=== PATIENT | female | born 1945 | race Hispanic/Latino ===

== ENCOUNTER 2017-05-28 15:11 | Inpatient (IN) | payer MEDICARE ==
[~2017-05-28 15:11] MED LIST: Heparin 10,000 UNITS/ 10 ML VIAL ONE
[2017-05-28] MEDS ORDERED: ISOVUE-370 76%-LOCM 1 ML ONE (15:44)
[2017-05-28] MEDS ORDERED: Vecuronium 10 MG VIAL ONE (15:50)
[2017-05-28] MEDS ORDERED: Sterile Water 10 ML ONE (15:51)
--- NOTE | 2017-05-28 15:52 | RAD ---
CHEST ONE VIEW: History: Altered mental status. Comparison: 09-21-16 FINDINGS: Lungs are clear. No pneumothorax or effusion. Cardiac silhouette and mediastinal contours are within normal limits. No acute osseous abnormality. IMPRESSION: No acute intrathoracic abnormality. POS: [facility]
[2017-05-28 16:01] LABS: #Eosinphils 0.1 thou/uL (0.0-0.7); #Lymphocytes 2.5 thou/uL (1.20-3.40); #Monocytes 1.3 thou/uL (0.11-0.59); %Basophils 0.2 % (0.0-1.0); %Eosinophils 0.6 % (0.0-10.0); %Lymphocytes 13.7 % (21.0-51.0); %Neutrophils 78.4 % (42.0-75.0); Hemoglobin 11.3 g/dL (12.0-16.0); Mean Corpuscular HGB CONC 30.3 g/dL (32.0-36.0); Mean Corpuscular Hemoglobin 29.4 pg (27.0-31.0); Mean Corpuscular Volume 97.1 fl (81.0-99.0); Mean Platelet Volume 10.2 fL (7.4-10.4); Platelet Count 350 thou/uL (130-400); RBC Distribution Width 13.5 % (11.5-14.5); Red Blood Cell (RBC) Count 3.85 mill/uL (4.20-5.40); White Blood Cell (WBC) Count 17.8 thou/uL (4.8-10.8)
[2017-05-28 16:07] LABS: INR-International Normal Ratio 1.6; PTT 38.5 SEC (22.9-36.1); Prothrombin Time 19.6 SEC (12.0-14.7)
[2017-05-28 16:27] LABS: Actual Bicarbonate (HCO3a) 3.2 mEq/L (22-26); Base Excess (BEa) -30.5 mEq/L (0 (+/-) 2.5); pH, Arterial 6.77 (7.35-7.45)
[2017-05-28 16:28] LABS: Analyzer IN Cardio ER; Calcium, Ionized 1.1 mmol/L (1.12-1.30); Hematocrit-ABG 36.8 % (36.0-47.0); Hemoglobin (Hb) 10.6 g/dL (12.0-16.0); Puncture Site LRA
[2017-05-28 16:28] LABS: ALT (SGPT) 7 U/L (8-55); AST (SGOT) 13 U/L (5-34); Albumin 3.5 g/dL (3.4-4.8); Alkaline Phosphatase 78 U/L (40-150); BUN (Urea Nitrogen) 65 mg/dL (9.8-20.1); Bilirubin, Total 0.3 mg/dL (0.2-1.2); CK (CPK) 107 U/L (29-168); Calc. Creatinine Clearance 0 mL/min (70-130); Calcium 8.7 mg/dL (7.8-10.44); Chloride 94 mmol/L (98-107); Estimated GFR-MDRD 3; Globulin 3.1 g/dL (2.4-3.5); Glucose 133 mg/dL (80-115); Lipase 76 U/L (8-78); Protein, Total 6.6 g/dL (6.0-8.3); Sodium 141 mmol/L (136-145)
[2017-05-28 16:32] LABS: CKMB 3.4 ng/mL (0-6.6); Troponin I 0.029 ng/mL (< 0.028)
[2017-05-28 16:39] LABS: Carbon Dioxide Less than 8 mmol/L (23-31)
--- NOTE | 2017-05-28 16:50 | RAD ---
CHEST 1 VIEW: Date: 05/28/17 HISTORY: Central line placement. COMPARISON: Earlier exam from same date. FINDINGS: Cardiac silhouette is magnified and upper limits of normal in size. Pulmonary vasculature is unremark able. Mediastinum is midline with postoperative changes. Tip of an endotracheal catheter overlies the thoracic inlet. Nasogastric tube descends to the stomach. Tip of a left subclavian central venous ca theter overlies the superior vena cava. No evidence of pneumothorax. IMPRESSION: Lines and tubes as detailed above. No evidence of complication. POS: [facility]
--- NOTE | 2017-05-28 16:59 | CT ---
CT HEAD NONCONTRAST DATE: 05/28/17 HISTORY: Altered mental status. COMPARISON: 07/04/14. FINDINGS: There is no evidence of acute intracranial hemorrhage or infarct. The ventricles appear normal in siz e, shape, and position. Encephalomalacia associated with the right side of the mid brain has progress ed slightly since the previous exam. There is no mass effect or shift of midline structures. IMPRESSION: Chronic-type findings as detailed above. No acute intracranial abnormalities are demonstrated on nonc ontrast CT head. POS: [facility]
[2017-05-28] MEDS ORDERED: Norepinephrine 4 MG/4 ML VIAL ONE ×2 (17:02→17:32)
[2017-05-28] MEDS ORDERED: Sodium Bicarb 50 MEQ/50 ML Abboject 8.4% SYRINGE ONE ×3 (17:19→22:00)
--- NOTE | 2017-05-28 17:19 | PDOC.FPRHP ---
- History of Present Illness Chief Complaint: Slurred Speech and Weakness History of Present Illness: 71 yo female presents with slurred speech and weakness since 1 PM today. She is intubated at the time of this interview and the history is taken from her family members and the EMS staff. Her sister and son state that she was normal yesterday. She had 3 days of n/v/d and abdominal pain. Her sister stated that she was going to take her to her PCP for her symptoms, but then she "went down" at home like she fainted. At that time her sister called EMS and she was brought to the ED. ED Course: 2L NS bolus Levaquin Zosyn Vancomycin Levophed drip Intubated - Allergies/Adverse Reactions Allergies Allergy/AdvReac Type Severity Reaction Status Date / Time No Known Drug Allergies Allergy Verified 07/05/14 02:56 - Home Medications Medication Instructions Recorded Confirmed Type Amlodipine [Norvasc] 10 mg PO DAILY 05/28/17 05/28/17 History Aspirin [Ecotrin Low Strength] 05/28/17 History Atorvastatin Calcium 80 mg PO DAILY 05/28/17 05/28/17 History Gabapentin 300 mg PO 05/28/17 History Gemfibrozil [Lopid] 600 mg PO BIDAC 05/28/17 05/28/17 History Insulin Degludec [Tresiba 60 unit SQ 05/28/17 History Flextouch U-100] Levothyroxine [Synthroid] 150 mcg PO DAILY 05/28/17 05/28/17 History Lisinopril/Hydrochlorothiazide 05/28/17 History [Lisinopril-Hctz 20-25 mg Tab] Metoprolol Succinate [Toprol XL] 05/28/17 History hydrALAZINE HCl 100 mg PO TID 05/28/17 05/28/17 History metFORMIN HCl [Metformin HCl] 1,000 mg PO BID 05/28/17 05/28/17 History - History PMHx: DM2, HTN, CAD, CVA in 2013 with persistent R sided deficits, Hypothyroid, HLD, Hospitalized with Sepsis one year ago. PSHx: CABG 2001, Stent 2009 FHx: Non Contributory Social: Non smoker, No alcohol or drug use - Review of Systems ROS unobtainable: due to endotracheal tube Gastrointestinal: reports: nausea, vomiting, diarrhea, abdominal pain Neurological: reports: weakness - Vital signs BP: [85/44] HR: [72] RR: [12] Tmax: [90.7] Pox: [100]% on [Ventilator] Wt: [ 73 kg] - Physical Exam -Constitutional: Intubated, Sedated. -HEENT: Pupils sluggish light reactive. No withdrawal to pain or noxious stimuli. Neck: trachea midline Heart: RRR, normal S1/S2 Lungs: CTAB, no wheezing -Lungs: Mechanical Ventilation Abdomen: soft, bowel sounds present, no masses/distention -Neurological: Intubated Heme/Lymphatic: no purpura, no petechia FMR H&P: Results - Labs Result Diagrams: 05/28/17 15:56 05/28/17 17:28 Lab results: WBC 17.8 thou/uL (4.8-10.8) H 05/28/17 15:56 Hgb 11.3 g/dL (12.0-16.0) L 05/28/17 15:56 Hct 37.4 % (36.0-47.0) 05/28/17 15:56 MCV 97.1 fl (81.0-99.0) 05/28/17 15:56 Plt Count 350 thou/uL (130-400) 05/28/17 15:56 Neutrophils % 78.4 % (42.0-75.0) H 05/28/17 15:56 ABG pH 6.77 (7.35-7.45) L* 05/28/17 16:00 ABG pCO2 22.0 mmHg (35.0-45.0) L* 05/28/17 16:00 ABG pO2 307.0 mmHg (80.0-100.0) H 05/28/17 16:00 Sodium 141 mmol/L (136-145) 05/28/17 15:52 Potassium 4.0 mmol/L (3.5-5.1) 05/28/17 15:52 Chloride 94 mmol/L (98-107) L 05/28/17 15:52 Carbon Dioxide Less than 8 mmol/L (23-31) L* 05/28/17 15:52 BUN 65 mg/dL (9.8-20.1) H 05/28/17 15:52 Creatinine 11.32 mg/dL (0.6-1.1) H 05/28/17 15:52 Glucose 133 mg/dL (80-115) H 05/28/17 15:52 Lactic Acid 25.9 mmol/L (0.5-2.2) H* 05/28/17 15:56 Calcium 8.7 mg/dL (7.8-10.44) 05/28/17 15:52 Total Bilirubin 0.3 mg/dL (0.2-1.2) 05/28/17 15:52 AST 13 U/L (5-34) 05/28/17 15:52 ALT 7 U/L (8-55) L 05/28/17 15:52 Alkaline Phosphatase 78 U/L (40-150) 05/28/17 15:52 Creatine Kinase 107 U/L (29-168) 05/28/17 15:52 CK-MB (CK-2) 3.4 ng/mL (0-6.6) 05/28/17 15:56 B-Natriuretic Peptide 344.1 pg/mL (0-100) H 05/28/17 15:51 Serum Total Protein 6.6 g/dL (6.0-8.3) 05/28/17 15:52 Albumin 3.5 g/dL (3.4-4.8) 05/28/17 15:52 Lipase 76 U/L (8-78) 05/28/17 15:52 FMR H&P: A/P - Problem List (1) Septic shock Current Visit: Yes Status: Acute Code(s): A41.9 - SEPSIS, UNSPECIFIED ORGANISM; R65.21 - SEVERE SEPSIS WITH SEPTIC SHOCK (2) Acute respiratory failure with hypoxia Current Visit: Yes Status: Acute Code(s): J96.01 - ACUTE RESPIRATORY FAILURE WITH HYPOXIA (3) Acute renal failure Current Visit: Yes Status: Acute (4) Lactic acidosis Current Visit: Yes Status: Acute Code(s): E87.2 - ACIDOSIS (5) DM2 (diabetes mellitus, type 2) Current Visit: Yes Status: Acute (6) Hypothyroid Current Visit: Yes Status: Acute Code(s): E03.9 - HYPOTHYROIDISM, UNSPECIFIED (7) History of cerebrovascular accident (CVA) with residual deficit Current Visit: Yes Status: Acute Code(s): I69.30 - UNSPECIFIED SEQUELAE OF CEREBRAL INFARCTION (8) HLD (hyperlipidemia) Current Visit: Yes Status: Acute Code(s): E78.5 - HYPERLIPIDEMIA, UNSPECIFIED (9) HTN (hypertension) Current Visit: Yes Status: Acute Code(s): I10 - ESSENTIAL (PRIMARY) HYPERTENSION (10) CAD (coronary artery disease) Current Visit: Yes Status: Acute Code(s): I25.10 - ATHSCL HEART DISEASE OF [place] CORONARY ARTERY W/O ANG PCTRS - Plan 1. Septic Shock - Currently intubated and on Levophed drip for pressure support - Vancomycin 05/28, Zosyn 05/28, Levaquin 05/28 - s/p 2L NS bolus - IVF - Blood, Urine cultures pending - Pulmonology consulted, appreciate recs 2. Acute Hypoxic Respiratory - Currently intubated and on mechanical ventilation 3. Acute Renal Failure - Nephrology consulted, appreciate recs - Cr 11.32 on admission 4. Lactic Acidosis - Currently 25.9 - Repeat ABGs - IVF 5. DM2 - Accuchecks 6. Hypothyroidism - Hold home meds 7. HTN - Hold home meds 8. HLD - Hold home meds 9. Hx CVA with left hemiparesis residual - CT head negative - MRI pending 10. CAD - CABG 2001 - Stent 2009 - Elevated troponins will trend CODE STATUS: FULL CODE Disposition: Poor. Family has been counseled. Will admit to ICU and continue aggressive treatment. FMR H&P: Upper Level - Pertinent history 71yo HF with PMHx of CVA w/ LT sided residual symptoms (2013), CAD s/p CABG ( 2001), CKD3, T2DM and HTN who was found down by sister around 2pm. She was last seen normal around 5pm last night by brother. Sister reports that today a little after 1pm she talked with her on the phone and had slurred speech at that time. Reportedly called her PCPs office to make an appt that afternoon due to symptoms and told her to go to the ED. Sister found her passed out on the bed. She attempted to get out of bed and was not able to do. Family also reports that for the past 3d she complained of abd cramping, diarrhea and vomiting. Denies any chest pain, shortness of breath, fever, chills. Arrived via EMS and was apparently awake and talking, but decompensated quickly and intubated at that time. Of note, sister reports she was hospitalized in [place] about 1yr ago. States she had a blood infection and was in the CCU at that time. In the ED given: Vancomycin, Zoysn, Levaquin, 2L NS bolus, amp bicarb, vecuronium, fentanyl, etomidate. - Pertinent findings T 90.7 RR 20 HR 78 BP 74/41 100% on vent Gen: intubated & sedated HEENT: pupils equal round and reactive-sluggish Heart: S1 S2, RRR Lungs: CTAB Abd: soft, nt/nd/bs+ Ext: LT subclavian, RT femoral WBC 17.8 Lactate 25.9 HCO3 <8 BUN 65, Cr 11.32 6.77/22/307/3.2 CXR: no acute process CT Brain: chronic changes, encephalomalacia associated with RT sided of mid- brain that has slightly progressed - Plan Date/Time: 05/28/17 1716 1. Septic Shock: Patient was last seen normal around 5pm last night. Family reports she has had about 3d hx of vomiting, diarrhea and decreased appetite. Sister talked with her on the phone this afternoon around 1pm and had slurred/ garbled speech at that time. Presented to her house and found her down on the bed. She was awake and tried to help her get out of bed but was not successful. Called PCP at that time and instructed to present to ED immediately and thus EMS called. Unclear of etiology at this point. No identified source of infections. Possible CVA. CXR negative. CT Brain showed chronic changes and RT sided mid brain encephalomalacia that has slightly progressed. UA pending. Urine and bl cxs pending. Obtain MRI. Start ASA. Cont broad spectrum abx. Cont levophed to maintain MAP >65mmHg. Dr. Sen of Pulmonology consulted. Appreciate recs. 2. Acute Respiratory Failure: currently intubated on ventilator. Obtain ABG at 20:00. Cont ABG qAM. Pulm consulted. Appreciate recs. 3. Acute Renal Failure: Patient with CKD III at baseline. Dr. Harrison of Nephrology consulted. Appreciate recs. 4. Severe Metabolic Acidosis: Given amp of bicarb in ED. Dr. Harrison of Nephrology consulted and appreciate recs. Likely need to start on bicarb drip. 5. IDDM: A1c of 8.6% on 02/2017. Hold home metformin and insulin. 6. HTN: currently hypotensive. Hold home meds. 7. HLD: hold home meds 8. hx of CVA w/ LT sided residual deficits: CT neg. MRI pending. 9. CAD s/p CABG and stents: cont ASA 10. PPx: heparin, protonix 11. Diet: NPO 12. Code Status: Full I, Sarah Falcon, have evaluated this patient and agree with findings/ plan as outlined by communications intern resident. Pertinent changes/additions are listed here. Attending Addendum - Attending Addendum Date/Time: 05/28/171913 I personally evaluated the patient and discussed the management with Drs. Bustillos and Aneudy Falcon I agree with the History, Examination, Assessment and Plan documented above with any addition or exceptions noted below.
[2017-05-28] MEDS ORDERED: Sodium Bicarbonate 150 MEQ in Dextrose 5% in Water 1,000 ML IV SCH ×2 (17:30)
[2017-05-28] MEDS ORDERED: Norepinephrine 8 MG/250 ML BAG IVPB PRN (17:31)
--- NOTE | 2017-05-28 17:41 | PDOC.EVN ---
Event Note - Event Note Event Note: 71 yo female with PMHX diabetes and CAD(s/p CABG and PTCA), admitted in [place] 2017 with sepsis hospitalized x one week unknown source, s/p CVA 2013 right sided deficit, patient last seen normal 5pm yesterday by son, spoke with sister via telephone today at 1 pm garbled speech patient found at 2 pm by sister unable to ambulate and lying on bed semi-responsive. Patient via EMS to ER critically ill with septic shock with renal failure,acidosis Lab; Creatine 11.32 , PH 6.77 Lactate 25. Prognosis guarded/grave family made aware patient intubated non-responsive. CT head negative sepsis w/u initiated and Vancomycin , zosyn and levaquin administered on pressors (NE) and will be admitted to ICU Renal and Pulmonology consulted
[2017-05-28 17:42] LABS: Bilirubin Negative (Negative); Blood, Urine Moderate (Negative); Glucose, Urine (Dipstick) Negative (Negative); Leukocyte Moderate (Negative); Nitrite Positive (Negative); Protein, Urine (Dipstick) > or equal to 300 mg/dL (Neg-Trace); Urobilinogen 0.2 mg/dL (0.2-1.0); pH, Urine 7.5 (5.0-9.0)
[2017-05-28 17:44] LABS: Clarity Opaque (Clear)
[2017-05-28] MEDS ORDERED: Piperacillin/Tazobactam 4.5 GM in Sodium Chloride 0.9% 100 ML IVPB SCH (17:45)
[2017-05-28 17:51] LABS: Bacteria/HPF 3+ HPF (None Seen); Hyaline Casts/LPF NONE SEEN LPF (0-3 Hyaline)
[2017-05-28] MEDS ORDERED: Ondansetron HCl/PF 4 MG/2 ML Vial IVP PRN (18:12)
[2017-05-28] MEDS ORDERED: Insulin Regular 300 UNITS/3 ML VIAL SC PRN (18:12)
[2017-05-28] MEDS ORDERED: Sedation Protocol FS SCH (18:12)
[2017-05-28] MEDS ORDERED: Ventilator Sedation Protocol 1 EACH FS SCH (18:12)
[2017-05-28] MEDS ORDERED: Sodium Chloride 0.9% 1,000 ML IV SCH ×2 (18:12→23:15)
[2017-05-28] MEDS ORDERED: CCU Electrolyte Replacement 1 EACH IVPB SCH (18:12)
[2017-05-28] MEDS ORDERED: Lacri-Lube Opth Oint 3.5 GM TUBE EA EYE PRN (18:12)
[2017-05-28 18:14] LABS: BUN (Urea Nitrogen) 64 mg/dL (9.8-20.1); Calc. Creatinine Clearance 0 mL/min (70-130); Calcium 8.6 mg/dL (7.8-10.44); Chloride 95 mmol/L (98-107); Estimated GFR-MDRD 3; Glucose 125 mg/dL (80-115); Potassium 4.1 mmol/L (3.5-5.1); Sodium 141 mmol/L (136-145)
[2017-05-28 18:17] LABS: Carbon Dioxide Less than 8 mmol/L (23-31)
[2017-05-28] MEDS ORDERED: Potassium Phosphate 9 MMOL in Sodium Chloride 0.9% 100 ML IVPB PRN (18:17)
[2017-05-28] MEDS ORDERED: Magnesium Oxide 400 MG TAB PO PRN ×2 (18:17)
[2017-05-28] MEDS ORDERED: Potassium Phosphate 12 MMOL in Sodium Chloride 0.9% 250 ML 250 ML IV PRN (18:17)
[2017-05-28] MEDS ORDERED: CCU ELECTROLYTE REPLACEMENT PROTOCOL FS PRN (18:17)
[2017-05-28] MEDS ORDERED: Potassium Phosphate 15 MMOL in Sodium Chloride 0.9% 250 ML 250 ML IV PRN (18:17)
[2017-05-28] MEDS ORDERED: Magnesium 2 GM/NS 0.9% 100 ML 2 GM in Premix Bag 1 BAG IVPB PRN (18:17)
[2017-05-28] MEDS ORDERED: Potassium Chloride 40 MEQ in Premix Bag 1 BAG IVPB PRN (18:17)
[2017-05-28] MEDS ORDERED: Potassium Chloride 20 MEQ TAB PO PRN (18:17)
[2017-05-28] MEDS ORDERED: Potassium Chloride 40 MEQ in Sodium Chloride 0.9% 250 ML 250 ML IVPB PRN (18:17)
[2017-05-28] MEDS ORDERED: Morphine 2 MG/ML SYRINGE SLOW IVP PRN (18:18)
[2017-05-28] MEDS ORDERED: DISCONTINUE PREVIOUS NARCOTIC PAIN MEDICATIONS AND BENZODIAZEPINES FS SCH (18:18)
[2017-05-28] MEDS ORDERED: Propofol 1,000 MG/100 ML VIAL IV PRN (18:18)
--- NOTE | 2017-05-28 18:38 | CON ---
DATE OF CONSULTATION: 05/28/2017 REASON FOR CONSULTATION: Acidosis and elevated creatinine. HISTORY OF PRESENT ILLNESS: A 71-year-old female who is currently intubated and history was given by the patient who presented to the hospital with a 1 week history of nausea, vomiting, diarrhea, and n ot feeling good. The patient was hypotensive and septic shock and had bicarbonate of less than 3 and creatinine of 11. Her baseline creatinine was 1. The patient can give no further history. The pat ient was resuscitated with IV fluids and her blood pressure. The patient had a lactic acid level of 25.9. PAST MEDICAL HISTORY: Significant for hypertension, diabetes mellitus, anemia, CVA, hypothyroidism, sepsis, CABG, stent placement. SOCIAL HISTORY: No alcohol. FAMILY HISTORY: Negative for ESRD. REVIEW OF SYSTEMS: Unobtainable. HOME MEDICATIONS: List reviewed. The patient was on some sort of steroids in the past. PHYSICAL EXAMINATION: GENERAL: Patient is resting. VITAL SIGNS: Afebrile, pulse 70, breathing 16, blood pressure 85/44. GENERAL APPEARANCE AND MENTAL STATUS: Fair. HEAD/NECK: Normocephalic. Atraumatic. EYES: EOMI. No deformity. EARS: Clear. No ulcers. NOSE: Intact. No lesions. MOUTH: Clear. No discharge. THROAT: Clear. No exudate. LUNGS: Clear. No crackles. CARDIAC: S1, S2. No rub. ABDOMEN: Benign. BS+. GENITALIA/RECTUM: Monroe present. BACK/EXTREMITIES: Edema 0+ Ulcer- NEUROLOGIC: The patient is resting. SKIN: Rash- Bruise- LYMPHATICS: Edema- Ulcer- LABORATORY DATA: Bicarbonate 3, creatinine 11. ASSESSMENT AND RECOMMENDATIONS: 1. Acute kidney injury with chronic kidney disease with severe lactic acidosis. We will plan urgent hemodialysis. Risks versus benefits were discussed and the family agreed. 2. Metabolic acidosis, plan dialysis, metformin-induced lactic acidosis versus lactic acidosis becau se of other causes. I would recommend CT of the abdomen and pelvis and surgical consultation. 3. Anemia, stable medically. 4. Hypotension, sepsis. Management per primary team. Overall, prognosis is extremely poor. This was discussed with the family.
[2017-05-28 20:41] LABS: CKMB 4.2 ng/mL (0-6.6); Troponin I 0.073 ng/mL (< 0.028)
[2017-05-28 20:46] LABS: HBSAB Concentration 0.25 mIU/mL; HBSAg Index 0.16 S/CO (0-0.99); Hep B Core Total Ab Non-Reactive (NonReactive); Hep B Core Total Index 0.07 S/CO (0-0.79); Hep B Surf AB Non-Reactive (NonReactive); Hep B Surf Ag Non-Reactive S/CO (NonReactive); Hep C IgG Ab Non-Reactive (NonReactive); Hep C Index 0.15 S/CO (0-0.79)
--- NOTE | 2017-05-28 20:55 | CT ---
CT ABDOMEN AND PELVIS WITH IV CONTRAST: Technique: Multiple axial tomograms were obtained through the abdomen and pelvis with IV enhancement. Indications: Mental status change. Abdominal pain. Assess for ischemic bowel. FINDINGS: Lung base is clear. There is a 1.4 cm cyst in the mid right liver. The gallbladder is mildly distende d. Gallstones may not be apparent by CT. There is some subtle density dependently in the gallbladder which could represent tiny stones or gravel. Recommend correlation with gallbladder ultrasound. Mild prominence of intra and extrahepatic biliary ducts. Pancreas unremarkable. The spleen is small. An NG tube is place. The stomach is mildly distended. Small bowel loops appear normal caliber. No evidence of small bowel wall thickening. No evidence of i schemic small bowel. Evaluation of the colon reveals nondistention of the entire colon. This makes evaluation of the colon wall suboptimal. I cannot exclude mural thickening in the right colon. There appears to be some mild mural edema within the right colon, even considering the nondistended state of the right colon. Ther e could possibly be some mild mural thickening at the ileocecal junction as well. Scattered diverticu la involving the entire colon with several diverticula seen in the right colon. Images through the pelvis show a Monroe catheter in place in the contracted urinary bladder. Patient a ppears to be post hysterectomy. Aorta shows calcification but normal caliber. The superior mesenteric artery shows calcification at its origin but the superior mesenteric artery trunk is well opacified with no evidence of focal occlusion or stenosis. IMPRESSION: 1. The entire colon is nondistended and poorly evaluated. There is suggestion of mural thickening inv olving the right colon and at the ileocecal junction. This could represent colitis or ischemic change . There are scattered diverticula seen throughout the colon without definite CT evidence of diverticu litis. 2. Gallbladder is mildly distended and there is a density in the neck of the gallbladder which could potentially represent tiny stones or gravel. There is mild prominence of intra and extrahepatic bilia ry ducts. Suggest correlation with gallbladder ultrasound to further evaluate for gallstones. 3. Small hepatic cyst. 4. Very small spleen. POS: [facility]
[2017-05-28] MEDS ORDERED: Vancomycin HCl 1 GM in Sodium Chloride 0.9% 250 ML 250 ML IVPB SCH (21:00)
[2017-05-28 21:02] LABS: Vancomycin, Trough Less than 1.1 ug/mL
[2017-05-28 21:06] LABS: Actual Bicarbonate (HCO3a) 4.2 mEq/L (22-26); CO2 Tension 21.4 mmHg (35.0-45.0); Hematocrit-ABG 32.7 % (36.0-47.0); Hemoglobin (Hb) 9.7 g/dL (12.0-16.0); O2 Tension (PaO2) 138.8 mmHg (80.0-100.0); pH, Arterial 6.91 (7.35-7.45)
[2017-05-28 21:07] LABS: Calcium, Ionized 0.9 mmol/L (1.12-1.30); Puncture Site LBR
[2017-05-28] MEDS ORDERED: Vasopressin 40 UNIT, Admixture Fee 1 EACH in Sodium Chloride 0.9% 100 ML IV PRN (21:20)
[2017-05-28] MEDS ORDERED: Sodium Bicarb 50 MEQ/50 ML Abboject 8.4% SYRINGE IVP SCH (21:30)
[2017-05-28] MEDS ORDERED: Albumin 25% 25 GM/100 ML BOT IVPB SCH (21:30)
[2017-05-28] MEDS: Heparin 5,000 UNITS/ML VIAL SC SCH (21:37)
[2017-05-28] MEDS ORDERED: VANCOMYCIN/ ZOSYN IVPB PRN (21:55)
[2017-05-28] MEDS ORDERED: Vancomycin HCl 750 MG in Sodium Chloride 0.9% 250 ML 250 ML IVPB PRN (21:59)
[2017-05-28] MEDS ORDERED: Vancomycin HCl 1 GM in Premix Bag 1 BAG IVPB PRN (21:59)
[2017-05-28] MEDS ORDERED: Vancomycin HCl 1.25 GM in Sodium Chloride 0.9% 250 ML 250 ML IVPB PRN (21:59)
[2017-05-28] MEDS ORDERED: Calcium Chloride 1 GM/10 ML Abboject SYRINGE ONE (22:00)
[2017-05-28] MEDS ORDERED: Morphine 4 MG/ML VIAL SLOW IVP PRN (22:00)
[2017-05-28] MEDS ORDERED: Vancomycin HCl 500 MG in Sodium Chloride 0.9% 100 ML IVPB PRN (22:00)
[2017-05-28] MEDS ORDERED: EPINEPHrine 1 MG/10 ML Abboject SYRINGE ONE (22:00)
[2017-05-28] MEDS ORDERED: HOLD VANCOMYCIN FOR LEVEL >20 FS SCH (22:00)
[2017-05-28] MEDS ORDERED: Magnesium 5 GM/10 ML Abboject SYRINGE ONE (22:00)
[2017-05-28] MEDS ORDERED: EPINEPHrine 1 MG, Admixture Fee 1 EACH in Dextrose 5% in Water 250 ML IVPB SCH ×3 (22:30)
--- NOTE | 2017-05-28 22:51 | PDOC.EVN ---
Event Note - Event Note Event Note: Code Michael called as patient went into asystole. CPR was started immediately. 1 round of Epinephrine given and one dose of bicarbonate given and her pulse returned. Labs were drawn. ABG drawn showed improvement in the pH as well as increase in Bicarb. Dr. Sen and Dr. Harrison were informed of change. Dialysis was just getting ready to be started, however was not due to the code. S/p code, dialysis will be started. <Brina Nair - Last Filed: 05/28/17 22:48> - Event Note Event Note: I was present for the Code Michael. Severely ill 71 yo female s/p Asystole cardiac arrest which improved with brief period of CPR, epi x1 and bicarb x1. Patient with very poor prognosis. Patient's family at bedside during code. Labs pending. ABG reviewed. pH and bicarb with mild improvement from admission on bicarb drip. Patient remains intubated and on vent. Fluid bolus currently in process. Will give 1 g CaCL. Specialist notified. Awaiting emergent HD. Possible ischemic colitis on CT scan. Gen surg and Cards to see. Mary <Stefany Fritz - Last Filed: 05/28/17 22:57>
[2017-05-28 23:06] LABS: Anion Gap 53 mmol/L (10-20); BUN (Urea Nitrogen) 67 mg/dL (9.8-20.1); Calc. Creatinine Clearance 6 mL/min (70-130); Calcium 9.4 mg/dL (7.8-10.44); Chloride 91 mmol/L (98-107); Estimated GFR-MDRD 4; Glucose 393 mg/dL (80-115); Sodium 148 mmol/L (136-145)
[2017-05-28] MEDS: Sodium Bicarbonate 150 MEQ in Dextrose 5% in Water 1,000 ML IV SCH ×2 (23:06)
[2017-05-28 23:09] LABS: Carbon Dioxide 8 mmol/L (23-31)
[2017-05-28] MEDS ORDERED: Dextrose 50% Abboject 50 ML SYRINGE ONE (23:11)
[2017-05-28 23:16] LABS: #Eosinphils 0.1 thou/uL (0.0-0.7); #Lymphocytes 1.7 thou/uL (1.20-3.40); #Monocytes 1.2 thou/uL (0.11-0.59); #Neutrophils 12.4 thou/uL (1.40-6.50); %Basophils 0.3 % (0.0-1.0); %Eosinophils 0.4 % (0.0-10.0); %Lymphocytes 11.2 % (21.0-51.0); %Monocytes 7.9 % (0.0-10.0); %Neutrophils 80.1 % (42.0-75.0); Hemoglobin 9.3 g/dL (12.0-16.0); Mean Corpuscular HGB CONC 31.3 g/dL (32.0-36.0); Mean Corpuscular Hemoglobin 30.2 pg (27.0-31.0); Mean Corpuscular Volume 96.3 fl (81.0-99.0); Mean Platelet Volume 10.4 fL (7.4-10.4); Platelet Count 271 thou/uL (130-400); RBC Distribution Width 13.4 % (11.5-14.5); Red Blood Cell (RBC) Count 3.07 mill/uL (4.20-5.40); White Blood Cell (WBC) Count 15.4 thou/uL (4.8-10.8)
[2017-05-28 23:18] LABS: INR-International Normal Ratio 1.6; PTT 39.8 SEC (22.9-36.1); Prothrombin Time 19.3 SEC (12.0-14.7)
--- NOTE | 2017-05-28 23:19 | OP ---
PREOPERATIVE DIAGNOSES: Acute renal failure, sepsis, respiratory failure, ventilator dependent. POSTOPERATIVE DIAGNOSES: Acute renal failure, sepsis, respiratory failure, ventilator dependent. PROCEDURE: Placement of right femoral vein hemodialysis catheter. SURGEON: Raul Hatfield M.D. ANESTHESIA: 1% Xylocaine. NOTE: The patient presented to emergency room and had a quick respiratory decline requiring intubati on and is in acute renal failure, in need of dialysis catheter. She already has a left subclavian ve in central line and bilateral antecubital IVs which I have asked nursing to remove. PROCEDURE IN DETAIL: The patient's bedside, right groin was clipped of hair, prepared with ChloraPre p, draped in routine fashion. Local anesthetic infiltrated into skin and subcutaneous tissue. Troca r catheter cannulated the femoral vein. J-wire threaded, trocar catheter removed. Skin incised and enlarged sharply. Dilators placed and removed. Distal port of the dual lumen dialysis catheter plac ed with J wire in the femoral vein. J wire removed. Catheter secured with 2 interrupted sutures of 3-0 nylon. Each port aspirated blood and flushed with heparin saline solution. Sterile dressing german lied with [facility].
[2017-05-28 23:25] LABS: Lactic Acid 26.4 mmol/L (0.5-2.2)
[2017-05-28 23:31] LABS: CKMB 5.5 ng/mL (0-6.6)
[2017-05-28 23:32] LABS: ALT (SGPT) 67 U/L (8-55); AST (SGOT) 158 U/L (5-34); Albumin 2.7 g/dL (3.4-4.8); Alkaline Phosphatase 76 U/L (40-150); BUN (Urea Nitrogen) 66 mg/dL (9.8-20.1); Bilirubin, Total 0.6 mg/dL (0.2-1.2); Calc. Creatinine Clearance 6 mL/min (70-130); Calcium 6.6 mg/dL (7.8-10.44); Carbon Dioxide Less than 8 mmol/L (23-31); Chloride 90 mmol/L (98-107); Estimated GFR-MDRD 4; Glucose 387 mg/dL (80-115); Magnesium 1.8 mg/dL (1.6-2.6); Phosphorus 12.9 mg/dL (2.3-4.7); Potassium 3.9 mmol/L (3.5-5.1); Protein, Total 4.7 g/dL (6.0-8.3); Sodium 146 mmol/L (136-145)
--- NOTE | 2017-05-28 23:47 | PDOC.EVN ---
Event Note - Event Note Event Note: A second Code Blue called for asystole. CPR started immediately. Hypotensive and epi drip started. Patient had just recieved a dose of calcium chloride as calcium was low. 1 amp of epi and 1 amp of bicarb was given and patient's heart rate returned to Sinus rhythm. A family discussion was held with 2 daughters and 2 sons and multiple extended family members, and it was decided that patient would want to be DNR. Code status changed to DNR. <Brina Nair - Last Filed: 05/28/17 23:43> - Event Note Event Note: Asystole. Resolved with CPR, magnesium, calcium, bicarb and epi. Family discussion. Changed code status to DNR. This was 3rd Asystole code of the night. HD to be started ZACH. Mary <Stefany Fritz - Last Filed: 06/04/17 17:05>
[2017-05-29 01:52] LABS: Base Excess (BEa) -20.7 mEq/L (0 (+/-) 2.5); CO2 Tension 22.3 mmHg (35.0-45.0); O2 Tension (PaO2) 159.6 mmHg (80.0-100.0); pH, Arterial 7.12 (7.35-7.45)
[2017-05-29 01:53] LABS: Calcium, Ionized 0.8 mmol/L (1.12-1.30); Hematocrit-ABG 45.8 % (36.0-47.0); Hemoglobin (Hb) 9.4 g/dL (12.0-16.0)
[2017-05-29 01:54] LABS: ALV-art Gradient 26.425 (0-20); Puncture Site RRA
[2017-05-29] MEDS: Sodium Bicarbonate 150 MEQ in Dextrose 5% in Water 1,000 ML IV SCH ×2 (03:16)
[2017-05-29] MEDS: EPINEPHrine 2 MG, Admixture Fee 1 EACH in Dextrose 5% in Water 250 ML IVPB SCH ×6 (03:17→05:07)
[2017-05-29] MEDS ORDERED: Sodium Chloride 0.9% 1,000 ML IV SCH (05:00)
[2017-05-29] MEDS ORDERED: Dextrose 5% in Water 1,000 ML IV PRN (05:38)
[2017-05-29] MEDS ORDERED: Dextrose 50% Abboject 50 ML SYRINGE SLOW IVP PRN (05:38)
[2017-05-29] MEDS: Insulin Regular 300 UNITS/3 ML VIAL SC PRN (05:49)
[2017-05-29] MEDS: Norepinephrine 8 MG/0.9% NS 250 ML IVPB SCH ×3 (05:51→13:15)
[2017-05-29 05:57] LABS: ALT (SGPT) 68 U/L (8-55); AST (SGOT) 220 U/L (5-34); Albumin 2.6 g/dL (3.4-4.8); Alkaline Phosphatase 90 U/L (40-150); BUN (Urea Nitrogen) 41 mg/dL (9.8-20.1); Bilirubin, Total 0.6 mg/dL (0.2-1.2); Calc. Creatinine Clearance 10 mL/min (70-130); Calcium 6.8 mg/dL (7.8-10.44); Carbon Dioxide Less than 8 mmol/L (23-31); Chloride 92 mmol/L (98-107); Estimated GFR-MDRD 7; Globulin 1.7 g/dL (2.4-3.5); Glucose 613 mg/dL (80-115); Phosphorus 6.5 mg/dL (2.3-4.7); Potassium 3.5 mmol/L (3.5-5.1); Protein, Total 4.3 g/dL (6.0-8.3); Sodium 138 mmol/L (136-145)
[2017-05-29 05:58] LABS: CKMB 19.6 ng/mL (0-6.6); Troponin I 1.333 ng/mL (< 0.028)
[2017-05-29 06:06] LABS: Band 10 % (5-11); Lymphocytes 11 % (21-51); MDiff Complete? YES; Mean Corpuscular HGB CONC 32.1 g/dL (32.0-36.0); Mean Corpuscular Hemoglobin 30.5 pg (27.0-31.0); Mean Corpuscular Volume 95.2 fl (81.0-99.0); Mean Platelet Volume 10.2 fL (7.4-10.4); Metamyelocyte 1 % (0-0); Monocytes 8 % (0-10); Neutrophil 69 % (42-75); PLT Morphology Comment Appears Adequate; Platelet Count 214 thou/uL (130-400); RBC Distribution Width 13.8 % (11.5-14.5); Red Blood Cell (RBC) Count 2.93 mill/uL (4.20-5.40); White Blood Cell (WBC) Count 20.5 thou/uL (4.8-10.8)
[2017-05-29 06:13] LABS: Lactic Acid 20.6 mmol/L (0.5-2.2)
--- NOTE | 2017-05-29 06:43 | PDOC.EVN ---
Event Note - Event Note Event Note: Paged for critical lab values. Beta hydroxybuterate increased and patient in DKA. Will start insulin drip and modified DKA protocol, as patient is acute renal failure and required emergent dialysis. Cardiac enzymes elevated and patient with NSTEMI likely from demand ischemia and lactic acidosis. She is s/ p asystole w/ ROSC twice overnight. Will order EKG and start Heparin drip and consult cardiology. Will order CXR. <Brina Nair - Last Filed: 05/29/17 06:50> - Event Note Event Note: Now with DKA. Modified protocol started. Change D5W solutions to NaCL. NSTEMI. Cards consulted. Will start Heparin drip. ECHO pending. Monitor for other arrhymias. Likely related to sepsis, acidemia, and demand ischemia but due to co -morbidities there is a risk for thrombus. Mary <Stefany Fritz - Last Filed: 06/04/17 17:08>
[2017-05-29] MEDS ORDERED: Heparin 10,000 UNITS/ 10 ML VIAL SLOW IVP SCH ×2 (07:15→13:00)
[2017-05-29] MEDS ORDERED: Heparin 25,000 units/D5W 500 ML IVPB SCH (07:15)
--- NOTE | 2017-05-29 07:32 | RAD ---
CHEST 1 VIEW: HISTORY: Chest pain. CPR. COMPARISON: 05/28/17. FINDINGS: Cardiac silhouette remains magnified and enlarged. Pulmonary vasculature is upper limits of normal. Mediastinum is midline with postoperative changes and aortic calcifications. Lines and tubes appear unchanged in position. assistant librarian leads overlie the chest. IMPRESSION: Stable radiographic appearance of the chest. POS: [facility]
[2017-05-29 07:49] LABS: pH, Arterial 7.26 (7.35-7.45)
[2017-05-29 07:50] LABS: Actual Bicarbonate (HCO3a) 7.6 mEq/L (22-26); Base Excess (BEa) -17.5 mEq/L (0 (+/-) 2.5); CO2 Tension 17.4 mmHg (35.0-45.0); Hematocrit-ABG 30.8 % (36.0-47.0); Hemoglobin (Hb) 8.8 g/dL (12.0-16.0); O2 Tension (PaO2) 85.2 mmHg (80.0-100.0)
[2017-05-29] MEDS ORDERED: Sodium Bicarb 50 MEQ/50 ML Abboject 8.4% SYRINGE ONE (07:50)
[2017-05-29 07:51] LABS: Calcium, Ionized 0.8 mmol/L (1.12-1.30); Puncture Site L.R.
[2017-05-29] MEDS ORDERED: SODIUM BICARBONATE IV SCH (08:15)
[2017-05-29] MEDS ORDERED: SODIUM CHLORIDE IV SCH (08:15)
[2017-05-29] MEDS ORDERED: Sodium Bicarb 50 MEQ/50 ML Abboject 8.4% SYRINGE IVP SCH (08:15)
[2017-05-29] MEDS ORDERED: ADMIXTURE FEE IV SCH (08:15)
--- NOTE | 2017-05-29 08:21 | ULT ---
BILATERAL UPPER EXTREMITY VENOUS DOPPLER ULTRASOUND FOR DIALYSIS ACCESS: HISTORY: End stage renal disease. FINDINGS: RIGHT UPPER EXTREMITY: The right cephalic vein measures 2.8 mm in the proximal arm, 1.9 mm in the mid arm, 2.2 mm in the dis khadijah arm, 3.8 mm in the cubital fossa, 2.6 mm in the proximal forearm, 1.7 mm in the mid forearm, and 2 mm in the distal forearm. The right basilic vein measures 3.4 mm in the proximal arm, 1.4 mm in the mid arm, 2.7 mm in the dist al arm, 2.2 mm in the cubital fossa, 2.3 mm in the proximal forearm, 1.2 mm in the mid forearm, and 1 .1 mm in the distal forearm. The right brachial artery measures 4.4 mm, radial artery 1.9 mm, and the ulnar artery 2.7 mm. LEFT UPPER EXTREMITY: The left cephalic vein measures 4.2 mm in the proximal arm, 2.2 mm in the mid arm, 2.2 mm in the dist al arm, 2.1 mm in the cubital fossa, 1.5 mm in the proximal forearm, 1.3 mm in the mid forearm, and 1 .0 mm in the distal forearm. The left basilic vein measures 3.5 mm in the proximal arm, 1.3 mm in the mid arm, 1.5 mm in the dista l arm, 1.8 mm in the cubital fossa, 0.9 mm in the proximal forearm. The left basilic vein is not see n in the mid and distal forearm. The left brachial artery measures 4.1 mm, radial artery 2.1 mm, and the ulnar artery 2.4 mm. POS: [facility]
[2017-05-29] MEDS: fentaNYL Citrate/PF 2,000 MCG in Sodium Chloride 0.9% 60 ML IV SCH ×2 (08:35→19:57)
[2017-05-29 08:39] LABS: Vancomycin, Random 11.7 ug/mL (See Comment)
[2017-05-29 08:44] LABS: ALT (SGPT) 63 U/L (8-55); AST (SGOT) 202 U/L (5-34); Albumin 2.4 g/dL (3.4-4.8); Alkaline Phosphatase 82 U/L (40-150); Anion Gap 43 mmol/L (10-20); BUN (Urea Nitrogen) 42 mg/dL (9.8-20.1); Bilirubin, Total 0.4 mg/dL (0.2-1.2); Calc. Creatinine Clearance 10 mL/min (70-130); Calcium 6.6 mg/dL (7.8-10.44); Carbon Dioxide 10 mmol/L (23-31); Chloride 88 mmol/L (98-107); Estimated GFR-MDRD 7; Globulin 1.6 g/dL (2.4-3.5); Potassium 3.5 mmol/L (3.5-5.1); Sodium 137 mmol/L (136-145)
[2017-05-29 08:51] LABS: Glucose 664 mg/dL (80-115); Troponin I 3.096 ng/mL (< 0.028)
[2017-05-29] MEDS ORDERED: Aspirin 300 MG Suppository PR SCH (09:00)
--- NOTE | 2017-05-29 09:51 | PRG ---
DATE OF SERVICE: 05/29/2017 SUBJECTIVE: A 71-year-old female being seen for acute kidney injury. The patient remains oliguric a nd on pressors. OBJECTIVE: GENERAL: On examination, patient is resting. VITAL SIGNS: Afebrile, pulse 102, breathing 16, blood pressure 118/47. GENERAL APPEARANCE AND MENTAL STATUS: Fair. HEAD/NECK: Normocephalic. Atraumatic. EYES: EOMI. No deformity. EARS: Clear. No ulcers. NOSE: Intact. No lesions. MOUTH: Clear. No discharge. THROAT: Clear. No exudate. LUNGS: Clear. No crackles. CARDIAC: S1, S2. No rub. ABDOMEN: Benign. BS+. GENITALIA/RECTUM: Monroe absent. BACK/EXTREMITIES: Edema 0+ Ulcer- NEUROLOGIC: Patient is resting. SKIN: Rash- Bruise- LYMPHATICS: Edema- Ulcer- LABORATORY DATA: Hemoglobin 9.0, bicarbonate is 10, creatinine 6.15. ASSESSMENT AND RECOMMENDATIONS: 1. Acute kidney injury with chronic kidney disease, anuric, will plan dialysis. 2. Metabolic acidosis. Plan dialysis. 3. Hypertension, stable. 4. Anemia, stable. 5. Medication based on glomerular filtration rate are appropriate. 6. Myocardial infarction. 7. Sepsis. 8. Respiratory failure. Overall, prognosis is extremely poor. We will do dialysis to correct the acidosis. We will dialyze her with a high potassium diet.
[2017-05-29] MEDS: Piperacillin/Tazobactam 2.25 GM in Sodium Chloride 0.9% 100 ML IVPB SCH ×2 (10:05→20:21)
[2017-05-29] MEDS: Pantoprazole 40 MG VIAL IVP SCH (10:05)
[2017-05-29] MEDS: Heparin 5,000 UNITS/ML VIAL SC SCH ×2 (10:13→17:18)
--- NOTE | 2017-05-29 10:14 | PDOC.FM ---
- Subjective Subjective: 71F day 1 of ICU admitted for AMS with 3 days NVD with abd pain. She has improved since arrival. Last night, she had two episode of asystole. She had ROSC with epinephrine and bicarb each time. She had not voided. She is scheduled to get dialysis this morning. She is seen in her room, awake. - Objective MAR Reviewed: Yes Vital Signs & Weight: Vital Signs (12 hours) Temp Pulse Resp BP 05/29/17 07:30 102 H 118/47 L 05/29/17 05:00 97.1 F L 05/29/17 04:00 25 H 05/29/17 03:00 94.8 F L 05/29/17 02:09 53 L 134/41 L 05/29/17 00:00 25 H 05/28/17 23:00 95.0 F L 05/28/17 22:17 76 80/36 L Weight Weight 71.3 kg Most Recent Monitor Data Heart Rate from ECG 67 NIBP 131/43 NIBP BP-Mean 67 Respiration from ECG 25 SpO2 94 I&O: 05/28/17 05/29/17 05/30/17 06:59 06:59 06:59 Intake Total 6451 Output Total 255 Balance 6196 Result Diagrams: 05/29/17 05:30 05/29/17 08:17 <Rome Ivy - Last Filed: 05/29/17 09:08> - Objective Vital Signs & Weight: Vital Signs (12 hours) Temp Pulse Resp BP 05/29/17 11:04 90 123/47 L 05/29/17 07:30 102 H 118/47 L 05/29/17 05:00 97.1 F L 05/29/17 04:00 25 H 05/29/17 03:00 94.8 F L 05/29/17 02:09 53 L 134/41 L 05/29/17 00:00 25 H Weight Weight 71.3 kg Most Recent Monitor Data Heart Rate from ECG 67 NIBP 131/43 NIBP BP-Mean 67 Respiration from ECG 25 SpO2 94 I&O: 05/28/17 05/29/17 05/30/17 06:59 06:59 06:59 Intake Total 6451 Output Total 255 Balance 6196 Result Diagrams: 05/29/17 05:30 05/29/17 08:17 <Edwin Albrecht - Last Filed: 05/29/17 11:48> Phys Exam - Physical Examination Constitutional: NAD HEENT: moist MMs, sclera anicteric Eyes open, intubated. Neck: supple Rhonchi No obvious murmur, but difficult ascultation due to ventilator Gastrointestinal: soft, non-tender, no distention Normo to hypoactive bowel Musculoskeletal: no edema Neurological: moves all 4 limbs In restraint, 2/5 strength bilat, but follow command , gcs 10, intubated Deviation from normal: No obvious rash <LyRome M - Last Filed: 05/29/17 09:08> Dx/Plan (1) Septic shock Code(s): A41.9 - SEPSIS, UNSPECIFIED ORGANISM; R65.21 - SEVERE SEPSIS WITH SEPTIC SHOCK Status: Acute Plan: At this time, patient's shock responsive to pressor and fluid, hypothermia has resolved Consider cardiogenic shock from possible inferior WI, septic shock from possible UTI Continue fluid, pressors and abx (Levaquin, Cefepime, and Vancomycin) for septic shock. Consulted card for possible WI, echocardiogram and possible heparin drip. (2) Acute renal failure Status: Acute Plan: - Elevated Cr/Bun on coming in with only5 ml out by diego since yesterday - May be due to septic shock. - Plan is consult nephrology, who has started patient on dialysis. (3) Elevated troponin Code(s): R74.8 - ABNORMAL LEVELS OF OTHER SERUM ENZYMES Status: Acute Plan: - Possibility of inferior WI with st depression in lead V 2-4, elevated trops trending up - Risk factor of previous WI, septic shock and coded twice this mornign - Plan, consult Dr. Vu with Cardiology, considering heparin drip. Holding aspirin at this time as patient is on heparin. - Will obtain cardiac echo. (4) DKA (diabetic ketoacidoses) Code(s): E13.10 - OTH DIABETES MELLITUS WITH KETOACIDOSIS WITHOUT COMA Status : Acute Plan: Patient DKA diagnosis based on acidosis, elevated beta-hydroxy level and elevated glucose. - Currently getting insulin drip at 6.4 u/hr with aggressive ssi. Holding D5 until BS under 100. (5) Acute respiratory failure with hypoxia Code(s): J96.01 - ACUTE RESPIRATORY FAILURE WITH HYPOXIA Status: Acute Plan: Patient was primarily intubated for airway protection. ABG done did find acidosis on coming in Patient is currently on vent and tolerating it well, not taking spontaneous breath. CXR found pulmonary prominence, but no acute processes Plan is to continue with vent, with weaning based on patient taking more spontaneous breath and improving mentation. Protonix for GI prophylaxis. (6) HLD (hyperlipidemia) Code(s): E78.5 - HYPERLIPIDEMIA, UNSPECIFIED Status: Acute Plan: Known chronic issue, holding home med at this time due to patient's acute sepsis. (7) HTN (hypertension) Code(s): I10 - ESSENTIAL (PRIMARY) HYPERTENSION Status: Acute Plan: Chronic issue, holding home medication due to septic shock At this time, patient is requiring vasopressin at 0.4 mcg/min. Her BP is responsive to pressor. (8) Lactic acidosis Code(s): E87.2 - ACIDOSIS Status: Acute Plan: Lactic acidosis is trending down. Continue fluid resuscitation and checking ph on ABG. (9) Urinary tract infection Status: Acute Plan: UA shows WBC, Nitrite, and LE. Currently on broad spectrum abx. Will narrow culture as shock improve and culture returns. <Rome Ivy - Last Filed: 05/29/17 09:08> Attending Addendum - Attending Addendum Date/Time: 05/29/17 5144 I personally evaluated the patient and discussed the management with Dr. Ivy. I agree with and repeated the History, Examination, Assessment and Plan documented above with any addition or exceptions noted below. Pt intubated and sedated, therefore unable to complete a ROS. A/P: 71 y/o with Septic shock likely 2/2 UTI with acute respiratory failure, acute renal failure , NSTEMI with TnI of 3, pronounced lactic acidosis, s/p arrest x 3 -continue pressors to MAP >65 -Lung protective strategy -await cultures, continue antibiotics -trend lactate, low suspicision for intraabdominal pathology currently -discuss NSTEMI with cardiology, hold heparin gtt pending their evaluation -hold feeds pending stability -DVT/gi ppx DKA/hyperglycemia -likely 2/2 D5 + epi -insulin gtt -hold D5 -BMP q2h guarded prognosis <Edwin Albrecht - Last Filed: 05/29/17 11:48>
--- NOTE | 2017-05-29 11:13 | CON ---
DATE OF CONSULTATION: 05/29/2017 Karine Hansen is a 71-year-old female who consulted on 05/28/2017 about 4:30 by the ER physician, Dr. Gipson. The patient came in with mental status change, agonal respirations and was intubated. She deal s severe metabolic acidosis, probably on the basis of what appeared to be acute renal failure. She was started on pressors. Renal was consulted for emergency dialysis. Last night, she had evidence once again of asystolic evidence including initiation epinephrine at thi s time. She was given epinephrine on 2 occasions for asystole. This morning she is on the vent without any sedation. There is information is that she has longstand ing history of diabetes. She is presently now getting broad-spectrum antibiotics. PAST MEDICAL HISTORY: Her history from previous records includes diabetes, hypertension, heart disea se, hypothyroidism and hyperlipidemia. PAST SURGICAL HISTORY: Included previous cardiac stents, colonoscopy, bypass in 2001. Previous UTI. Previous renal failure, but pretty much resolved. MEDICATIONS: From home, otherwise includes amlodipine 10, hydralazine 100, Synthroid 150 daily, Lop id 600, atorvastatin, metformin 1000 b.i.d., metoprolol, lisinopril, gabapentin known. ALLERGIES: None. REVIEW OF SYSTEMS: Unobtainable. No sedation. PHYSICAL EXAMINATION: VITAL SIGNS: Pulse 102, blood pressure 118/47, sats 90%, respiration 24. CHEST: Chest revealed decreased breath sounds, minimal rhonchi. CARDIAC: Normal S1, S2. ABDOMEN: Soft. No masses. LABORATORY: White count 10,000, H&H 9 and 27, platelet count 214, sodium 135, glucose 613, BUN 41, c reatinine is 6. AST is 220, ALT 60. Troponin 1.3. EKG is abnormal, shows ST segment depression in the lateral leads V2, V4. Troponin is elevated. Influenza titer is negative. X-ray shows cephalization. IMPRESSION: 1. Status post shock. 2. Severe metabolic acidosis. 3. Acute renal failure. 4. Diabetes. 5. Heart disease. 6. Asystole with multiple epinephrine. Of note, medicine right now include vasopressin, Levophed, epinephrine. Broad-spectrum antibiotics i nclude Levaquin, vancomycin. PLAN: The plan at this stage is to continue present antibiotics. Continue pressors. Await blood ga ses. Probably going to need dialysis again. Restart home medicine, particularly the Synthroid. Oth cristian, await input from echocardiogram. May start nutrition tomorrow if she appears to be relativel y stable. All of her medicine was adjusted for renal failure. Please note this is an ongoing critical care since last night and this morning. 50 minutes.
[2017-05-29] MEDS: Lorazepam 2 MG/ML VIAL SLOW IVP PRN (11:44)
[2017-05-29 12:07] LABS: CKMB 59.7 ng/mL (0-6.6); Troponin I 9.165 ng/mL (< 0.028)
[2017-05-29 12:09] LABS: ALT (SGPT) 75 U/L (8-55); AST (SGOT) 223 U/L (5-34); Albumin 2.9 g/dL (3.4-4.8); Alkaline Phosphatase 96 U/L (40-150); Anion Gap 27 mmol/L (10-20); BUN (Urea Nitrogen) 26 mg/dL (9.8-20.1); Bilirubin, Total 0.3 mg/dL (0.2-1.2); Calc. Creatinine Clearance 15 mL/min (70-130); Calcium 7.4 mg/dL (7.8-10.44); Carbon Dioxide 20 mmol/L (23-31); Chloride 94 mmol/L (98-107); Estimated GFR-MDRD 11; Glucose 293 mg/dL (80-115); Potassium 3.4 mmol/L (3.5-5.1); Protein, Total 4.9 g/dL (6.0-8.3); Sodium 138 mmol/L (136-145)
[2017-05-29] MEDS: Heparin 25,000 units/D5W 500 ML IV SCH (13:14)
--- NOTE | 2017-05-29 13:27 | CON ---
DATE OF CONSULTATION: 05/29/2017 REASON FOR CONSULTATION: Non-STEMI. HISTORY OF PRESENT ILLNESS: Ms. Hansen is a very pleasant 71-year-old female who comes to the hospital for slurred speech and weakness overall. She called EMS and they arrived, she was found to have a sugar in the 50s and she was given a bolus of D50 and her sugars went up; however, she became unresponsive and had to protect her airway. She was brought into the ER, intubated. She was found to have elevated creatinine and it appeared that she has been having diarrhea, but the week before, she came to the hospital. She was admitted and placed in the ICU. Emergent hemodialysis started yesterday evening and actually had 2 CODE BLUE's last night. Her initial troponin before the CODE BLUE was indeterminate range and appeared to be just demand ischemia. After the second CODE BLUE, her troponin has since bumped up to 9 this morning. She is intubated and is unable to give any history. PAST MEDICAL HISTORY: 1. Type 2 diabetes. 2. Hypertension. 3. Coronary artery disease in the past. 4. Cerebrovascular accident in 2013 with present right-sided deficits. 5. Hypothyroidism. 6. Hyperlipidemia. PAST SURGICAL HISTORY: 1. Coronary artery bypass grafting in 2001. 2. Stent placement in 2009. FAMILY HISTORY: Noncontributory. SOCIAL HISTORY: No alcohol, tobacco or drugs. REVIEW OF SYSTEMS: Unobtainable as the patient is intubated. PHYSICAL EXAMINATION: VITAL SIGNS: Temperature 97.1, but it was as low as 94.8, heart rate of 98, respiratory rate 18, satting 99% on 50% FiO2. GENERAL: Sedated and intubated. LUNGS: Clear. CARDIOVASCULAR: S1, S2, no S3, S4. There is a grade 2/6 systolic murmur right upper sternal border. ABDOMEN: Soft, positive bowel sounds. EXTREMITIES: Trace edema. SKIN: Warm and dry. NECK: Supple, no JVD. LABORATORY WORK: Reviewed on admission, white count of 17 up to 20, hemoglobin of 11, hematocrit 37, platelet count of 350. Coags were reviewed. ABG, pH was 6.7 on arrival, pCO2 of 22. Chemistry on admission, her sodium was 141, potassium was 4.0, chloride was 94, carbon dioxide was less than 8, BUN of 65, creatinine is 11, GFR was 3. Glucose was 131. Lactic acid was 25. AST, ALT, alkaline phosphatase, CK, CK-MB were normal. Troponin is 0.029. BNP was 344. Cortisol was 16. UA showed positive nitrites. Beta hydroxybutyrate was high at 7.3. Hepatitis B surface antibody index was normal, but surface antigen and core antibody were nonreactive, hepatitis C antibody was nonreactive. Her troponin since her second code has gone from 1.3-3.0 and then 9.1. EKGs were reviewed. She was in atrial fibrillation at one point with normal ventricular rate. She is currently in sinus rhythm with some ST changes concerning for ischemia. ASSESSMENT AND PLAN: 1. Non-ST elevation myocardial infarction: Most likely demand ischemia from her 2 episodes of cardiac arrest. She had pulseless electrical activity and asystole in both times. We will recommend her getting on a heparin drip as just a low flow in hypertension, could make her have blood clots in any of those vein grafts. We will start this with an above, she has received subcu doses of heparin earlier today. She is also already on hemodialysis and she gets on heparin on hemodialysis. We will adjust the drip according to PTTs. 2. Status post cardiac arrest: Asystole. Echocardiogram to be done. 3. Acute kidney injury requiring emergent hemodialysis. 4. Acute hypoxic respiratory insufficiency. 5. Possible urinary tract infection. 6. Possible colitis on CT abdomen. Thank you for letting us to participate in the care of your patient. We will continue to follow. The patient is severely ill and would not be unexpected. I agree with family, decision of making her DNR/DNI at this point. We will follow. THERESE
[2017-05-29 14:35] LABS: ALT (SGPT) 77 U/L (8-55); AST (SGOT) 214 U/L (5-34); Albumin 3.1 g/dL (3.4-4.8); Alkaline Phosphatase 97 U/L (40-150); Anion Gap 19 mmol/L (10-20); BUN (Urea Nitrogen) 14 mg/dL (9.8-20.1); Bilirubin, Total 0.4 mg/dL (0.2-1.2); Calc. Creatinine Clearance 27 mL/min (70-130); Calcium 8.1 mg/dL (7.8-10.44); Carbon Dioxide 27 mmol/L (23-31); Chloride 94 mmol/L (98-107); Estimated GFR-MDRD 22; Glucose 129 mg/dL (80-115); Potassium 3.5 mmol/L (3.5-5.1); Protein, Total 5.1 g/dL (6.0-8.3); Sodium 136 mmol/L (136-145)
[2017-05-29 17:52] LABS: Anion Gap 25 mmol/L (10-20); BUN (Urea Nitrogen) 22 mg/dL (9.8-20.1); Calc. Creatinine Clearance 17 mL/min (70-130); Calcium 7.4 mg/dL (7.8-10.44); Carbon Dioxide 20 mmol/L (23-31); Chloride 98 mmol/L (98-107); Estimated GFR-MDRD 13; Glucose 96 mg/dL (80-115); Lactic Acid 8.5 mmol/L (0.5-2.2); Potassium 3.5 mmol/L (3.5-5.1); Sodium 139 mmol/L (136-145)
[2017-05-29] MEDS: Dextrose 5 %-0.45 % NaCl 1,000 ML IV SCH (18:22)
[2017-05-29 19:35] LABS: PTT Greater than 250.0 SEC (22.9-36.1)
[2017-05-29] MEDS: Insulin Detemir 100 UNITS/ML 15 UNITS in Pre-Filled Syringe 1 EACH SC SCH (20:22)
[2017-05-29 22:14] LABS: PTT 117.9 SEC (22.9-36.1)
[2017-05-29 22:22] LABS: Anion Gap 24 mmol/L (10-20); BUN (Urea Nitrogen) 25 mg/dL (9.8-20.1); Calc. Creatinine Clearance 15 mL/min (70-130); Calcium 7.3 mg/dL (7.8-10.44); Carbon Dioxide 21 mmol/L (23-31); Chloride 98 mmol/L (98-107); Estimated GFR-MDRD 12; Glucose 142 mg/dL (80-115); Potassium 3.6 mmol/L (3.5-5.1); Sodium 139 mmol/L (136-145)
[2017-05-30 00:53] LABS: Lactic Acid 4.8 mmol/L (0.5-2.2)
[2017-05-30] MEDS: Insulin Regular 300 UNITS/3 ML VIAL SC PRN ×9 (01:19→23:58)
[2017-05-30 02:55] LABS: Anion Gap 21 mmol/L (10-20); BUN (Urea Nitrogen) 26 mg/dL (9.8-20.1); Calc. Creatinine Clearance 15 mL/min (70-130); Calcium 7.2 mg/dL (7.8-10.44); Carbon Dioxide 23 mmol/L (23-31); Chloride 97 mmol/L (98-107); Estimated GFR-MDRD 11; Glucose 167 mg/dL (80-115); Potassium 3.5 mmol/L (3.5-5.1); Sodium 137 mmol/L (136-145)
[2017-05-30] MEDS: Dextrose 5 %-0.45 % NaCl 1,000 ML IV SCH (03:20)
[2017-05-30] MEDS: Norepinephrine 8 MG/0.9% NS 250 ML IVPB SCH ×2 (03:20→10:32)
[2017-05-30 04:40] LABS: Eosinophils 2 % (0-10); Hemoglobin 9.1 g/dL (12.0-16.0); Lymphocytes 13 % (21-51); MDiff Complete? YES; Mean Corpuscular Hemoglobin 30.7 pg (27.0-31.0); Mean Corpuscular Volume 87.6 fl (81.0-99.0); Mean Platelet Volume 9.1 fL (7.4-10.4); Monocytes 5 % (0-10); Neutrophil 80 % (42-75); PLT Morphology Comment Appears Adequate; Platelet Count 123 thou/uL (130-400); RBC Distribution Width 13.2 % (11.5-14.5); Red Blood Cell (RBC) Count 2.98 mill/uL (4.20-5.40); White Blood Cell (WBC) Count 12.2 thou/uL (4.8-10.8)
[2017-05-30 04:45] LABS: Anion Gap 20 mmol/L (10-20); BUN (Urea Nitrogen) 26 mg/dL (9.8-20.1); Calc. Creatinine Clearance 15 mL/min (70-130); Calcium 7.2 mg/dL (7.8-10.44); Carbon Dioxide 23 mmol/L (23-31); Chloride 98 mmol/L (98-107); Estimated GFR-MDRD 10; Glucose 148 mg/dL (80-115); Potassium 3.5 mmol/L (3.5-5.1); Sodium 137 mmol/L (136-145)
[2017-05-30 07:07] LABS: Actual Bicarbonate (HCO3a) 21.4 mEq/L (22-26); Base Excess (BEa) 0.4 mEq/L (0 (+/-) 2.5); Hematocrit-ABG 27.7 % (36.0-47.0); Hemoglobin (Hb) 8.9 g/dL (12.0-16.0); O2 Tension (PaO2) 66.8 mmHg (80.0-100.0); pH, Arterial 7.56 (7.35-7.45)
[2017-05-30 07:08] LABS: Calcium, Ionized 0.9 mmol/L (1.12-1.30); Puncture Site LBA
[2017-05-30] MEDS ORDERED: Furosemide 40 MG/4 ML VIAL SLOW IVP SCH (07:45)
--- NOTE | 2017-05-30 07:58 | PDOC.FM ---
- Subjective Subjective: Patient found at bedside. No family present. Nursing stated there has been no issues overnight. They note she has increased urine output. - Objective MAR Reviewed: Yes Vital Signs & Weight: Vital Signs (12 hours) Temp Pulse Resp BP Pulse Ox 05/30/17 07:47 25 H 05/30/17 06:34 87 121/64 05/30/17 06:00 25 H 05/30/17 04:00 25 H 05/30/17 02:22 92 121/53 L 05/30/17 02:00 25 H 05/30/17 00:00 25 H 05/29/17 22:23 90 128/48 L 05/29/17 22:00 25 H 05/29/17 20:00 99.9 F H 90 25 H 100 Weight Admit Weight 63.9 kg Weight 74.6 kg Most Recent Monitor Data Heart Rate from ECG 83 NIBP 86/48 NIBP BP-Mean 60 Respiration from ECG 0 SpO2 100 I&O: 05/29/17 05/30/17 05/31/17 06:59 06:59 06:59 Intake Total 6451 5082.7 Output Total 255 1945 Balance 6196 3137.7 Result Diagrams: 05/30/17 04:00 05/30/17 04:00 <CataRome M - Last Filed: 05/30/17 11:34> - Objective Vital Signs & Weight: Vital Signs (12 hours) Temp Pulse Resp BP Pulse Ox 05/30/17 10:32 88 171/61 H 05/30/17 08:00 99.9 F H 83 18 100 05/30/17 07:47 25 H 05/30/17 06:34 87 121/64 05/30/17 06:00 25 H 05/30/17 04:00 25 H 05/30/17 02:22 92 121/53 L 05/30/17 02:00 25 H 05/30/17 00:00 25 H Weight Admit Weight 63.9 kg Weight 74.6 kg Most Recent Monitor Data Heart Rate from ECG 81 NIBP 74/39 NIBP BP-Mean 53 Respiration from ECG 100 SpO2 100 I&O: 05/29/17 05/30/17 05/31/17 06:59 06:59 06:59 Intake Total 6451 5082.7 Output Total 255 1945 325 Balance 6196 3137.7 -325 Result Diagrams: 05/30/17 04:00 05/30/17 04:00 <Edwin Albrecht - Last Filed: 05/30/17 11:38> Phys Exam - Physical Examination Intubated, sleeping HEENT: moist MMs, sclera anicteric PERRL Neck: no nodes Respiratory: no wheezing Rhonchi heard, on vent Cardiovascular: RRR Possible systolic murmur at RUQ sternal border Gastrointestinal: soft, no distention Clear urine Musculoskeletal: no edema Babinski reflex upward, no increased tone, PERRL Lymphatic: no nodes Deviation from normal: Sedated Deviation from normal: No obvious rash <Rome Ivy M - Last Filed: 05/30/17 11:34> Dx/Plan (1) Septic shock Code(s): A41.9 - SEPSIS, UNSPECIFIED ORGANISM; R65.21 - SEVERE SEPSIS WITH SEPTIC SHOCK Status: Acute Plan: Patient improving, is only on levophed. Epi and vasopressor stopped. Consider cardiogenic shock from possible inferior DC, septic shock from possible UTI Continue fluid, levophed and abx (Levaquin, Cefepime, and Vancomycin) for septic shock. Consulted card for possible DC, echocardiogram (2) Acute renal failure Status: Acute Plan: - Cr/BUN still at near same level. However, patient has started making clear urine. I/O 5082/1945, with 1795 out by diego. - Discussed with Dr. Harrison, he is changing fluid from 1/2 NS to NS. (3) Elevated troponin Code(s): R74.8 - ABNORMAL LEVELS OF OTHER SERUM ENZYMES Status: Acute Plan: Heparin drip has been started and Cardiology consulted. Recs from cardiology feels this is likely demand ischemia but patient could still benefit from heparin drip. Echo pending. (4) DKA (diabetic ketoacidoses) Code(s): E13.10 - OTH DIABETES MELLITUS WITH KETOACIDOSIS WITHOUT COMA Status : Acute Plan: At this time, appears resolving. Bicarb at 23, gap of 16, albumin 3, and glucose at 151. Regimen of 15 u insulin SC BID based on 50% of home dosing with aggressive SSI. Required 3 U of SSI yesterday. Consider 16 U of insulin BID (5) Acute respiratory failure with hypoxia Code(s): J96.01 - ACUTE RESPIRATORY FAILURE WITH HYPOXIA Status: Acute Plan: Patient is currently on vent and tolerating it well, but not taking spontaneous breath. CXR found pulmonary prominence, but no acute processes Plan is to continue with vent, with weaning based on patient taking more spontaneous breath and improving mentation. Protonix for GI prophylaxis. (6) HLD (hyperlipidemia) Code(s): E78.5 - HYPERLIPIDEMIA, UNSPECIFIED Status: Acute Plan: Known chronic issue, holding home med at this time due to patient's acute sepsis. (7) HTN (hypertension) Code(s): I10 - ESSENTIAL (PRIMARY) HYPERTENSION Status: Acute Plan: Chronic issue, holding home medication due to septic shock At this time, patient is requiring only levophed at 5 (8) Lactic acidosis Code(s): E87.2 - ACIDOSIS Status: Acute Plan: Continue fluid resuscitation (9) Urinary tract infection Status: Acute Plan: UA shows WBC, Nitrite, and LE. Culture returned with e. coli, sensitive to cefepime, zosyn. Procalcitonin returned at normal range. Consider narrowing antibiotic, possibly ceftriaxone <Rome Ivy - Last Filed: 05/30/17 11:34> Attending Addendum - Attending Addendum Date/Time: 05/30/17 4299 I personally evaluated the patient and discussed the management with Dr. Ivy. I agree with and repeated the History, Examination, Assessment and Plan documented above with any addition or exceptions noted below. Unable to complete ROS as intubated and sedated. A/P: Septic shock with ALICIA/NSTEMI/Acute resp failure 2/2 UTI -transition to ceftriaxone for Sn E. coli, discussed with Dr. Sen. -repeat PCT in AM -monitor UOP -wean IVF, monitor glucose, transition to enteral nutrition with FW as necessary -likely can d/c vasopressors -continue heparin gtt Acute encephalopathy -feel likely 2/2 above, low suspicion for meningitis/encephalitis -repeat ammonia in AM -MRI pending <Edwin Albrecht - Last Filed: 05/30/17 11:38>
--- NOTE | 2017-05-30 08:04 | PRG ---
DATE OF SERVICE: 05/30/2017 The patient is intubated on the vent, slightly sedated though she appears to be more responsive. Pup ils are equal. PHYSICAL EXAMINATION: VITAL SIGNS: Blood pressure 121/64 on Levophed. Sats are 96, temperature 99. I's & O's have been 5 082, out 1941. CHEST: Chest reveals bilateral rhonchi or crackles. CARDIAC: Normal S1-S2. No gallops. ABDOMEN: Soft, no masses. LABORATORY: White count 12,000, H&H 9 and 26, platelet count 123, pO2 66, pCO2 23.56, rate of 25, 30 %, 450 tidal volume, PEEP of 5. Creatinine is 4, BUN 26. IMPRESSION: 1. Multiorgan failure. 2. Severe metabolic acidosis, improved. 3. Urinary tract infection. 4. Metabolic encephalopathy. 5. Diabetes. PLAN: Discontinue bicarbonate in the IV fluids. Continue slow hydration. We will start nutrition a nd PT. Vent will be adjusted. Await input from Cardiology. One-half hour critical care time.
[2017-05-30] MEDS: Pantoprazole 40 MG VIAL IVP SCH (08:09)
--- NOTE | 2017-05-30 08:30 | PRG ---
DATE OF SERVICE: 05/30/2017 This morning, intubated on the vent. EF is about 35% with a global hypokinesia. PHYSICAL EXAMINATION: CHEST: Chest reveals decreased breath sounds, bilateral rhonchi. CARDIAC: Normal S1, S2. X-ray shows CHF findings. Bilateral pleural effusion, cephalization. White count 12,000, H&H 9 and 26, platelet count of 123, pCO2 23, pO2 66, pH is 7.56. Creatinine 4.2 . PLAN: Deescalate antibiotics. Added Lasix. Nutrition and PT. One-half hour critical care time. We will follow.
--- NOTE | 2017-05-30 08:34 | PRG ---
DATE OF SERVICE: 05/29/2017 SUBJECTIVE: A 71-year-old female being seen for acute kidney injury and severe lactic acidosis. The patient remains intubated. PHYSICAL EXAMINATION: GENERAL: Patient is resting. VITAL SIGNS: Afebrile, pulse 80, breathing 16, blood pressure was 105/54. HEAD/NECK: Normocephalic. Atraumatic. EYES: EOMI. No deformity. EARS: Clear. No ulcers. NOSE: Intact. No lesions. MOUTH: Clear. No discharge. THROAT: Clear. No exudate. LUNGS: Clear. No crackles. CARDIAC: S1, S2. No rub. ABDOMEN: Benign. BS+. GENITALIA/RECTUM: [place] absent. BACK/EXTREMITIES: Edema 0+ Ulcer- NEUROLOGICAL: The patient is resting. SKIN: Rash- Bruise- LYMPHATICS: Edema- Ulcer- LABORATORY DATA: Show hemoglobin 9.1, bicarbonate is 23, creatinine 4.24. ASSESSMENT AND PLAN: 1. Acute kidney injury with chronic kidney disease, nonoliguric. No indication for dialysis. 2. Hypertension and sepsis. Management per primary team. 3. Anemia, stable. No indication for dialysis at this time. We will follow closely.
[2017-05-30] MEDS: Insulin Detemir 100 UNITS/ML 15 UNITS in Pre-Filled Syringe 1 EACH SC SCH ×2 (08:37→20:48)
[2017-05-30] MEDS: Piperacillin/Tazobactam 2.25 GM in Sodium Chloride 0.9% 100 ML IVPB SCH (08:39)
--- NOTE | 2017-05-30 08:54 | RAD ---
AP CHEST: History: Ventilator dependent patient. Date: 05-30-17 Comparison: 05-29-17 FINDINGS: AP chest demonstrates nasogastric and endotracheal tubes to be in place. A left subclavian central li ne is in place. Sternotomy wires are seen. Bilateral pleural effusions seen. These appear to have developed since the previous comparison exam. Areas of airspace opacity have also developed in the left lung base compatible with areas of left low er lobe pneumonia or atelectasis. IMPRESSION: Areas of airspace opacities in the left lung base as well as bilateral pleural effusions. Follow up f ilms to resolution recommended. POS: [facility]
[2017-05-30] MEDS ORDERED: Dextrose 5 %-0.45 % NaCl 1,000 ML IV SCH (09:15)
[2017-05-30] MEDS: Dextrose 5 % And 0.9 % NaCl 1,000 ML IV SCH ×2 (10:30→20:46)
[2017-05-30] MEDS ORDERED: Furosemide 20 MG/2 ML VIAL SLOW IVP SCH (10:45)
[2017-05-30] MEDS: Lorazepam 2 MG/ML VIAL SLOW IVP PRN (11:15)
[2017-05-30] MEDS: cefTRIAXone\\ROCEPHIN 2 GM in Sodium Chloride 0.9% 100 ML IVPB SCH (11:15)
[2017-05-30] MEDS: Hydrocortisone Sod Succ/PF 100 mg/2 ml Vial IVP SCH ×3 (11:30→23:57)
[2017-05-30] MEDS ORDERED: Heparin 10,000 UNITS/ 10 ML VIAL ONE (12:57)
--- NOTE | 2017-05-30 15:36 | PDOC.CTH ---
Cardiology Progress Note - Subjective She remains intubated and sedated. - Objective Vital Signs Temp Pulse Resp BP Pulse Ox 05/30/17 15:11 83 146/70 H 05/30/17 14:00 16 05/30/17 12:00 15 05/30/17 10:32 88 171/61 H 05/30/17 10:00 15 05/30/17 08:00 99.9 F H 83 18 100 05/30/17 07:47 25 H 05/30/17 06:34 87 121/64 05/30/17 06:00 25 H 05/30/17 04:00 25 H Admit Weight 140 lb 14.006 oz Weight 164 lb 7.437 oz 05/29/17 05/30/17 05/31/17 06:59 06:59 06:59 Intake Total 6451 5082.7 230 Output Total 255 1945 1050 Balance 6196 3137.7 -820 - Physical Examination General/Neuro: other: (sedated) Neck: no JVD present Lungs: CTA Heart: RRR Abdomen: NT/ND Extremities: + edema B (trace) - Telemetry Telemetry Rhythm: NSR - Labs Result Diagrams: 05/30/17 04:00 05/30/17 04:00 Troponin/CKMB CK-MB (CK-2) 59.7 ng/mL (0-6.6) H* 05/29/17 11:37 Troponin I 9.165 ng/mL (< 0.028) H* 05/29/17 11:37 - Assessment/Plan 1. NSTEMI 2. Acute systolic heart failure. 3. New onset severe LV dysfunction. 4. ALICIA 5. Recent severe dehydration 6. Asystole arrest. 7. New onset CM EF at 20-25% 8. UTI sepsis, likely main source of her current condition. E. Coli. 9. Septic shock. On Levophed. PLAN: - Agree with diuresis. - Will need risk stratification with [facility] if she gets better and decides to be more aggressive with her care. - For now once her BP allows and she is off pressors she will need BB/ACEI started. - Will follow.
[2017-05-31] MEDS: Norepinephrine 8 MG/0.9% NS 250 ML IVPB SCH (01:38)
[2017-05-31 04:54] LABS: Anion Gap 17 mmol/L (10-20); BUN (Urea Nitrogen) 34 mg/dL (9.8-20.1); Calc. Creatinine Clearance 12 mL/min (70-130); Calcium 7.4 mg/dL (7.8-10.44); Carbon Dioxide 27 mmol/L (23-31); Chloride 99 mmol/L (98-107); Estimated GFR-MDRD 9; Glucose 80 mg/dL (80-115); Potassium 3.4 mmol/L (3.5-5.1); Sodium 140 mmol/L (136-145)
[2017-05-31] MEDS: Dextrose 5 % And 0.9 % NaCl 1,000 ML IV SCH ×2 (05:18→16:30)
[2017-05-31] MEDS: Hydrocortisone Sod Succ/PF 100 mg/2 ml Vial IVP SCH ×4 (05:19→23:46)
[2017-05-31 05:41] LABS: Band 16 % (5-11); Hemoglobin 9.1 g/dL (12.0-16.0); Lymphocytes 9 % (21-51); MDiff Complete? YES; Mean Corpuscular HGB CONC 33.9 g/dL (32.0-36.0); Mean Corpuscular Hemoglobin 30.2 pg (27.0-31.0); Mean Platelet Volume 9.6 fL (7.4-10.4); Monocytes 1 % (0-10); Neutrophil 74 % (42-75); PLT Morphology Comment Appears Decreased; Platelet Count 119 thou/uL (130-400); RBC Distribution Width 13.3 % (11.5-14.5); Red Blood Cell (RBC) Count 3.02 mill/uL (4.20-5.40); White Blood Cell (WBC) Count 17.2 thou/uL (4.8-10.8)
[2017-05-31] MEDS: Heparin 25,000 units/D5W 500 ML IV SCH (07:01)
[2017-05-31 07:30] LABS: Actual Bicarbonate (HCO3a) 24.7 mEq/L (22-26); CO2 Tension 35.1 mmHg (35.0-45.0); Calcium, Ionized 0.9 mmol/L (1.12-1.30); Hematocrit-ABG 26.1 % (36.0-47.0); Hemoglobin (Hb) 8.3 g/dL (12.0-16.0); O2 Tension (PaO2) 79.8 mmHg (80.0-100.0); pH, Arterial 7.47 (7.35-7.45)
[2017-05-31 07:31] LABS: ALV-art Gradient 161.525 (0-20); Analyzer IN Cardio ER; Puncture Site LRA
--- NOTE | 2017-05-31 07:56 | PRG ---
DATE OF SERVICE: 05/31/2017 This morning she is more responsive, no sedation. PHYSICAL EXAMINATION: VITAL SIGNS: Blood pressure 129/78, pulse is 96, respiration rate 18. I's and O's are 3816 in, 2945 out. CHEST: Chest revealed decreased breath sounds, no wheezing. CARDIAC: Normal S1 and S2. No gallops. ABDOMEN: Soft, no masses. LABORATORY DATA: White count 17,000, H&H 9 and 26, platelet count 19, 74 segs, 16 bands, PO2 79, pCO 2 was 37.47, rate of 14. 40%. Creatinine is 4. Urine is growing E. coli sensitive to all the antibi otics including ceftriaxone. A chest x-ray today shows slight cephalization. A left-sided pleural effusion and infiltrate. IMPRESSION: 1. Multiorgan failure. 2. Respiratory failure. 3. Encephalopathy. 4. Renal failure. 5. Diabetes. 6. Urinary tract infection. PLAN: Adjust vent, continue antibiotics. We will hopefully try and wean and extubate in the next 24 -48 hours. One-half hour critical care time.
--- NOTE | 2017-05-31 08:33 | RAD ---
CHEST 1 VIEW: HISTORY: Dyspnea. Intubated. COMPARISON: 05/30/17. FINDINGS: Cardiac silhouette remains magnified, enlarged, and partially obscured by patchy bibasilar atelectasi s and bilateral pleural fluid that are unchanged. Mediastinum is midline with postoperative changes. Lines and tubes appear unchanged in position. circle edger leads overlie the chest. IMPRESSION: Stable postoperative appearance of the chest. POS: [facility]
[2017-05-31 08:42] LABS: ALT (SGPT) 57 U/L (8-55); AST (SGOT) 120 U/L (5-34); Albumin 2.9 g/dL (3.4-4.8); Alkaline Phosphatase 103 U/L (40-150); Bilirubin, Direct 0.2 mg/dL (0.1-0.3); Bilirubin, Total 0.4 mg/dL (0.2-1.2); Protein, Total 5.3 g/dL (6.0-8.3)
[2017-05-31] MEDS ORDERED: Potassium Chloride 40 MEQ in Premix Bag 1 BAG IVPB SCH (09:00)
[2017-05-31] MEDS: Pantoprazole 40 MG VIAL IVP SCH (09:12)
[2017-05-31] MEDS: Insulin Detemir 100 UNITS/ML 15 UNITS in Pre-Filled Syringe 1 EACH SC SCH ×2 (09:17→21:22)
[2017-05-31] MEDS ORDERED: DC Sedation Protocol FS ONE (09:36)
[2017-05-31] MEDS ORDERED: Furosemide 20 MG/2 ML VIAL SLOW IVP SCH ×2 (09:45→21:15)
--- NOTE | 2017-05-31 10:10 | PRG ---
DATE OF SERVICE: 05/31/2017 SUBJECTIVE: A 71-year-old female being seen for acute kidney injury. The patient remains intubated. PHYSICAL EXAMINATION: GENERAL: The patient is resting. VITAL SIGNS: Afebrile, pulse 79, breathing 16, blood pressure 136/82. HEAD/NECK: Normocephalic. Atraumatic. EYES: EOMI. No deformity. EARS: Clear. No ulcers. NOSE: Intact. No lesions. MOUTH: Clear. No discharge. THROAT: Clear. No exudate. LUNGS: Clear. No crackles. CARDIAC: S1, S2. No rub. ABDOMEN: Benign. BS+. GENITALIA/RECTUM: [place] absent. BACK/EXTREMITIES: Edema 0+ Ulcer- NEUROLOGICAL: Alert and motor intact. SKIN: Rash- Bruise- LYMPHATICS: Edema- Ulcer- LABORATORY DATA: Show hemoglobin is 9.1, creatinine 4.9, potassium 3.4. ASSESSMENT AND PLAN: 1. Acute kidney injury with chronic kidney disease, stable. 2. Hyperkalemia, stable. 3. Anemia, stable. 4. Medications based on glomerular filtration rate are appropriate. No indication for dialysis. Alejandro emmanuel is nonoliguric.
--- NOTE | 2017-05-31 10:18 | PDOC.FM ---
- Subjective Subjective: Overnight, patient did well per nursing. RT is doing spontaneous breathing trial for likely extubation today. - Objective MAR Reviewed: Yes Vital Signs & Weight: Vital Signs (12 hours) Temp Pulse Resp BP Pulse Ox 05/31/17 09:35 109 H 15 95 05/31/17 08:00 15 05/31/17 07:57 98.9 F 105 H 14 98 05/31/17 07:00 98.9 F 05/31/17 06:58 96 129/78 05/31/17 06:00 20 05/31/17 04:00 14 05/31/17 02:10 86 93/57 L 05/31/17 02:00 21 H 05/31/17 00:00 20 Weight Admit Weight 63.9 kg Weight 74.4 kg Most Recent Monitor Data Heart Rate from ECG 100 NIBP 136/82 NIBP BP-Mean 96 Respiration from ECG 13 SpO2 99 I&O: 05/30/17 05/31/17 06/01/17 06:59 06:59 06:59 Intake Total 5082.7 3816 30 Output Total 1945 2945 140 Balance 3137.7 871 -110 Result Diagrams: 05/31/17 04:00 05/31/17 04:00 <CataRome M - Last Filed: 05/31/17 10:17> - Objective Vital Signs & Weight: Vital Signs (12 hours) Temp Pulse Resp BP Pulse Ox 05/31/17 09:35 109 H 15 95 05/31/17 08:00 15 05/31/17 07:57 98.9 F 105 H 14 98 05/31/17 07:00 98.9 F 05/31/17 06:58 96 129/78 05/31/17 06:00 20 05/31/17 04:00 14 05/31/17 02:10 86 93/57 L 05/31/17 02:00 21 H 05/31/17 00:00 20 Weight Admit Weight 63.9 kg Weight 74.4 kg Most Recent Monitor Data Heart Rate from ECG 100 NIBP 136/82 NIBP BP-Mean 96 Respiration from ECG 13 SpO2 99 I&O: 05/30/17 05/31/17 06/01/17 06:59 06:59 06:59 Intake Total 5082.7 3816 30 Output Total 1945 2945 140 Balance 3137.7 871 -110 Result Diagrams: 05/31/17 04:00 05/31/17 04:00 <Edwin Albrecht - Last Filed: 05/31/17 11:36> Phys Exam - Physical Examination Constitutional: NAD HEENT: moist MMs Neck: supple Mild rhonchi Cardiovascular: RRR 2/6 RU Sternal border, systolic murmur Gastrointestinal: soft, non-tender, no distention, positive bowel sounds 1+ edema in garcia Follows command, spontaneous eye opening Lymphatic: no nodes Psychiatric: normal affect Skin: no rash <LyRome M - Last Filed: 05/31/17 10:17> Dx/Plan (1) Septic shock Code(s): A41.9 - SEPSIS, UNSPECIFIED ORGANISM; R65.21 - SEVERE SEPSIS WITH SEPTIC SHOCK Status: Acute Plan: Patient improving, is only on levophed, down to 3 mcg Continue fluid, levophed and abx (ceftriaxone) for sepsis likely from UTI (2) Acute renal failure Status: Acute Plan: Improving urine output, 2.7 L out from previous day Dialysis no longer indicated, appreciate nephrology recs (3) Elevated troponin Code(s): R74.8 - ABNORMAL LEVELS OF OTHER SERUM ENZYMES Status: Acute Plan: Heparin drip has been started and Cardiology consulted. Recs from cardiology feels this is likely demand ischemia but patient could still benefit from heparin drip. Echo shows new diastolic and systolic heart failure, new ef of 35% down from 50 % 2 years ago. (4) DKA (diabetic ketoacidoses) Code(s): E13.10 - OTH DIABETES MELLITUS WITH KETOACIDOSIS WITHOUT COMA Status : Acute Plan: Resolved DKA, will continue with current insulin regimen. She has been in appropriate glucose range (5) Acute respiratory failure with hypoxia Code(s): J96.01 - ACUTE RESPIRATORY FAILURE WITH HYPOXIA Status: Acute Plan: Likely to be extubated this morning Protonix for GI prophylaxis. (6) HLD (hyperlipidemia) Code(s): E78.5 - HYPERLIPIDEMIA, UNSPECIFIED Status: Acute Plan: Known chronic issue, holding home med at this time due to patient's acute sepsis. (7) HTN (hypertension) Code(s): I10 - ESSENTIAL (PRIMARY) HYPERTENSION Status: Acute Plan: Chronic issue, holding home medication due to septic shock At this time, patient is requiring only levophed at 3 (8) Lactic acidosis Code(s): E87.2 - ACIDOSIS Status: Acute Plan: Continue fluid resuscitation (9) Urinary tract infection Status: Acute Plan: UA shows WBC, Nitrite, and LE. Abx narrowed to ceftriaxone. <Rome Ivy - Last Filed: 05/31/17 10:17> Attending Addendum - Attending Addendum Date/Time: 05/31/17 5673 I personally evaluated the patient and discussed the management with Dr. Ivy. I agree with and repeated the History, Examination, Assessment and Plan documented above with any addition or exceptions noted below. Patient recently extubated, following commands, but not verbally communicative yet thus a ROS unable to be completed. Overall she is improving. Sepsis 2/2 UTI improved; shock improved; NSTEMI on heparin with cards following. ALICIA now now oliguric, replete K as post-oliguric diuresis. <Edwin Albrecht - Last Filed: 05/31/17 11:36>
[2017-05-31] MEDS: cefTRIAXone\\ROCEPHIN 2 GM in Sodium Chloride 0.9% 100 ML IVPB SCH (11:13)
[2017-05-31] MEDS: Aspirin 81 mg Enteric Coated Tablet PO SCH (18:32)
[2017-05-31] MEDS: Atorvastatin Calcium 40 MG TAB PO SCH (19:43)
--- NOTE | 2017-05-31 21:04 | PDOC.EVN ---
Event Note - Event Note Event Note: Patient Oxy Sat. dropped to 85%, mildly tachypnic, with increased accessory muscle use. PE: CV: RRR. Lung: Rales bilaterally. Will give 20mg IVP Lasix.
[2017-06-01] MEDS: Dextrose 5 % And 0.9 % NaCl 1,000 ML IV SCH (01:31)
[2017-06-01] MEDS ORDERED: Dextrose 5 % And 0.9 % NaCl 1,000 ML IV SCH (04:04)
[2017-06-01] MEDS: Hydrocortisone Sod Succ/PF 100 mg/2 ml Vial IVP SCH (05:31)
[2017-06-01 05:54] LABS: #Lymphocytes 0.8 thou/uL (1.20-3.40); #Monocytes 0.6 thou/uL (0.11-0.59); #Neutrophils 12.6 thou/uL (1.40-6.50); %Basophils 0.1 % (0.0-1.0); %Eosinophils 0.1 % (0.0-10.0); %Lymphocytes 5.6 % (21.0-51.0); %Monocytes 4.4 % (0.0-10.0); %Neutrophils 89.9 % (42.0-75.0); Hemoglobin 8.4 g/dL (12.0-16.0); Mean Corpuscular HGB CONC 32.6 g/dL (32.0-36.0); Mean Corpuscular Hemoglobin 29.9 pg (27.0-31.0); Mean Corpuscular Volume 91.6 fl (81.0-99.0); Mean Platelet Volume 10.5 fL (7.4-10.4); Platelet Count 97 thou/uL (130-400); RBC Distribution Width 13.1 % (11.5-14.5); Red Blood Cell (RBC) Count 2.81 mill/uL (4.20-5.40)
[2017-06-01 06:04] LABS: Anion Gap 15 mmol/L (10-20); BUN (Urea Nitrogen) 43 mg/dL (9.8-20.1); Calc. Creatinine Clearance 11 mL/min (70-130); Calcium 7.8 mg/dL (7.8-10.44); Carbon Dioxide 26 mmol/L (23-31); Chloride 104 mmol/L (98-107); Estimated GFR-MDRD 8; Glucose 101 mg/dL (80-115); Potassium 3.3 mmol/L (3.5-5.1); Sodium 142 mmol/L (136-145)
[2017-06-01 07:02] LABS: Actual Bicarbonate (HCO3a) 23.5 mEq/L (22-26); Base Excess (BEa) -0.1 mEq/L (0 (+/-) 2.5); CO2 Tension 33.7 mmHg (35.0-45.0); Hematocrit-ABG 25.3 % (36.0-47.0); Hemoglobin (Hb) 8.3 g/dL (12.0-16.0); O2 Tension (PaO2) 73.4 mmHg (80.0-100.0); pH, Arterial 7.46 (7.35-7.45)
[2017-06-01 07:03] LABS: ALV-art Gradient 139.355 (0-20); Analyzer IN Cardio OR; Puncture Site RR
[2017-06-01] MEDS: Pantoprazole 40 MG GRANULES PACKET PER TUBE SCH (08:29)
[2017-06-01] MEDS: Heparin 5,000 UNITS/ML VIAL SC SCH (08:37)
[2017-06-01] MEDS: Insulin Detemir 100 UNITS/ML 15 UNITS in Pre-Filled Syringe 1 EACH SC SCH ×2 (08:37→20:48)
--- NOTE | 2017-06-01 08:44 | PDOC.FM ---
- Subjective Subjective: Patient found in bed with sister at bed side. Nursing says there was no overnight even except for period of hypoxia into 8% with tahcypnea. When examined, she had crackles in her lung based and given 20 of IV lasix that resolved the issue. - Objective MAR Reviewed: Yes Vital Signs & Weight: Vital Signs (12 hours) Temp Pulse Ox 06/01/17 07:43 99 06/01/17 04:00 98.5 F 06/01/17 00:00 98.4 F Weight Admit Weight 63.9 kg Weight 73.1 kg Most Recent Monitor Data Heart Rate from ECG 94 NIBP 158/97 NIBP BP-Mean 144 Respiration from ECG 10 SpO2 99 I&O: 05/31/17 06/01/17 06/02/17 06:59 06:59 06:59 Intake Total 3816 2489 Output Total 2945 835 Balance 871 1654 Result Diagrams: 06/01/17 04:55 06/01/17 04:55 <Rome Ivy - Last Filed: 06/01/17 08:42> - Objective Vital Signs & Weight: Vital Signs (12 hours) Temp Pulse Ox 06/01/17 07:43 99 06/01/17 04:00 98.5 F 06/01/17 00:00 98.4 F Weight Admit Weight 63.9 kg Weight 73.1 kg Most Recent Monitor Data Heart Rate from ECG 94 NIBP 158/97 NIBP BP-Mean 144 Respiration from ECG 10 SpO2 99 I&O: 05/31/17 06/01/17 06/02/17 06:59 06:59 06:59 Intake Total 3816 2489 Output Total 2945 835 Balance 871 1654 Result Diagrams: 06/01/17 04:55 06/01/17 04:55 <Edwin Albrecht - Last Filed: 06/01/17 10:05> Phys Exam - Physical Examination Constitutional: NAD HEENT: moist MMs, sclera anicteric Neck: no nodes Crackles and wheezing heard bilaterally. Patient is not talking, maybe SOB Breathing through pursed lips. Cardiovascular: RRR 2/6 systolic murmur that is unchanged Gastrointestinal: soft, positive bowel sounds Musculoskeletal: edema present No edema in garcia, but 1+ edema in thoughs. Neurological: moves all 4 limbs Follow command, sponatenous eye opeening Psychiatric: normal affect Deviation from normal: Unable to answer at this time. Skin: no rash <Rome Ivy M - Last Filed: 06/01/17 08:42> Dx/Plan (1) Septic shock Code(s): A41.9 - SEPSIS, UNSPECIFIED ORGANISM; R65.21 - SEVERE SEPSIS WITH SEPTIC SHOCK Status: Acute Plan: Patient improving, no longer requiring levophed Continue mild fluid and abx (ceftriaxone) for sepsis likely from UTI 2nd procalcitonin came in normal range, lower then first one. (2) Acute renal failure Status: Acute Plan: Decreasing urine output, but still adequate level BUN/CR are making a raise, may be secondary to lasix use as patient. Consider cardiorenal as possible issue with her recent shock and new mixed heart failure. Plan to continue with lasix, decrease fluid infusion. Dialysis no longer indicated, appreciate nephrology recs (3) Elevated troponin Code(s): R74.8 - ABNORMAL LEVELS OF OTHER SERUM ENZYMES Status: Acute Plan: Heparin drip has been started and Cardiology consulted. Recs from cardiology feels this is likely demand ischemia but patient could still benefit from heparin drip. Echo shows new diastolic and systolic heart failure, new ef of 35% down from 50 % 2 years ago. (4) DKA (diabetic ketoacidoses) Code(s): E13.10 - OTH DIABETES MELLITUS WITH KETOACIDOSIS WITHOUT COMA Status : Acute Plan: Resolved DKA, will continue with current insulin regimen. She has been in appropriate glucose range, between 80-120, with no SSI requirement (5) Acute respiratory failure with hypoxia Code(s): J96.01 - ACUTE RESPIRATORY FAILURE WITH HYPOXIA Status: Acute Plan: Has been extubated. Yesterday, had episode of hypoxemia with crackles, ABG today came back with mildly elevated pH, decreased O2 and decreased CO2, Plan is to continue with more lasix, duoneb as needed. Protonix for GI prophylaxis. (6) HLD (hyperlipidemia) Code(s): E78.5 - HYPERLIPIDEMIA, UNSPECIFIED Status: Acute Plan: Known chronic issue, cardiology resumed patient home atorvastatin. (7) HTN (hypertension) Code(s): I10 - ESSENTIAL (PRIMARY) HYPERTENSION Status: Acute Plan: Chronic issue, holding home medication due to septic shock Consider starting patient on low dose lisinopril and metoprolol for new new heart failure (8) Lactic acidosis Code(s): E87.2 - ACIDOSIS Status: Acute Plan: Consider resolved at this time, with last lactate downtrending (9) Urinary tract infection Status: Acute Plan: UA shows WBC, Nitrite, and LE. Abx narrowed to ceftriaxone. <Rome Ivy - Last Filed: 06/01/17 08:42> Attending Addendum - Attending Addendum Date/Time: 06/01/17 1002 I personally evaluated the patient and discussed the management with Dr. Ivy. I agree with and repeated the History, Examination, Assessment and Plan documented above with any addition or exceptions noted below. Pt AOx2 today, thinks it is 2017. Follow commands. Says she has some shortness of breath but no chest pain, fever, chills. RRR, no murmur, +LE edema, mild Tachypneic @ 22, exp wheezes diffusely, mild increased WOB BS+, NTTP, no palp HSM labs and imaging reviewed Continue O2 for AHRF. She is tenous currently and will keep her in the ICU to monitor her respiratory status. ON steroids and nebs. NSTEMI continue heparin gtt pending further cardiology evaluation. Continue diuresis at this point. FEN/GI NPO pending clearance. Renal: ALICIA worse todya, hold IVF, continue lasix , monitor I&Os. Acute encephalopathy improved, cancel MRI. Sepsis 2/2 pyelo continue rocephin, PCT downtrending, monitor. <Edwin Albrecht - Last Filed: 06/01/17 10:05>
--- NOTE | 2017-06-01 08:56 | RAD ---
CHEST 1 VIEW: Date: 06/01/17 HISTORY: Dyspnea. Follow-up. COMPARISON: 05/31/17. FINDINGS: Cardiac silhouette is magnified and enlarged. Pulmonary vasculature is more engorged with increasing reticulonodular interstitial prominence. Left basilar atelectasis is again demonstrated. Mediastinum is midline with postoperative changes and left subclavian central venous catheter. Endotracheal kiya ter and nasogastric tube are no longer visible. IMPRESSION: 1. Increasing pulmonary vascular congestion. 2. Removal of the endotracheal catheter and nasogastric tube. 3. Otherwise stable postoperative appearance of the chest. POS: TPC
[2017-06-01] MEDS ORDERED: Furosemide 40 MG/4 ML VIAL SLOW IVP SCH ×2 (09:00→18:00)
[2017-06-01] MEDS ORDERED: Potassium Chloride 40 MEQ in Premix Bag 1 BAG IVPB SCH (09:15)
--- NOTE | 2017-06-01 11:05 | PRG ---
DATE OF SERVICE: 06/01/2017 SUBJECTIVE: This is a 71-year-old female being seen for acute kidney injury, dialysis dependent. Th e patient denies any nausea, vomiting or chest pain. PHYSICAL EXAMINATION: GENERAL: Patient is awake, alert. VITAL SIGNS: Afebrile, pulse 61, breathing 16, blood pressure 161/97. OBJECTIVE: See above. Awake, alert, in no acute distress. GENERAL APPEARANCE AND MENTAL STATUS: Fair. HEAD/NECK: Normocephalic. Atraumatic. EYES: EOMI. No deformity. EARS: Clear. No ulcers. NOSE: Intact. No lesions. MOUTH: Clear. No discharge. THROAT: Clear. No exudate. LUNGS: Clear. No crackles. CARDIAC: S1, S2. No rub. ABDOMEN: Benign. BS+. GENITALIA/RECTUM: [place] absent. BACK/EXTREMITIES: Edema 0+ Ulcer- NEUROLOGICAL: Alert and motor intact. SKIN: Rash- Bruise- LYMPHATICS: Edema- Ulcer- LABORATORY: Hemoglobin 8.4, potassium 3.3, creatinine 5.2. ASSESSMENT AND RECOMMENDATIONS: 1. Acute kidney injury with chronic kidney disease, nonoliguric. Stop IV fluid. We will consider L asix. 2. Hypertension, stable. 3. Anemia, stable. 4. Medications based on glomerular filtration rate are appropriate.
[2017-06-01] MEDS: cefTRIAXone\\ROCEPHIN 2 GM in Sodium Chloride 0.9% 100 ML IVPB SCH (11:35)
--- NOTE | 2017-06-01 11:58 | PRG ---
DATE OF SERVICE: 06/01/2017 This morning she is awake, responsive, complaining of short of breath. PHYSICAL EXAMINATION: VITAL SIGNS: Blood pressure is 140/80, pulse 80, sats 94% on 4 liters. I's & O 's have been 3816 in, 294 out. CHEST: Chest revealed crackles. CARDIAC: Normal S1, S2. ABDOMEN: Soft, no masses. LABORATORY DATA: White count 14,000, H&H 8 and 25, platelet count is 97, pO2 73 , pCO2 33.46 on 4 liters, creatinine is 5, BUN 43. IMPRESSION: 1. Chronic renal failure. 2. Congestive heart failure. 3. Status postresp failure 4. Diabetes. PLAN: I am concerned about her pulmonary status. Will try and diurese. Continue antibiotics, nebulizer treatments, supportive care and PT. Continue observation in the ICU. Discussed with family at length. I have reinitiated steroids. One-half hour critical care time. [facility]
[2017-06-01] MEDS: Labetalol HCl 100 MG/20 ML VIAL SLOW IVP PRN ×2 (13:58→18:18)
[2017-06-01] MEDS: Furosemide 40 MG/4 ML VIAL SLOW IVP SCH (13:58)
--- NOTE | 2017-06-01 17:48 | RAD ---
PORTABLE SUPINE KUB: 06/01/17 HISTORY: Dobhoff tube placement. FINDINGS: Partially visualized lung bases demonstrate increased density in both lung bases, left greater than r ight, with blunting of the costophrenic angles suggesting bilateral pleural fluid and associated volu me loss or air space disease. There is a Dobhoff feeding tube extending into the epigastric region, c urling over the midline gastric air bubble, likely terminating in the region of the gastric body. Midline sternotomy wires and mediastinal clips are partially imaged. IMPRESSION: Dobhoff tube curling in midline upper abdomen as above. POS: NINFA
[2017-06-01] MEDS: Aspirin 81 mg Enteric Coated Tablet PO SCH ×2 (18:11→20:47)
[2017-06-01] MEDS: Lisinopril 5 MG TAB PO SCH ×2 (20:47→23:39)
[2017-06-01] MEDS: Atorvastatin Calcium 40 MG TAB PO SCH ×2 (20:48→23:39)
--- NOTE | 2017-06-01 22:14 | RAD ---
KUB: 06/01/17 at 9:44 p.m. COMPARISON: 06/01/17 at 5:39 p.m. HISTORY: Evaluate Dobhoff tube placement. FINDINGS: Stable bibasilar pleural and parenchymal opacity, left greater than right. Dobhoff feeding tube exten ds into the upper abdomen, weighted tip located right of midline, likely in the region of the gastric antrum or proximal duodenum. IMPRESSION: Dobhoff feeding tube as above. POS: NINFA
[2017-06-02] MEDS: Labetalol HCl 100 MG/20 ML VIAL SLOW IVP PRN ×3 (00:17→22:04)
[2017-06-02] MEDS ORDERED: Furosemide 40 MG/4 ML VIAL SLOW IVP SCH (04:02)
[2017-06-02 05:48] LABS: Anion Gap 18 mmol/L (10-20); BUN (Urea Nitrogen) 56 mg/dL (9.8-20.1); Calc. Creatinine Clearance 11 mL/min (70-130); Calcium 8.4 mg/dL (7.8-10.44); Carbon Dioxide 25 mmol/L (23-31); Chloride 104 mmol/L (98-107); Estimated GFR-MDRD 8; Glucose 107 mg/dL (80-115); Potassium 3.4 mmol/L (3.5-5.1); Sodium 144 mmol/L (136-145)
[2017-06-02] MEDS: Furosemide 40 MG/4 ML VIAL SLOW IVP SCH ×2 (06:20→13:05)
[2017-06-02 06:32] LABS: Band 9 % (5-11); Hemoglobin 8.7 g/dL (12.0-16.0); Lymphocytes 11 % (21-51); MDiff Complete? YES; Mean Corpuscular HGB CONC 32.4 g/dL (32.0-36.0); Mean Corpuscular Hemoglobin 29.2 pg (27.0-31.0); Mean Corpuscular Volume 90.1 fl (81.0-99.0); Monocytes 5 % (0-10); Neutrophil 75 % (42-75); Nucleated RBC 2 % (0); PLT Morphology Comment Appears Decreased; Platelet Count 115 thou/uL (130-400); Red Blood Cell (RBC) Count 2.97 mill/uL (4.20-5.40)
[2017-06-02] MEDS ORDERED: Potassium Chloride 40 MEQ in Premix Bag 1 BAG IVPB SCH (08:15)
--- NOTE | 2017-06-02 08:15 | PDOC.FM ---
- Subjective Subjective: Patient pulled out dobhoff tube. She was a little SOB and had to get lasix. She is found at bed, getting ready to move to neuro chair. - Objective MAR Reviewed: Yes Vital Signs & Weight: Vital Signs (12 hours) Temp Pulse Resp BP Pulse Ox 06/02/17 07:14 97 06/02/17 07:00 97.6 F 06/02/17 05:00 97.8 F 06/02/17 04:24 82 24 H 98 06/02/17 00:17 80 167/96 H 06/02/17 00:00 98.2 F 06/01/17 23:39 80 Weight Admit Weight 63.9 kg Weight 72 kg Most Recent Monitor Data Heart Rate from ECG 91 NIBP 172/93 NIBP BP-Mean 131 Respiration from ECG 27 SpO2 96 I&O: 06/01/17 06/02/17 06/03/17 06:59 06:59 06:59 Intake Total 2489 312 Output Total 835 3185 375 Balance 3552 -6165 -605 Result Diagrams: 06/02/17 05:21 06/02/17 05:21 <Rome Ivy M - Last Filed: 06/02/17 08:27> - Objective Vital Signs & Weight: Vital Signs (12 hours) Temp Pulse Resp Pulse Ox 06/02/17 10:52 82 06/02/17 08:00 97.6 F 82 20 99 06/02/17 07:14 97 06/02/17 07:00 97.6 F 06/02/17 05:00 97.8 F 06/02/17 04:24 82 24 H 98 Weight Admit Weight 63.9 kg Weight 72 kg Most Recent Monitor Data Heart Rate from ECG 80 NIBP 153/95 NIBP BP-Mean 136 Respiration from ECG 16 SpO2 99 I&O: 06/01/17 06/02/17 06/03/17 06:59 06:59 06:59 Intake Total 2489 312 Output Total 835 3185 675 Balance 6700 -5029 -675 Result Diagrams: 06/02/17 05:21 06/02/17 05:21 <Ted Shelton - Last Filed: 06/02/17 12:52> Phys Exam - Physical Examination Constitutional: NAD HEENT: moist MMs Neck: no nodes, supple Wheezing present, less then previous day Cardiovascular: RRR 2/6 systolic murmur as before Gastrointestinal: soft, non-tender, no distention, positive bowel sounds 1+ edema in though Neurological: moves all 4 limbs Follow command, speaks softly Lymphatic: no nodes Psychiatric: A&O x 3 Skin: no rash <LyRome M - Last Filed: 06/02/17 08:27> Dx/Plan (1) Septic shock Code(s): A41.9 - SEPSIS, UNSPECIFIED ORGANISM; R65.21 - SEVERE SEPSIS WITH SEPTIC SHOCK Status: Acute Plan: Patient improving, Continue abx (ceftriaxone) for sepsis likely from UTI (2) Acute renal failure Status: Acute Plan: BUN/CR raising slightly, possibly cardiorenal with her new CHF. Urine output adequate Continue with lasix. (3) Elevated troponin Code(s): R74.8 - ABNORMAL LEVELS OF OTHER SERUM ENZYMES Status: Acute Plan: Heparin drip stopped. Start patient on statin. Will hold on neli and betablocker at his time due CHF and renal issues. (4) DKA (diabetic ketoacidoses) Code(s): E13.10 - OTH DIABETES MELLITUS WITH KETOACIDOSIS WITHOUT COMA Status : Acute Plan: Resolved DKA, will continue with current insulin regimen. Will have speech come by again to clear for diet. (5) Acute respiratory failure with hypoxia Code(s): J96.01 - ACUTE RESPIRATORY FAILURE WITH HYPOXIA Status: Acute Plan: Has been extubated. Yesterday, had episode of hypoxemia with crackles, ABG today came back with mildly elevated pH, decreased O2 and decreased CO2, Plan is to continue with more lasix, duoneb as needed. Protonix for GI prophylaxis. (6) HLD (hyperlipidemia) Code(s): E78.5 - HYPERLIPIDEMIA, UNSPECIFIED Status: Acute Plan: Known chronic issue, cardiology resumed patient home atorvastatin. (7) HTN (hypertension) Code(s): I10 - ESSENTIAL (PRIMARY) HYPERTENSION Status: Acute Plan: Chronic issue, holding home medication due to septic shock Consider starting patient on low dose lisinopril and metoprolol for new new heart failure (8) Lactic acidosis Code(s): E87.2 - ACIDOSIS Status: Acute Plan: Consider resolved at this time, with last lactate downtrending (9) Urinary tract infection Status: Acute Plan: UA shows WBC, Nitrite, and LE. Abx narrowed to ceftriaxone. <Rome Ivy M - Last Filed: 06/02/17 08:27> (1) Septic shock Code(s): A41.9 - SEPSIS, UNSPECIFIED ORGANISM; R65.21 - SEVERE SEPSIS WITH SEPTIC SHOCK Status: Acute (2) Acute respiratory failure with hypoxia Code(s): J96.01 - ACUTE RESPIRATORY FAILURE WITH HYPOXIA Status: Acute (3) Acute renal failure Status: Acute (4) Lactic acidosis Code(s): E87.2 - ACIDOSIS Status: Acute (5) DM2 (diabetes mellitus, type 2) Status: Acute (6) Hypothyroid Code(s): E03.9 - HYPOTHYROIDISM, UNSPECIFIED Status: Acute (7) History of cerebrovascular accident (CVA) with residual deficit Code(s): I69.30 - UNSPECIFIED SEQUELAE OF CEREBRAL INFARCTION Status: Acute (8) HLD (hyperlipidemia) Code(s): E78.5 - HYPERLIPIDEMIA, UNSPECIFIED Status: Acute (9) HTN (hypertension) Code(s): I10 - ESSENTIAL (PRIMARY) HYPERTENSION Status: Acute (10) CAD (coronary artery disease) Code(s): I25.10 - ATHSCL HEART DISEASE OF [place] CORONARY ARTERY W/O ANG PCTRS Status: Acute <Ted Shelton - Last Filed: 06/02/17 12:52> Attending Addendum - Attending Addendum Date/Time: 06/02/17 1243 I personally evaluated the patient and discussed the management with Dr. Peter I agree with the History, Examination, Assessment and Plan documented above with any addition or exceptions noted below.Patient extubated and continues to improve hopefully she has a stunned myocardium and will see continued CV improvement. Patient pulled out dophoff will need to continue to address nutritional needs for recovery. Speech evaluation for bedside swallow study this am. Continue to advance activity convert po rx soon when able to swallow. <eTd Shelton - Last Filed: 06/02/17 12:52>
--- NOTE | 2017-06-02 09:32 | RAD ---
ABDOMEN 1 VIEW: HISTORY: A 71-year-old female for Dobbhoff tube placement evaluation. The patient pulled the previous Dobbhof f tube out. COMPARISON: 06/01/17. FINDINGS: A Dobbhoff tube is in place within the stomach, the tip is somewhat coiled back on itself in the raysa on of the fundus. IMPRESSION: Dobbhoff tube extends into the stomach, although is somewhat coiled back on itself with the tip exten ding into the upper body fundus region. POS: NINFA
[2017-06-02] MEDS: Insulin Detemir 100 UNITS/ML 15 UNITS in Pre-Filled Syringe 1 EACH SC SCH ×2 (10:05→20:00)
[2017-06-02] MEDS: Lisinopril 5 MG TAB PO SCH ×3 (10:52→20:01)
[2017-06-02] MEDS: Heparin 5,000 UNITS/ML VIAL SC SCH (10:52)
[2017-06-02] MEDS: Pantoprazole 40 MG GRANULES PACKET PER TUBE SCH ×2 (10:53→13:51)
--- NOTE | 2017-06-02 12:24 | PRG ---
DATE OF SERVICE: 06/02/2017 SUBJECTIVE: A 71-year-old female being seen for acute kidney injury. The patient denies any nausea, vomiting, or chest pain. PHYSICAL EXAMINATION: GENERAL: Patient is awake, alert. VITAL SIGNS: Afebrile, pulse 82, breathing 16, blood pressure 144/84. HEAD/NECK: Normocephalic. Atraumatic. EYES: EOMI. No deformity. EARS: Clear. No ulcers. NOSE: Intact. No lesions. MOUTH: Clear. No discharge. THROAT: Clear. No exudate. LUNGS: Clear. No crackles. CARDIAC: S1, S2. No rub. ABDOMEN: Benign. BS+. GENITALIA/RECTUM: [place] absent. BACK/EXTREMITIES: Edema 0+ Ulcer- NEUROLOGICAL: Alert and motor intact. SKIN: Rash- Bruise- LYMPHATICS: Edema- Ulcer- LABORATORY DATA: Show hemoglobin 8.7, potassium 3.4, and creatinine 5.5. ASSESSMENT AND PLAN: 1. Stage 5 chronic kidney disease, nonoliguric with rising creatinine. No urgent indication for tulio lysis. 2. Hypokalemia, stable. 3. Metabolic acidosis, stable. We will follow renal function closely.
--- NOTE | 2017-06-02 12:37 | EKG ---
Test Reason : AMS Blood Pressure : / mmHG Vent. Rate : 085 BPM Atrial Rate : 104 BPM P-R Int : 000 ms QRS Dur : 094 ms QT Int : 480 ms P-R-T Axes : 000 062 076 degrees QTc Int : 571 ms Atrial fibrillation Nonspecific ST abnormality Prolonged QT Abnormal ECG Confirmed by SRIDHAR MCCOLLUM, MIKHAIL ([id number]), department editor SONJA BERNAL ([id number]) on 06/02/2017 12:36:14 PM Referred By: Confirmed By:MIKHAIL WALLER MD
[2017-06-02] MEDS: cefTRIAXone\\ROCEPHIN 2 GM in Sodium Chloride 0.9% 100 ML IVPB SCH (13:05)
--- NOTE | 2017-06-02 16:45 | PRG ---
DATE OF SERVICE: 06/02/2017 SUBJECTIVE: This morning appears to be somewhat better, sitting on the side of the bed. OBJECTIVE: VITAL SIGNS: Sats 94% on 4 liters. She was extubated. Blood pressure 172/93, respiratory rate 18. I's and O's have been 2489 in and 835 out. CHEST: Extensive rhonchi. CARDIAC: Normal S1 and S2, no gallops. ABDOMEN: Soft. No masses. LABORATORY DATA: White count 11,000, hemoglobin and hematocrit 8 and 36, platelet count is normal 85 .8. ASSESSMENT AND PLAN: 1. Congestive heart failure. 2. Respiratory failure. 3. Metabolic encephalopathy. 4. Diabetes. 5. Renal failure. 6. Multiorgan failure. This woman has pulled out the Dobbhoff several times. At this stage, she can be transferred to a monitored bed. Continue antibiotics for her urinary tract infection. Continue steroids and nebulizer treatments. We will follow. One-half hour critical care time.
[2017-06-02] MEDS: Aspirin 81 mg Enteric Coated Tablet PO SCH (18:11)
[2017-06-02] MEDS: Insulin Regular 300 UNITS/3 ML VIAL SC PRN (19:58)
[2017-06-02] MEDS: Atorvastatin Calcium 40 MG TAB PO SCH (20:00)
[2017-06-03] MEDS: Insulin Regular 300 UNITS/3 ML VIAL SC PRN ×4 (01:22→20:16)
[2017-06-03 04:48] LABS: Band 2 % (5-11); Hemoglobin 8.3 g/dL (12.0-16.0); Lymphocytes 6 % (21-51); MDiff Complete? YES; Mean Corpuscular HGB CONC 33.6 g/dL (32.0-36.0); Mean Corpuscular Hemoglobin 30.2 pg (27.0-31.0); Mean Corpuscular Volume 89.8 fl (81.0-99.0); Mean Platelet Volume 9.4 fL (7.4-10.4); Monocytes 3 % (0-10); Neutrophil 89 % (42-75); Platelet Count 133 thou/uL (130-400); RBC Distribution Width 13.1 % (11.5-14.5); Red Blood Cell (RBC) Count 2.74 mill/uL (4.20-5.40); White Blood Cell (WBC) Count 13.5 thou/uL (4.8-10.8)
[2017-06-03 04:49] LABS: Anion Gap 16 mmol/L (10-20); BUN (Urea Nitrogen) 73 mg/dL (9.8-20.1); Calc. Creatinine Clearance 11 mL/min (70-130); Calcium 8.6 mg/dL (7.8-10.44); Carbon Dioxide 32 mmol/L (23-31); Chloride 103 mmol/L (98-107); Estimated GFR-MDRD 8; Glucose 178 mg/dL (80-115); Sodium 148 mmol/L (136-145)
[2017-06-03 04:54] LABS: Potassium 2.8 mmol/L (3.5-5.1)
[2017-06-03] MEDS ORDERED: Potassium Chloride 40 MEQ in Premix Bag 1 BAG IVPB SCH (05:00)
[2017-06-03] MEDS: Furosemide 40 MG/4 ML VIAL SLOW IVP SCH ×2 (05:43→13:55)
[2017-06-03] MEDS ORDERED: Ipratropium Oral Inhaler (200 INHALATIONS) INH PRN (07:32)
--- NOTE | 2017-06-03 07:38 | PDOC.FM ---
- Subjective Subjective: Patient found in bed, daughter at bedside. They stated she had some issue with restless leg last night. Nursing noted nothing happened overnight acutely. Denied any sweat, pain, chest pain, does endorse feeling sob still. - Objective MAR Reviewed: Yes Vital Signs & Weight: Vital Signs (12 hours) Temp Pulse Resp BP BP Pulse Ox 06/03/17 07:10 97.6 F 78 18 94 L 06/03/17 03:44 96.8 F L 80 16 148/75 H 91 L 06/03/17 02:00 97.6 F 76 18 94 L 06/02/17 23:12 97.6 F 76 18 167/86 H 94 L 06/02/17 22:04 82 168/84 H 06/02/17 20:01 82 147/87 H 06/02/17 20:00 98 F 82 20 98 Weight Admit Weight 63.9 kg Weight 63.548 kg Most Recent Monitor Data Heart Rate from ECG 82 NIBP 143/72 NIBP BP-Mean 88 Respiration from ECG 16 SpO2 96 I&O: 06/02/17 06/03/17 06/04/17 06:59 06:59 06:59 Intake Total 312 840 Output Total 3189 8222 Balance -9391 -4144 Result Diagrams: 06/03/17 04:00 06/03/17 04:00 <Rome Ivy M - Last Filed: 06/03/17 07:37> - Objective Vital Signs & Weight: Vital Signs (12 hours) Temp Pulse Resp BP BP Pulse Ox 06/03/17 11:20 97.8 F 78 22 H 160/80 H 93 L 06/03/17 08:25 77 153/78 H 06/03/17 07:10 97.6 F 78 18 94 L 06/03/17 07:00 97.6 F 80 20 145/65 H 93 L 06/03/17 03:44 96.8 F L 80 16 148/75 H 91 L 06/03/17 02:00 97.6 F 76 18 94 L Weight Admit Weight 63.9 kg Weight 63.548 kg Most Recent Monitor Data Heart Rate from ECG 82 NIBP 143/72 NIBP BP-Mean 88 Respiration from ECG 16 SpO2 96 I&O: 06/02/17 06/03/17 06/04/17 06:59 06:59 06:59 Intake Total 312 840 Output Total 3180 5260 Balance -8203 -4067 Result Diagrams: 06/03/17 04:00 06/03/17 11:49 <CatTed - Last Filed: 06/03/17 12:35> Phys Exam - Physical Examination Constitutional: NAD HEENT: moist MMs Neck: no nodes, supple Respiratory: wheezing present With crackles Cardiovascular: RRR Systollic murmur Gastrointestinal: soft, no distention, positive bowel sounds Musculoskeletal: edema present 1+ in thigh Neurological: moves all 4 limbs Lymphatic: no nodes Psychiatric: A&O x 3 Deviation from normal: Follows command Skin: no rash <Ly,Rome M - Last Filed: 06/03/17 07:37> Dx/Plan (1) Septic shock Code(s): A41.9 - SEPSIS, UNSPECIFIED ORGANISM; R65.21 - SEVERE SEPSIS WITH SEPTIC SHOCK Status: Acute Plan: Patient improving, Continue abx (ceftriaxone) for sepsis likely from UTI (2) Acute renal failure Status: Acute Plan: BUN/CR raising slightly, possibly cardiorenal with her new CHF. Urine output adequate Continue with lasix. Nephro recs no dialysis. (3) Elevated troponin Code(s): R74.8 - ABNORMAL LEVELS OF OTHER SERUM ENZYMES Status: Acute Plan: Start patient on statin. Will hold on neli and betablocker at his time due CHF and renal issues. Heart failure clinic on discharge (4) DKA (diabetic ketoacidoses) Code(s): E13.10 - OTH DIABETES MELLITUS WITH KETOACIDOSIS WITHOUT COMA Status : Acute Plan: Dobhoff tube placed. DKA resolved, required 6 units of SSI over last 24 hours. (5) Acute respiratory failure with hypoxia Code(s): J96.01 - ACUTE RESPIRATORY FAILURE WITH HYPOXIA Status: Acute Plan: Has been extubated. Plan is to continue with lasix, duoneb as needed. Protonix for GI prophylaxis. (6) HLD (hyperlipidemia) Code(s): E78.5 - HYPERLIPIDEMIA, UNSPECIFIED Status: Acute Plan: Known chronic issue, cardiology resumed patient home atorvastatin. (7) HTN (hypertension) Code(s): I10 - ESSENTIAL (PRIMARY) HYPERTENSION Status: Acute Plan: Chronic issue, holding home medication due to septic shock Consider starting patient on low dose lisinopril and metoprolol for new new heart failure (8) Lactic acidosis Code(s): E87.2 - ACIDOSIS Status: Acute Plan: Consider resolved at this time, with last lactate downtrending (9) Urinary tract infection Status: Acute Plan: UA shows WBC, Nitrite, and LE. Abx narrowed to ceftriaxone. - Plan Plan: Overall, will continue to work on patient's pulmonary edema, likely secondary to congestive heart failure versus shocked heart with lasix and fluid restriction. Continue physical therapy. <Rome Ivy - Last Filed: 06/03/17 07:37> (1) Septic shock Code(s): A41.9 - SEPSIS, UNSPECIFIED ORGANISM; R65.21 - SEVERE SEPSIS WITH SEPTIC SHOCK Status: Acute (2) Acute respiratory failure with hypoxia Code(s): J96.01 - ACUTE RESPIRATORY FAILURE WITH HYPOXIA Status: Acute (3) Acute renal failure Status: Acute (4) Lactic acidosis Code(s): E87.2 - ACIDOSIS Status: Acute (5) DM2 (diabetes mellitus, type 2) Status: Acute (6) Hypothyroid Code(s): E03.9 - HYPOTHYROIDISM, UNSPECIFIED Status: Acute (7) History of cerebrovascular accident (CVA) with residual deficit Code(s): I69.30 - UNSPECIFIED SEQUELAE OF CEREBRAL INFARCTION Status: Acute (8) HLD (hyperlipidemia) Code(s): E78.5 - HYPERLIPIDEMIA, UNSPECIFIED Status: Acute (9) HTN (hypertension) Code(s): I10 - ESSENTIAL (PRIMARY) HYPERTENSION Status: Acute (10) CAD (coronary artery disease) Code(s): I25.10 - ATHSCL HEART DISEASE OF [place] CORONARY ARTERY W/O ANG PCTRS Status: Acute <Ted Shelton - Last Filed: 06/03/17 12:35> Attending Addendum - Attending Addendum Date/Time: 06/03/17 1229 I personally evaluated the patient and discussed the management with Dr. Peter I agree with the History, Examination, Assessment and Plan documented above with any addition or exceptions noted below advance activity prior CVA history dysphagia rec continued speech therapy continue dophoff feeding for now.Otherwise patient continues to improve. <Ted Shelton - Last Filed: 06/03/17 12:35>
[2017-06-03] MEDS: Insulin Detemir 100 UNITS/ML 15 UNITS in Pre-Filled Syringe 1 EACH SC SCH (08:25)
[2017-06-03] MEDS: Heparin 5,000 UNITS/ML VIAL SC SCH (08:25)
[2017-06-03] MEDS: Lisinopril 5 MG TAB PO SCH ×2 (08:25→20:14)
[2017-06-03] MEDS: Pantoprazole 40 MG GRANULES PACKET PER TUBE SCH (08:27)
[2017-06-03] MEDS: cefTRIAXone\\ROCEPHIN 2 GM in Sodium Chloride 0.9% 100 ML IVPB SCH (10:36)
[2017-06-03] MEDS: Dextrose 5% in Water 1,000 ML IV SCH (12:48)
--- NOTE | 2017-06-03 13:18 | RAD ---
AP VIEW CHEST: HISTORY: Ventilator dependent patient. Patient with chest pain. FINDINGS: AP view chest is obtained on 06/03/17. Comparison is made to previous exam from 06/01/17. AP view chest demonstrates sternotomy wires seen. Cardiomegaly noted. There is a nasogastric tube i n place. A left subclavian central line is again seen. Cardiomegaly is seen. Pulmonary vascular co ngestion is seen. Bilateral pleural effusions seen. IMPRESSION: 1. Interval placement of an nasogastric tube. 2. Increasing bilateral pleural effusions. POS: [facility]
[2017-06-03] MEDS ORDERED: Potassium Chloride 20 MEQ TAB PO SCH (14:30)
[2017-06-03] MEDS ORDERED: Insulin Detemir 100 UNITS/ML 20 UNITS in Pre-Filled Syringe 1 EACH SC SCH (14:45)
[2017-06-03] MEDS: Carvedilol 3.125 MG TAB PO SCH (16:28)
[2017-06-03] MEDS: Aspirin 81 mg Enteric Coated Tablet PO SCH (17:15)
--- NOTE | 2017-06-03 18:10 | PRG ---
DATE OF SERVICE: 06/03/2017 SUBJECTIVE: A 71-year-old female being seen for acute kidney injury. The patient denies any nausea, vomiting, or chest pain. PHYSICAL EXAMINATION: GENERAL: Patient is awake, alert. VITAL SIGNS: Afebrile, pulse 72, breathing 16, blood pressure 140/65. HEAD/NECK: Normocephalic. Atraumatic. EYES: EOMI. No deformity. EARS: Clear. No ulcers. NOSE: Intact. No lesions. MOUTH: Clear. No discharge. THROAT: Clear. No exudate. LUNGS: Clear. No crackles. CARDIAC: S1, S2. No rub. ABDOMEN: Benign. BS+. GENITALIA/RECTUM: [place] absent. BACK/EXTREMITIES: Edema 0+ Ulcer- NEUROLOGICAL: Alert and motor intact. SKIN: Rash- Bruise- LYMPHATICS: Edema- Ulcer- LABORATORY DATA: Show hemoglobin 8.3, creatinine 5.5. ASSESSMENT AND PLAN: 1. Acute kidney injury with chronic kidney disease, stable. 2. Hypertension, stable. 3. Anemia, stable. 4. Hypernatremia. We will start the patient on free water with flushes of 200 mL/hour every 4 hours and recheck sodium again. 5. Hypokalemia. Recommend high potassium diet and potassium supplementation. No indication for tulio lysis today.
--- NOTE | 2017-06-03 19:17 | PRG ---
DATE OF SERVICE: 06/03/2017 SUBJECTIVE: This morning, she is more awake and more responsive. OBJECTIVE: VITAL SIGNS: Blood pressure is 153/78, sats 94% on 2 liters, respirations 18. CHEST: Extensive rhonchi and crackles. CARDIAC: Normal S1, S2, no gallops. ABDOMEN: Soft, no masses. LABORATORY DATA: White count is 13,000, H and H is 8 and 24, platelet count 133, creatinine 73, BUN 5. X-ray shows still a significant cardiomegaly, bilateral pleural effusion. IMPRESSION: Status post cardiopulmonary arrest, respiratory failure, congestive heart failure, renal failure, azotemia, severe deconditioning, urosepsis. Concerned about her still markedly abnormal x-ray, consider congestive heart failure despite of diure tics and worsening azotemia. Continue Lasix for another 24 hours. We will reassess kidney function. We will follow.
[2017-06-03] MEDS: Atorvastatin Calcium 40 MG TAB PO SCH (20:13)
[2017-06-03] MEDS: Insulin Detemir 100 UNITS/ML 20 UNITS in Pre-Filled Syringe 1 EACH SC SCH (20:15)
[2017-06-03] MEDS: Labetalol HCl 100 MG/20 ML VIAL SLOW IVP PRN (21:24)
[2017-06-04] MEDS: Insulin Regular 300 UNITS/3 ML VIAL SC PRN ×2 (05:48→11:05)
[2017-06-04 06:25] LABS: Anion Gap 13 mmol/L (10-20); BUN (Urea Nitrogen) 70 mg/dL (9.8-20.1); Calc. Creatinine Clearance 12 mL/min (70-130); Calcium 8.6 mg/dL (7.8-10.44); Carbon Dioxide 36 mmol/L (23-31); Estimated GFR-MDRD 10; Glucose 247 mg/dL (80-115); Potassium 3.1 mmol/L (3.5-5.1)
[2017-06-04 06:39] LABS: Chloride 101 mmol/L (98-107); Sodium 147 mmol/L (136-145)
[2017-06-04 06:43] LABS: Band 6 % (5-11); Hemoglobin 8.5 g/dL (12.0-16.0); Lymphocytes 3 % (21-51); MDiff Complete? YES; Mean Corpuscular HGB CONC 33.1 g/dL (32.0-36.0); Mean Corpuscular Volume 90.7 fl (81.0-99.0); Mean Platelet Volume 8.7 fL (7.4-10.4); Monocytes 6 % (0-10); Neutrophil 85 % (42-75); Platelet Count 155 thou/uL (130-400); RBC Distribution Width 13.1 % (11.5-14.5); Red Blood Cell (RBC) Count 2.82 mill/uL (4.20-5.40); White Blood Cell (WBC) Count 16.8 thou/uL (4.8-10.8)
[2017-06-04] MEDS: Furosemide 40 MG/4 ML VIAL SLOW IVP SCH (06:49)
[2017-06-04] MEDS: Dextrose 5% in Water 1,000 ML IV SCH (06:56)
[2017-06-04] MEDS: Carvedilol 3.125 MG TAB PO SCH ×2 (08:28→17:50)
[2017-06-04] MEDS: Lisinopril 5 MG TAB PO SCH (08:28)
[2017-06-04] MEDS: Pantoprazole 40 MG GRANULES PACKET PER TUBE SCH (08:28)
[2017-06-04] MEDS: Heparin 5,000 UNITS/ML VIAL SC SCH (08:29)
[2017-06-04] MEDS: Insulin Detemir 100 UNITS/ML 20 UNITS in Pre-Filled Syringe 1 EACH SC SCH ×2 (08:30→21:22)
--- NOTE | 2017-06-04 08:55 | PRG ---
DATE OF SERVICE: 06/04/2017 This morning she is awake, alert and responsive. She is less short of breath. PHYSICAL EXAMINATION: VITAL SIGNS: Sats are 92 on 2 liters, temperature is 97, blood pressure 119/80. CHEST: Chest reveals decreased breath sounds, crackles or rhonchi. CARDIAC: Normal S1, S2. ABDOMEN: Soft, no masses. LABORATORY: BUN and creatinine are increasing at 70 and 4.43. IMPRESSION: 1. Status post respiratory failure. 2. Encephalopathy. 3. Renal failure. 4. Congestive heart failure. 5. Abnormal x-ray. 6. Urinary tract infection. PLAN: Lasix has been discontinued IV. Continue low dose p.o. Lasix. Hopefully, Speech is going to reassess if she can swallow. This should take place, may need a Dobbhoff, can be removed. She still has a long ways to go. Continue PT, supportive care. She is a DNR. I will follow.
--- NOTE | 2017-06-04 09:15 | RAD ---
SINGLE VIEW OF THE CHEST: COMPARISON: 06/03/17. HISTORY: Ventilation patient with respiratory failure. FINDINGS: A single view of the chest shows an enlarged but stable cardiomediastinal silhouette. The central ve nous catheter is unchanged in position. The NG tube is unchanged in position. The patient is status post sternotomy. There appear to be small bilateral pleural effusions. IMPRESSION: Stable bilateral pleural effusions. POS: [facility]
--- NOTE | 2017-06-04 09:23 | PDOC.FM ---
- Subjective Subjective: Patient found in bed. 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 Otherwise, she did not have problems last night. Denies pain, difficulty swallowing. Endorse some SOB but same to improve from yesterday. - Objective MAR Reviewed: Yes Vital Signs & Weight: Vital Signs (12 hours) Temp Pulse Resp BP BP Pulse Ox 06/04/17 08:28 76 202/90 H 06/04/17 07:27 97.9 F 76 19 190/81 H 92 L 06/03/17 21:24 72 187/95 H Weight Admit Weight 63.9 kg Weight 63.957 kg Most Recent Monitor Data Heart Rate from ECG 82 NIBP 143/72 NIBP BP-Mean 88 Respiration from ECG 16 SpO2 96 I&O: 06/03/17 06/04/17 06/05/17 06:59 06:59 06:59 Intake Total 840 2348 Output Total 4760 4723 Balance -0869 -0841 Result Diagrams: 06/04/17 05:10 06/04/17 05:10 <Rome Ivy - Last Filed: 06/04/17 10:21> - Objective Vital Signs & Weight: Vital Signs (12 hours) Temp Pulse Resp BP BP Pulse Ox 06/04/17 08:28 76 202/90 H 06/04/17 07:27 97.9 F 76 19 190/81 H 92 L Weight Admit Weight 63.9 kg Weight 63.957 kg Most Recent Monitor Data Heart Rate from ECG 82 NIBP 143/72 NIBP BP-Mean 88 Respiration from ECG 16 SpO2 96 I&O: 06/03/17 06/04/17 06/05/17 06:59 06:59 06:59 Intake Total 840 2348 Output Total 4760 4725 Balance -0427 -0846 Result Diagrams: 06/04/17 05:10 06/04/17 05:10 <Siri Pappas - Last Filed: 06/04/17 10:36> Phys Exam - Physical Examination Constitutional: NAD HEENT: sclera anicteric Neck: supple Improved wheezing/crackles from yesterday Cardiovascular: RRR Gastrointestinal: soft, non-tender, no distention, positive bowel sounds Trace edema at thigh Neurological: moves all 4 limbs Lymphatic: no nodes Psychiatric: normal affect, A&O x 3 Skin: no rash <LyRome M - Last Filed: 06/04/17 10:21> Dx/Plan (1) Septic shock Code(s): A41.9 - SEPSIS, UNSPECIFIED ORGANISM; R65.21 - SEVERE SEPSIS WITH SEPTIC SHOCK Status: Acute Plan: Patient improving, Continue abx (ceftriaxone) for sepsis likely from UTI, day 7 of abx (2) Acute renal failure Status: Acute Plan: BUN/CR elevated by improved, possibly cardiorenal with her new CHF. Urine output adequate Continue with lasix. Nephro recs no dialysis. (3) Elevated troponin Code(s): R74.8 - ABNORMAL LEVELS OF OTHER SERUM ENZYMES Status: Acute Plan: Start patient on statin. New CHF, mixed found on echo. Poor kidney function so will hold neli for now. Hold b-katelyn for now due to respiratory. (4) DKA (diabetic ketoacidoses) Code(s): E13.10 - OTH DIABETES MELLITUS WITH KETOACIDOSIS WITHOUT COMA Status : Acute Plan: Dobhoff tube placed. DKA resolved, Insulin to 20 U sc BID (5) Acute respiratory failure with hypoxia Code(s): J96.01 - ACUTE RESPIRATORY FAILURE WITH HYPOXIA Status: Acute Plan: Has been extubated. Plan is to continue with lasix, duoneb as needed. Incentive spirometry and PT to help recondition (6) HLD (hyperlipidemia) Code(s): E78.5 - HYPERLIPIDEMIA, UNSPECIFIED Status: Acute Plan: Known chronic issue, cardiology resumed patient home atorvastatin. (7) HTN (hypertension) Code(s): I10 - ESSENTIAL (PRIMARY) HYPERTENSION Status: Acute Plan: Chronic issue, holding home medication due to septic shock Consider starting patient on low dose lisinopril and metoprolol for new new heart failure once patient kidney/lung function improves. For now, gets prn labetolol for BP (8) Lactic acidosis Code(s): E87.2 - ACIDOSIS Status: Acute Plan: Consider resolved at this time, with last lactate downtrending (9) Urinary tract infection Status: Acute Plan: UA shows WBC, Nitrite, and LE. Abx narrowed to ceftriaxone, day 09/25/ - Plan Plan: 1. CM consult for rehab placement 2/2 to deconditioning. <Rome Ivy M - Last Filed: 06/04/17 10:21> Attending Addendum - Attending Addendum Date/Time: 06/04/17 0794 I personally evaluated the patient and discussed the management with Dr. Ivy. I agree with the History, Examination, Assessment and Plan documented above with any addition or exceptions noted below. The patient complains of difficulty talking due to throat pain and hoarseness. Will try to get swallow study today so that she can eat. Hypernatremia - will adjust free water. Continuing IV antibiotics. PT/OT. Pt will likely need some rehab when stable for discharge. Urine output stable. <Siri Pappas - Last Filed: 06/04/17 10:36>
[2017-06-04] MEDS ORDERED: Potassium Chloride 40 MEQ in Premix Bag 1 BAG IVPB SCH (10:00)
[2017-06-04] MEDS: cefTRIAXone\\ROCEPHIN 2 GM in Sodium Chloride 0.9% 100 ML IVPB SCH (11:05)
--- NOTE | 2017-06-04 12:01 | PRG ---
DATE OF SERVICE: 06/04/2017 SUBJECTIVE: Patient was seen and examined at bedside and overnight events noted. Patient denies any shortness of breath or chest pain or palpitation. No history of nausea or vomitin g or diarrhea or fever or chills or cramps. OBJECTIVE: GENERAL: This is a well-built female, in no apparent distress. VITAL SIGNS: Temperature 97.9, pulse 76, respiratory rate 18, blood pressure 171/82. HEENT: Atraumatic, normocephalic. Oral mucosa is moist NECK: Supple. CARDIOVASCULAR: S1 and S2 heard. Rate and rhythm regular. RESPIRATORY: Clear to auscultation. GASTROINTESTINAL: Abdomen is soft. MUSCULOSKELETAL: No tenderness. No edema. DERMATOLOGIC: No skin rash. NEUROLOGIC: Alert and awake and oriented X3, No focal neurologic deficits. Moving all the extremitie s. PSYCHIATRIC: Mood and affect normal. LABORATORY DATA: Potassium is 3.1, BUN 70, creatinine is 4.43 from 5.5 yesterday. ASSESSMENT AND PLAN: 1. Acute kidney injury on chronic kidney disease stage 3. Renal function is better. Avoid nephroto xins. 2. Hypernatremia. Agree with free water. 3. Hypokalemia, replace with caution. 4. Anemia. 5. Edema, controlled. 6. Hypertension. We will monitor and titrate medications. 7. Continue supportive care. Renal function seems to be better. Cautious use of potassium.
[2017-06-04] MEDS: Labetalol HCl 100 MG/20 ML VIAL SLOW IVP PRN (12:39)
--- NOTE | 2017-06-04 15:32 | RAD ---
MODIFIED BARIUM SWALLOW: EXPOSURE: 0.8 minutes. 4 mGy. HISTORY: Dysphagia, unspecified. Feeding difficulty. FINDINGS: In the presence of speech pathologist, the patient was administered thin liquid in various consistenc ies. There is penetration and aspiration with a thin liquid consistency. There is penetration with the pu ree consistency. IMPRESSION: Refer to speech pathology report. POS: [facility]
--- NOTE | 2017-06-04 17:43 | PDOC.EVN ---
Event Note - Event Note Event Note: Had a long discussion with patient and 4 family members reviewing their treatment to date and plans going forward. Patient wants to be full code. Patient is nodding in agreement during explanation. Family states this is the wishes she has been expressing to them as well. Patient would like to pursue PEG tube in light of failed swallow study.
--- NOTE | 2017-06-04 17:48 | PDOC.CTH ---
Cardiology Progress Note - Subjective She is doing better. No chest pain, tightness ,pressure, SOB. - Objective Vital Signs Temp Pulse Resp BP BP Pulse Ox 06/04/17 15:23 97.4 F L 64 17 179/85 H 97 06/04/17 12:39 68 185/89 H 06/04/17 11:17 97.5 F L 68 16 171/82 H 98 06/04/17 08:28 76 202/90 H 06/04/17 08:00 97.9 F 76 18 92 L 06/04/17 07:27 97.9 F 76 19 190/81 H 92 L Admit Weight 140 lb 14.006 oz Weight 141 lb 06/03/17 06/04/17 06/05/17 06:59 06:59 06:59 Intake Total 840 2348 120 Output Total 4785 5127 1700 Balance -5687 -4214 -7446 - Physical Examination General/Neuro: NAD Neck: no JVD present Lungs: unlabored respirations Heart: RRR Abdomen: NT/ND Extremities: other: (no edema.) - Telemetry Telemetry Rhythm: NSR - Labs Result Diagrams: 06/04/17 05:10 06/04/17 05:10 Troponin/CKMB CK-MB (CK-2) 59.7 ng/mL (0-6.6) H* 05/29/17 11:37 Troponin I 9.165 ng/mL (< 0.028) H* 05/29/17 11:37 - Assessment/Plan 1. NSTEMI 2. Acute systolic heart failure. 3. New onset severe LV dysfunction. 4. ALICIA 5. Recent severe dehydration 6. Asystole arrest. 7. New onset CM EF at 20-25% 8. UTI sepsis, 2a to E Coli. 9. Septic shock. PLAN: - Had a long conversation with Ms Hansen and her family, both daughter and in room. They would like to be conservative with her care. Will continue medical therapy only for now, no LHC to be done. - Will do a repeat echocardiogram and to see if LV function has improved or not to see if family would be interested in lifevest before discharge. - BB, No aldactoine, ACEI or ARB due to renal dysfunction. - Nitrate and Hydralazine to be added today. - If she is not going to have HD from now she would not be a candidate for nay invasive study given the use of IV contrast would be prohibitive for her.
[2017-06-04] MEDS: Aspirin 81 mg Enteric Coated Tablet PO SCH (17:50)
[2017-06-04] MEDS: hydrALAZINE 25 MG TAB PO SCH (21:18)
[2017-06-04] MEDS: Atorvastatin Calcium 40 MG TAB PO SCH (21:19)
[2017-06-05] MEDS: Dextrose 5% in Water 1,000 ML IV SCH (06:17)
[2017-06-05 07:51] LABS: Anion Gap 12 mmol/L (10-20); BUN (Urea Nitrogen) 58 mg/dL (9.8-20.1); Calc. Creatinine Clearance 15 mL/min (70-130); Calcium 8.7 mg/dL (7.8-10.44); Carbon Dioxide 37 mmol/L (23-31); Chloride 101 mmol/L (98-107); Estimated GFR-MDRD 15; Glucose 179 mg/dL (80-115); Sodium 147 mmol/L (136-145)
[2017-06-05 07:55] LABS: Potassium 2.9 mmol/L (3.5-5.1)
[2017-06-05] MEDS ORDERED: Potassium Chloride 40 MEQ in Premix Bag 1 BAG IVPB SCH (08:00)
--- NOTE | 2017-06-05 08:11 | RAD ---
CHEST ONE VIEW: History: Ventilated patient. Comparison: Prior day. FINDINGS: No endotracheal tube is seen on this examination. The enteric tube tip is in the gastric body. Layeri ng bilateral effusions. Central venous catheter is similar. Heart size is enlarged. No pneumothorax. Moderate edema. IMPRESSION: No significant change in the radiographic appearance of the chest. POS: [facility]
[2017-06-05] MEDS ORDERED: Potassium Chloride 40 MEQ, Admixture Fee 1 EACH in Sodium Chloride 0.9% 250 ML 250 ML IVPB SCH (08:15)
[2017-06-05 08:31] LABS: Band 4 % (5-11); Hemoglobin 9.8 g/dL (12.0-16.0); Lymphocytes 6 % (21-51); MDiff Complete? YES; Mean Corpuscular HGB CONC 32.9 g/dL (32.0-36.0); Mean Corpuscular Hemoglobin 29.9 pg (27.0-31.0); Mean Corpuscular Volume 90.9 fl (81.0-99.0); Mean Platelet Volume 8.1 fL (7.4-10.4); Monocytes 10 % (0-10); Neutrophil 79 % (42-75); PLT Morphology Comment Appears Adequate; Platelet Count 233 thou/uL (130-400); RBC Distribution Width 13.2 % (11.5-14.5); Reactive Lymphocytes 1 % (0-10); Red Blood Cell (RBC) Count 3.26 mill/uL (4.20-5.40); White Blood Cell (WBC) Count 14.3 thou/uL (4.8-10.8)
[2017-06-05] MEDS: Insulin Detemir 100 UNITS/ML 20 UNITS in Pre-Filled Syringe 1 EACH SC SCH ×2 (08:41→21:47)
[2017-06-05] MEDS: Pantoprazole 40 MG GRANULES PACKET PER TUBE SCH (08:41)
[2017-06-05] MEDS: Furosemide 40 MG TAB PO SCH (08:42)
[2017-06-05] MEDS: Carvedilol 6.25 MG TAB PO SCH ×2 (08:42→18:13)
[2017-06-05] MEDS: hydrALAZINE 25 MG TAB PO SCH ×3 (08:42→21:46)
[2017-06-05] MEDS: predniSONE 20 MG TAB PO SCH (08:44)
[2017-06-05] MEDS: Heparin 5,000 UNITS/ML VIAL SC SCH (08:45)
--- NOTE | 2017-06-05 08:56 | PDOC.FM ---
- Subjective Subjective: Overnight, no acute event were reported by family or nursing. Patient found at bedside with family. Patient speifically denies pain or difficulty breathing. Family and patient confirm they would like peg tube placement. - Objective MAR Reviewed: Yes Vital Signs & Weight: Vital Signs (12 hours) Temp Pulse Resp BP BP Pulse Ox 06/05/17 07:21 98.3 F 60 13 177/75 H 98 06/05/17 05:24 95 06/05/17 04:00 98.1 F 67 15 177/75 H 94 L 06/05/17 00:00 98.2 F 66 16 177/73 H 97 06/04/17 21:18 69 192/89 H Weight Admit Weight 63.9 kg Weight 55.248 kg Most Recent Monitor Data Heart Rate from ECG 82 NIBP 143/72 NIBP BP-Mean 88 Respiration from ECG 16 SpO2 96 I&O: 06/04/17 06/05/17 06/06/17 06:59 06:59 06:59 Intake Total 2348 2293 Output Total 4725 5500 [id number] Result Diagrams: 06/05/17 06:50 06/05/17 06:50 <Rome Ivy - Last Filed: 06/05/17 09:39> - Objective Vital Signs & Weight: Vital Signs (12 hours) Temp Pulse Resp BP Pulse Ox 06/05/17 08:42 60 06/05/17 07:21 98.3 F 60 13 177/75 H 98 06/05/17 05:24 95 06/05/17 04:00 98.1 F 67 15 177/75 H 94 L 06/05/17 00:00 98.2 F 66 16 177/73 H 97 Weight Admit Weight 63.9 kg Weight 55.248 kg Most Recent Monitor Data Heart Rate from ECG 82 NIBP 143/72 NIBP BP-Mean 88 Respiration from ECG 16 SpO2 96 I&O: 06/04/17 06/05/17 06/06/17 06:59 06:59 06:59 Intake Total 2348 2293 Output Total 4725 5500 [id number] Result Diagrams: 06/05/17 06:50 06/05/17 06:50 <Siri Pappas - Last Filed: 06/05/17 11:06> Phys Exam - Physical Examination Constitutional: NAD HEENT: moist MMs Neck: supple Mild wheezing Cardiovascular: RRR, no rub Gastrointestinal: soft Musculoskeletal: no edema Neurological: non-focal, moves all 4 limbs Lymphatic: no nodes Psychiatric: A&O x 3 Skin: no rash <LyRome M - Last Filed: 06/05/17 09:39> Dx/Plan (1) Septic shock Code(s): A41.9 - SEPSIS, UNSPECIFIED ORGANISM; R65.21 - SEVERE SEPSIS WITH SEPTIC SHOCK Status: Acute Plan: Patient improving, Continue abx omnicef for sepsis likely from UTI, day 10/26 of abx for complicated UTI. (2) Acute renal failure Status: Acute Plan: BUN/CR elevated by improved, possibly cardiorenal with her new CHF. Urine output adequate - Lasix scaled back to once a day, PO. (3) Acute respiratory failure with hypoxia Code(s): J96.01 - ACUTE RESPIRATORY FAILURE WITH HYPOXIA Status: Acute Plan: Has been extubated. O2 saturation maintained on 2 L NC Plan is to continue with lasix, duoneb as needed. Incentive spirometry and PT to help recondition (4) HTN (hypertension) Code(s): I10 - ESSENTIAL (PRIMARY) HYPERTENSION Status: Acute Plan: Patient to start on hydralazine, carvedilol and imdur. For now, gets prn labetolol for BP (5) HLD (hyperlipidemia) Code(s): E78.5 - HYPERLIPIDEMIA, UNSPECIFIED Status: Acute Plan: Known chronic issue, cardiology resumed patient home atorvastatin. (6) Urinary tract infection Status: Acute Plan: UA shows WBC, Nitrite, and LE. Abx changed to omnicef PO, day 10/26 (7) Systolic CHF, acute Code(s): I50.21 - ACUTE SYSTOLIC (CONGESTIVE) HEART FAILURE Status: Acute Plan: At this time, cardiology plans to obtain an echo, and based on result, may have patient on life vest. Continue with statin. On carvedilol but not lisinopril at this time due to kidney function. Pulm fucntion had improved at this time. Crackles in lung from previous day have receded. CXR still finds some pulm congestion. (8) Lactic acidosis Code(s): E87.2 - ACIDOSIS Status: Acute Plan: Consider resolved at this time, with last lactate downtrending (9) DKA (diabetic ketoacidoses) Code(s): E13.10 - OTH DIABETES MELLITUS WITH KETOACIDOSIS WITHOUT COMA Status : Acute Plan: Resolved - Plan Plan: 1. Patient desires peg tube. Plan to consult Gen surg for placement. <Rome Ivy - Last Filed: 06/05/17 09:39> Attending Addendum - Attending Addendum Date/Time: 06/05/17 3201 I personally evaluated the patient and discussed the management with Dr. Ivy. I agree with the History, Examination, Assessment and Plan documented above with any addition or exceptions noted below. Patient's potassium is lower. Replacing. Creatinine is improving. Urine output stable. Patient failed swallow study yesterday and is going for peg tube placement today. Will likely need rehab when done with hospitalization. PT/OT is on board. <Siri Pappas - Last Filed: 06/05/17 11:06>
[2017-06-05] MEDS: Cefdinir 300 MG CAP PO SCH (09:05)
[2017-06-05] MEDS ORDERED: CEFAZOLIN/Water 2 GM/20 ML SYRINGE SLOW IVP SCH (09:30)
--- NOTE | 2017-06-05 14:36 | PRG ---
DATE OF SERVICE: 06/05/2017 The patient this morning is awake, responsive. PHYSICAL EXAMINATION: VITAL SIGNS: Sats are 98% on 2 liters, temperature 98, blood pressure 171/77, pulse 75. I's & O's h ave been 2314 in, 4725 out. CHEST: Chest revealed bilateral rhonchi. CARDIAC: Normal S1, S2. ABDOMEN: Soft, no masses. LABORATORY: White count 14,000, H&H 8 and 27, platelet count 223. BUN and creatinine 53 and 1.4. IMPRESSION: 1. Status post cardiopulmonary arrest. 2. Congestive heart failure. 3. Renal failure. 4. Severe metabolic acidosis. 5. Encephalopathy. PLAN: Overall, she is much improved. I suggest switching her antibiotics to by mouth. Continue PT and supportive care. She needs a PEG, eventually placement.
[2017-06-05] MEDS ORDERED: Propofol 200 MG/20 ML VIAL ONE (15:02)
[2017-06-05] MEDS ORDERED: Lidocaine 1% PF 5 ML VIAL ONE (15:02)
--- NOTE | 2017-06-05 16:16 | OP ---
DATE OF PROCEDURE: 06/05/2017 PREOPERATIVE DIAGNOSES: Dysphagia, encephalopathy, malnutrition. POSTOPERATIVE DIAGNOSES: Dysphagia, encephalopathy, malnutrition. PROCEDURE: Percutaneous endoscopic gastrostomy tube. SURGEON: Liu Carter M.D. ANESTHESIA: TIVA a local 1% Xylocaine. PROCEDURE IN DETAIL: The patient was taken to the endoscopy suite where under intravenous sedation, endoscope placed per os under direct visualization and using air insufflation passed throughout the e sophagus and the stomach. Good indentation noted left subxiphoid. Area prepared with chloraprdr sayra werner in routine fashion. Local anesthetic infiltrated into skin and subcutaneous tissue. Stab incis ion made. Trocar catheter induced percutaneously within the gastric lumen visualized endoscopically threading the wire grasping it with a snare introduced through the endoscope. Wire grasped and endos cope and wire brought out through the mouth and wire connected to the feeding tube and it was lubrica dustin and pulled back down through the mouth, esophagus, into the stomach and fixated against the abdom inal wall with fixation device and catheter tailored to length and feeding device connected it. Daphne ent tolerated the procedure well.
[2017-06-05] MEDS ORDERED: MD-Gastroview 120 ML BOT ONE (17:00)
--- NOTE | 2017-06-05 17:29 | PDOC.CTH ---
Cardiology Progress Note - Subjective She had her PEG tube placed today. Echo is still pending. She has no new issues. - Objective Vital Signs Temp Pulse Pulse Pulse Resp BP BP 06/05/17 15:40 96.4 F L 59 L 16 06/05/17 11:47 96.3 F L 66 15 06/05/17 10:55 70 70 150/75 H 153/80 H 06/05/17 09:53 70 70 159/80 H 153/80 H 06/05/17 08:42 60 06/05/17 08:00 98.3 F 60 13 06/05/17 07:21 98.3 F 60 13 BP Pulse Ox Pulse Ox Pulse Ox 06/05/17 15:40 161/84 H 99 06/05/17 11:47 153/77 H 99 06/05/17 10:55 96 95 06/05/17 09:53 95 94 L 06/05/17 08:42 06/05/17 08:00 98 06/05/17 07:21 177/75 H 98 Admit Weight 140 lb 14.006 oz Weight 121 lb 12.8 oz 06/04/17 06/05/17 06/06/17 06:59 06:59 06:59 Intake Total 2348 2293 Output Total 4725 5500 Balance -3291 -2789 - Physical Examination General/Neuro: NAD Neck: no JVD present Lungs: unlabored respirations Heart: RRR Abdomen: NT/ND Extremities: other: (no edema.) - Telemetry Telemetry Rhythm: NSR - Labs Result Diagrams: 06/05/17 06:50 06/05/17 06:50 Troponin/CKMB CK-MB (CK-2) 59.7 ng/mL (0-6.6) H* 05/29/17 11:37 Troponin I 9.165 ng/mL (< 0.028) H* 05/29/17 11:37 - Assessment/Plan 1. NSTEMI 2. Acute systolic heart failure. 3. New onset severe LV dysfunction. 4. ALICIA 5. HTN 6. Asystole arrest. 7. New onset CM EF at 20-25% 8. UTI sepsis, 2a to E Coli. 9. Septic shock, resolved. 10. Hypokalemia PLAN: - Echo pending. - Continue medical therapy. - Replace K. - BP still not well controlled but better. Will increase Imdur. - No ACEI, ARB or aldactone due to renal dysfunction, creatinine improving. - If echo shows EF less than 35% will recommend lifevest before discharge.
--- NOTE | 2017-06-05 17:51 | RAD ---
RADIOGRAPH ABDOMEN 1 VIEW: DATE: 06/05/17 TIME: 4:59 p.m. HISTORY: 71-year-old female status post PEG tube placement. Confirm position. FINDINGS: There is contrast material within a collapsed gastric lumen. There is no evidence of extravasation. P EG tube distal portion is demonstrated at midline. IMPRESSION: Intraluminal position of the distal tip of the percutaneous endoscopic gastrostomy tube is confirmed. POS: NINFA
[2017-06-05] MEDS: Aspirin 81 mg Enteric Coated Tablet PO SCH (18:13)
--- NOTE | 2017-06-05 19:52 | EKG ---
Test Reason : STAT Blood Pressure : / mmHG Vent. Rate : 101 BPM Atrial Rate : 101 BPM P-R Int : 150 ms QRS Dur : 146 ms QT Int : 362 ms P-R-T Axes : 062 072 051 degrees QTc Int : 469 ms Sinus tachycardia Right bundle branch block Abnormal ECG When compared with ECG of 04-JUL-2014 22:10, Right bundle branch block is now Present Confirmed by SKYE SONI (2) on 06/05/2017 7:51:35 PM Referred By: DAKOTA Confirmed By:SKYE SONI
--- NOTE | 2017-06-05 19:54 | EKG ---
Test Reason : Blood Pressure : / mmHG Vent. Rate : 083 BPM Atrial Rate : 083 BPM P-R Int : 250 ms QRS Dur : 092 ms QT Int : 384 ms P-R-T Axes : 017 053 151 degrees QTc Int : 451 ms Atrial fibrillation Posterior infarct , age undetermined Abnormal ECG When compared with ECG of 28-MAY-2017 22:58, (Unconfirmed) Right bundle branch block is no longer Present Confirmed by SKYE SONI (2) on 06/05/2017 7:54:25 PM Referred By: JOHN PAUL ZHONG Confirmed By:SKYE SONI
[2017-06-05] MEDS: Atorvastatin Calcium 40 MG TAB PO SCH (21:47)
[2017-06-06] MEDS: Dextrose 5% in Water 1,000 ML IV SCH (01:11)
[2017-06-06 05:10] LABS: #Eosinphils 0.1 thou/uL (0.0-0.7); #Lymphocytes 1.3 thou/uL (1.20-3.40); #Monocytes 0.9 thou/uL (0.11-0.59); #Neutrophils 9.8 thou/uL (1.40-6.50); %Eosinophils 0.4 % (0.0-10.0); %Lymphocytes 10.7 % (21.0-51.0); %Monocytes 7.6 % (0.0-10.0); %Neutrophils 81.2 % (42.0-75.0); Hemoglobin 10.8 g/dL (12.0-16.0); Mean Corpuscular HGB CONC 32.1 g/dL (32.0-36.0); Mean Corpuscular Hemoglobin 29.2 pg (27.0-31.0); Mean Corpuscular Volume 91.2 fl (81.0-99.0); Mean Platelet Volume 7.7 fL (7.4-10.4); Platelet Count 219 thou/uL (130-400); RBC Distribution Width 13.2 % (11.5-14.5); Red Blood Cell (RBC) Count 3.68 mill/uL (4.20-5.40); White Blood Cell (WBC) Count 12.1 thou/uL (4.8-10.8)
[2017-06-06 05:32] LABS: Anion Gap 13 mmol/L (10-20); BUN (Urea Nitrogen) 55 mg/dL (9.8-20.1); Calc. Creatinine Clearance 19 mL/min (70-130); Calcium 9.2 mg/dL (7.8-10.44); Carbon Dioxide 34 mmol/L (23-31); Chloride 104 mmol/L (98-107); Estimated GFR-MDRD 20; Glucose 221 mg/dL (80-115); Potassium 3.3 mmol/L (3.5-5.1); Sodium 148 mmol/L (136-145)
[2017-06-06] MEDS: Labetalol HCl 100 MG/20 ML VIAL SLOW IVP PRN (05:39)
[2017-06-06] MEDS: Furosemide 40 MG TAB PO SCH (06:31)
[2017-06-06] MEDS: Heparin 5,000 UNITS/ML VIAL SC SCH (08:37)
[2017-06-06] MEDS: Cefdinir 300 MG CAP PO SCH (08:37)
[2017-06-06] MEDS: predniSONE 20 MG TAB PO SCH (08:37)
[2017-06-06] MEDS: hydrALAZINE 25 MG TAB PO SCH ×3 (08:37→20:43)
[2017-06-06] MEDS: Pantoprazole 40 MG GRANULES PACKET PER TUBE SCH (08:37)
[2017-06-06] MEDS: Carvedilol 6.25 MG TAB PO SCH ×2 (08:37→16:42)
--- NOTE | 2017-06-06 08:48 | PRG ---
DATE OF SERVICE: 06/05/2017 SUBJECTIVE: Patient was seen and examined at bedside and overnight events noted. Patient denies an y shortness of breath or chest pain or palpitation. No history of nausea or vomiting or diarrhea or fever or chills or cramps. OBJECTIVE: GENERAL: This is a well-built female, in no apparent distress. VITAL SIGNS: Temperature 96.3, pulse 66, respiratory rate 15, blood pressure 153/77. HEENT: Atraumatic, normocephalic. Oral mucosa is moist. NECK: Supple. CARDIOVASCULAR: S1, S2 heard. Rate and rhythm regular. RESPIRATORY: Clear to auscultation. GASTROINTESTINAL: Abdomen is soft. MUSCULOSKELETAL: No tenderness. No edema. DERMATOLOGIC: No skin rash. NEUROLOGIC: Alert and awake and oriented x3. No focal neurologic deficits. Moving all the extremit ies. PSYCHIATRIC: Mood and affect normal LABORATORY DATA: Potassium is 2.9, BUN is 58, creatinine 3.1. ASSESSMENT AND PLAN: 1. Acute kidney injury. Renal function is better, 3.1 and 4.4. 2. Hypokalemia, replace and monitor. 3. Hypernatremia. Free water as tolerated. 4. Edema, controlled. 5. Hypertension. Monitor. 6. Anemia. 7. Continue supplements and monitor closely, renal function is getting better. Avoid nephrotoxins.
[2017-06-06] MEDS: Insulin Detemir 100 UNITS/ML 22 UNITS in Pre-Filled Syringe 1 EACH SC SCH (10:08)
[2017-06-06 10:16] VITALS: BMI 21.0
--- NOTE | 2017-06-06 10:44 | PDOC.FM ---
- Subjective Subjective: Patient is found in bed, going to have a carciac echo soon. Denies any overnight issues with pain, stomach upset. She had peg placed yesterday afternoon. - Objective MAR Reviewed: Yes Vital Signs & Weight: Vital Signs (12 hours) Temp Pulse Resp BP BP Pulse Ox 06/06/17 08:37 62 186/80 H 06/06/17 07:32 97.6 F 62 12 169/71 H 100 06/06/17 07:20 97.5 F L 71 16 98 06/06/17 06:03 173/71 H 06/06/17 05:39 71 210/93 H 06/06/17 04:00 97.5 F L 60 16 164/65 H 98 06/06/17 00:00 97.6 F 68 16 159/62 H 100 Weight Admit Weight 63.9 kg Weight 55.656 kg Most Recent Monitor Data Heart Rate from ECG 82 NIBP 143/72 NIBP BP-Mean 88 Respiration from ECG 16 SpO2 96 I&O: 06/05/17 06/06/17 06/07/17 06:59 06:59 06:59 Intake Total 2293 1686 60 Output Total 5500 1300 Balance -3207 386 60 Result Diagrams: 06/06/17 05:06 06/06/17 05:06 <Rome Ivy M - Last Filed: 06/06/17 10:46> - Objective Vital Signs & Weight: Vital Signs (12 hours) Temp Pulse Pulse Pulse Resp BP BP 06/06/17 16:42 72 06/06/17 15:36 96.6 F L 72 11 L 06/06/17 11:31 73 68 130/75 06/06/17 11:03 96.1 F L 67 15 06/06/17 08:37 62 186/80 H 06/06/17 07:32 97.6 F 62 12 06/06/17 07:20 97.5 F L 71 16 06/06/17 06:03 BP BP Pulse Ox Pulse Ox Pulse Ox 06/06/17 16:42 06/06/17 15:36 149/72 H 100 06/06/17 11:31 125/74 98 99 06/06/17 11:03 125/70 100 06/06/17 08:37 06/06/17 07:32 169/71 H 100 06/06/17 07:20 98 06/06/17 06:03 173/71 H Weight Admit Weight 63.9 kg Weight 55.656 kg Most Recent Monitor Data Heart Rate from ECG 82 NIBP 143/72 NIBP BP-Mean 88 Respiration from ECG 16 SpO2 96 I&O: 06/05/17 06/06/17 06/07/17 06:59 06:59 06:59 Intake Total 2293 1686 540 Output Total 5500 1300 1150 Balance -3207 386 -610 Result Diagrams: 06/06/17 05:06 06/06/17 05:06 <Siri Pappas - Last Filed: 06/06/17 17:57> Phys Exam - Physical Examination Constitutional: NAD HEENT: moist MMs Respiratory: no wheezing Cardiovascular: RRR, no rub Gastrointestinal: soft, non-tender, no distention PEG placed Musculoskeletal: no edema Neurological: moves all 4 limbs Psychiatric: A&O x 3 Skin: no rash Deviation from normal: There is a foot ulcer being treated. <Rome Ivy Aravind - Last Filed: 06/06/17 10:46> Dx/Plan (1) Septic shock Code(s): A41.9 - SEPSIS, UNSPECIFIED ORGANISM; R65.21 - SEVERE SEPSIS WITH SEPTIC SHOCK Status: Acute Plan: Patient improving, Continue abx omnicef for sepsis likely from UTI, day 9/10 of abx for complicated UTI. (2) Acute renal failure Status: Acute Plan: BUN/CR elevated but improved from yesterday, possibly cardiorenal with her new CHF. Urine output adequate - Lasix scaled back to once a day, PO. (3) Acute respiratory failure with hypoxia Code(s): J96.01 - ACUTE RESPIRATORY FAILURE WITH HYPOXIA Status: Acute Plan: Has been extubated. O2 saturation maintained in good range and supplemental O2 discontinued Plan is to continue with lasix, duoneb as needed. Incentive spirometry and PT to help recondition (4) HTN (hypertension) Code(s): I10 - ESSENTIAL (PRIMARY) HYPERTENSION Status: Acute Plan: Patient to start on hydralazine, carvedilol and imdur, with imdur increased to 60 mg. For now, gets prn labetolol for BP (5) HLD (hyperlipidemia) Code(s): E78.5 - HYPERLIPIDEMIA, UNSPECIFIED Status: Acute Plan: Known chronic issue, cardiology resumed patient home atorvastatin. (6) Urinary tract infection Status: Acute Plan: UA shows WBC, Nitrite, and LE. Abx changed to omnicef PO, day 9/10 of abx (7) Systolic CHF, acute Code(s): I50.21 - ACUTE SYSTOLIC (CONGESTIVE) HEART FAILURE Status: Acute Plan: At this time, cardiology plans to obtain an echo, and based on result, may have patient on life vest. Continue with statin. On carvedilol but not lisinopril at this time due to kidney function. Pulm function had improved at this time. (8) Lactic acidosis Code(s): E87.2 - ACIDOSIS Status: Acute Plan: Consider resolved at this time, with last lactate downtrending (9) DKA (diabetic ketoacidoses) Code(s): E13.10 - OTH DIABETES MELLITUS WITH KETOACIDOSIS WITHOUT COMA Status : Acute Plan: Resolved <Rome Ivy - Last Filed: 06/06/17 10:46> Attending Addendum - Attending Addendum Date/Time: 06/06/17 1770 I personally evaluated the patient and discussed the management with Dr. Ivy. I agree with the History, Examination, Assessment and Plan documented above with any addition or exceptions noted below. Patient is getting stronger. Would benefit from inpt rehab. Will continue tube feeds. Tolerated peg tube placement. <Siri Pappas - Last Filed: 06/06/17 17:57>
[2017-06-06] MEDS: Insulin Regular 300 UNITS/3 ML VIAL SC PRN ×2 (12:10→16:42)
[2017-06-06] MEDS ORDERED: Dextrose 5% in Water 1,000 ML IV SCH (12:45)
--- NOTE | 2017-06-06 14:27 | PRG ---
DATE OF SERVICE: 06/06/2017 SUBJECTIVE: Hansen this morning, she is better. She is less short of breath. OBJECTIVE: VITAL SIGNS: Blood pressure is 186/80, sats 100% room air, respiration 12, pulse 67. CHEST: Decreased breath sounds, no wheezing. CARDIAC: Normal S1 and S2. No gallops. ABDOMEN: Soft. No mass. LABORATORY DATA: White count 12,000, hemoglobin and hematocrit 10 and 35, platelet count normal. Cr eatinine 2.38. IMPRESSION: 1. Congestive heart failure. 2. Respiratory failure with encephalopathy. 3. Hypothyroidism. PLAN: Continue PT and supportive care, eventually placement.
--- NOTE | 2017-06-06 15:41 | PRG ---
DATE OF SERVICE: 06/06/2017 SUBJECTIVE: Karine Hansen is doing well after a PEG tube yesterday. OBJECTIVE: LUNGS: Clear to auscultation. ABDOMEN: Soft and nontender. ASSESSMENT AND PLAN: Doing well after PEG tube. Would recommend bolus feedings to minimize the vasquez ce that she would pull out her PEG tube. Would keep her PEG tube, sequestered beneath her abdominal binder when it is not in use to prevent dislodgement. I will see her as needed this hospitalization.
[2017-06-06] MEDS: Aspirin 81 mg Enteric Coated Tablet PO SCH (16:42)
--- NOTE | 2017-06-06 17:06 | PRG ---
DATE OF SERVICE: 06/06/2017 SUBJECTIVE: Patient was seen and examined at bedside and overnight events noted. Patient denies any shortness of breath or chest pain or palpitation. No history of nausea or vomiting or diarrhea or f ever or chills or cramps. OBJECTIVE: GENERAL: This is a well-built female, in no apparent distress. VITAL SIGNS: Temperature 98.5, pulse 72, respiratory 18, blood pressure 130/75. HEENT: Atraumatic, normocephalic. Oral mucosa is moist. NECK: Supple. CARDIOVASCULAR: S1, S2 heard. Rate and rhythm regular. RESPIRATORY: Clear to auscultation. GASTROINTESTINAL: Abdomen is soft. MUSCULOSKELETAL: No tenderness, no edema. DERMATOLOGIC: No skin rash. NEUROLOGIC: Alert and awake and oriented x3. No focal neurologic deficits. Moving all the extremit ies. PSYCHIATRIC: Mood and affect normal. LABORATORY DATA: Potassium is 3.3, BUN 55, creatinine is 2.3. ASSESSMENT AND PLAN: 1. Acute kidney injury. Renal function with slow improvement. 2. Hypokalemia. Replace and monitor. 3. Hypernatremia. We will continue free water. 4. Edema. 5. Hypertension. Renal function is getting better slowly. Continue free water as tolerated.
--- NOTE | 2017-06-06 17:46 | PDOC.CTH ---
Cardiology Progress Note - Subjective No new issues. - Objective Vital Signs Temp Pulse Pulse Pulse Resp BP BP 06/06/17 16:42 72 06/06/17 15:36 96.6 F L 72 11 L 06/06/17 11:31 73 68 130/75 06/06/17 11:03 96.1 F L 67 15 06/06/17 08:37 62 186/80 H 06/06/17 07:32 97.6 F 62 12 06/06/17 07:20 97.5 F L 71 16 06/06/17 06:03 BP BP Pulse Ox Pulse Ox Pulse Ox 06/06/17 16:42 06/06/17 15:36 149/72 H 100 06/06/17 11:31 125/74 98 99 06/06/17 11:03 125/70 100 06/06/17 08:37 06/06/17 07:32 169/71 H 100 06/06/17 07:20 98 06/06/17 06:03 173/71 H Admit Weight 140 lb 14.006 oz Weight 122 lb 11.2 oz 06/05/17 06/06/17 06/07/17 06:59 06:59 06:59 Intake Total 2293 1686 540 Output Total 5500 1300 1150 Balance -3207 386 -610 - Physical Examination General/Neuro: alert & oriented x3, NAD Neck: no JVD present Lungs: CTA, unlabored respirations Heart: RRR Abdomen: NT/ND Extremities: other: (no edema.) - Telemetry Telemetry Rhythm: NSR - Labs Result Diagrams: 06/06/17 05:06 06/06/17 05:06 Troponin/CKMB CK-MB (CK-2) 59.7 ng/mL (0-6.6) H* 05/29/17 11:37 Troponin I 9.165 ng/mL (< 0.028) H* 05/29/17 11:37 - Assessment/Plan 1. NSTEMI 2. Acute systolic heart failure. 3. New onset severe LV dysfunction. 4. ALICIA 5. HTN 6. Asystole arrest. 7. New onset CM EF at 30-35% now. 8. UTI sepsis, 2a to E Coli. 9. Septic shock, resolved. 10. Hypokalemia 11. CAD, s/p CABG in the past PLAN: - Continue medical therapy. - Replace K. - BP better controlled. - No ACEI, ARB or aldactone due to renal dysfunction, creatinine continues to improve. - If echo shows EF less than 35% will recommend lifevest before discharge.
[2017-06-06] MEDS: Atorvastatin Calcium 40 MG TAB PO SCH (20:43)
[2017-06-06] MEDS ORDERED: Insulin Detemir 100 UNITS/ML 22 UNITS in Pre-Filled Syringe 1 EACH SC SCH (21:00)
[2017-06-07 04:22] LABS: Anion Gap 14 mmol/L (10-20); BUN (Urea Nitrogen) 59 mg/dL (9.8-20.1); Calc. Creatinine Clearance 21 mL/min (70-130); Calcium 9.3 mg/dL (7.8-10.44); Carbon Dioxide 31 mmol/L (23-31); Chloride 107 mmol/L (98-107); Estimated GFR-MDRD 22; Glucose 316 mg/dL (80-115); Potassium 3.1 mmol/L (3.5-5.1); Sodium 149 mmol/L (136-145)
[2017-06-07 05:17] LABS: Band 4 % (5-11); Hemoglobin 10.7 g/dL (12.0-16.0); Lymphocytes 15 % (21-51); MDiff Complete? YES; Mean Corpuscular HGB CONC 32.4 g/dL (32.0-36.0); Mean Corpuscular Hemoglobin 29.6 pg (27.0-31.0); Mean Corpuscular Volume 91.3 fl (81.0-99.0); Mean Platelet Volume 8.1 fL (7.4-10.4); Monocytes 2 % (0-10); Neutrophil 79 % (42-75); PLT Morphology Comment Appears Adequate; Platelet Count 210 thou/uL (130-400); RBC Distribution Width 13.1 % (11.5-14.5); RBC Morphology Normal; Red Blood Cell (RBC) Count 3.62 mill/uL (4.20-5.40); White Blood Cell (WBC) Count 11.5 thou/uL (4.8-10.8)
[2017-06-07] MEDS: Insulin Regular 300 UNITS/3 ML VIAL SC PRN ×2 (05:53→16:25)
[2017-06-07] MEDS: Furosemide 40 MG TAB PO SCH (06:34)
[2017-06-07] MEDS: Labetalol HCl 100 MG/20 ML VIAL SLOW IVP PRN (06:34)
--- NOTE | 2017-06-07 08:08 | PDOC.FM ---
- Subjective Subjective: Patient found in bed. She denies any event overnight. Specifically denies headache, fever, abd pain, pain. - Objective MAR Reviewed: Yes Vital Signs & Weight: Vital Signs (12 hours) Temp Pulse Resp BP BP Pulse Ox 06/07/17 07:41 98.8 F 62 16 179/75 H 100 06/07/17 06:34 76 197/85 H 06/07/17 03:51 97.9 F 76 16 153/61 H 100 06/06/17 23:59 97.4 F L 67 16 160/74 H 100 06/06/17 20:43 70 163/76 H Weight Admit Weight 63.9 kg Weight 54.93 kg Most Recent Monitor Data Heart Rate from ECG 82 NIBP 143/72 NIBP BP-Mean 88 Respiration from ECG 16 SpO2 96 I&O: 06/06/17 06/07/17 06/08/17 06:59 06:59 06:59 Intake Total 1686 1117 Output Total 1300 1775 Balance 541 -839 Result Diagrams: 06/07/17 03:51 06/07/17 03:51 <Rome Ivy - Last Filed: 06/07/17 08:06> - Objective Vital Signs & Weight: Vital Signs (12 hours) Temp Pulse Resp BP BP Pulse Ox 06/07/17 10:07 73 16 119/63 100 06/07/17 09:25 98.8 F 67 16 99 06/07/17 08:50 67 189/82 H 06/07/17 07:41 98.8 F 62 16 179/75 H 100 06/07/17 06:34 76 197/85 H 06/07/17 03:51 97.9 F 76 16 153/61 H 100 06/06/17 23:59 97.4 F L 67 16 160/74 H 100 Weight Admit Weight 63.9 kg Weight 54.93 kg Most Recent Monitor Data Heart Rate from ECG 82 NIBP 143/72 NIBP BP-Mean 88 Respiration from ECG 16 SpO2 96 I&O: 06/06/17 06/07/17 06/08/17 06:59 06:59 06:59 Intake Total 1686 1117 Output Total 1300 1775 Balance 224 -921 Result Diagrams: 06/07/17 03:51 06/07/17 03:51 <Mian,Siri - Last Filed: 06/07/17 10:46> Phys Exam - Physical Examination Constitutional: NAD HEENT: moist MMs Neck: no nodes, supple Respiratory: no wheezing, no rales, no rhonchi, clear to auscultation bilateral Cardiovascular: RRR Systolic murmur Gastrointestinal: soft Musculoskeletal: no edema Neurological: non-focal, moves all 4 limbs Lymphatic: no nodes Psychiatric: A&O x 3 Deviation from normal: Left foot heel wound <Ly,Rome M - Last Filed: 06/07/17 08:06> Dx/Plan (1) Septic shock Code(s): A41.9 - SEPSIS, UNSPECIFIED ORGANISM; R65.21 - SEVERE SEPSIS WITH SEPTIC SHOCK Status: Acute Plan: Patient improving, Continue abx omnicef for sepsis likely from UTI, day 10 of abx for complicated UTI. (2) Acute renal failure Status: Acute Plan: BUN/CR elevated but improved from yesterday, possibly cardiorenal with her new CHF. Urine output adequate - Lasix scaled back to once a day, PO. (3) Acute respiratory failure with hypoxia Code(s): J96.01 - ACUTE RESPIRATORY FAILURE WITH HYPOXIA Status: Acute Plan: Has been extubated. O2 saturation maintained in good range and supplemental O2 discontinued Plan is to continue with lasix, duoneb as needed. Incentive spirometry and PT to help recondition (4) HTN (hypertension) Code(s): I10 - ESSENTIAL (PRIMARY) HYPERTENSION Status: Acute Plan: Patient to start on hydralazine, carvedilol and imdur, with imdur increased to 60 mg. BP still not well controll, consider adding amlodipine. Prn labetolol for BP (5) HLD (hyperlipidemia) Code(s): E78.5 - HYPERLIPIDEMIA, UNSPECIFIED Status: Acute Plan: Known chronic issue, cardiology resumed patient home atorvastatin. (6) Urinary tract infection Status: Acute Plan: UA shows WBC, Nitrite, and LE. Abx changed to omnicef PO, day 1014 of abx (7) Systolic CHF, acute Code(s): I50.21 - ACUTE SYSTOLIC (CONGESTIVE) HEART FAILURE Status: Acute Plan: Repeat echo at 30-35% EF Will follow up with card rec for possible life vest (8) Lactic acidosis Code(s): E87.2 - ACIDOSIS Status: Acute Plan: Consider resolved at this time, with last lactate downtrending (9) DKA (diabetic ketoacidoses) Code(s): E13.10 - OTH DIABETES MELLITUS WITH KETOACIDOSIS WITHOUT COMA Status : Acute Plan: Resolved - Plan Plan: 1. Overall patient is doing better. Primary issue is finishing oral course of abx for complicated UTI, follow with card recs for lifevest in light of her recent echo, management of her BP in light of recent kidney injury and rehab placement. <Rome Ivy - Last Filed: 06/07/17 08:06> Attending Addendum - Attending Addendum Date/Time: 06/07/17 1045 I personally evaluated the patient and discussed the management with Dr. Ivy. I agree with the History, Examination, Assessment and Plan documented above with any addition or exceptions noted below. The patient is feeling better. She is still hoarse this morning. Tolerating tube feeds. Creatinine continues to improve. EF unchanged on most recent echo , will coordinate with cardiology for a life vest. Waiting on approval for SNF. <Siri Pappas - Last Filed: 06/07/17 10:46>
[2017-06-07] MEDS: hydrALAZINE 25 MG TAB PO SCH ×3 (08:50→20:33)
[2017-06-07] MEDS: Losartan 25 MG TAB PO SCH ×2 (08:50→20:33)
[2017-06-07] MEDS: predniSONE 20 MG TAB PO SCH (08:50)
[2017-06-07] MEDS: Cefdinir 300 MG CAP PO SCH (08:50)
[2017-06-07] MEDS: Carvedilol 6.25 MG TAB PO SCH ×2 (08:50→16:05)
[2017-06-07] MEDS: Heparin 5,000 UNITS/ML VIAL SC SCH (08:51)
[2017-06-07] MEDS: Pantoprazole 40 MG GRANULES PACKET PER TUBE SCH (08:51)
[2017-06-07] MEDS: Insulin Detemir 100 UNITS/ML 22 UNITS in Pre-Filled Syringe 1 EACH SC SCH (09:06)
[2017-06-07] MEDS ORDERED: Insulin Detemir 100 UNITS/ML 28 UNITS in Pre-Filled Syringe 1 EACH SC SCH ×4 (11:14)
--- NOTE | 2017-06-07 14:07 | PRG ---
DATE OF SERVICE: 06/07/2017 SUBJECTIVE: This morning is awake, alert, responsive, in no distress. OBJECTIVE: VITAL SIGNS: Blood pressure 197/85, pulse 76, temperature 98. I's & O's have been good, 1686 in and 1300 out. She has a PEG in place. CHEST: Decreased breath sounds, no wheezing. CARDIAC: Normal S1 and S2. ABDOMEN: Soft. No mass. LABORATORY DATA: White count 9,000, hemoglobin and hematocrit 9 and 30, platelet count normal. Lyte s are normal. Creatinine 2.3. IMPRESSION: 1. Respiratory failure. 2. Renal failure. 3. Congestive heart failure. 4. Encephalopathy. PLAN: Added Cozaar to her present regime. Continue nutrition, PT, eventually placement.
[2017-06-07 15:55] LABS: Anion Gap 15 mmol/L (10-20); BUN (Urea Nitrogen) 59 mg/dL (9.8-20.1); Calc. Creatinine Clearance 20 mL/min (70-130); Calcium 9.8 mg/dL (7.8-10.44); Carbon Dioxide 32 mmol/L (23-31); Chloride 107 mmol/L (98-107); Estimated GFR-MDRD 21; Glucose 226 mg/dL (80-115); Sodium 150 mmol/L (136-145)
--- NOTE | 2017-06-07 16:55 | PRG ---
DATE OF SERVICE: 06/07/2017 SUBJECTIVE: Patient was seen and examined at bedside and overnight events noted. Patient denies any shortness of breath or chest pain or palpitation. No history of nausea or vomiting or diarrhea or f ever or chills or cramps. OBJECTIVE: GENERAL: This is a thin built female in no apparent distress. VITAL SIGNS: Temperature 97.2, pulse 77, respiratory 16, blood pressure 136/75. HEENT: Atraumatic, normocephalic. Oral mucosa is moist. NECK: Supple. CARDIOVASCULAR: S1, S2 heard. Rate and rhythm regular. RESPIRATORY: Clear to auscultation. GASTROINTESTINAL: Abdomen is soft. MUSCULOSKELETAL: No tenderness. No edema. DERMATOLOGIC: No skin rash. NEUROLOGIC: Alert and awake and oriented x3. No focal neurologic deficits. Moving all the extremit ies. PSYCHIATRIC: Mood and affect normal LABORATORY DATA: Potassium is 4.0, sodium is 150, BUN is 59, and creatinine is 2.2. ASSESSMENT AND PLAN: 1. Acute kidney injury. Renal function was stable with good improvement. Her baseline creatinine w as around 1.7. 2. Hyponatremia, getting worse. We will continue on free water. Agree with holding the Lasix for n ow. 3. Cardiorenal syndrome. Follow with Cardiology 4. Hypokalemia, replaced and better. 5. Elevated BUN. 6. Azotemia. 7. Edema, controlled. Okay to hold Lasix. 8. Hypertension. Titrate medications. Currently, blood pressure is stable. Overall, renal function is much better. Creatinine down to 2 from the peak of 11.32, avoid nephrotox ins at this time. Continue free water. We will continue free water flushes and cautious replacement of potassium and holding Lasix at this point.
--- NOTE | 2017-06-07 17:41 | PDOC.CTH ---
Cardiology Progress Note - Subjective No new issues. - Objective Vital Signs Temp Pulse Pulse Pulse Resp BP BP 06/07/17 16:06 76 06/07/17 16:05 145/75 H 06/07/17 15:13 97.2 F L 76 16 06/07/17 14:34 79 73 142/83 H 06/07/17 14:00 76 15 06/07/17 10:58 97.2 F L 70 17 06/07/17 10:07 73 16 06/07/17 09:25 98.8 F 67 16 06/07/17 08:50 67 189/82 H 06/07/17 07:41 98.8 F 62 16 06/07/17 06:34 76 197/85 H BP BP Pulse Ox Pulse Ox Pulse Ox 06/07/17 16:06 06/07/17 16:05 06/07/17 15:13 136/75 100 06/07/17 14:34 128/67 97 99 06/07/17 14:00 136/75 99 06/07/17 10:58 102/55 L 100 06/07/17 10:07 119/63 100 06/07/17 09:25 99 06/07/17 08:50 06/07/17 07:41 179/75 H 100 06/07/17 06:34 Admit Weight 140 lb 14.006 oz Weight 121 lb 1.6 oz 06/06/17 06/07/17 06/08/17 06:59 06:59 06:59 Intake Total 1686 1117 1080 Output Total 1300 1775 675 Balance 386 -658 405 - Physical Examination General/Neuro: NAD Neck: no JVD present Lungs: unlabored respirations Heart: RRR Abdomen: NT/ND Extremities: other: (no edema.) - Telemetry Telemetry Rhythm: NSR - Labs Result Diagrams: 06/07/17 03:51 06/07/17 15:18 Troponin/CKMB CK-MB (CK-2) 59.7 ng/mL (0-6.6) H* 05/29/17 11:37 Troponin I 9.165 ng/mL (< 0.028) H* 05/29/17 11:37 - Assessment/Plan 1. NSTEMI 2. Acute systolic heart failure. 3. New onset severe LV dysfunction. 4. ALICIA 5. HTN 6. Asystole arrest. 7. New onset CM EF at 30-35% now. 8. UTI sepsis, 2a to E Coli. 9. Septic shock, resolved. 10. Hypokalemia 11. CAD, s/p CABG in the past PLAN: - Continue medical therapy. - Replace K. - BP better controlled. - No ACEI, ARB or aldactone due to renal dysfunction, creatinine continues to improve. - Lifevest before discharge.
[2017-06-07] MEDS: Aspirin 81 mg Enteric Coated Tablet PO SCH (20:33)
[2017-06-07] MEDS: Atorvastatin Calcium 40 MG TAB PO SCH (20:33)
[2017-06-08] MEDS: Labetalol HCl 100 MG/20 ML VIAL SLOW IVP PRN (03:48)
[2017-06-08 04:28] LABS: #Eosinphils 0.2 thou/uL (0.0-0.7); #Lymphocytes 1.5 thou/uL (1.20-3.40); #Monocytes 0.7 thou/uL (0.11-0.59); #Neutrophils 11.6 thou/uL (1.40-6.50); %Basophils 0.1 % (0.0-1.0); %Eosinophils 1.2 % (0.0-10.0); %Lymphocytes 10.5 % (21.0-51.0); %Monocytes 5.3 % (0.0-10.0); %Neutrophils 82.9 % (42.0-75.0); Hemoglobin 10.7 g/dL (12.0-16.0); Mean Corpuscular HGB CONC 32.8 g/dL (32.0-36.0); Mean Corpuscular Volume 91.5 fl (81.0-99.0); Mean Platelet Volume 8.3 fL (7.4-10.4); Platelet Count 254 thou/uL (130-400); RBC Distribution Width 13.3 % (11.5-14.5); Red Blood Cell (RBC) Count 3.57 mill/uL (4.20-5.40)
[2017-06-08 04:33] LABS: Anion Gap 15 mmol/L (10-20); BUN (Urea Nitrogen) 57 mg/dL (9.8-20.1); Calc. Creatinine Clearance 23 mL/min (70-130); Calcium 9.3 mg/dL (7.8-10.44); Carbon Dioxide 30 mmol/L (23-31); Chloride 105 mmol/L (98-107); Estimated GFR-MDRD 25; Glucose 337 mg/dL (80-115); Potassium 3.3 mmol/L (3.5-5.1); Sodium 147 mmol/L (136-145)
[2017-06-08] MEDS ORDERED: hydrALAZINE 20 MG/ML VIAL SLOW IVP PRN (06:06)
[2017-06-08] MEDS: Insulin Regular 300 UNITS/3 ML VIAL SC PRN ×3 (06:26→17:01)
[2017-06-08] MEDS: hydrALAZINE 25 MG TAB PO SCH ×4 (08:07→21:00)
[2017-06-08] MEDS: Cefdinir 300 MG CAP PO SCH (08:08)
[2017-06-08] MEDS: Carvedilol 6.25 MG TAB PO SCH ×2 (08:08→15:54)
[2017-06-08] MEDS: Losartan 25 MG TAB PO SCH ×2 (08:08→21:00)
[2017-06-08] MEDS: predniSONE 20 MG TAB PO SCH (08:08)
[2017-06-08] MEDS: Heparin 5,000 UNITS/ML VIAL SC SCH (08:09)
[2017-06-08] MEDS: Pantoprazole 40 MG GRANULES PACKET PER TUBE SCH (08:09)
[2017-06-08] MEDS ORDERED: PRE FILLED SC SCH ×2 (09:00→21:00)
[2017-06-08] MEDS ORDERED: Levothyroxine 175 MCG TAB PO SCH (09:00)
[2017-06-08] MEDS ORDERED: INSULIN DETEMIR SC SCH ×2 (09:00→21:00)
[2017-06-08] MEDS ORDERED: Non-Formulary Item 1 EACH (Atorvastatin Calcium [Atorvastatin Calcium] 80 MG) PO SCH (09:00)
[2017-06-08] MEDS ORDERED: hydrALAZINE 25 MG TAB PO SCH (09:15)
--- NOTE | 2017-06-08 10:06 | PDOC.FM ---
- Subjective Subjective: Patient state she feels well today. She is willing to go to inpatient rehab. Denies having pain, difficulty with peg feeding. - Objective MAR Reviewed: Yes Vital Signs & Weight: Vital Signs (12 hours) Temp Pulse Resp BP BP Pulse Ox 06/08/17 09:30 71 06/08/17 09:28 76 127/55 L 06/08/17 08:31 97.8 F 71 20 100 06/08/17 08:08 164/67 H 06/08/17 08:07 71 164/67 H 06/08/17 07:00 97.8 F 88 20 155/60 H 100 06/08/17 06:26 67 193/73 H 06/08/17 04:00 97.4 F L 63 18 199/80 H 100 06/08/17 03:48 74 199/80 H 06/08/17 00:00 97.8 F 109 H 16 167/76 H 100 Weight Admit Weight 63.9 kg Weight 55.701 kg Most Recent Monitor Data Heart Rate from ECG 82 NIBP 143/72 NIBP BP-Mean 88 Respiration from ECG 16 SpO2 96 I&O: 06/07/17 06/08/17 06/09/17 06:59 06:59 06:59 Intake Total 1117 2781 Output Total 1775 1175 Balance -658 1606 Result Diagrams: 06/08/17 03:27 06/08/17 03:27 <Rome Ivy M - Last Filed: 06/08/17 10:04> - Objective Vital Signs & Weight: Vital Signs (12 hours) Temp Pulse Pulse Pulse Resp BP BP 06/08/17 15:54 130/58 L 06/08/17 15:53 78 130/58 L 06/08/17 14:25 88 81 117/69 06/08/17 11:00 98.0 F 78 20 06/08/17 09:30 71 06/08/17 09:28 76 127/55 L 06/08/17 08:31 97.8 F 71 20 06/08/17 08:08 164/67 H 06/08/17 08:07 71 164/67 H 06/08/17 07:00 97.8 F 88 20 06/08/17 06:26 67 193/73 H BP BP Pulse Ox Pulse Ox Pulse Ox 06/08/17 15:54 06/08/17 15:53 06/08/17 14:25 116/58 L 97 94 L 06/08/17 11:00 103/53 L 96 06/08/17 09:30 06/08/17 09:28 06/08/17 08:31 100 06/08/17 08:08 06/08/17 08:07 06/08/17 07:00 155/60 H 100 06/08/17 06:26 Weight Admit Weight 63.9 kg Weight 55.701 kg Most Recent Monitor Data Heart Rate from ECG 82 NIBP 143/72 NIBP BP-Mean 88 Respiration from ECG 16 SpO2 96 I&O: 06/07/17 06/08/17 06/09/17 06:59 06:59 06:59 Intake Total 1117 2781 1284 Output Total 1775 1175 Balance -658 1606 1284 Result Diagrams: 06/08/17 03:27 06/08/17 03:27 <Siri Pappas - Last Filed: 06/08/17 16:29> Phys Exam - Physical Examination Constitutional: NAD HEENT: moist MMs Quiet speech Neck: no nodes, supple Respiratory: no wheezing, no rales, no rhonchi Cardiovascular: RRR, no rub Gastrointestinal: soft, no distention Musculoskeletal: no edema Neurological: non-focal, moves all 4 limbs Lymphatic: no nodes Psychiatric: normal affect, A&O x 3 <LyRome M - Last Filed: 06/08/17 10:04> Dx/Plan (1) Septic shock Code(s): A41.9 - SEPSIS, UNSPECIFIED ORGANISM; R65.21 - SEVERE SEPSIS WITH SEPTIC SHOCK Status: Acute Plan: Patient improving, Continue abx omnicef for sepsis likely from UTI, day 1114 of abx for complicated UTI. (2) Acute renal failure Status: Acute Plan: BUN/CR elevated but continues to improve. Lasix has been stopped previously. Monroe catheter out. (3) Acute respiratory failure with hypoxia Code(s): J96.01 - ACUTE RESPIRATORY FAILURE WITH HYPOXIA Status: Acute Plan: Has been extubated. O2 saturation maintained in good range and supplemental O2 discontinued Duoneb as needed. Incentive spirometry and PT to help recondition (4) HTN (hypertension) Code(s): I10 - ESSENTIAL (PRIMARY) HYPERTENSION Status: Acute Plan: Patient to start on hydralazine, carvedilol and imdur, with imdur increased to 60 mg. BP still not well control, went up on hydralazine today. Patient previously taking 100mg TID (5) HLD (hyperlipidemia) Code(s): E78.5 - HYPERLIPIDEMIA, UNSPECIFIED Status: Acute Plan: Known chronic issue, cardiology resumed patient home atorvastatin. (6) Urinary tract infection Status: Acute Plan: Abx changed to omnicef PO, day 01/30 of abx (7) Systolic CHF, acute Code(s): I50.21 - ACUTE SYSTOLIC (CONGESTIVE) HEART FAILURE Status: Acute Plan: Repeat echo at 30-35% EF Will follow up with card rec for possible life vest (8) Lactic acidosis Code(s): E87.2 - ACIDOSIS Status: Acute Plan: Resolved (9) DKA (diabetic ketoacidoses) Code(s): E13.10 - OTH DIABETES MELLITUS WITH KETOACIDOSIS WITHOUT COMA Status : Acute Plan: Resolved <Rome Ivy - Last Filed: 06/08/17 10:04> Attending Addendum - Attending Addendum Date/Time: 06/08/17 0829 I personally evaluated the patient and discussed the management with Dr. Ivy. I agree with the History, Examination, Assessment and Plan documented above with any addition or exceptions noted below. Patient states she feels better. She is still hoarse. Patient's hypernatremia improving with increased free water. Patient will finish antibiotics in 2 days. Patient in agreement to try inpatient rehab. REferral placed. Creatinine and GFR slowly improving. <Siri Pappas - Last Filed: 06/08/17 16:29>
--- NOTE | 2017-06-08 15:10 | PRG ---
DATE OF SERVICE: 06/08/2017 SUBJECTIVE: This morning, she is better, awake, alert, responsive. OBJECTIVE: VITAL SIGNS: Blood pressure 164/67, pulse 80, respiration rate 18. CHEST: Chest reveals decreased breath sounds without any wheezing. CARDIAC: Normal S1, S2. No gallops. LABORATORY DATA: White count 14,000, hemoglobin and hematocrit 10 and 32, platelet count is normal. Creatinine 1.9, BUN 57. IMPRESSION: Congestive heart failure, renal failure, respiratory failure, cardiomyopathy, encephalop athy, and dysphagia. She is much improved. Eventually placement, trying to get her a LifeVest before discharge. We will follow.
--- NOTE | 2017-06-08 15:53 | PDOC.CTH ---
Cardiology Progress Note - Subjective No new issues or complaints. No chest pain. - Objective Vital Signs Temp Pulse Resp BP BP Pulse Ox 06/08/17 11:00 98.0 F 78 20 103/53 L 96 06/08/17 09:30 71 06/08/17 09:28 76 127/55 L 06/08/17 08:31 97.8 F 71 20 100 06/08/17 08:08 164/67 H 06/08/17 08:07 71 164/67 H 06/08/17 07:00 97.8 F 88 20 155/60 H 100 06/08/17 06:26 67 193/73 H 06/08/17 04:00 97.4 F L 63 18 199/80 H 100 Admit Weight 140 lb 14.006 oz Weight 122 lb 12.8 oz 06/07/17 06/08/17 06/09/17 06:59 06:59 06:59 Intake Total 1117 2781 847 Output Total 1775 1175 Balance -658 1606 847 - Physical Examination General/Neuro: alert & oriented x3 Neck: no JVD present Lungs: unlabored respirations Heart: RRR Abdomen: NT/ND Extremities: other: (no edema.) - Telemetry Telemetry Rhythm: NSR - Labs Result Diagrams: 06/08/17 03:27 06/08/17 03:27 Troponin/CKMB CK-MB (CK-2) 59.7 ng/mL (0-6.6) H* 05/29/17 11:37 Troponin I 9.165 ng/mL (< 0.028) H* 05/29/17 11:37 - Assessment/Plan 1. NSTEMI 2. Acute systolic heart failure. 3. New onset CM EF at 30-35% now. 4. ALICIA 5. HTN 6. Asystole arrest. 7. CAD, s/p CABG in the past 8. UTI sepsis, 2a to E Coli. 9. Septic shock, resolved. 10. Hypokalemia PLAN: - Continue medical therapy. - Replace K. - BP better controlled. - No ACEI, ARB or aldactone due to renal dysfunction, creatinine continues to improve. - Lifevest before discharge. Order placed yesterday.
--- NOTE | 2017-06-08 19:36 | PRG ---
DATE OF SERVICE: 06/08/2017 SUBJECTIVE: Patient was seen and examined at bedside and overnight events noted. Patient denies any shortness of breath or chest pain or palpitation. No history of nausea or vomiting or diarrhea or f ever or chills or cramps. OBJECTIVE: GENERAL: This is a well-built female in no apparent distress. VITAL SIGNS: Temperature is 97.6, pulse 76, respiratory rate 18 and blood pressure 130/58. HEENT: Atraumatic, normocephalic. Oral mucosa is moist. NECK: Supple. CARDIOVASCULAR: S1, S2 heard. Rate and rhythm regular. RESPIRATORY: Clear to auscultation. GASTROINTESTINAL: Abdomen is soft. MUSCULOSKELETAL: No tenderness. No edema. DERMATOLOGIC: No skin rash. NEUROLOGIC: Alert and awake and oriented x3. No focal neurologic deficits. Moving all the extremit ies. PSYCHIATRIC: Mood and affect normal. LABORATORY DATA: Potassium is 3.3, BUN is 57, creatinine is 1.9 and sodium is 147. ASSESSMENT AND PLAN: 1. Acute kidney injury. Renal function is much better, 1.9 creatinine. 2. Hypernatremia. Continue free water. 3. Agree with holding Lasix. 4. Cardiorenal syndrome. 5. Hypokalemia, replace and monitor. 6. Edema, controlled. 7. Hypertension, stable. 8. Continue free water and hold Lasix for now. Follow with Cardiology.
[2017-06-08] MEDS: Aspirin 81 mg Enteric Coated Tablet PO SCH (21:00)
[2017-06-08] MEDS: Atorvastatin Calcium 40 MG TAB PO SCH (21:00)
[2017-06-09 04:44] LABS: Anion Gap 10 mmol/L (10-20); BUN (Urea Nitrogen) 66 mg/dL (9.8-20.1); Calc. Creatinine Clearance 27 mL/min (70-130); Calcium 9.2 mg/dL (7.8-10.44); Carbon Dioxide 31 mmol/L (23-31); Chloride 107 mmol/L (98-107); Estimated GFR-MDRD 30; Glucose 148 mg/dL (80-115); Potassium 3.5 mmol/L (3.5-5.1); Sodium 144 mmol/L (136-145)
[2017-06-09 04:55] LABS: #Eosinphils 0.1 thou/uL (0.0-0.7); #Lymphocytes 1.5 thou/uL (1.20-3.40); #Monocytes 0.6 thou/uL (0.11-0.59); #Neutrophils 13.8 thou/uL (1.40-6.50); %Eosinophils 0.9 % (0.0-10.0); %Lymphocytes 9.4 % (21.0-51.0); %Neutrophils 85.7 % (42.0-75.0); Mean Corpuscular Hemoglobin 29.9 pg (27.0-31.0); Mean Corpuscular Volume 90.7 fl (81.0-99.0); Mean Platelet Volume 8.5 fL (7.4-10.4); Platelet Count 258 thou/uL (130-400); RBC Distribution Width 13.1 % (11.5-14.5); Red Blood Cell (RBC) Count 3.33 mill/uL (4.20-5.40); White Blood Cell (WBC) Count 16.2 thou/uL (4.8-10.8)
--- NOTE | 2017-06-09 05:40 | PDOC.FM ---
- Subjective Subjective: No acute events overnight. Pt doing well this AM. Tolerating peg feeds. Denies any abd pain, N/V, chest pain or SOB. - Objective MAR Reviewed: Yes Vital Signs & Weight: Vital Signs (12 hours) Temp Pulse Resp BP BP Pulse Ox 06/09/17 03:53 98.7 F 70 17 152/63 H 96 06/08/17 23:58 98.6 F 78 16 151/68 H 97 06/08/17 21:00 76 146/68 H 06/08/17 19:29 98.3 F 76 17 146/68 H 98 06/08/17 19:20 98.3 F 76 17 98 Weight Admit Weight 63.9 kg Weight 55.701 kg Most Recent Monitor Data Heart Rate from ECG 82 NIBP 143/72 NIBP BP-Mean 88 Respiration from ECG 16 SpO2 96 I&O: 06/07/17 06/08/17 06/09/17 06:59 06:59 06:59 Intake Total 1117 2781 1951 Output Total 1775 1175 Balance -268 1606 1951 Result Diagrams: 06/09/17 03:52 06/09/17 03:52 <Sarah Falcon - Last Filed: 06/09/17 06:32> - Objective Vital Signs & Weight: Vital Signs (12 hours) Temp Pulse Resp BP BP Pulse Ox 06/09/17 21:17 68 166/68 H 06/09/17 20:00 97.4 F L 68 16 166/68 H 97 06/09/17 15:45 147/69 H 06/09/17 15:43 72 147/69 H 06/09/17 15:00 97.8 F 76 18 134/66 98 06/09/17 12:00 98.0 F 72 18 135/61 96 Weight Admit Weight 63.9 kg Weight 54.93 kg Most Recent Monitor Data Heart Rate from ECG 82 NIBP 143/72 NIBP BP-Mean 88 Respiration from ECG 16 SpO2 96 I&O: 06/08/17 06/09/17 06/10/17 06:59 06:59 06:59 Intake Total 2781 2151 1174 Output Total 1175 300 Balance 1606 1851 1174 Result Diagrams: 06/09/17 03:52 06/09/17 03:52 <Siri Pappas - Last Filed: 06/09/17 21:46> Phys Exam - Physical Examination Constitutional: NAD HEENT: PERRLA, moist MMs Respiratory: no wheezing, clear to auscultation bilateral Cardiovascular: RRR Gastrointestinal: soft, non-tender, no distention, positive bowel sounds PEG in place with abd binder Psychiatric: normal affect, A&O x 3 <Sarah Falcon - Last Filed: 06/09/17 06:32> Dx/Plan (1) Heart failure with reduced ejection fraction Code(s): I50.20 - UNSPECIFIED SYSTOLIC (CONGESTIVE) HEART FAILURE Status: Acute QualifierTitle: Heart failure chronicity: chronic Qualified Code(s): I50.22 - Chronic systolic (congestive) heart failure Plan: Patient with new cardiomyopathy with EF 30-35%. Cont coreg and losartan. Holding lasix 2/[address] Vu of cardiology consulted. Appreciate recs. Lifevest ordered and will need prior to discharge. Per nursing, will likely receive today. (2) Acute kidney injury Code(s): N17.9 - ACUTE KIDNEY FAILURE, UNSPECIFIED Status: Acute Plan: Cr improving to 1.68 today. Cont to hold lasix. Cont to monitor. (3) Acute hypernatremia Code(s): E87.0 - HYPEROSMOLALITY AND HYPERNATREMIA Status: Resolved Plan: Hypernatremia resolved with Na of 144 this AM. Cont free water flushes q4H. Dr. Nelson of Nephrology. Appreciate recs. (4) S/P percutaneous endoscopic gastrostomy (PEG) tube placement Code(s): Z93.1 - GASTROSTOMY STATUS Status: Acute Plan: S/p PEG placement. Tolerating 4cans/day. Speech following and only take ice chips PO. Cont ST upon discharge. (5) Septic shock Code(s): A41.9 - SEPSIS, UNSPECIFIED ORGANISM; R65.21 - SEVERE SEPSIS WITH SEPTIC SHOCK Status: Resolved Plan: Patient initially presented with septic shock 2/2 UTI. Stable now and off pressors. Switched to PO Omnicef. Complete full 14 d course of abx on Sun, 06/11. (6) Acute respiratory failure with hypoxia Code(s): J96.01 - ACUTE RESPIRATORY FAILURE WITH HYPOXIA Status: Resolved Plan: S/p extubation on 05/31. Not requiring O2 supplementation with O2sats in 90s on RA. Duonebs prn. IS daily. Cont PT/OT. (7) HTN (hypertension) Code(s): I10 - ESSENTIAL (PRIMARY) HYPERTENSION Status: Acute QualifierTitle: Hypertension type: essential hypertension Qualified Code( s): I10 - Essential (primary) hypertension Plan: Cont coreg, hydralazine, imdur and losartan. Losartan new to BP regimen and added during this hospitalization. Currently taking hydralazine 50mg TID and prev on 100mg TID. If BPs elev, will inc hydralazine. Stable now and will cont to monitor. (8) DM2 (diabetes mellitus, type 2) Status: Chronic Plan: BS continue to be uncontrolled. Increased levemir to 40u BID today as patient requiring significant amount of SSI. Accuchecks ACHS. Cont to adjust as needed. Obtain A1c. (9) Hypothyroid Code(s): E03.9 - HYPOTHYROIDISM, UNSPECIFIED Status: Chronic Plan: TSH wnl. Cont home synthroid. (10) HLD (hyperlipidemia) Code(s): E78.5 - HYPERLIPIDEMIA, UNSPECIFIED Status: Chronic Plan: Cont home lipitor. (11) NSTEMI (non-ST elevated myocardial infarction) Code(s): I21.4 - NON-ST ELEVATION (NSTEMI) MYOCARDIAL INFARCTION Status: Acute Plan: 2/2 asystole arrest s/p ROSC x2. Due to demand and no therapeutic lovenox given. (12) Lactic acidosis Code(s): E87.2 - ACIDOSIS Status: Resolved Plan: Resolved. (13) CAD (coronary artery disease) Code(s): I25.10 - ATHSCL HEART DISEASE OF [place] CORONARY ARTERY W/O ANG PCTRS Status: Chronic - Plan Plan: Dispo: Awaiting placement at [facility]. Will need Lifevest prior to discharge. <Sarah Falcon - Last Filed: 06/09/17 06:32> Attending Addendum - Attending Addendum Date/Time: 06/09/17 0216 I personally evaluated the patient and discussed the management with Dr. Falcon. I agree with the History, Examination, Assessment and Plan documented above with any addition or exceptions noted below. Patient's renal function is continuing to improve. Her hoarseness is also improving. Still waiting on a telemetry bed. The patient is also waiting on inpt rehab placement. Hypernatremia is improving with free water. Patient is on losartan which was started by Dr. Francy sorto renal function continues to improve. <Siri Pappas - Last Filed: 06/09/17 21:46>
[2017-06-09] MEDS: Levothyroxine 175 MCG TAB PO SCH (05:43)
[2017-06-09] MEDS: Insulin Regular 300 UNITS/3 ML VIAL SC PRN ×2 (05:49→11:43)
[2017-06-09 07:07] LABS: Hemoglobin A1c 8.9 % (4.0-6.0)
[2017-06-09] MEDS: Losartan 25 MG TAB PO SCH ×2 (08:34→21:17)
[2017-06-09] MEDS: hydrALAZINE 25 MG TAB PO SCH ×3 (08:34→21:17)
[2017-06-09] MEDS: predniSONE 20 MG TAB PO SCH (08:35)
[2017-06-09] MEDS: Cefdinir 300 MG CAP PO SCH (08:35)
[2017-06-09] MEDS: Pantoprazole 40 MG GRANULES PACKET PER TUBE SCH (08:35)
[2017-06-09] MEDS: Heparin 5,000 UNITS/ML VIAL SC SCH (08:35)
[2017-06-09] MEDS: Carvedilol 6.25 MG TAB PO SCH ×2 (08:35→15:45)
[2017-06-09] MEDS ORDERED: Insulin Detemir 100 UNITS/ML 40 UNITS in Pre-Filled Syringe 1 EACH SC SCH ×2 (09:00→21:00)
--- NOTE | 2017-06-09 09:45 | PRG ---
DATE OF SERVICE: 06/09/2017 SUBJECTIVE: Ms. Hansen is resting comfortably in bed. She has no acute complaints this morning. Sh e denies any shortness of breath. PHYSICAL EXAMINATION: VITAL SIGNS: Temperature is 97.9, pulse 72, blood pressure 163/79, O2 sat 100%. HEENT: Unremarkable. NECK: Without adenopathy or JVD. CHEST: Clear without wheezing. CARDIAC: S1 and S2 regular. ABDOMEN: Soft. EXTREMITIES: No edema. LABORATORY DATA: White blood cell count 16.2, hematocrit 30, platelet count 258. Sodium 144, potass ium 3.5, chloride 107, CO2 31, BUN 66, creatinine 1.7, glucose 148. ASSESSMENT: 1. Congestive heart failure. 2. Renal failure. 3. Cardiomyopathy. 4. Status post respiratory failure. 5. Improved encephalopathy. PLAN: She apparently is awaiting a LifeVest and then the plan will be to go to [facility]. I have reviewed medication list on the chart. Agree with current care. The margo ent can be transferred out to telemetry as she is no need for IMCU at this time.
--- NOTE | 2017-06-09 16:11 | PRG ---
Patient Name: SHYANN PALMER Date of service: 06/09/2017 Subjective: Patient was seen and examined at bedside and overnight events noted. Patient denies any shortness of breath or chest pain or palpitation. No history of nausea or vomiting or diarrhea or fever or chills or cramps. Objective: General: This is a well-built female in no apparent distress. Vital signs: Temperature 98.0, pulse 72, respiratory 18, blood pressure 134/61. HEENT: Atraumatic, normocephalic. Oral mucosa is moist. Neck: Supple. Cardiovascular: S1 S2 heard. Rate and rhythm regular. Respiratory: Clear to auscultation. Gastrointestinal: Abdomen is soft. Musculoskeletal: No tenderness. No edema. Dermatologic: No skin rash. Neurologic: Alert and awake and oriented X3. No focal neurologic deficits. Moving all the extremit ies. Psychiatric: Mood and affect normal. LABORATORY DATA: Potassium is 3.5, BUN 66, creatinine is 1.6. ASSESSMENT AND PLAN: 1. Acute kidney injury. Renal function with significant improvement. 2. Hyponatremia, better. Continue free water. 3. Cardiorenal syndrome. 4. Hypokalemia. 5. Edema, controlled. Sodium and creatinine are better. We will follow.
--- NOTE | 2017-06-09 18:02 | PDOC.CTH ---
Cardiology Progress Note - Subjective No new issues. She seems more alert today and is able to talk better. - Objective Vital Signs Temp Pulse Resp BP BP Pulse Ox 06/09/17 15:45 147/69 H 06/09/17 15:43 72 147/69 H 06/09/17 15:00 97.8 F 76 18 134/66 98 06/09/17 12:00 98.0 F 72 18 135/61 96 06/09/17 08:35 163/79 H 06/09/17 08:34 72 163/79 H 06/09/17 08:06 97.9 F 72 18 100 06/09/17 07:00 97.9 F 72 18 163/79 H 97 Admit Weight 140 lb 14.006 oz Weight 121 lb 1.6 oz 06/08/17 06/09/17 06/10/17 06:59 06:59 06:59 Intake Total 2781 2151 1174 Output Total 1175 300 Balance 1606 1851 1174 - Physical Examination General/Neuro: alert & oriented x3, NAD Neck: no JVD present Lungs: CTA, unlabored respirations Heart: RRR Abdomen: NT/ND Extremities: other: (no edema.) - Telemetry Telemetry Rhythm: NSR - Labs Result Diagrams: 06/09/17 03:52 06/09/17 03:52 Troponin/CKMB CK-MB (CK-2) 59.7 ng/mL (0-6.6) H* 05/29/17 11:37 Troponin I 9.165 ng/mL (< 0.028) H* 05/29/17 11:37 - Assessment/Plan 1. NSTEMI 2. Acute systolic heart failure. 3. New onset CM EF at 30-35% now. 4. ALICIA. creat at 1.68 5. HTN 6. Asystole arrest. 7. CAD, s/p CABG in the past 8. UTI sepsis, 2a to E Coli. 9. Septic shock, resolved. 10. Hypokalemia, resolved. PLAN: - Continue medical therapy. - Will increase coreg today for better BP control. - No ACEI, ARB or aldactone due to renal dysfunction, creatinine continues to improve. - May discharge any time after lifevest set up from cardiac perspective.
[2017-06-09] MEDS ORDERED: Carvedilol 6.25 MG TAB PO SCH (18:30)
[2017-06-09] MEDS: Atorvastatin Calcium 40 MG TAB PO SCH (21:17)
[2017-06-09] MEDS: Aspirin 81 mg Enteric Coated Tablet PO SCH (21:17)
[2017-06-10] MEDS ORDERED: Gabapentin 300 MG CAP PO SCH ×2 (01:15→09:00)
[2017-06-10 05:20] LABS: #Eosinphils 0.2 thou/uL (0.0-0.7); #Lymphocytes 2.1 thou/uL (1.20-3.40); #Monocytes 0.7 thou/uL (0.11-0.59); #Neutrophils 14.3 thou/uL (1.40-6.50); %Eosinophils 1.4 % (0.0-10.0); %Lymphocytes 12.1 % (21.0-51.0); %Monocytes 3.9 % (0.0-10.0); %Neutrophils 82.6 % (42.0-75.0); Hemoglobin 9.8 g/dL (12.0-16.0); Mean Corpuscular HGB CONC 32.4 g/dL (32.0-36.0); Mean Corpuscular Hemoglobin 29.5 pg (27.0-31.0); Mean Platelet Volume 8.2 fL (7.4-10.4); Platelet Count 242 thou/uL (130-400); RBC Distribution Width 13.2 % (11.5-14.5); Red Blood Cell (RBC) Count 3.33 mill/uL (4.20-5.40); White Blood Cell (WBC) Count 17.3 thou/uL (4.8-10.8)
--- NOTE | 2017-06-10 05:29 | PDOC.FM ---
- Subjective Subjective: Per nursing, patient was restless and had trouble sleeping overnight. Given gabapentin around 1am and currently sleeping. Denies any pain, difficulty breathing and tolerating feeds without any abd pain. Otherwise no acute events. Received lifevest and currently wearing it. - Objective Vital Signs & Weight: Vital Signs (12 hours) Temp Pulse Resp BP BP Pulse Ox 06/10/17 03:29 97.7 F 66 16 154/64 H 97 06/09/17 23:49 97.8 F 67 16 157/67 H 97 06/09/17 21:17 68 166/68 H 06/09/17 20:00 97.4 F L 68 16 166/68 H 97 06/09/17 19:40 97.4 F L 68 16 97 Weight Admit Weight 63.9 kg Weight 54.93 kg Most Recent Monitor Data Heart Rate from ECG 82 NIBP 143/72 NIBP BP-Mean 88 Respiration from ECG 16 SpO2 96 I&O: 06/08/17 06/09/17 06/10/17 06:59 06:59 06:59 Intake Total 2781 2151 1811 Output Total 1175 300 Balance 1606 1851 1811 Result Diagrams: 06/10/17 05:08 06/10/17 05:08 <Sarah Faclon - Last Filed: 06/10/17 08:52> - Objective Vital Signs & Weight: Vital Signs (12 hours) Temp Pulse Resp BP BP Pulse Ox 06/10/17 15:37 97.2 F L 69 17 134/56 L 100 06/10/17 14:27 68 06/10/17 11:28 100 06/10/17 11:18 97.2 F L 68 16 97 06/10/17 09:20 68 166/68 H 06/10/17 07:48 98.2 F 68 17 95 06/10/17 07:00 98.2 F 68 17 165/66 H 99 Weight Admit Weight 63.9 kg Weight 55.384 kg Most Recent Monitor Data Heart Rate from ECG 82 NIBP 143/72 NIBP BP-Mean 88 Respiration from ECG 16 SpO2 96 I&O: 06/09/17 06/10/17 06/11/17 06:59 06:59 06:59 Intake Total 2151 2248 1370 Output Total 300 Balance 1851 2248 1370 Result Diagrams: 06/10/17 05:08 06/10/17 05:08 <Siri Pappas - Last Filed: 06/10/17 16:38> Phys Exam - Physical Examination Constitutional: NAD wearing lifevest Respiratory: no wheezing, clear to auscultation bilateral Cardiovascular: RRR Gastrointestinal: soft, non-tender, no distention, positive bowel sounds (PEG in place) Musculoskeletal: no edema, pulses present <Sarah Falcon - Last Filed: 06/10/17 08:52> Dx/Plan (1) Heart failure with reduced ejection fraction Code(s): I50.20 - UNSPECIFIED SYSTOLIC (CONGESTIVE) HEART FAILURE Status: Acute QualifierTitle: Heart failure chronicity: chronic Qualified Code(s): I50.22 - Chronic systolic (congestive) heart failure Plan: Patient with new cardiomyopathy with EF 30-35%. Cont coreg and losartan. Holding lasix 2/[address] Vu of cardiology consulted. Appreciate recs. Lifevest obtained and she is currently wearing it. Stable from cardiac perspective. (2) Acute kidney injury Code(s): N17.9 - ACUTE KIDNEY FAILURE, UNSPECIFIED Status: Acute Plan: Cr improving 1.56 today. Cont to hold lasix. Cont to monitor. (3) Acute hypernatremia Code(s): E87.0 - HYPEROSMOLALITY AND HYPERNATREMIA Status: Resolved Plan: Hypernatremia resolved. Cont free water flushes q4H. Dr. Nelson of Nephrology. Appreciate recs. (4) Urinary tract infection Status: Acute QualifierTitle: Urinary tract infection type: acute cystitis Hematuria presence: without hematuria Qualified Code(s): N30.00 - Acute cystitis without hematuria Plan: Urine cx growing E. coli. Completed full course of abx on 06/09. (5) S/P percutaneous endoscopic gastrostomy (PEG) tube placement Code(s): Z93.1 - GASTROSTOMY STATUS Status: Acute Plan: S/p PEG placement. Tolerating 4cans/day. Speech following and only take ice chips PO. Cont ST upon discharge. (6) Septic shock Code(s): A41.9 - SEPSIS, UNSPECIFIED ORGANISM; R65.21 - SEVERE SEPSIS WITH SEPTIC SHOCK Status: Resolved Plan: Patient initially presented with septic shock 2/2 UTI. Stable now and off pressors. Switched to PO Omnicef. Complete full 14 d course of abx on Sun, 06/11. (7) Acute respiratory failure with hypoxia Code(s): J96.01 - ACUTE RESPIRATORY FAILURE WITH HYPOXIA Status: Resolved Plan: S/p extubation on 05/31. Not requiring O2 supplementation with O2sats in 90s on RA. Duonebs prn. IS daily. Cont PT/OT. (8) HTN (hypertension) Code(s): I10 - ESSENTIAL (PRIMARY) HYPERTENSION Status: Acute QualifierTitle: Hypertension type: essential hypertension Qualified Code( s): I10 - Essential (primary) hypertension Plan: Cont coreg, hydralazine, imdur and losartan. Losartan new to BP regimen and added during this hospitalization. Currently taking hydralazine 50mg TID and prev on 100mg TID. Coreg increased to 12.5mg BID. Cont to monitor. (9) DM2 (diabetes mellitus, type 2) Status: Chronic Plan: A1c of 8.9%. BS continue to be uncontrolled. Increase levemir to 42u BID today as patient requiring SSI. Accuchecks ACHS. Cont to adjust as needed. (10) Hypothyroid Code(s): E03.9 - HYPOTHYROIDISM, UNSPECIFIED Status: Chronic Plan: TSH wnl. Cont home synthroid. (11) HLD (hyperlipidemia) Code(s): E78.5 - HYPERLIPIDEMIA, UNSPECIFIED Status: Chronic Plan: Cont home lipitor. (12) NSTEMI (non-ST elevated myocardial infarction) Code(s): I21.4 - NON-ST ELEVATION (NSTEMI) MYOCARDIAL INFARCTION Status: Acute Plan: 2/2 asystole arrest s/p ROSC x2. Due to demand and no therapeutic lovenox given. (13) Lactic acidosis Code(s): E87.2 - ACIDOSIS Status: Resolved Plan: Resolved. (14) CAD (coronary artery disease) Code(s): I25.10 - ATHSCL HEART DISEASE OF [place] CORONARY ARTERY W/O ANG PCTRS Status: Chronic - Plan Plan: Dispo: She has received her lifevest and currently wearing it. Stable for discharge. Pending placement at [facility]. <Sarah Falcon - Last Filed: 06/10/17 08:52> Attending Addendum - Attending Addendum Date/Time: 06/10/17 7730 I personally evaluated the patient and discussed the management with Dr. Falcon. I agree with the History, Examination, Assessment and Plan documented above with any addition or exceptions noted below. The patient was resting comfortably. She has a life vest now. Waiting on inpt rehab placement. Pt still has orders to transfer to [facility]. Gabapentin was given overnight and pt feels better. WBC count has increased, though pt has no signs of infection, no fever. will monitor. Renal function improving. <Siri Pappas - Last Filed: 06/10/17 16:38>
[2017-06-10 05:36] LABS: Anion Gap 10 mmol/L (10-20); BUN (Urea Nitrogen) 57 mg/dL (9.8-20.1); Calc. Creatinine Clearance 29 mL/min (70-130); Calcium 9.1 mg/dL (7.8-10.44); Carbon Dioxide 30 mmol/L (23-31); Chloride 107 mmol/L (98-107); Estimated GFR-MDRD 33; Glucose 165 mg/dL (80-115); Potassium 3.6 mmol/L (3.5-5.1); Sodium 143 mmol/L (136-145)
[2017-06-10] MEDS: Levothyroxine 175 MCG TAB PO SCH (07:23)
[2017-06-10] MEDS: Insulin Regular 300 UNITS/3 ML VIAL SC PRN ×2 (07:23→17:44)
[2017-06-10] MEDS ORDERED: PRE FILLED SC SCH ×2 (09:00→21:00)
[2017-06-10] MEDS ORDERED: INSULIN DETEMIR SC SCH ×2 (09:00→21:00)
[2017-06-10] MEDS: predniSONE 20 MG TAB PO SCH (09:20)
[2017-06-10] MEDS: hydrALAZINE 25 MG TAB PO SCH ×3 (09:20→20:18)
[2017-06-10] MEDS: Heparin 5,000 UNITS/ML VIAL SC SCH (09:20)
[2017-06-10] MEDS: Losartan 25 MG TAB PO SCH ×2 (09:20→20:18)
[2017-06-10] MEDS: Carvedilol 6.25 MG TAB PO SCH ×2 (09:20→17:42)
[2017-06-10] MEDS: Pantoprazole 40 MG GRANULES PACKET PER TUBE SCH (09:21)
--- NOTE | 2017-06-10 14:20 | PRG ---
DATE OF SERVICE: 06/10/2017 SUBJECTIVE: Patient was seen and examined at bedside and overnight events noted. Patient denies any shortness of breath or chest pain or palpitation. No history of nausea or vomiting or diarrhea or f ever or chills or cramps. OBJECTIVE: GENERAL: This is a well-built female in no apparent distress. VITAL SIGNS: Temperature 97.2, pulse 68, respiratory 16, blood pressure 165/66. HEENT: Atraumatic, normocephalic. Oral mucosa is moist. Neck: Supple Cardiovascular: S1 and S2 heard. Rate and rhythm regular. Respiratory: Clear to auscultation. Gastrointestinal: Abdomen is soft. Musculoskeletal: No tenderness, no edema. Dermatologic: No skin rash. Neurologic: Alert and awake and oriented x3. No focal neurologic deficits. Moving all the extremit ies. Psychiatric: Mood and affect normal. LABORATORY DATA: Potassium is 3.6, BUN is 57, creatinine is 1.5. ASSESSMENT AND PLAN: 1. Acute kidney injury on chronic kidney disease. 2. Renal function seems to be stable. 3. Hypernatremia, better with free water. 4. Cardiorenal syndrome, controlled. 5. Edema. 6. Hypokalemia, replaced. We will monitor. 7. Monitor renal function closely. We will follow.
--- NOTE | 2017-06-10 14:41 | PRG ---
DATE OF SERVICE: 06/10/2017 SUBJECTIVE: The patient is doing well, no complaints. She now has her LifeVest in place. OBJECTIVE: VITAL SIGNS: On exam, temperature is 98.2, pulse 68, blood pressure 166/88, O2 sat 99% on room air. HEENT: Unremarkable. NECK: No JVD. CHEST: Clear without wheezing or rhonchi. CARDIAC: S1 and S2, regular. ABDOMEN: Soft. EXTREMITIES: No edema. ASSESSMENT: 1. Congestive heart failure. 2. Renal failure. 3. Cardiomyopathy. 4. Status post respiratory failure. PLAN: There is mainly a rehab issue at this point. Pulmonary status is stable. I think she could b e discharged to rehab at any time.
--- NOTE | 2017-06-10 17:04 | PDOC.CTH ---
Cardiology Progress Note - Subjective No new issues or complaints. She is now fitted with a lifevest. - Objective Vital Signs Temp Pulse Resp BP BP Pulse Ox 06/10/17 15:37 97.2 F L 69 17 134/56 L 100 06/10/17 14:27 68 06/10/17 11:28 100 06/10/17 11:18 97.2 F L 68 16 97 06/10/17 09:20 68 166/68 H 06/10/17 07:48 98.2 F 68 17 95 06/10/17 07:00 98.2 F 68 17 165/66 H 99 Admit Weight 140 lb 14.006 oz Weight 122 lb 1.6 oz 06/09/17 06/10/17 06/11/17 06:59 06:59 06:59 Intake Total 2151 2248 1370 Output Total 300 Balance 1851 2248 1370 - Physical Examination General/Neuro: alert & oriented x3, NAD Neck: no JVD present Lungs: CTA, unlabored respirations Heart: RRR Abdomen: NT/ND Extremities: other: (no edema) - Telemetry Telemetry Rhythm: NSR - Labs Result Diagrams: 06/10/17 05:08 06/10/17 05:08 Troponin/CKMB CK-MB (CK-2) 59.7 ng/mL (0-6.6) H* 05/29/17 11:37 Troponin I 9.165 ng/mL (< 0.028) H* 05/29/17 11:37 - Assessment/Plan 1. NSTEMI 2. Acute systolic heart failure. 3. New onset CM EF at 30-35% now. 4. ALICIA. creat at 1.56 5. HTN 6. Asystole arrest. 7. CAD, s/p CABG in the past 8. UTI sepsis, 2a to E Coli. 9. Septic shock, resolved. 10. Hypokalemia, resolved. PLAN: - Continue medical therapy. - Better BP control. - No ACEI, ARB or aldactone due to renal dysfunction, creatinine continues to improve, may start in the next few weeks. - May discharge to rehab any time from cardiac perspective. - Will sign off. Please call with any questions. - She will follow up in 1 month in the office.
[2017-06-10] MEDS: Aspirin 81 mg Enteric Coated Tablet PO SCH (20:17)
[2017-06-10] MEDS: Atorvastatin Calcium 40 MG TAB PO SCH (20:18)
[2017-06-10] MEDS: Gabapentin 300 MG CAP PO SCH (20:18)
[2017-06-11 04:53] LABS: Anion Gap 10 mmol/L (10-20); BUN (Urea Nitrogen) 48 mg/dL (9.8-20.1); Calc. Creatinine Clearance 31 mL/min (70-130); Calcium 8.9 mg/dL (7.8-10.44); Carbon Dioxide 28 mmol/L (23-31); Chloride 105 mmol/L (98-107); Estimated GFR-MDRD 36; Glucose 213 mg/dL (83-110); Potassium 4.3 mmol/L (3.5-5.1); Sodium 139 mmol/L (136-145)
[2017-06-11] MEDS: Carvedilol 6.25 MG TAB PO SCH ×2 (08:50→17:06)
[2017-06-11] MEDS: Losartan 25 MG TAB PO SCH ×2 (08:50→20:43)
[2017-06-11] MEDS: hydrALAZINE 25 MG TAB PO SCH ×3 (08:50→20:43)
[2017-06-11] MEDS: Levothyroxine 175 MCG TAB PO SCH (08:51)
[2017-06-11] MEDS: Pantoprazole 40 MG GRANULES PACKET PER TUBE SCH (08:51)
[2017-06-11] MEDS: Heparin 5,000 UNITS/ML VIAL SC SCH (08:51)
--- NOTE | 2017-06-11 08:52 | PRG ---
DATE OF SERVICE: 06/11/2017 Karine Hansen is doing much better. Less cough, less shortness of breath. She has a LifeVest in place. She is probably going to be transferred out today for ongoing rehab. PHYSICAL EXAMINATION: VITAL SIGNS: Blood pressure is 146/70, sats 97 on room air, respiration 16, temperature 97. CHEST: Chest revealed decreased breath sounds, no wheezing. CARDIAC: Normal S1-S2. No gallops. ABDOMEN: Soft, no masses. LABORATORY: Creatinine 1.4. IMPRESSION: 1. Status post multiorgan failure. 2. Respiratory failure. 3. Encephalopathy. 4. Congestive heart failure. 5. Pneumonia. 6. Uncontrolled diabetes. PLAN: Discontinue prednisone. Continue present treatment. She can be seen in the office in about a month if she is stable.
[2017-06-11] MEDS ORDERED: Insulin Detemir 100 UNITS/ML 45 UNITS in Pre-Filled Syringe 1 EACH SC SCH ×2 (09:00→21:00)
[2017-06-11] MEDS: predniSONE 20 MG TAB PO SCH (09:22)
[2017-06-11] MEDS ORDERED: INSULIN DETEMIR SC SCH ×3 (09:59→21:00)
[2017-06-11] MEDS ORDERED: PRE FILLED SC SCH ×3 (09:59→21:00)
--- NOTE | 2017-06-11 10:03 | PDOC.FM ---
- Subjective Subjective: KATHRINE overnight, no complaints this AM. VSS. [facility] Pt states she feels ready to go back to rehab. Back to baseline mentation per sister who was present this AM during interview. - Objective MAR Reviewed: Yes Vital Signs & Weight: Vital Signs (12 hours) Temp Pulse Resp BP BP Pulse Ox 06/11/17 08:50 59 L 154/67 H 06/11/17 07:00 97.9 F 59 L 16 146/70 H 97 06/11/17 04:00 98.6 F 72 18 149/58 H 99 06/11/17 01:30 97.7 F 62 18 136/54 L 97 Weight Admit Weight 63.9 kg Weight 55.837 kg Most Recent Monitor Data Heart Rate from ECG 82 NIBP 143/72 NIBP BP-Mean 88 Respiration from ECG 16 SpO2 96 I&O: 06/10/17 06/11/17 06/12/17 06:59 06:59 06:59 Intake Total 2248 2207 Balance 2248 2207 Result Diagrams: 06/10/17 05:08 06/11/17 04:06 <Edwin Pope K - Last Filed: 06/11/17 10:01> - Objective Vital Signs & Weight: Vital Signs (12 hours) Temp Pulse Resp BP BP Pulse Ox 06/11/17 08:50 59 L 154/67 H 06/11/17 08:00 97.8 F 59 L 16 97 06/11/17 07:00 97.9 F 59 L 16 146/70 H 97 06/11/17 04:00 98.6 F 72 18 149/58 H 99 06/11/17 01:30 97.7 F 62 18 136/54 L 97 Weight Admit Weight 63.9 kg Weight 55.837 kg Most Recent Monitor Data Heart Rate from ECG 82 NIBP 143/72 NIBP BP-Mean 88 Respiration from ECG 16 SpO2 96 I&O: 06/10/17 06/11/17 06/12/17 06:59 06:59 06:59 Intake Total 2248 2207 200 Balance 2248 2207 200 Result Diagrams: 06/10/17 05:08 06/11/17 04:06 <Yaakov Guerra - Last Filed: 06/11/17 11:41> Phys Exam - Physical Examination Constitutional: NAD HEENT: PERRLA Respiratory: clear to auscultation bilateral Cardiovascular: RRR Gastrointestinal: soft, no distention, positive bowel sounds PEG tube in place w/o surrounding erythema or leakage Neurological: moves all 4 limbs Psychiatric: A&O x 3 Skin: cap refill <2 seconds <Edwin Pope - Last Filed: 06/11/17 10:01> Dx/Plan (1) Acute renal failure Status: Resolved Plan: Pt w/ significant improvement in renal function since admission To follow-up w/ nephrology as outpatient to continue to monitor downtrending creatinine (2) HTN (hypertension) Code(s): I10 - ESSENTIAL (PRIMARY) HYPERTENSION Status: Acute QualifierTitle: Hypertension type: essential hypertension Qualified Code( s): I10 - Essential (primary) hypertension Plan: Cont. w/ co-reg, imdur, and hydralazine (3) History of cerebrovascular accident (CVA) with residual deficit Code(s): I69.30 - UNSPECIFIED SEQUELAE OF CEREBRAL INFARCTION Status: Acute Plan: s/p PEG placement for failed swallow study Tolerating feeds well Cont. w/ statin, ASA, and diabetic regimen Pending placement at [facility] for rehab (4) S/P percutaneous endoscopic gastrostomy (PEG) tube placement Code(s): Z93.1 - GASTROSTOMY STATUS Status: Acute Plan: Tolerating PEG feeds w/o issue (5) Systolic CHF, acute Code(s): I50.21 - ACUTE SYSTOLIC (CONGESTIVE) HEART FAILURE Status: Acute Plan: Pt w/ life vest Stable for d/c w/ outpatient follow-up per cardiology Cont. w/ ASA, statin, and ARB (6) DM2 (diabetes mellitus, type 2) Status: Chronic Plan: Improved BG control on 42 U levemir BID Cont. to titrate in the outpatient setting for fasting AM BG <140 (7) HLD (hyperlipidemia) Code(s): E78.5 - HYPERLIPIDEMIA, UNSPECIFIED Status: Chronic Plan: Cont. w/ statin <Edwin Pope - Last Filed: 06/11/17 10:01> Attending Addendum - Attending Addendum Date/Time: 06/11/17 1141 I personally evaluated the patient and discussed the management with Dr. Pope. I agree with the History, Examination, Assessment and Plan documented above with any addition or exceptions noted below. <Yaakov Guerra - Last Filed: 06/11/17 11:41>
--- NOTE | 2017-06-11 11:53 | PRG ---
DATE OF SERVICE: 06/11/2017 SUBJECTIVE: This is a 72-year-old female being seen acute kidney injury requiring dialysis. The patient has been off of dialysis for a few weeks. The patient denies any nausea, vomiting or chest pain. PHYSICAL EXAMINATION: GENERAL: Patient is awake, alert. VITAL SIGNS: Afebrile, pulse 59, breathing 16, blood pressure 129/54. OBJECTIVE: See above. Awake, alert, in no acute distress. GENERAL APPEARANCE AND MENTAL STATUS: Fair. HEAD/NECK: Normocephalic. Atraumatic. EYES: EOMI. No deformity. EARS: Clear. No ulcers. NOSE: Intact. No lesions. MOUTH: Clear. No discharge. THROAT: Clear. No exudate. LUNGS: Clear. No crackles. CARDIAC: S1, S2. No rub. ABDOMEN: Benign. BS+. GENITALIA/RECTUM: [place] absent. BACK/EXTREMITIES: Edema 0+ Ulcer- NEUROLOGICAL: Alert and motor intact. SKIN: Rash- Bruise- LYMPHATICS: Edema- Ulcer- LABORATORY: Hemoglobin 9.8, creatinine 1.4. ASSESSMENT AND RECOMMENDATIONS: 1. Acute kidney injury with chronic kidney disease, improved. 2. Hypertension, stable. 3. Anemia, stable. The patient is nonoliguric. I would recommend hydration. Avoid KAMALJIT inhibitors and diuretics as well as metformin. MTDD
[2017-06-11] MEDS: Atorvastatin Calcium 40 MG TAB PO SCH (20:41)
[2017-06-11] MEDS: Aspirin 81 mg Enteric Coated Tablet PO SCH (20:42)
[2017-06-11] MEDS: Gabapentin 300 MG CAP PO SCH ×2 (20:42→20:52)
[2017-06-12] MEDS: Levothyroxine 175 MCG TAB PO SCH (05:31)
[2017-06-12 05:40] LABS: Anion Gap 8 mmol/L (10-20); BUN (Urea Nitrogen) 40 mg/dL (9.8-20.1); Calc. Creatinine Clearance 35 mL/min (70-130); Calcium 8.7 mg/dL (7.8-10.44); Carbon Dioxide 30 mmol/L (23-31); Chloride 107 mmol/L (98-107); Estimated GFR-MDRD 34; Glucose 90 mg/dL (83-110); Potassium 4.2 mmol/L (3.5-5.1); Sodium 141 mmol/L (136-145)
--- NOTE | 2017-06-12 07:40 | PDOC.FM ---
- Subjective Subjective: Pt w/ BG 69 overnight and <100 throughout the day yesterday. KATHRINE overnight otherwise. No new complaints this AM. Ambulating w/ PT. Tolerating PEG feeds. - Objective MAR Reviewed: Yes Vital Signs & Weight: Vital Signs (12 hours) Temp Pulse Resp BP BP Pulse Ox 06/12/17 04:00 98.1 F 64 20 142/66 H 97 06/12/17 00:59 97.9 F 65 16 144/66 H 99 06/11/17 22:15 97.9 F 65 16 99 06/11/17 22:10 97.7 F 66 18 123/58 L 99 06/11/17 20:43 59 L 121/52 L 06/11/17 20:00 97.3 F L 59 L 18 97 Weight Admit Weight 63.9 kg Weight 64.637 kg Most Recent Monitor Data Heart Rate from ECG 82 NIBP 143/72 NIBP BP-Mean 88 Respiration from ECG 16 SpO2 96 I&O: 06/11/17 06/12/17 06/13/17 06:59 06:59 06:59 Intake Total 22060 Balance 2207 2497 Result Diagrams: 06/10/17 05:08 06/12/17 05:12 <Edwin Pope K - Last Filed: 06/12/17 07:39> - Objective Vital Signs & Weight: Vital Signs (12 hours) Temp Pulse Resp BP Pulse Ox 06/12/17 07:47 98.4 F 66 18 168/74 H 100 06/12/17 04:00 98.1 F 64 20 142/66 H 97 06/12/17 00:59 97.9 F 65 16 144/66 H 99 06/11/17 22:15 97.9 F 65 16 99 06/11/17 22:10 97.7 F 66 18 123/58 L 99 Weight Admit Weight 63.9 kg Weight 64.637 kg Most Recent Monitor Data Heart Rate from ECG 82 NIBP 143/72 NIBP BP-Mean 88 Respiration from ECG 16 SpO2 96 I&O: 06/11/17 06/12/17 06/13/17 06:59 06:59 06:59 Intake Total 2206 2494 Balance 2207 2497 Result Diagrams: 06/10/17 05:08 06/12/17 05:12 <Yaakov Guerra - Last Filed: 06/12/17 09:03> Phys Exam - Physical Examination Constitutional: NAD HEENT: PERRLA, moist MMs Respiratory: clear to auscultation bilateral Cardiovascular: RRR, no significant murmur Gastrointestinal: soft, non-tender, positive bowel sounds PEG in place w/o surrounding erythema or evidence of leak Musculoskeletal: no edema Psychiatric: normal affect Skin: cap refill <2 seconds <Edwin Pope - Last Filed: 06/12/17 07:39> Dx/Plan (1) Acute renal failure Status: Resolved Plan: Pt w/ significant improvement in renal function since admission To follow-up w/ nephrology as outpatient to continue to monitor downtrending creatinine Cont. w/ hydration per PEG (2) HTN (hypertension) Code(s): I10 - ESSENTIAL (PRIMARY) HYPERTENSION Status: Acute QualifierTitle: Hypertension type: essential hypertension Qualified Code( s): I10 - Essential (primary) hypertension Plan: Pt w/ low BP's yesterday Scheduled hydralazine stopped and switched to PRN Will continue to monitor today (3) History of cerebrovascular accident (CVA) with residual deficit Code(s): I69.30 - UNSPECIFIED SEQUELAE OF CEREBRAL INFARCTION Status: Acute Plan: s/p PEG placement for failed swallow study Tolerating feeds well Cont. w/ statin, ASA, and diabetic regimen Pending placement at [facility] for rehab (4) S/P percutaneous endoscopic gastrostomy (PEG) tube placement Code(s): Z93.1 - GASTROSTOMY STATUS Status: Acute Plan: Tolerating PEG feeds w/o issue (5) Systolic CHF, acute Code(s): I50.21 - ACUTE SYSTOLIC (CONGESTIVE) HEART FAILURE Status: Acute Plan: Pt w/ life vest Stable for d/c w/ outpatient follow-up per cardiology Cont. w/ ASA, statin, and ARB (6) DM2 (diabetes mellitus, type 2) Status: Chronic Plan: Borderline low BG this AM at 69 Likely 2/2 stopping prednisone yesterday Will decrease levemir form 42 to 40 units BID Cont. w/ AC/HS accuchecks (7) HLD (hyperlipidemia) Code(s): E78.5 - HYPERLIPIDEMIA, UNSPECIFIED Status: Chronic Plan: Cont. w/ statin <Edwin Pope - Last Filed: 06/12/17 07:39> Attending Addendum - Attending Addendum Date/Time: 06/12/17901 I personally evaluated the patient and discussed the management with Dr. Pope. I agree with the History, Examination, Assessment and Plan documented above with any addition or exceptions noted below. Stable for discharge to rehab when possible. <Yaakov Guerra - Last Filed: 06/12/17 09:03>
[2017-06-12] MEDS ORDERED: Insulin Detemir 100 UNITS/ML 40 UNITS in Pre-Filled Syringe 1 EACH SC SCH ×2 (09:00→21:00)
[2017-06-12] MEDS ORDERED: PRE FILLED SC SCH ×3 (09:00→21:00)
[2017-06-12] MEDS ORDERED: INSULIN DETEMIR SC SCH ×3 (09:00→21:00)
[2017-06-12] MEDS: Carvedilol 6.25 MG TAB PO SCH ×2 (09:49→18:19)
[2017-06-12] MEDS: Pantoprazole 40 MG GRANULES PACKET PER TUBE SCH (09:49)
[2017-06-12] MEDS: Losartan 25 MG TAB PO SCH (09:49)
[2017-06-12] MEDS: Heparin 5,000 UNITS/ML VIAL SC SCH (09:50)
[2017-06-12 11:02] LABS: Anion Gap 10 mmol/L (10-20); BUN (Urea Nitrogen) 37 mg/dL (9.8-20.1); Calc. Creatinine Clearance 37 mL/min (70-130); Carbon Dioxide 29 mmol/L (23-31); Chloride 107 mmol/L (98-107); Estimated GFR-MDRD 36; Potassium 4.6 mmol/L (3.5-5.1); Sodium 141 mmol/L (136-145)
[2017-06-12 11:03] LABS: Calcium 8.7 mg/dL (7.8-10.44); Glucose 136 mg/dL (83-110)
--- NOTE | 2017-06-12 12:34 | PRG ---
DATE OF SERVICE: SUBJECTIVE: Ms. Karine Hansen is a 72-year-old female post respiratory failure, doing well. Trying t o find placement. She has a vest in place for cardiomyopathy. OBJECTIVE: VITAL SIGNS: Sats 100% on room air, temperature 98, blood pressure 168/74, respiratory rate 18. CHEST: No wheezing, crackles. CARDIAC: Normal S1, S2. No gallops. ABDOMEN: Soft, no masses. LABORATORY DATA: Creatinine 1.49. IMPRESSION: Status post multiorgan failure, cerebrovascular accident, diabetes, respiratory failure, congestive heart failure, azotemia much improved. PLAN: Awaiting placement.
[2017-06-12 12:47] VITALS: TEMP 98.2
[2017-06-12] MEDS: Insulin Regular 300 UNITS/3 ML VIAL SC PRN (13:03)
[2017-06-12 17:19] VITALS: BP 124/67
--- NOTE | 2017-06-14 09:28 | DIS-2 ---
DATE OF ADMISSION: 05/28/2017 DATE OF DISCHARGE: 06/12/2017 CONSULTS: 1. Dr. Anthony Harrison, Nephrology 2. Dr. Raul Hatfield, General Surgery 3. Dr. Austin Camara, Cardiology 4. Dr. Luis Sen, Pulmonology 5. Dr. Jaime Vu, Cardiology 6. Dr. Lauryn Nelson, Nephrology PROCEDURES: 1. Chest x-ray on 05/28/2017 - Impression - No acute intrathoracic abnormalities. 2. Brain CT on 05/28/2017 - Impression - Chronic type findings, encephalomalacia associated with rig ht side of mid brain seen on previous exam that has progressed slightly. No acute intracranial abnor malities demonstrated on noncontrast CT. 3. Chest x-ray on 05/28/2017 - Impression - Showed endotracheal catheter placed in the thoracic inle t, nasogastric tube distended to stomach and tip of left subclavian central venous catheter overlying the superior vena cava. 4. Echocardiogram on 05/28/2017 - Impression - Ejection fraction estimated at 30 to 35% with grade 2 /3 diastolic dysfunction and global hypokinesia. 5. Abdominal/pelvis CT on 05/28/2017 - Impression - Lung base clear. There is a 1.4 centimeter cyst in the right middle liver, gallbladder mildly distended, gallstones may not be apparent by CT. Ther e are septal density dependently in the gallbladder that could represent tiny stone or gravel, mild p rominence of intra and extrahepatic biliary duct, pancreas unremarkable, spleen is small, nasogastric tube in place. Stomach is mildly distended. Small loop of bowel appears normal caliber. No eviden ce of ischemic small bowel. 6. Repeat echocardiogram on 06/06/2017 - Impression - Ejection fraction at 30-35%, grade I-III diast olic dysfunction. 7. PEG tube placement on 06/05/2017. PRIMARY DIAGNOSES: 1. Septic shock. 2. Acute hypoxic respiratory failure. 3. Acute renal failure. 4. Lactic acidosis. 5. Diabetic ketoacidosis. SECONDARY DIAGNOSES: 1. Diabetes type 2. 2. Hypothyroidism. 3. Hypertension. 4. Hyperlipidemia. 5. Coronary artery disease. DISCHARGE MEDICATIONS: 1. Artificial Tears 1 application each eye as needed. 2. Atorvastatin 40 mg p.o. at bedtime. 3. Coreg 12.5 mg twice daily with meals. 4. Dextrose 25 mg IV push as needed. 5. Gabapentin 300 mg p.o. at bedtime. 6. Glucagon 1 mg intramuscularly as needed. 7. Insulin Detemir 39 units subcu at bedtime. 8. Insulin Detemir 39 units subcu every morning. 9. Ipratropium 1 puff inhalation 4 times daily as needed. 10. DuoNeb 3 mL nebulizer every 6 hours as needed. 11. Imdur 60 mg p.o. daily. 12. Labetalol 10 mg slow IV push every 4 hours as needed. 13. Losartan 50 mg p.o. b.i.d. 14. Zofran 4 mg IV push every 6 hours as needed. 15. Pantoprazole 40 mg per tube daily as needed. 16. Potassium chloride 40 mEq every morning with breakfast. 17. Gemfibrozil 600 mg per tube twice daily before meals. 18. Amlodipine 10 mg per tube daily. 19. Aspirin 81 mg per tube at bedtime. 20. Levothyroxine 175 mcg per tube daily. 21. Imodium 2 mg per tube as needed. DISCONTINUED MEDICATIONS: 1. Hydralazine 100 mg t.i.d. 2. Metformin 1000 mg b.i.d. 3. Metoprolol 100 mg daily. 4. Insulin 60 units subcu daily. 5. Lisinopril/HCTZ 1 tablet daily. HISTORY OF PRESENT ILLNESS/HOSPITAL COURSE: This is a 72-year-old female presenting with slurred spe ech and weakness one day prior to admission. She was having about 3 days of nausea and vomiting, tulio rrhea beforehand and on the day of admission was acting altered and was brought into the ER intubated . When EMS found her, her blood sugar was initially in the 50s and she was started on D50 which her blood sugar responded to, but she did not regain consciousness. When she was brought to the ED she w as started on 2 liters of normal saline bolus, Levaquin, Zosyn, vancomycin, Levophed and was intubate d and was started on additional D50 while she was in the ER. As the patient was unable to provide an y report, records were taken from EMS only. Labs were drawn. Significant lab was bicarbonate less t pittman 8, elevated WBC at 17.8, a new acute renal failure with BUN 64 and creatinine 10.95. An ABG was done; pH 6.77, CO2 22, O2 was 307. Her BNP was elevated at 344. CK-MB was mildly elevated at 3.4. At that time she was felt to be going into septic shock, she was sent up to the floor with empiric an tibiotics and blood and urine cultures taken. As for her acute hypoxic respiratory failure she was i ntubated. For her renal failure, Nephrology was consulted and dialysis was started that day. Lactic acidosis was at 25.9 initially and her pH was low. She was started on fluid for that. While on the floor of the night of admission she coded twice, going into asystole. Both times she was given bica rbonate and epinephrine. She regained spontaneous circulation after each time that she received thos e medications. A CT scan was done and it found no acute changes. Cardiology was consulted in regard s to her elevated CK-MB and troponin which carol throughout the night, especially after her 2 episodes of asystole. At that time they did not think that she would be medically stable for a cath, though an echo was done finding that she was in new mixed heart failure and due to a possible risk of her deal ving a Cardiology started her on a heparin drip. Over the next few days she gradually improved. Her kidney function was improving and she was beginning to regain some consciousness. On 05/31/2017 she was extubated successfully. Over the next few days her respiratory status was mildly tenuous as she often had fluid overload in her lungs requiring Lasix for diuresis. However, she gradually improved in that regard as well as her kidney function which her BUN and creatinine continued to trend down s lowly back to her baseline. At that time she was continuing to work more with physical therapy and s marla was consulted to evaluate for her safety with swallowing. They found that she was aspirating. At that time a discussion was held with the family. Her code status for DNR was revoked and they de cided they wished to pursue a PEG tube placement at that time. On 06/03/2017 a PEG tube was placed s uccessfully. Over the next few days she continued to improve. An echocardiogram was repeated on to re-evaluate if the patient had a true new onset congestive heart failure versus shock hear t and it appeared that she still continued to have poor ejection fraction. Cardiology at that time d ecided to order a LifeVest. On 06/12/2017 she was approved for rehab and a LifeVest was obtained at that time. The patient was then discharged on 06/12/[address] Edwin Pope in good condition to rehab. At that time her initial symptoms had resolved; however, she still was weak from her [facility]note [facility] d hospital stay and her new systolic and diastolic heart failure. DISPOSITION: [facility]. CONDITION: Guarded. ACTIVITY: As tolerated. DIET: Heart healthy, diabetic diet. FOLLOWUP: Follow up with Dr. Pappas 1 week after discharge from [facility].
== END 2017-06-12 17:16 | DRG 871 ==
LOC: ERS 15:11 → CCU 18:24 → IMCU/EMU 06-02 23:14 → 2NO 06-11 22:04
PROVIDERS: ADMIT Family Medicine; ATTEND Family Medicine
PROC: 5A1945Z Respiratory Ventilation, 24-96 Consecutive Hours (ICD-10-PCS; principal; 2017-05-28)
PROC: 0BH17EZ Insertion of Endotracheal Airway into Trachea, Via Natural or Artificial Opening (ICD-10-PCS; 2017-05-28)
PROC: 5A12012 Performance of Cardiac Output, Single, Manual (ICD-10-PCS; 2017-05-28)
PROC: 06HM33Z Insertion of Infusion Device into Right Femoral Vein, Percutaneous Approach (ICD-10-PCS; 2017-05-28)
PROC: 5A1D70Z Performance of Urinary Filtration, Intermittent, Less than 6 Hours Per Day (ICD-10-PCS; 2017-05-28)
PROC: 5A1D70Z Performance of Urinary Filtration, Intermittent, Less than 6 Hours Per Day (ICD-10-PCS; 2017-05-29)
PROC: 0DH63UZ Insertion of Feeding Device into Stomach, Percutaneous Approach (ICD-10-PCS; 2017-06-05)
DX: A41.51 Sepsis due to Escherichia coli [E. coli] (principal); R65.21 Severe sepsis with septic shock; I21.A1 Myocardial infarction type 2; I46.9 Cardiac arrest, cause unspecified; J96.01 Acute respiratory failure with hypoxia; E11.10 Type 2 diabetes mellitus with ketoacidosis without coma; G93.41 Metabolic encephalopathy; N17.9 Acute kidney failure, unspecified; I69.351 Hemiplegia and hemiparesis following cerebral infarction affecting right dominant side; E87.0 Hyperosmolality and hypernatremia; N39.0 Urinary tract infection, site not specified; E46 Unspecified protein-calorie malnutrition; I12.9 Hypertensive chronic kidney disease with stage 1 through stage 4 chronic kidney disease, or unspecified chronic kidney disease; E03.9 Hypothyroidism, unspecified; E78.5 Hyperlipidemia, unspecified; I25.10 Atherosclerotic heart disease of native coronary artery without angina pectoris; E87.6 Hypokalemia; E11.22 Type 2 diabetes mellitus with diabetic chronic kidney disease; N18.3 Chronic kidney disease, stage 3 (moderate); D64.9 Anemia, unspecified; B96.20 Unspecified Escherichia coli [E. coli] as the cause of diseases classified elsewhere; Z68.24 Body mass index [BMI] 24.0-24.9, adult; Z79.82 Long term (current) use of aspirin; Z79.4 Long term (current) use of insulin; Z79.899 Other long term (current) drug therapy; Z95.1 Presence of aortocoronary bypass graft; Z95.5 Presence of coronary angioplasty implant and graft
CPT/HCPCS: 31500; 36415; 36416; 36556; 51702; 70450; 71045; 74018; 74177; 74230; 80048; 80053; 80076; 80202; 81003; 81015; 82010; 82140; 82533; 82553; 82805; 83036; 83605; 83690; 83735; 83880; 84100; 84145; 84443; 84484; 85025; 85610; 85730; 86704; 86706; 86803; 87040; 87077; 87086; 87186; 87340; 87804; 90935; 93005; 93010; 93306; 93970; 94002; 94003; 94640; 96365; 96366; 96367; 96368; 96376; 99292; A4216; C1769; C9113; G0257; G0365; G8978-GP-CK; G8978-GP-CL; G8979-GP-CJ; G8987-GO-CK; G8988-GO-CJ; G8996-GN-CN; G8997-GN-CK; G8997-GN-CL; G8998-GN-CK; J0171; J0696; J1642; J1644; J1720; J1815; J1940; J1956; J2001; J2060; J2270; J2543; J2704; J2920; J3010; J3370; J3475; J3480; J7050; J7070; J7620; P9047

== ENCOUNTER 2017-06-28 10:33 | Emergency (ER) | payer MEDICARE ==
[2017-06-28] MEDS ORDERED: HYDROcodone/Acetaminophen 5/325 mg Tablet ONE (11:26)
[2017-06-28 11:50] LABS: #Eosinphils 0.3 thou/uL (0.0-0.7); #Monocytes 0.5 thou/uL (0.11-0.59); %Basophils 0.9 % (0.0-1.0); %Eosinophils 5.5 % (0.0-10.0); %Lymphocytes 41.5 % (21.0-51.0); %Monocytes 9.7 % (0.0-10.0); %Neutrophils 42.4 % (42.0-75.0); Hemoglobin 10.1 g/dL (12.0-16.0); Mean Corpuscular HGB CONC 31.6 g/dL (32.0-36.0); Mean Corpuscular Hemoglobin 30.7 pg (27.0-31.0); Mean Corpuscular Volume 97.1 fl (81.0-99.0); Mean Platelet Volume 7.7 fL (7.4-10.4); Platelet Count 280 thou/uL (130-400); RBC Distribution Width 14.5 % (11.5-14.5); White Blood Cell (WBC) Count 4.8 thou/uL (4.8-10.8)
[2017-06-28 12:14] LABS: ALT (SGPT) 15 U/L (8-55); AST (SGOT) 26 U/L (5-34); Albumin 3.7 g/dL (3.4-4.8); Alkaline Phosphatase 129 U/L (40-150); Anion Gap 13 mmol/L (10-20); BUN (Urea Nitrogen) 18 mg/dL (9.8-20.1); Bilirubin, Total 0.5 mg/dL (0.2-1.2); Calc. Creatinine Clearance 0 mL/min (70-130); Calcium 10.1 mg/dL (7.8-10.44); Carbon Dioxide 22 mmol/L (23-31); Chloride 111 mmol/L (98-107); Estimated GFR-MDRD 32; Globulin 3.8 g/dL (2.4-3.5); Glucose 108 mg/dL (83-110); Potassium 4.6 mmol/L (3.5-5.1); Protein, Total 7.5 g/dL (6.0-8.3); Sodium 141 mmol/L (136-145)
== END 2017-06-28 13:50 | disposition home or self-care (01) ==
LOC: ERS 10:33
DX: E86.0 Dehydration (principal); N28.9 Disorder of kidney and ureter, unspecified; I25.2 Old myocardial infarction; E11.9 Type 2 diabetes mellitus without complications; E03.9 Hypothyroidism, unspecified; E78.5 Hyperlipidemia, unspecified; I10 Essential (primary) hypertension
CPT/HCPCS: 80053; 85025; 96360

== ENCOUNTER 2017-08-15 12:55 | Inpatient (IN) | payer MEDICARE ==
[2017-08-15 13:23] LABS: #Eosinphils 0.1 thou/uL (0.0-0.7); #Lymphocytes 1.9 thou/uL (1.20-3.40); #Monocytes 0.4 thou/uL (0.11-0.59); #Neutrophils 3.8 thou/uL (1.40-6.50); %Basophils 0.5 % (0.0-1.0); %Eosinophils 1.7 % (0.0-10.0); %Lymphocytes 30.6 % (21.0-51.0); %Monocytes 6.9 % (0.0-10.0); %Neutrophils 60.4 % (42.0-75.0); Hemoglobin 9.8 g/dL (12.0-16.0); Mean Corpuscular HGB CONC 33.6 g/dL (32.0-36.0); Mean Corpuscular Hemoglobin 30.3 pg (27.0-31.0); Mean Corpuscular Volume 90.3 fl (81.0-99.0); Mean Platelet Volume 8.1 fL (7.4-10.4); Platelet Count 257 thou/uL (130-400); RBC Distribution Width 12.6 % (11.5-14.5); Red Blood Cell (RBC) Count 3.22 mill/uL (4.20-5.40); White Blood Cell (WBC) Count 6.3 thou/uL (4.8-10.8)
[2017-08-15 13:42] LABS: ALT (SGPT) 10 U/L (8-55); AST (SGOT) 18 U/L (5-34); Albumin 3.8 g/dL (3.4-4.8); Alkaline Phosphatase 77 U/L (40-150); Anion Gap 13 mmol/L (10-20); BUN (Urea Nitrogen) 27 mg/dL (9.8-20.1); Bilirubin, Total 0.3 mg/dL (0.2-1.2); Calc. Creatinine Clearance 0 mL/min (70-130); Calcium 9.7 mg/dL (7.8-10.44); Carbon Dioxide 23 mmol/L (23-31); Chloride 108 mmol/L (98-107); Estimated GFR-MDRD 23; Globulin 3.1 g/dL (2.4-3.5); Glucose 223 mg/dL (83-110); Potassium 4.8 mmol/L (3.5-5.1); Protein, Total 6.9 g/dL (6.0-8.3); Sodium 139 mmol/L (136-145)
[2017-08-15 13:46] LABS: Troponin I 0.047 ng/mL (< 0.028)
--- NOTE | 2017-08-15 15:06 | RAD ---
CHEST ONE VIEW: History: Chest pain. Comparison: 06-20-17 FINDINGS: New from the comparison of 06-20-17, there is a peripheral density in the right middle lobe. There is a lso hazy opacity in the right lower lobe. Left lung is relatively clear. Median sternotomy wires. No acute osseous abnormality. IMPRESSION: New peripheral opacity right middle lobe, as well as right basilar airspace opacity concerning for in fection. Follow up recommended. POS: NINFA
[2017-08-15 15:07] LABS: CK (CPK) 63 U/L (29-168); Lipase 63 U/L (8-78)
[2017-08-15 17:03] LABS: Troponin I 0.059 ng/mL (< 0.028)
--- NOTE | 2017-08-15 17:10 | PDOC.FPRHP ---
- History of Present Illness Chief Complaint: chest pain, dizziness History of Present Illness: Patient presents with four day history of transient chest pain, numbness of left hand which is currently only in left thumb. Describes as squeezing pain which did not radiate. Endorses shortness of breath and two episodes with diaphoresis. Endorses occasional nausesa. No fever, cough, congestion. Increased fatigue, feels as though knee is going to give out. Not enough strength to hold glass in left hand, which is residual from possible prior stroke. Prior stroke left residual deficits on left side to include numbness. Endorses vision changes which have been present for awhile and has been evaluated by optho. Patient has had Life Vest on since May when she was diagnosed with new onset CHF EF 30-35%. Patient last saw Dr. Vu 2 weeks ago. Heart cath scheduled for 12 of September. Did not have heart cath done last time in the hospital due to preference. After a long discussion with Dr. Vu , pt and family decided on conservative treatment. Complaints of BP issues. Pt states BP has been running low. Difficulty with dizziness upon standing. ED Course: Received ASA 325 mg in ED. EKG NSR. - Allergies/Adverse Reactions Allergies Allergy/AdvReac Type Severity Reaction Status Date / Time No Known Drug Allergies Allergy Verified 07/05/14 02:56 - Home Medications Medication Instructions Recorded Confirmed Type Aspirin [Ecotrin Low Strength] 81 mg PO 2100 05/28/17 08/15/17 History Gemfibrozil [Lopid] 600 mg PO BIDAC 05/28/17 08/15/17 History Levothyroxine [Synthroid] 175 mcg PO DAILY 05/29/17 08/15/17 History Carvedilol [Coreg] 12.5 mg PO BID-WM tab 06/12/17 08/15/17 Rx Gabapentin [Neurontin] 300 mg PO HS cap 06/12/17 08/15/17 Rx Atorvastatin Calcium [Lipitor] 80 mg PO HS 08/15/17 08/15/17 History Insulin Detemir 100 UNITS/ML 20 units SC QAM 08/15/17 08/15/17 History [Levemir] Insulin Detemir 100 UNITS/ML 25 units SC HS 08/15/17 08/15/17 History [Levemir] Isosorbide Mononitrate [Imdur] 30 mg PO BID 08/15/17 08/15/17 History Pantoprazole [Protonix] 40 mg PO DAILY 08/15/17 08/15/17 History Potassium Chloride [Klor-Con] 40 meq PO BID-WM 08/15/17 08/15/17 History rOPINIRole HCl [Ropinirole HCl] 0.25 mg PO HS 08/15/17 08/15/17 History - History PMHx: Diabetes type II, Hypothyroidism, HTN, HLD, CAD s/p CABG, 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 denies: fever/chills, weight/appetite/sleep changes , night sweats Eyes: reports: vision changes (not acute). denies: eye pain ENT: reports: rhinorrhea. denies: nasal congestion Respiratory: denies: cough, congestion, shortness of breath, exercise intolerance Cardiovascular: reports: chest pain. denies: palpitation, edema, paroxysmal nocturnal dyspnea, orthopnea Gastrointestinal: denies: nausea, vomiting, diarrhea, constipation, abdominal pain Genitourinary: denies: incontinence, dysuria, polyuria Skin: denies: rashes, lesions, jaundice Musculoskeletal: reports: pain, tenderness (left knee), arthritis/arthralgias Neurological: reports: numbness (left hand/arm), weakness. denies: syncope Psychological: denies: anxiety, depression - Vital signs BP: 148/65 HR: 71 RR: 20 Tmax: 98.5 F Pox: 95% on RA Wt: 58.97 kg - Physical Exam Constitutional: NAD, awake, alert and oriented, well developed HEENT: PERRLA, EOMI, conjunctiva clear, no scleral icterus, normal nasal mucosa , MMM, oropharynx clear Neck: supple, trachea midline Heart: RRR, normal S1/S2, no murmurs/rubs/gallops, pulses present, no edema Lungs: CTAB, no respiratory distress, no wheezing Abdomen: soft, non-tender, bowel sounds present Musculoskeletal: normal tone Neurological: CN II-XII intact -Neurological: Mildly reduced strength on UE and LE on left side compared to right, but still 5 /5 strength. Skin: no rash/lesions, good turgor, capillary refill <2 seconds Heme/Lymphatic: no unusual bruising or bleeding, no purpura, no petechia Psychiatric: normal mood and affect, good judgment and insight, intact recent and remote memory FMR H&P: Results - Labs Result Diagrams: 08/15/17 18:43 08/15/17 13:14 Lab results: WBC 6.3 thou/uL (4.8-10.8) 08/15/17 13:14 Hgb 9.8 g/dL (12.0-16.0) L 08/15/17 13:14 Hct 29.1 % (36.0-47.0) L 08/15/17 13:14 MCV 90.3 fl (81.0-99.0) 08/15/17 13:14 Plt Count 257 thou/uL (130-400) 08/15/17 13:14 Neutrophils % 60.4 % (42.0-75.0) 08/15/17 13:14 Sodium 139 mmol/L (136-145) 08/15/17 13:14 Potassium 4.8 mmol/L (3.5-5.1) 08/15/17 13:14 Chloride 108 mmol/L (98-107) H 08/15/17 13:14 Carbon Dioxide 23 mmol/L (23-31) 08/15/17 13:14 BUN 27 mg/dL (9.8-20.1) H 08/15/17 13:14 Creatinine 2.08 mg/dL (0.6-1.1) H 08/15/17 13:14 Glucose 223 mg/dL (83-110) H 08/15/17 13:14 Calcium 9.7 mg/dL (7.8-10.44) 08/15/17 13:14 Total Bilirubin 0.3 mg/dL (0.2-1.2) 08/15/17 13:14 AST 18 U/L (5-34) 08/15/17 13:14 ALT 10 U/L (8-55) 08/15/17 13:14 Alkaline Phosphatase 77 U/L (40-150) 08/15/17 13:14 Creatine Kinase 63 U/L (29-168) 08/15/17 13:10 CK-MB (CK-2) 1.0 ng/mL (0-6.6) 08/15/17 13:14 B-Natriuretic Peptide 140.3 pg/mL (0-100) H 08/15/17 13:10 Serum Total Protein 6.9 g/dL (6.0-8.3) 08/15/17 13:14 Albumin 3.8 g/dL (3.4-4.8) 08/15/17 13:14 Lipase 63 U/L (8-78) 08/15/17 13:10 - Radiology Interpretation Chest x-ray Status: image reviewed by me, report reviewed by me Additional comment: Right middle lob opacity FMR H&P: A/P - Problem List (1) Unstable angina Current Visit: Yes Status: Acute (2) Acute kidney injury Current Visit: No Status: Acute Code(s): N17.9 - ACUTE KIDNEY FAILURE, UNSPECIFIED (3) Elevated troponin Current Visit: No Status: Acute Code(s): R74.8 - ABNORMAL LEVELS OF OTHER SERUM ENZYMES (4) Dysarthria Current Visit: No Status: Chronic Code(s): R47.1 - DYSARTHRIA AND ANARTHRIA (5) Diabetes Mellitus Type 2 in Nonobese Current Visit: No Status: Chronic Code(s): E11.9 - TYPE 2 DIABETES MELLITUS WITHOUT COMPLICATIONS (6) HTN (hypertension) Current Visit: No Status: Chronic Code(s): I10 - ESSENTIAL (PRIMARY) HYPERTENSION Qualifiers: Hypertension type: essential hypertension Qualified Code(s): I10 - Essential (primary) hypertension (7) Heart failure with reduced ejection fraction Current Visit: No Status: Chronic Code(s): I50.20 - UNSPECIFIED SYSTOLIC ( CONGESTIVE) HEART FAILURE Qualifiers: Heart failure chronicity: chronic Qualified Code(s): I50.22 - Chronic systolic (congestive) heart failure (8) History of cerebrovascular accident (CVA) with residual deficit Current Visit: No Status: Chronic Code(s): I69.30 - UNSPECIFIED SEQUELAE OF CEREBRAL INFARCTION (9) CAD (coronary artery disease) Current Visit: No Status: Chronic Code(s): I25.10 - ATHSCL HEART DISEASE OF [place] CORONARY ARTERY W/O ANG PCTRS (10) HLD (hyperlipidemia) Current Visit: No Status: Chronic Code(s): E78.5 - HYPERLIPIDEMIA, UNSPECIFIED (11) Hypothyroid Current Visit: No Status: Chronic Code(s): E03.9 - HYPOTHYROIDISM, UNSPECIFIED - Plan Unstable angina - Pt with CP, radiation to left arm, described as squeezing and onset at rest - Admit to telemetry - Monitor tele strip overnight - Trend CE's - EKG NSR - Pt's hot mill supervisor is Dr. Vu; will contact in AM - Cardiology consulted; appreciate recs - Pt scheduled for cardiac cath vs. stress test 08/12 - NSTEMI at visit 05/2017 and asystole s/p ROSC; discussion had with family and they declined [facility] at that time - Heparin drip - NPO at midnight Dizziness, NOS - Does not appear to be vertigo - Pt reports low BP's at home, particularly after standing - Symptoms worse with standing - Will check orthostatics - Mild fluid resuscitation as pt has CHF Elevated troponin - Slightly above baseline - 0.047 --> 0.059 - Continue to trend CE's ALICIA on CKD - Mild fluid resuscitation d/t CHF - Avoid nephrotoxic agents - Monitor BMP - BUN 27, Cr 2.07 - Consider doing urine studies to evaluate kidney function further HF with reduced EF and 2/3 diastolic dysfunction - Echo 05/28/2017 showed EF 30-35% with grade 2/3 diastolic and global hyokinesia - Pt with Life Vest; currently wearing - Fluid restriction diet 1800 mL - Daily weight - Strict I&O's Diabetes type II - Pt admitted 05/2017 and had risk stratification labs done at that time to include TSH, HgA1c, Mg, P, and FLP - TSH in 05/2017 wnl, HgA1c 8.9 - Check Phosphorus - Mild SSI - ACHS accuchecks - CC diet - Continue home medications Hypothyroidism - TSH 05/2017 wnl - Continue home medications HTN - Pt BP labile at home per family - Will monitor BP - Adjust medications as necessary HLD - Continue home medications CAD s/p CABG - NSTEMI in 05/2017 - Pt hot mill supervisor, Dr. Vu - Continue home medications Dispo: Pt stable. Anticipate LOS <48 hours. CODE STATUS: DNR DVT PPX: Heparin drip GI PPX: Pantoprazole FMR H&P: Upper Level - Pertinent history 72HF presenting to ED with a 3 day history of left-sided chest pain that is associated with nausea, lightheadedness, SOB, and diaphoresis. She describes the pain as a "tightness" and a "squeezing" sensation. It is intermittent and happens numerous times throughout the day, too numerous to count. The angina is unprovoked and normally occurs at rest. She as a significant cardiac history including CAD s/p CABG over 10 years ago and recently diagnosed mixed heart failure requiring a life vest, which the patient is wearing at this time. She was hospitalized in May of this year and required an extensive ICU stay. She has made a great recovery since then, and has been following up with her hot mill supervisor, Dr. Vu, regularly. Per family, it sounds like she is scheduled to undergo a cardiac catheterization next month. She also has a history of CVA in 2013 with residual left sided weakness and paresthesias. She is c/o left thumb numbness today, but it has been present since the CVA and has not acutely worsened. PMH: CAD, mixed CHF, DMII, HTN, HLD, Hypothyroidism - Pertinent findings Vital signs stable in ED EKG shows NSR with no ST abnormalities or T wave inversions CXR is improved compared to prior XR but read shows a right middle lobe peripheral opacity and right basilar air space opacity PE: Gen: in no acute distress CV: RRR, no murmurs Pulm: CTA-B; no adventitious sounds GI: soft; non-tender; normal bowel sounds Neuro: CN II-XII intact; normal sensation of extremities; slightly diminished upper doubler strength; strength 5/5 in bilateral upper and lower extremities Skin: no bruising or lesions Extremities: no edema or cyanosis CK-MB: 1.0 Trop: .047 -> .059 BUN/Cr: 27/2.08 BNP: 140 Patient given ASA 324mg in ED - Plan Date/Time: 08/15/17 4344 1. Unstable angina: patient with angina at rest and known CAD with uptrending trops. Admit inpatient/tele. Consult Cardiology and place patient on a heparin drip. Trend cardiac enzymes with repeat EKG's. Patient will be NPO at midnight. Continue morphine, oxygen, nitrates, and ASA. 2. ALICIA on CKD: Cr is elevated compared to baseline. Patient endorses nausea and decreased appetite since the onset of this chest pain. Gentle hydration overnight given her CHF status. Trend with morning BMPS. Anticipate cath so we will avoid all nephrotoxic agents. 3. Mixed CHF: TTE done in May of this year shows EF of 30-35% with grade 2/3 diastolic and global hyokinesia. Patient already wearing life vest. Monitor with daily weights and strict I/O's. 4. Diabetes type II: continue home dose of Lantus 40mg BID. Cover with mild SSI. Accuchecks qACHS 5. Hypothyroidism: continue home medications 6. HTN: BP appropriate since coming to hospital. Continue home medications 7. HLD: continue statin; hx of CVA Code status: DNR I, Paxton Alvarez, have evaluated this patient and agree with findings/plan as outlined by dental internship resident. Pertinent changes/additions are listed here. Attending Addendum - Attending Addendum Date/Time: 08/16/17 0058 I personally evaluated the patient and discussed the management with Dr. Hartmann and Dr. Alvarez I agree with the History, Examination, Assessment and Plan documented above with any addition or exceptions noted below. 72 yo female with known CAD presents with CP on Sunday and elevated trops. Placed on tele. Cards consulted. Anticoagulation and antiplatelets started. BB and statin. Trend trop. Cards to take back if chest pain returns otherwise will wait til AM. Will adjust other home meds as needed. Continue IVF. Repeat labs in AM. Mary
[2017-08-15] MEDS ORDERED: Dextrose 50% Abboject 50 ML SYRINGE SLOW IVP PRN (17:48)
[2017-08-15] MEDS ORDERED: HumaLOG 300 UNITS/3 ML VIAL SC PRN (17:48)
[2017-08-15] MEDS ORDERED: Acetaminophen 325 MG TAB PO PRN (17:48)
[2017-08-15] MEDS ORDERED: Ondansetron ODT 4 MG TAB PO PRN (17:48)
[2017-08-15] MEDS ORDERED: Ondansetron HCl/PF 4 MG/2 ML Vial IVP PRN (17:48)
[2017-08-15] MEDS ORDERED: Dextrose 5% in Water 1,000 ML IV PRN (17:48)
[2017-08-15 17:49] VITALS: BMI 22.4
[2017-08-15] MEDS: Lactated Ringer's 1,000 ML IV SCH (18:07)
[2017-08-15 18:51] LABS: Hemoglobin 9.7 g/dL (12.0-16.0); Platelet Count 254 thou/uL (130-400)
[2017-08-15] MEDS: Heparin 25,000 units/D5W 500 ML IVPB SCH (19:32)
[2017-08-15] MEDS: Heparin 10,000 UNITS/ 10 ML VIAL SLOW IVP SCH (19:33)
[2017-08-15 20:20] LABS: Troponin I 0.042 ng/mL (< 0.028)
[2017-08-15] MEDS ORDERED: Heparin 5,000 UNITS/ML VIAL SC SCH (21:00)
[2017-08-15] MEDS ORDERED: hydrALAZINE 20 MG/ML VIAL SLOW IVP PRN (21:14)
[2017-08-15] MEDS: Atorvastatin Calcium 40 MG TAB PO SCH (21:39)
[2017-08-15] MEDS: Aspirin 81 mg Enteric Coated Tablet PO SCH (21:39)
[2017-08-15] MEDS: Gabapentin 300 MG CAP PO SCH (21:40)
[2017-08-15] MEDS: rOPINIRole HCl 0.25 MG TAB PO SCH (21:40)
[2017-08-15] MEDS ORDERED: Carvedilol 6.25 MG TAB PO SCH (22:00)
[2017-08-16] MEDS: Lactated Ringer's 1,000 ML IV SCH ×2 (04:53→16:36)
[2017-08-16] MEDS: Levothyroxine 175 MCG TAB PO SCH (04:53)
[2017-08-16 07:10] LABS: #Eosinphils 0.1 thou/uL (0.0-0.7); #Monocytes 0.5 thou/uL (0.11-0.59); #Neutrophils 2.5 thou/uL (1.40-6.50); %Basophils 0.8 % (0.0-1.0); %Eosinophils 2.5 % (0.0-10.0); %Lymphocytes 48.7 % (21.0-51.0); %Monocytes 7.5 % (0.0-10.0); %Neutrophils 40.6 % (42.0-75.0); Hemoglobin 9.3 g/dL (12.0-16.0); Mean Corpuscular HGB CONC 33.5 g/dL (32.0-36.0); Mean Corpuscular Hemoglobin 30.3 pg (27.0-31.0); Mean Corpuscular Volume 90.6 fl (81.0-99.0); Mean Platelet Volume 8.1 fL (7.4-10.4); Platelet Count 234 thou/uL (130-400); RBC Distribution Width 12.7 % (11.5-14.5); Red Blood Cell (RBC) Count 3.06 mill/uL (4.20-5.40); White Blood Cell (WBC) Count 6.1 thou/uL (4.8-10.8)
[2017-08-16 07:23] LABS: Anion Gap 12 mmol/L (10-20); BUN (Urea Nitrogen) 23 mg/dL (9.8-20.1); Calc. Creatinine Clearance 33 mL/min (70-130); Calcium 9.6 mg/dL (7.8-10.44); Carbon Dioxide 22 mmol/L (23-31); Chloride 111 mmol/L (98-107); Estimated GFR-MDRD 35; Glucose 167 mg/dL (83-110); Potassium 4.1 mmol/L (3.5-5.1); Sodium 141 mmol/L (136-145)
[2017-08-16] MEDS: Insulin Glargine 20 UNITS in Pre-Filled Syringe 1 EACH SC SCH (08:19)
[2017-08-16] MEDS: Carvedilol 6.25 MG TAB PO SCH ×2 (08:52→16:36)
[2017-08-16] MEDS: Pantoprazole 40 MG GRANULES PACKET PO SCH (08:52)
[2017-08-16] MEDS ORDERED: Non-Formulary Item 1 EACH (Insulin Detemir 100 Units/Ml [Levemir] 20 UNITS) SC SCH (09:00)
[2017-08-16] MEDS ORDERED: Aspirin 81 mg Enteric Coated Tablet PO SCH (09:00)
--- NOTE | 2017-08-16 09:27 | PDOC.FM ---
- Subjective Subjective: No acute events overnight. Pt denies any cp, sob, nvdc. No swelling in hands or feet or diaphoresis. Pt at baseline from neuro standpoint with no new deficits or concerns. - Objective Vital Signs & Weight: Vital Signs (12 hours) Temp Pulse Resp BP BP Pulse Ox 08/16/17 08:52 163/74 H 08/16/17 04:00 97.8 F 75 18 141/64 H 18 L 08/16/17 00:00 98.2 F 66 18 145/65 H 98 08/15/17 21:58 221/97 H Weight Weight 58.513 kg Result Diagrams: 08/16/17 06:52 08/16/17 06:52 <Doug Pinedo - Last Filed: 08/16/17 09:26> - Objective Vital Signs & Weight: Vital Signs (12 hours) Temp Pulse Resp BP BP Pulse Ox 08/16/17 11:48 97.5 F L 65 16 112/58 L 98 08/16/17 08:52 163/74 H 08/16/17 08:00 97.5 F L 71 16 163/74 H 95 08/16/17 04:00 97.8 F 75 18 141/64 H 18 L Weight Weight 58.513 kg Result Diagrams: 08/16/17 06:52 08/16/17 06:52 <Anthony Iniguez - Last Filed: 08/16/17 12:23> Phys Exam - Physical Examination Constitutional: NAD HEENT: PERRLA, sclera anicteric Neck: no nodes, no JVD Respiratory: no wheezing, no rales, no rhonchi, clear to auscultation bilateral Cardiovascular: RRR, no significant murmur life vest in place Gastrointestinal: soft, non-tender, no distention, positive bowel sounds Musculoskeletal: no edema, pulses present Neurological: non-focal, moves all 4 limbs Skin: no rash, normal turgor, cap refill <2 seconds <Doug Pinedo - Last Filed: 08/16/17 09:26> Dx/Plan (1) Unstable angina Status: Acute (2) Acute kidney injury Code(s): N17.9 - ACUTE KIDNEY FAILURE, UNSPECIFIED Status: Acute (3) Elevated troponin Code(s): R74.8 - ABNORMAL LEVELS OF OTHER SERUM ENZYMES Status: Acute (4) CAD (coronary artery disease) Code(s): I25.10 - ATHSCL HEART DISEASE OF [place] CORONARY ARTERY W/O ANG PCTRS Status: Chronic (5) Diabetes Mellitus Type 2 in Nonobese Code(s): E11.9 - TYPE 2 DIABETES MELLITUS WITHOUT COMPLICATIONS Status: Chronic (6) 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 - DYSARTHRIA AND ANARTHRIA Status: Chronic (7) Heart failure with reduced ejection fraction Code(s): I50.20 - UNSPECIFIED SYSTOLIC (CONGESTIVE) HEART FAILURE Status: Chronic QualifierTitle: Heart failure chronicity: chronic Qualified Code(s): I50.22 - Chronic systolic (congestive) heart failure (8) History of cerebrovascular accident (CVA) with residual deficit Code(s): I69.30 - UNSPECIFIED SEQUELAE OF CEREBRAL INFARCTION Status: Chronic (9) Hypothyroid Code(s): E03.9 - HYPOTHYROIDISM, UNSPECIFIED Status: Chronic - Plan Plan: Unstable angina - Pt NSR on tele overnight with no episodes of cp - Will cont current medical therapy and consult pts interventional nurse for further recommendations - cards consulted, appreciate recs Dizziness, NOS - Does not appear to be vertigo - Pt reports low BP's at home, particularly after standing - Symptoms worse with standing - Cont mild fluid resuscitation 2/2 alicia on CKD and check orthostatics Elevated troponin - Slightly above baseline - 0.047 --> 0.059 - Continue to trend CE's, trended mallory -cards consult, appreciate recs ALICIA on CKD - Mild fluid resuscitation d/t CHF - Avoid nephrotoxic agents - Monitor BMP - BUN 27, Cr 2.07-->1.46 - Trend HF with reduced EF and 2/3 diastolic dysfunction - Echo 05/28/2017 showed EF 30-35% with grade 2/3 diastolic and global hyokinesia - Pt with Life Vest; currently wearing - Fluid restriction diet 1800 mL - Daily weight - Strict I&O's - Consult cardiology, appreciate recs Diabetes type II - Pt admitted 05/2017 and had risk stratification labs done at that time to include TSH, HgA1c, Mg, P, and FLP - TSH in 05/2017 wnl, HgA1c 8.9 - Mild SSI - ACHS accuchecks - CC diet - Continue home medications Hypothyroidism - TSH 05/2017 wnl - Continue home medications HTN - Pt BP labile at home per family - Will monitor BP - Adjust medications as necessary HLD - Continue home medications CAD s/p CABG - NSTEMI in 05/2017 - Pt interventional nurse, Dr. Vu - Continue home medications Dispo: Pt stable. No acute events. Will await cardiology recommendations. Cont current therapy. <Doug Pinedo - Last Filed: 08/16/17 09:26> Attending Addendum - Attending Addendum Date/Time: 08/16/17 1222 I personally evaluated the patient and discussed the management with Dr. Pniedo. I agree with the History, Examination, Assessment and Plan documented above with any addition or exceptions noted below. Patient admitted with concern for unstable angina. She is on heparin drip, but enzymes have been indeterminate. Awaiting cardiology recommendations. Needs improved blood pressure control. ALICIA improved with fluids. <Anthony Iniguez - Last Filed: 08/16/17 12:23>
--- NOTE | 2017-08-16 09:37 | RAD ---
TWO VIEW CHEST: HISTORY: Followup abnormality on chest x-ray. COMPARISON: Correlation is made to the portable chest x-ray of 08/15/17 which described questioned right lung opac ity. FINDINGS: Lungs appear well aerated and clear on the 2-view study. No evidence of right lung infiltrate identi fied. There is no evidence of vascular congestion or edema. Heart size within normal range. Postop sternotomy change. No effusion identified. Aortic calcification is noted. IMPRESSION: No focal infiltrate identified. POS: [facility]
[2017-08-16 13:22] LABS: INR-International Normal Ratio 1.1; PTT 44.4 SEC (22.9-36.1); Prothrombin Time 14.7 SEC (12.0-14.7)
[2017-08-16] MEDS: Heparin 10,000 UNITS/ 10 ML VIAL SLOW IVP SCH (13:44)
--- NOTE | 2017-08-16 19:21 | CON ---
DATE OF CONSULTATION: 08/16/2017 REASON FOR CONSULTATION: Chest pain. HISTORY OF PRESENT ILLNESS: Mrs. Hansen a very pleasant 72-year-old female who comes to the hospital for chest pain. She was at home and noticed episodes of chest tightness lasted about 20 mi nutes at a time and they got better on their own. She mentioned this to her daughters who brought he r in for evaluation. Her pain was actually back on Sunday, , she did not come in until yesterday overnight. She has been chest pain free. She states the last time she had pain was when she had it on Sunday. She has a history of ischemic cardiomyopathy with an EF of 30-35%. She has had a bypass in the distant past. She was admitted for sepsis and when she was severely ill in [facility] ICU, her EF was down to 20-25%, eventually to 30-35%, on discharge doing much better. She was set up with a LifeVest and discharged home. She was evaluated in the office about a week or two ago and she was doing just fine with no issues. She was scheduled to have a stress test and a repeat echo t o assess if she would be a candidate for an AICD. She did not wish to have a heart catheterization d one on her last admission while she was septic. At that time, she also had a bump in her troponins. Also, her creatinine was high eventually and also required emergent hemodialysis during her ICU stay , which eventually her kidneys improved and dialysis was discontinued and her creatinine is much bett er now. Currently, she is pain free. PAST MEDICAL HISTORY: 1. Type 2 diabetes. 2. Hypothyroidism. 3. Hypertension. 4. Hyperlipidemia. 5. Coronary artery disease, status post bypass in the past. 6. Prior CVA with residual speech and left-sided deficit. PAST SURGICAL HISTORY: 1. CABG in 2002 x2. 2. Stents in the past. 3. Hysterectomy. FAMILY HISTORY: Noncontributory. SOCIAL HISTORY: No alcohol, tobacco or drugs. OUTPATIENT MEDICATIONS: Include, 1. Aspirin 81 a day. 2. Gemfibrozil 600 mg b.i.d. 3. Levothyroxine 175 mcg a day. 4. Carvedilol 12.5 mg b.i.d. 5. Gabapentin 300 mg at bedtime. 6. Atorvastatin 80 mg at bedtime. 7. Insulin Levemir. 8. Isosorbide mononitrate 30 mg daily. 9. Pantoprazole 40 mg a day. 10. Potassium chloride 40 mEq b.i.d. 11. Ropinirole. ALLERGIES: No known drug allergies. REVIEW OF SYSTEMS: A 12-point review of systems was done and is all negative unless stated in histor y of present illness. PHYSICAL EXAMINATION: VITAL SIGNS: Temperature 98.4, pulse 69, respiratory rate 16, satting 98% on room air, blood pressur e 112/58. GENERAL: Awake, alert, oriented x3, in no distress. HEENT: Normocephalic, atraumatic. NECK: Supple. LUNGS: Clear. CARDIOVASCULAR: S1, S2, no S3, S4, no murmurs. ABDOMEN: Soft, positive bowel sounds. EXTREMITIES: No edema. SKIN: Warm and dry. LABORATORY WORK: Reviewed. CBC with a white count of 6.1, hemoglobin 9.3, platelet count of 234. C oags were reviewed. Chemistry with BUN of 23, creatinine 1.46. This is better than yesterday at 2.0 8. Troponin was 0.04, 0.05 and 0.04. BNP was 140. EKG was reviewed. Chest x-ray was reviewed. Repeat chest x-ray was reviewed and it did not show any infiltrates. ASSESSMENT AND PLAN: 1. Chest pain: Certainly, she is at risk of having this being unstable angina. I spoke with her at length about the risks and benefits of a left heart catheterization and after a long conversation, Aravind Hansen would agree to the procedure; however, she tells me she does not want to resend her DNI/DN R for the procedure. She does not want to be on life support. She does not want to have even the ance of being back on life support. I told her that if we were to start doing things in her heart, w e would have to have the option of resuscitating her and she declines currently. She tells me that s he does not wish any of this. I think this is reasonable in her part. I will plan on treating her m edically for now. We will give her full anticoagulation for a total of 48 hours just to make sure th at this was an ACS that this is not getting any worse. We will try to up titrate some of her medicat ions to treat her for this angina and she tells me that if we are unable to control her symptoms, she continues to have chest pain, she may consider this in the future, but at this time she wishes medic al management. 2. Ischemic cardiomyopathy, ejection fraction of 30-35% in the last evaluation. Continue LifeVest u se. Scheduled to have a repeat echocardiogram in a few months for now. At that point, we will decid e if she is a candidate for an AICD. 3. Status post coronary artery bypass graft x2 in 2002. Thank you for letting us to participate in the care of your patient. We will follow.
[2017-08-16 20:00] LABS: INR-International Normal Ratio 1.1; Prothrombin Time 14.5 SEC (12.0-14.7)
[2017-08-16] MEDS ORDERED: Non-Formulary Item 1 EACH (Insulin Detemir 100 Units/Ml [Levemir] 25 UNITS) SC SCH (21:00)
[2017-08-16] MEDS ORDERED: Insulin Glargine 25 UNITS in Pre-Filled Syringe 1 EACH SC SCH (21:00)
[2017-08-16] MEDS: Atorvastatin Calcium 40 MG TAB PO SCH (21:15)
[2017-08-16] MEDS: rOPINIRole HCl 0.25 MG TAB PO SCH (21:15)
[2017-08-16] MEDS: Gabapentin 300 MG CAP PO SCH (21:15)
[2017-08-16] MEDS: Aspirin 81 mg Enteric Coated Tablet PO SCH (21:16)
[2017-08-17] MEDS: Levothyroxine 175 MCG TAB PO SCH (05:01)
[2017-08-17] MEDS: Heparin 25,000 units/D5W 500 ML IVPB SCH (05:04)
[2017-08-17 05:21] LABS: #Basophils 0.1 thou/uL (0.0-0.2); #Eosinphils 0.1 thou/uL (0.0-0.7); #Lymphocytes 3.2 thou/uL (1.20-3.40); #Monocytes 0.5 thou/uL (0.11-0.59); #Neutrophils 3.1 thou/uL (1.40-6.50); %Basophils 0.9 % (0.0-1.0); %Lymphocytes 45.7 % (21.0-51.0); %Monocytes 6.9 % (0.0-10.0); %Neutrophils 44.5 % (42.0-75.0); Hemoglobin 9.9 g/dL (12.0-16.0); Mean Corpuscular HGB CONC 34.2 g/dL (32.0-36.0); Mean Corpuscular Hemoglobin 31.4 pg (27.0-31.0); Mean Corpuscular Volume 91.7 fl (81.0-99.0); Mean Platelet Volume 8.6 fL (7.4-10.4); Platelet Count 263 thou/uL (130-400); RBC Distribution Width 12.8 % (11.5-14.5); Red Blood Cell (RBC) Count 3.14 mill/uL (4.20-5.40)
[2017-08-17 05:34] LABS: Anion Gap 11 mmol/L (10-20); BUN (Urea Nitrogen) 16 mg/dL (9.8-20.1); Calc. Creatinine Clearance 44 mL/min (70-130); Carbon Dioxide 23 mmol/L (23-31); Chloride 113 mmol/L (98-107); Estimated GFR-MDRD 50; Glucose 90 mg/dL (83-110); Potassium 3.9 mmol/L (3.5-5.1); Sodium 143 mmol/L (136-145)
--- NOTE | 2017-08-17 09:11 | PDOC.FM ---
- Subjective Subjective: No acute events overnight. Pt denies cp, sob, nvdc, diaphoresis. - Objective Vital Signs & Weight: Vital Signs (12 hours) Temp Pulse Resp BP BP Pulse Ox 08/17/17 03:48 97.9 F 85 18 144/65 H 98 08/17/17 00:00 98.3 F 100 15 139/63 98 08/16/17 22:17 82 Weight Weight 58.967 kg I&O: 08/16/17 08/17/17 08/18/17 06:59 06:59 06:59 Intake Total 3294 Output Total 440 Balance 2854 Result Diagrams: 08/17/17 04:54 08/17/17 04:54 <Doug Pinedo - Last Filed: 08/17/17 09:09> - Objective Vital Signs & Weight: Vital Signs (12 hours) Temp Pulse Resp BP Pulse Ox 08/17/17 07:25 98.1 F 74 13 162/73 H 96 08/17/17 03:48 97.9 F 85 18 144/65 H 98 Weight Weight 58.967 kg I&O: 08/16/17 08/17/17 08/18/17 06:59 06:59 06:59 Intake Total 3294 Output Total 440 Balance 2854 Result Diagrams: 08/17/17 04:54 08/17/17 04:54 <Yaakov Guerra - Last Filed: 08/17/17 12:16> Phys Exam - Physical Examination Constitutional: NAD HEENT: PERRLA, sclera anicteric Neck: no nodes, no JVD Respiratory: no wheezing, no rales, no rhonchi, clear to auscultation bilateral Cardiovascular: RRR, no significant murmur, no rub Gastrointestinal: soft, non-tender, no distention, positive bowel sounds Musculoskeletal: no edema, pulses present Neurological: non-focal, normal sensation, moves all 4 limbs Skin: no rash, cap refill <2 seconds <Doug Pinedo - Last Filed: 08/17/17 09:09> Dx/Plan (1) Unstable angina Status: Acute (2) Acute kidney injury Code(s): N17.9 - ACUTE KIDNEY FAILURE, UNSPECIFIED Status: Acute (3) Elevated troponin Code(s): R74.8 - ABNORMAL LEVELS OF OTHER SERUM ENZYMES Status: Acute (4) CAD (coronary artery disease) Code(s): I25.10 - ATHSCL HEART DISEASE OF [place] CORONARY ARTERY W/O ANG PCTRS Status: Chronic (5) Diabetes Mellitus Type 2 in Nonobese Code(s): E11.9 - TYPE 2 DIABETES MELLITUS WITHOUT COMPLICATIONS Status: Chronic (6) 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 - DYSARTHRIA AND ANARTHRIA Status: Chronic (7) Heart failure with reduced ejection fraction Code(s): I50.20 - UNSPECIFIED SYSTOLIC (CONGESTIVE) HEART FAILURE Status: Chronic QualifierTitle: Heart failure chronicity: chronic Qualified Code(s): I50.22 - Chronic systolic (congestive) heart failure (8) History of cerebrovascular accident (CVA) with residual deficit Code(s): I69.30 - UNSPECIFIED SEQUELAE OF CEREBRAL INFARCTION Status: Chronic (9) Hypothyroid Code(s): E03.9 - HYPOTHYROIDISM, UNSPECIFIED Status: Chronic - Plan Plan: Unstable angina - will cont heparin for 48 hrs -pt spoke with cardiology and did not want to rescind the DNR/DNI status, as such, no cath -will continue medical therapy -liely DC to home after 48 hours of heparin GTT, pending cards recs -cardiology consulted, appreciate recommendations Dizziness, NOS -resolved Elevated troponin - Slightly above baseline - 0.047 --> 0.059, trended down - Continue to trend CE's, trended down -cards consult, appreciate recs -48 hours of heparin gtt then likely dc to home ALICIA on CKD - trended down, resolved - trend daily weights HF with reduced EF and 2/3 diastolic dysfunction - Echo 05/28/2017 showed EF 30-35% with grade 2/3 diastolic and global hyokinesia - Daily weight - Strict I&O's - Consult cardiology, appreciate recs - cont plan of care - life vest in place, continue Diabetes type II - Pt admitted 05/2017 and had risk stratification labs done at that time to include TSH, HgA1c, Mg, P, and FLP - TSH in 05/2017 wnl, HgA1c 8.9 - mod SSI - ACHS accuchecks - CC diet - Continue home medications Hypothyroidism - TSH 05/2017 wnl - Continue home medications HTN - Pt BP labile at home per family - Will monitor BP - Adjust medications as necessary - coreg increased HLD - Continue home medications CAD s/p CABG - NSTEMI in 05/2017 - Pt personal service representative, Dr. Vu - Continue home medications - Heparin gtt for 48 hrs Dispo: Pt stable. No acute events. Heparin gtt for 48 hours then zachary DC to home with cardiology f/u op. Will await cards recs. <Doug Pinedo - Last Filed: 08/17/17 09:09> Attending Addendum - Attending Addendum Date/Time: 08/17/17 1216 I personally evaluated the patient and discussed the management with Dr. Pinedo. I agree with the History, Examination, Assessment and Plan documented above with any addition or exceptions noted below. <Yaakov Guerra - Last Filed: 08/17/17 12:16>
[2017-08-17] MEDS: Pantoprazole 40 MG GRANULES PACKET PO SCH (09:27)
[2017-08-17] MEDS: Carvedilol 25 MG TAB PO SCH ×2 (09:27→16:53)
[2017-08-17] MEDS: Insulin Glargine 20 UNITS in Pre-Filled Syringe 1 EACH SC SCH (09:27)
[2017-08-17] MEDS: Lactated Ringer's 1,000 ML IV SCH (09:28)
[2017-08-17] MEDS ORDERED: Potassium Chloride 20 MEQ TAB PO SCH (17:00)
[2017-08-17 17:32] VITALS: BP 133/61; TEMP 97.7
[2017-08-17 18:23] LABS: Hemoglobin 9.2 g/dL (12.0-16.0); Platelet Count 253 thou/uL (130-400)
--- NOTE | 2017-08-17 18:48 | PDOC.CTH ---
Cardiology Progress Note - Subjective She is doing well. No chest pain since Sunday, that is 4 days ago. - Objective Vital Signs Temp Pulse Resp BP BP Pulse Ox 08/17/17 16:10 97.7 F 69 16 133/61 97 08/17/17 11:41 98.4 F 62 16 141/65 H 96 08/17/17 08:00 98.1 F 74 13 95 08/17/17 07:25 98.1 F 74 13 162/73 H 96 Weight 130 lb 08/16/17 08/17/17 08/18/17 06:59 06:59 06:59 Intake Total 3294 Output Total 440 Balance 2854 - Physical Examination General/Neuro: alert & oriented x3, NAD Neck: no JVD present Lungs: CTA, unlabored respirations Heart: RRR Abdomen: NT/ND Extremities: other: (no edema) - Telemetry Telemetry Rhythm: NSR - Labs Result Diagrams: 08/17/17 18:15 08/17/17 04:54 Troponin/CKMB CK-MB (CK-2) 1.0 ng/mL (0-6.6) 08/15/17 13:14 Troponin I 0.042 ng/mL (< 0.028) H 08/15/17 18:43 - Assessment/Plan 1. Unstable angina. 2. CAD 3. Ischemic CM Last EF at 30-35% 4. S/P CABg x 3 in 2002 PLAn: - May discharge home today. - She is not interested in an invasive approach at the time and would like medical management. - She has had no symptoms for the last 4 days. - Follow up in the office as scheduled with repeat echo and stress test to evaluate for ischemia. (already scheduled) - She would agree to a [facility] in the future if her symptoms do not improve. - Agree with increase coreg to 25 mg BID for better BP control and as anti anginal.
[2017-08-17] MEDS ORDERED: Losartan 25 MG TAB PO SCH (21:00)
== END 2017-08-17 20:13 | disposition home or self-care (01) | DRG 303 ==
LOC: ERS 12:55 → 2SW 16:37 → OBSVTOIN 18:01 → 2NO 19:19
PROVIDERS: ADMIT Family Medicine; ATTEND Family Medicine
DX: I25.110 Atherosclerotic heart disease of native coronary artery with unstable angina pectoris (principal); N17.9 Acute kidney failure, unspecified; I50.22 Chronic systolic (congestive) heart failure; I69.354 Hemiplegia and hemiparesis following cerebral infarction affecting left non-dominant side; I50.20 Unspecified systolic (congestive) heart failure; E11.9 Type 2 diabetes mellitus without complications; Z95.1 Presence of aortocoronary bypass graft; Z86.73 Personal history of transient ischemic attack (TIA), and cerebral infarction without residual deficits; E03.9 Hypothyroidism, unspecified; I25.10 Atherosclerotic heart disease of native coronary artery without angina pectoris; I69.328 Other speech and language deficits following cerebral infarction; Z95.5 Presence of coronary angioplasty implant and graft; Z79.899 Other long term (current) drug therapy; Z79.82 Long term (current) use of aspirin; Z79.4 Long term (current) use of insulin; I25.5 Ischemic cardiomyopathy
CPT/HCPCS: 36415; 36416; 71045; 71046; 80048; 80053; 82553; 83690; 83880; 84145; 84484; 85025; 85610; 85730; 93005; A4216; J0360; J1644

== ENCOUNTER 2017-12-12 18:21 | Inpatient (IN) | payer MEDICARE ==
[2017-12-12] MEDS ORDERED: Ondansetron ODT 4 MG TAB PO PRN (20:39)
[2017-12-12] MEDS ORDERED: Acetaminophen 325 MG TAB PO PRN (20:39)
--- NOTE | 2017-12-12 20:57 | PDOC.FPRHP ---
- History of Present Illness Chief Complaint: cellulitis of RLE History of Present Illness: This is a 72 yo F here for failed outpatient treatment of cellulitis of the RLE. She is a direct admit from the [place] [facility]. The patient states she was bitten by an ant about 3 weeks ago and the site has increasing gotten more erythematous, swollen and infected. The patient went to her PCP one week ago and was started on oral abx (clindamycin) and has been taking it for about 1 week. The patient went to the ER today because she felt the wound was not getting better and the redness was expanding. The patient has a PMH of HTN and DM and is not very compliant with medications. The patient denies fever, headache, SOB, chest pain, abdominal pain, NVD. - Allergies/Adverse Reactions Allergies Allergy/AdvReac Type Severity Reaction Status Date / Time No Known Drug Allergies Allergy Verified 07/05/14 02:56 - Home Medications Medication Instructions Recorded Confirmed Type Aspirin [Ecotrin Low Strength] 81 mg PO 2100 05/28/17 08/15/17 History Gemfibrozil [Lopid] 600 mg PO BIDAC 05/28/17 08/15/17 History Levothyroxine [Synthroid] 175 mcg PO DAILY 05/29/17 08/15/17 History Gabapentin [Neurontin] 300 mg PO HS cap 06/12/17 08/15/17 Rx Atorvastatin Calcium [Lipitor] 80 mg PO HS 08/15/17 08/15/17 History Insulin Detemir 100 UNITS/ML 20 units SC QA 08/15/17 08/15/17 History [Levemir] Insulin Detemir 100 UNITS/ML 25 units SC 08/15/17 08/15/17 History [Levemir] Isosorbide Mononitrate [Imdur] 30 mg PO BID 08/15/17 08/15/17 History Pantoprazole [Protonix] 40 mg PO DAILY 08/15/17 08/15/17 History Potassium Chloride [Klor-Con] 40 meq PO BID- 08/15/17 08/15/17 History rOPINIRole HCl [Ropinirole HCl] 0.25 mg PO HS 08/15/17 08/15/17 History Carvedilol [Coreg] 25 mg PO BID- #60 tab 08/17/17 Rx Losartan [Cozaar] 50 mg PO BID #60 tab 08/17/17 Rx - History PMHx: DM, HTN, hypothyroid, hx of [place] s/p CABG, CAD PSHx: CABG in 2002 FHx:non contributory Social: denies tobacco or drug use; endorses occasional alcohol consumption 1- 2drinks/mo - Review of Systems General: denies: fever/chills, weight/appetite/sleep changes, night sweats ENT: denies: nasal congestion Respiratory: denies: cough, congestion, shortness of breath Cardiovascular: denies: chest pain, palpitation, edema Gastrointestinal: denies: nausea Skin: reports: lesions (RLE lesion on mid calf) Musculoskeletal: reports: tenderness (lesion tender) - Vital signs BP: 215/94 HR: 85 RR: 20 Tmax: 97.7F Pox: 97% on RA Wt: 60kg - Physical Exam Constitutional: NAD, awake, alert and oriented, well developed HEENT: normocephalic and atraumatic, EOMI, grossly normal vision, grossly normal hearing Chest: no-tender to palpation, no lesions Heart: RRR, normal S1/S2, no murmurs/rubs/gallops, pulses present (dorsal pedis palpated), no edema Lungs: CTAB, no respiratory distress, good air movement, no wheezing Abdomen: soft, non-tender, bowel sounds present Musculoskeletal: normal tone, ROM grossly normal Neurological: no focal deficit, normal sensation -Neurological: strength 5/5 in bilateral LE, sensation to touch intact bilateral LE Skin: good turgor, capillary refill <2 seconds -Skin: [id number] lesion on midcalf or RLE; erythematous, central scab Psychiatric: normal mood and affect, good judgment and insight FMR H&P: A/P - Problem List (1) Cellulitis Current Visit: Yes Status: Acute Code(s): L03.90 - CELLULITIS, UNSPECIFIED (2) Hx of CABG Current Visit: Yes Status: Acute (3) CAD (coronary artery disease) Current Visit: No Status: Chronic Code(s): I25.10 - ATHSCL HEART DISEASE OF [place] CORONARY ARTERY W/O ANG PCTRS (4) DM2 (diabetes mellitus, type 2) Current Visit: No Status: Chronic (5) HLD (hyperlipidemia) Current Visit: No Status: Chronic Code(s): E78.5 - HYPERLIPIDEMIA, UNSPECIFIED (6) HTN (hypertension) Current Visit: No Status: Chronic Code(s): I10 - ESSENTIAL (PRIMARY) HYPERTENSION Qualifiers: Hypertension type: essential hypertension Qualified Code(s): I10 - Essential (primary) hypertension (7) Hypothyroid Current Visit: No Status: Chronic Code(s): E03.9 - HYPOTHYROIDISM, UNSPECIFIED - Plan This is a 72 yo F here for cellulitis of RLE that failed outpatient tx and here for r/o of osteomyelitis. Cellulitis - Will start IV vanc and zosyn - Will order MRI of RLE to r/o osteomyelitis - lesion and surrounding erythema marked with pen and will monitor - Will repeat lab work in the morning to trend WBC and CRP HTN - continue home medications - Hydralazine PRN for SBP > 180 DM - Will restart patients home meds - ACHS glucose checks - Will start mod SS Hypothyroid - Will restart home meds CAD/hx of [place] s/p CABG - aware, will restart home meds HLD - Will start home meds Code: DNR Case discussed with Dr. Berg FMR H&P: Upper Level - Plan Date/Time: 12/12/172055 I, [], have evaluated this patient and agree with findings/plan as outlined by media intern resident. Pertinent changes/additions are listed here.
[2017-12-12] MEDS ORDERED: Vancomycin HCl 1 GM in Premix Bag 1 BAG IVPB SCH (21:00)
[2017-12-12] MEDS ORDERED: Dextrose 5% in Water 1,000 ML IV PRN (21:48)
[2017-12-12] MEDS ORDERED: HumaLOG 300 UNITS/3 ML VIAL SC PRN (21:48)
[2017-12-12] MEDS ORDERED: Dextrose 50% Abboject 50 ML SYRINGE SLOW IVP PRN (21:48)
[2017-12-12] MEDS: hydrALAZINE 20 MG/ML VIAL SLOW IVP PRN (22:47)
[2017-12-12] MEDS: Piperacillin/Tazobactam 3.375 GM in Sodium Chloride 0.9% 100 ML IVPB SCH (22:57)
[2017-12-13] MEDS ORDERED: Losartan 25 MG TAB PO SCH ×2 (01:00→09:00)
[2017-12-13 05:06] LABS: #Eosinphils 0.2 thou/uL (0.0-0.7); #Lymphocytes 2.3 thou/uL (1.20-3.40); #Monocytes 0.6 thou/uL (0.11-0.59); #Neutrophils 4.2 thou/uL (1.40-6.50); %Basophils 0.6 % (0.0-1.0); %Eosinophils 2.5 % (0.0-10.0); %Lymphocytes 31.2 % (21.0-51.0); %Neutrophils 57.6 % (42.0-75.0); Mean Corpuscular HGB CONC 33.1 g/dL (32.0-36.0); Mean Corpuscular Hemoglobin 29.3 pg (27.0-31.0); Mean Corpuscular Volume 88.5 fL (78.0-98.0); Mean Platelet Volume 8.8 fL (7.4-10.4); Platelet Count 321 thou/uL (130-400); RBC Distribution Width 12.5 % (11.5-14.5); Red Blood Cell (RBC) Count 3.43 mill/uL (4.20-5.40); White Blood Cell (WBC) Count 7.2 thou/uL (4.8-10.8)
[2017-12-13 05:22] LABS: Anion Gap 12 mmol/L (10-20); BUN (Urea Nitrogen) 21 mg/dL (9.8-20.1); Calc. Creatinine Clearance 39 mL/min (70-130); Calcium 9.4 mg/dL (7.8-10.44); Carbon Dioxide 25 mmol/L (23-31); Chloride 112 mmol/L (98-107); Estimated GFR-MDRD 40; Glucose 96 mg/dL (83-110); Potassium 3.4 mmol/L (3.5-5.1); Sodium 146 mmol/L (136-145)
[2017-12-13] MEDS: Piperacillin/Tazobactam 3.375 GM in Sodium Chloride 0.9% 100 ML IVPB SCH ×2 (05:22→11:55)
[2017-12-13] MEDS: hydrALAZINE 20 MG/ML VIAL SLOW IVP PRN (05:37)
--- NOTE | 2017-12-13 05:55 | PDOC.FM ---
- Subjective Subjective: Pt. reports she is no longer having pain in her leg. A family member with her states that her leg looks improved. She denies any SOB, CP, fever, or chills. - Objective MAR Reviewed: Yes Vital Signs & Weight: Vital Signs (12 hours) Temp Pulse Resp BP BP Pulse Ox 12/13/17 05:37 70 188/76 H 12/13/17 05:20 98.1 F 70 16 192/90 H 98 12/13/17 00:00 98.5 F 75 16 175/75 H 99 12/12/17 22:47 85 219/94 H 12/12/17 21:48 97 12/12/17 20:36 97.7 F 85 18 219/94 H 97 Weight Weight 63.73 kg Result Diagrams: 12/13/17 04:44 12/13/17 04:44 <Michale Gordon - Last Filed: 12/13/17 14:54> - Objective Vital Signs & Weight: Weight Admit Weight 63.503 kg Weight 63.503 kg I&O: 12/13/17 12/14/17 12/15/17 06:59 06:59 06:59 Intake Total 300 754 Balance 300 754 Result Diagrams: 12/13/17 04:44 12/13/17 04:44 <Siri Pappas - Last Filed: 12/14/17 13:03> Phys Exam - Physical Examination Constitutional: NAD HEENT: moist MMs Neck: no JVD Respiratory: no wheezing, clear to auscultation bilateral Cardiovascular: RRR grade 2/6 systolic murmur Gastrointestinal: soft, non-tender, no distention, positive bowel sounds Musculoskeletal: no edema, pulses present Neurological: normal sensation, moves all 4 limbs Pt states she can feel touching her feet Psychiatric: A&O x 3 Deviation from normal: Erythema is smaller than the border drawn out. Wound is dry. Pt. has -: multiple old ant bites on her feet bilaterally. <Michael Gordon - Last Filed: 12/13/17 14:54> Dx/Plan (1) Cellulitis Code(s): L03.90 - CELLULITIS, UNSPECIFIED Status: Acute (2) CAD (coronary artery disease) Code(s): I25.10 - ATHSCL HEART DISEASE OF [place] CORONARY ARTERY W/O ANG PCTRS Status: Chronic (3) Diabetes Mellitus Type 2 in Nonobese Code(s): E11.9 - TYPE 2 DIABETES MELLITUS WITHOUT COMPLICATIONS Status: Chronic (4) HTN (hypertension) Code(s): I10 - ESSENTIAL (PRIMARY) HYPERTENSION Status: Chronic Qualifiers: Hypertension type: essential hypertension Qualified Code(s): I10 - Essential (primary) hypertension (5) Hypothyroid Code(s): E03.9 - HYPOTHYROIDISM, UNSPECIFIED Status: Chronic - Plan Plan: This is a 72 yo female with a PMH of DM, HTN, CAD with [place] s/p CABG Cellulitis -Pt. is currently on vanc and zosyn (12/12). MRI is pending. Pt. is currently NPO in the event there was osteomyelitis that required surgical intervention. CRP is positive at 1.23, no WBC currently. Hypokalemia -3.4, we are checking mag/phos and will make adjustments based on those levels. DM -Continue home medications, accuchecks, and SSI HTN -Continue home meds. PRN hydralazine for SBP >180 Hypothyroidism -Continue home medications CAD with hx of [place] s/p CABG -aware HLD -Continue home meds CODE: DNR Prophylaxis Family: Disposition: home in 2-3 days <Michael Gordon - Last Filed: 12/13/17 14:54> Attending Addendum - Attending Addendum Date/Time: 12/13/17 1302 I personally evaluated the patient and discussed the management with Dr. Gordon. I agree with the History, Examination, Assessment and Plan documented above with any addition or exceptions noted below. The patient's cellulitis is improving on IV antibiotics. MRI scheduled to r/u osteomyelitis. If negative, will d/c home. Counseled on importance of taking insulin and other meds as prescribed. <Siri Pappas - Last Filed: 12/14/17 13:03>
[2017-12-13] MEDS ORDERED: Levothyroxine 175 MCG TAB PO SCH (06:00)
[2017-12-13 06:20] LABS: Magnesium 1.7 mg/dL (1.6-2.6); Phosphorus 2.9 mg/dL (2.3-4.7)
[2017-12-13] MEDS ORDERED: Lactated Ringer's 1,000 ML IV SCH (07:00)
[2017-12-13] MEDS ORDERED: Insulin Glargine 25 UNITS in Pre-Filled Syringe 1 EACH SC SCH ×2 (09:00→21:00)
[2017-12-13] MEDS ORDERED: Non-Formulary Item 1 EACH (Insulin Detemir 100 Units/Ml [Levemir] 25 UNITS) SC SCH ×2 (09:00→21:00)
[2017-12-13] MEDS: Enoxaparin Sodium 30 MG/0.3 ML SYRINGE SC SCH ×2 (10:27→14:33)
[2017-12-13] MEDS: Carvedilol 25 MG TAB PO SCH ×2 (10:30→16:53)
[2017-12-13] MEDS: Gemfibrozil 600 MG TAB PO SCH ×2 (10:31→16:53)
--- NOTE | 2017-12-13 11:33 | PQF ---
CLINICAL DOCUMENTATION IMPROVEMENT CLARIFICATION FORM: ICD-10 Updated PLEASE DO AN ADDENDUM TO THE PROGRESS NOTE WITH ANY DOCUMENTATION UPDATES OR ADDITIONS AND CARRY THROUGH TO DC SUMMARY. THANK YOU. DATE: 12/13 ATTN: DR. MONET GOSS / DR. EDILIA BATEMAN Please exercise your independent, professional judgment in responding to the clarification form. Clinical indicators are provided on the bottom of this form for your review. Please check appropriate box(s): RLE CELLULITIS [ x ] Due to Diabetes [ ] Not due to Diabetes [ ] Other diagnosis [ ] Unable to determine For continuity of documentation, please document condition throughout progress notes and discharge summary. Thank You. CLINICAL INDICATORS - SIGNS / SYMPTOMS / LABS PHYSICIAN H&P DOCUMENTATION 12/12: ...TRANSFER FROM [facility] FOR RIGHT LEG PAIN/LESION & FAILED OUTPT THERAPY. 2 WEEKS AGO SHE RECEIVED MULTIPLE ANT BITES ON HER FEET BECAUSE SHE DID NOT FEEL THEM CRAWLING ON HER. PHYSICAL EXAM : SKIN - RLL LESION W/SURROUNDING SKIN ERYTHEMA WHICH WAS MARKED WITH A PEN. ASSESSMENT/PLAN: CELLULITIS, FAILED OUTPT THERAPY; DM II - ACCUCHECKS AC/HS, MODERATE SSI ATTENDING H&P ADDENDUM 12/12: ...THE PATIENT HAS A PMH OF HTN & DM II & IS NOT VERY COMPLIANT WITH MEDICATIONS RISKS: DM II HTN MEDICATION NON-COMPLIANCE CELLULITIS RLE TREATMENT: IV ANTIBIOTICS (ZOSYN & VANCOMYCIN, 12/12 - PRESENT) IVF (LR STARTED 12/13) WOUND CARE CONSULT THANK YOU! La (This form is maintained as a part of the permanent medical record) 2014 [employer]. All Rights Reserved La Maldonado RN, BSN [email or web address] Office: [phone] [facility] CENTERAaron
[2017-12-13 11:51] VITALS: BP 153/83; TEMP 98.5
[2017-12-13 12:27] VITALS: BMI 25.6
--- NOTE | 2017-12-13 13:26 | MRI ---
MRI OF THE RIGHT FORELEG WITHOUT CONTRAST: DATE: 12/13/17. PROVIDED CLINICAL HISTORY: Right lower leg wound. FINDINGS: Imaging was obtained of the right foreleg from the proximal diaphyseal region to the tibiotalar joint . There is signal alteration on the fluid-sensitive sequences involving the subcutaneous adipose lay er at the anteromedial aspect of the mid right foreleg compatible with the provided clinical history of wound in this region. There is surrounding noncircumscribed patchy fluid signal intensity within the subcutaneous adipose layer. There is no evidence for a focal fluid collection to suggest abscess , with limitations due to lack of IV contrast material. Regional marrow signal appears normal. No f ocal regional or muscular signal abnormality is evident. The courses of the regional major neurovascular structures appear unremarkable. There is a small low -grade osteochondral lesion involving the medial talar dome. IMPRESSION: Signal alteration involving the subcutaneous adipose layer at the anteromedial aspect of the right fo releg compatible with the provided clinical history of wound/infection. There is no evidence for abs cess or osteomyelitis. POS: NINFA
[2017-12-13] MEDS ORDERED: Piperacillin/Tazobactam 2.25 GM in Sodium Chloride 0.9% 100 ML IVPB SCH (18:00)
[2017-12-13] MEDS ORDERED: Vancomycin HCl 1 GM in Premix Bag 1 BAG IVPB SCH (19:00)
[2017-12-13] MEDS ORDERED: Aspirin 81 mg Enteric Coated Tablet PO SCH (21:00)
[2017-12-13] MEDS ORDERED: Gabapentin 300 MG CAP PO SCH (21:00)
[2017-12-13] MEDS ORDERED: rOPINIRole HCl 0.25 MG TAB PO SCH (21:00)
--- NOTE | 2017-12-14 02:46 | DIS-2 ---
DATE OF ADMISSION: 12/12/2017 DATE OF DISCHARGE: 12/13/2017 ADMITTING ATTENDING: Dr. Siri Pappas. DISCHARGE ATTENDING: Dr. Siri Pappas. RESIDENT: Michael Gordon D.O. CONSULTATIONS: None. PROCEDURES: Right lower extremity MRI shows findings involving the subcutaneous adipose layer at the anteromedial aspect of the right foreleg, compatible with the provided clinical history of wound/infection. There is no evidence for abscess or osteomyelitis. PRIMARY DIAGNOSES: Cellulitis secondary to infected ant bite, failed outpatient therapy. SECONDARY DIAGNOSES: Hypertension, type 2 diabetes, hypothyroidism. DISCHARGE MEDICATIONS: 1. Doxycycline 100 mg b.i.d. for 5 days. 2. Aspirin 81 mg p.o. daily. 3. Atorvastatin 80 mg p.o. at bedtime. 4. Carvedilol 25 mg p.o. b.i.d. 5. Gabapentin 300 mg p.o. at bedtime. 6. Lopid 600 mg p.o. b.i.d. a.c. 7. Levemir 28 units q.a.m., 20 units at bedtime. 8. 30 mg of isosorbide mononitrate p.o. b.i.d. 9. Synthroid 175 mcg p.o. daily. 10. Losartan 25 mg p.o. b.i.d. 11. Pantoprazole 40 mg daily. 12. Potassium chloride 40 mg b.i.d. with meals. 13. Ropinirole 0.25 mg p.o. at bedtime. DISCONTINUED MEDICATIONS: Vancomycin, Zosyn and clindamycin. HISTORY OF PRESENT ILLNESS AND HOSPITAL COURSE: This is a 72-year-old female with failed outpatient treatment of cellulitis with clindamycin. She was a direct admit from [facility]. She reports infected ant bites. While she was here, the patient was treated with vancomycin and Zosyn and saw a significant improvement in the erythema as well as the swelling overnight. The patient underwent MRI with results as above and was discharged with doxycycline as well as instructed to use Medihoney with dressing changes every day. DISPOSITION: Stable. DISCHARGE INSTRUCTIONS: 1. Location: Home. 2. Activity: As tolerated. 3. Diet: Heart healthy and cardiac. 4. Followup: Follow up with Dr. Pappas in 7 days. [facility]
== END 2017-12-13 17:27 | disposition home or self-care (01) | DRG 638 ==
LOC: T4-B 19:45
PROVIDERS: ADMIT Family Medicine; ATTEND Family Medicine
DX: E11.628 Type 2 diabetes mellitus with other skin complications (principal); L03.115 Cellulitis of right lower limb; I10 Essential (primary) hypertension; E03.9 Hypothyroidism, unspecified
CPT/HCPCS: 36415; 36416; 80048; 83735; 84100; 85025; 86140; J0360; J1650; J2543; J7050

== ENCOUNTER 2017-12-25 01:19 | Observation (INO) | payer MEDICARE ==
--- NOTE | 2017-12-25 02:32 | PDOC.FPRHP ---
- History of Present Illness Chief Complaint: Chest pain History of Present Illness: This is a 72 yo female with a PMH of CAD s/p CABG, HTN, DMII who presents to the ED with a cc of chest pain. She states that the pain started ~ 2230 and was burning in nature without radiation. She reports the pain was a 10/10 initially and was resolved with SL nitro and aspirin. She reports that she has never had a pain like this before. At the time of onset, she was getting ready for bed. Pt. denies sob, palpitations, or abdominal pain. ED Course: At outside ER, pt received 4 doses of nitro SL, aspirin 243, and therapeutic lovenox. - Allergies/Adverse Reactions Allergies Allergy/AdvReac Type Severity Reaction Status Date / Time morphine Allergy Verified 12/25/17 08:13 - Home Medications Medication Instructions Recorded Confirmed Type Aspirin [Ecotrin Low Strength] 81 mg PO 2100 05/28/17 12/25/17 History Gemfibrozil [Lopid] 600 mg PO BIDAC 05/28/17 12/25/17 History Levothyroxine [Synthroid] 150 mcg PO DAILY 05/29/17 12/25/17 History Isosorbide Mononitrate [Imdur] 30 mg PO BID 08/15/17 12/25/17 History Pantoprazole [Protonix] 40 mg PO DAILY 08/15/17 12/25/17 History Potassium Chloride [Klor-Con] 40 meq PO BID- 08/15/17 12/25/17 History rOPINIRole HCl [Ropinirole HCl] 1 mg PO HS 08/15/17 12/25/17 History Carvedilol [Coreg] 25 mg PO BID- #60 tab 08/17/17 12/25/17 Rx Losartan [Cozaar] 50 mg PO BID #60 tab 08/17/17 12/25/17 Rx Insulin Degludec [Tresiba 25 unit SC BID 12/25/17 12/25/17 History Flextouch U-100] - History PMHx: CAD s/p CABG, HTN, hypothyroidism, DMII PSHx: CABG 2002 FHx: noncontributory Social: Denies D/A/T - Review of Systems General: denies: fever/chills, weight/appetite/sleep changes Eyes: denies: eye pain, vision changes ENT: denies: nasal congestion, rhinorrhea Respiratory: denies: cough, congestion, shortness of breath, exercise intolerance Cardiovascular: reports: chest pain, edema. denies: palpitation, paroxysmal nocturnal dyspnea Gastrointestinal: denies: nausea, vomiting, diarrhea, constipation, abdominal pain Genitourinary: denies: incontinence, dysuria Skin: reports: lesions (chronic ulcer on right lower leg). denies: rashes Musculoskeletal: reports: pain (some pain with ulcer). denies: tenderness, stiffness, swelling Neurological: denies: numbness, syncope Psychological: denies: anxiety, depression - Vital signs BP: 181/69 HR: 73 RR: 18 Tmax: 98.3 Pox: 98% on RA Wt: 63.05 - Physical Exam Constitutional: NAD, awake, alert and oriented HEENT: normocephalic and atraumatic, PERRLA, EOMI, MMM Neck: supple, FROM, no JVD Chest: no-tender to palpation Heart: RRR, normal S1/S2, no murmurs/rubs/gallops Lungs: CTAB, no respiratory distress, good air movement Abdomen: soft, non-tender, bowel sounds present Musculoskeletal: normal structure, normal tone, ROM grossly normal Neurological: normal sensation Skin: good turgor, other (RLE chronic wound currently covered with medihoney) Heme/Lymphatic: no unusual bruising or bleeding, no purpura Psychiatric: normal mood and affect, good judgment and insight FMR H&P: Results - Labs Lab results: Trop: 0.033 - EKG Interpretation EKG: NSR, nonspecific st changes - Radiology Interpretation Chest x-ray Status: image reviewed by me (No signs of acute pulmonary processes.) FMR H&P: A/P - Problem List (1) Chest pain Status: Acute Code(s): R07.9 - CHEST PAIN, UNSPECIFIED (2) CKD (chronic kidney disease) Status: Acute Code(s): N18.9 - CHRONIC KIDNEY DISEASE, UNSPECIFIED (3) Hx of CABG Status: Acute (4) DM2 (diabetes mellitus, type 2) Status: Chronic (5) HLD (hyperlipidemia) Status: Chronic Code(s): E78.5 - HYPERLIPIDEMIA, UNSPECIFIED (6) HTN (hypertension) Status: Chronic Code(s): I10 - ESSENTIAL (PRIMARY) HYPERTENSION Qualifiers: Hypertension type: essential hypertension Qualified Code(s): I10 - Essential (primary) hypertension - Plan This is a 72 yo female with a PMH of CAD s/p CABG, HTN, DMII Atypical chest pain ACS r/o -Admit to tele obs. Trend troponins. First was 0.033. Pt. has PRN nitro for chest pain. Pt. is NPO pending any procedures. CAD -Continue home meds HTN -continue home meds, hold BB DMII -Continue home meds, ACHS accuchecks, SSI HLD -Continue home meds Hypothyroidism -continue home meds Chronic ulcer -Continue wound dressing with medihoney Code: DNR/DNI Prophylaxis: SCDs Family: Son at bedside Disposition: Home today pending troponins and clinical presentation FMR H&P: Upper Level - Pertinent history 72 yo HF PMH CAD s/p CABG in 2001, HTN, DM2, HLD, and recent hospitalization for cellulitis. Presents as transfer from [facility] with a CC of severe substernal CP that started at approximately 2200 on 12/24/17. States her pain was different than any chest pain she had felt before and was different than pain that hospitalized her in July. Per records, patient was offered cardiac catheterization in July but declined because she would temporarily have to revoke DNR status and decided to manage medically. Code status was discussed at length with family and patient today. [place] [facility]: Labs, CXR, EKG, Nitro SL x4, ASA 324mg, Lovenox 1mg/kg x1 given at 0000. She states medication relieved pain. [place] [facility]: EKG - Pertinent findings Vitals, reviewed and unremarkable GEN: NAD, A&Ox4, decisional CV: RRR, no murmur Pulm: CTA-B, normal effort ABD: NTND, no masses. Labs: trop 0.03 EKG: NSR, non-specific ST changes CXR: no acute processes - Plan Date/Time: 12/25/17 0230 I, Tomasz Yip MD, have evaluated this patient and agree with findings/plan as outlined by learning and development intern resident. Pertinent changes/additions are listed here. 1. Atypical Chest Pain r/o ACS: Differential includes angina vs GERD vs esophageal spasm. Trend trop x3, will contact Dr. Mirella in the morning to discuss cath vs medical management. consider adding long acting nitrate therapy if patient decides to pursue medical management. PRN nitro available 2. CAD s/p CABG: home meds, consider long acting nitrate therapy 3. HTN: home meds 4. DM2: home meds, SSI, ACHS checks, 5. HLD: Home meds 6. PPx: SCD, received 1 dose therapeutic lovenox in [place] 7. Diet: NPO pending cath. 8. CODE: DNR-DNI, long discussion had with family and patient who is decisional at this time. Dispo: obs, tele, <[address] Covington. Attending Addendum - Attending Addendum Date/Time: 12/25/172116 I personally evaluated the patient and discussed the management with Dr. Aguila I agree with the History, Examination, Assessment and Plan documented above with any addition or exceptions noted below- Briefly this is a 72 yo female with h/o CAD, HTN, DM who presented with burning chest pain. States that she was getting ready for bed when the pain started. Never had similar pain. No radiation of pain. Denies any associated SOB, diaphoresis. PMH/PSH/ALL/Meds reviewed and agree with residents documentation. Afebrile VSS. Exam repeated by me and agree with residents findings. Labs: troponin negative x 3. EKG no ST changes. A/P: 1) Atypical Chest pain- now resolved. Patient has declined more invasive testing. Plan to d/c home and nfollow-up with PCP.
[2017-12-25 03:48] LABS: Troponin I 0.011 ng/mL (< 0.028)
[2017-12-25] MEDS ORDERED: Acetaminophen 325 MG TAB PO PRN (05:11)
[2017-12-25] MEDS ORDERED: Dextrose 50% Abboject 50 ML SYRINGE SLOW IVP PRN (05:11)
[2017-12-25] MEDS ORDERED: HumaLOG 300 UNITS/3 ML VIAL SC PRN (05:11)
[2017-12-25] MEDS ORDERED: Dextrose 5% in Water 1,000 ML IV PRN (05:11)
[2017-12-25] MEDS ORDERED: Nitroglycerin 0.4 MG TAB (25 Tab Bottle) PO PRN (05:11)
[2017-12-25] MEDS ORDERED: Ondansetron ODT 4 MG TAB PO PRN (05:11)
[2017-12-25] MEDS ORDERED: Sodium Chloride 0.9% 1,000 ML IV SCH (05:11)
[2017-12-25 06:19] LABS: Troponin I 0.014 ng/mL (< 0.028)
[2017-12-25 08:02] VITALS: BMI 24.3
[2017-12-25] MEDS ORDERED: Famotidine 20 MG TAB PO SCH (09:00)
[2017-12-25 09:45] LABS: Troponin I 0.014 ng/mL (< 0.028)
[2017-12-25 11:33] VITALS: BP 170/76; TEMP 97.9
--- NOTE | 2017-12-26 08:01 | DIS-2 ---
DATE OF ADMISSION: 12/25/2017 DATE OF DISCHARGE: 12/25/2017 RESIDENT: Pranav Aguila D.O. ADMITTING ATTENDING: Anthony Iniguez M.D. DISCHARGE ATTENDING: Teresita Covington M.D. CONSULTATIONS: NA. PROCEDURES: NA. PRIMARY DIAGNOSIS: Atypical chest pain. SECONDARY DIAGNOSES: 1. Coronary artery disease, status post coronary artery bypass graft. 2. Essential Hypertension 3. Diabetes, type 2. 4. Chronic ulcer on right leg. 5. GERD DISCHARGE MEDICATIONS: Gemfibrozil 600 mg tab p.o. b.i.d., aspirin 81 mg p.o. daily, levothyroxine 150 mcg p.o. daily, ropinirole 1 mg p.o. at bedtime, potassium chloride 4 mEq p.o. b.i.d., Imdur 30 mg p.o. b.i.d., pantoprazole 40 mg p.o. daily, carvedilol 25 mg p.o. b.i.d., losartan 50 mg p.o. b.i.d., insulin degludec 25 units subcutaneous b.i.d. HOSPITAL COURSE: The patient was admitted to observation after experiencing burning chest pain, which was deemed to be atypical after resolution. The pain started around 11:00 p.m. at night and she called EMS. The pain had resolved by the time she presented to the emergency room and did not return during her hospital stay. Her troponins were negative, EKG normal, and further workup was unremarkable. Of note, she did have an elevated D-dimer in the emergency room, but was deemed by ER physician and medicine team, to not require further w/u as she was asymptomatic for PE and calculated low risk. She will be discharged on her home medications including Protonix. Her chest pain was likely gastrointestinal in nature as it occurred after eating a bag of Doritos with a negative cardio workup. Advised to f/u with Dr Vu and her PCP. DISPOSITION: Stable. DISCHARGE INSTRUCTIONS: 1. Location: Home. 2. Diet: Regular. 3. Activity: As tolerated. 4. Followup: Follow up with Dr. Pappas and Dr. Vu, Cardiology. [facility]
== END 2017-12-25 15:23 | disposition home or self-care (01) ==
LOC: ERS 01:19 → ERHOLD 02:11 → 2SW 07:29
PROVIDERS: ADMIT Student in an Organized Health Care Education/Training Program; ATTEND Student in an Organized Health Care Education/Training Program
DX: R07.89 Other chest pain (principal); I25.10 Atherosclerotic heart disease of native coronary artery without angina pectoris; E03.9 Hypothyroidism, unspecified; I12.9 Hypertensive chronic kidney disease with stage 1 through stage 4 chronic kidney disease, or unspecified chronic kidney disease; E11.22 Type 2 diabetes mellitus with diabetic chronic kidney disease; N18.9 Chronic kidney disease, unspecified; E11.622 Type 2 diabetes mellitus with other skin ulcer; L98.499 Non-pressure chronic ulcer of skin of other sites with unspecified severity; Z79.82 Long term (current) use of aspirin; Z79.4 Long term (current) use of insulin; Z79.899 Other long term (current) drug therapy; Z88.5 Allergy status to narcotic agent; Z95.1 Presence of aortocoronary bypass graft; Z66 Do not resuscitate
CPT/HCPCS: 82962; 84484; 93005; 94760; 99285; G0378 ×2; 36415; 36416

== ENCOUNTER 2018-04-03 17:51 | Observation (INO) | payer MEDICARE ==
--- NOTE | 2018-04-03 19:07 | PDOC.FPRHP ---
- History of Present Illness Chief Complaint: L sided weakness, slurred speech History of Present Illness: 72 yo F with PMH CVA, IA, CABG, DM, HTN presents as transfer from [place] ED with stroke like symptoms. Last seen normal @ 2200 on 04/02. This morning patient awoke at 0900, found to have complete left sided weakness with aphasia. Went to [place] ED with family and then transferred here. Symptoms have improved throughout the day. Able to speak but family notes it is still slightly slurred and w/ increased effort. Denies CP, SOB, headache. Endorses dizziness and LLE tingling/restless sensation. Passed bedside swallow in [place] ED. ED Course: ASA, CT - Allergies/Adverse Reactions Allergies Allergy/AdvReac Type Severity Reaction Status Date / Time morphine Allergy Verified 12/25/17 08:13 - Home Medications Medication Instructions Recorded Confirmed Type Aspirin [Ecotrin Low Strength] 81 mg PO 2100 05/28/17 04/04/18 History Gemfibrozil [Lopid] 600 mg PO BIDAC 05/28/17 04/04/18 History Levothyroxine [Synthroid] 150 mcg PO DAILY 05/29/17 04/04/18 History Isosorbide Mononitrate [Imdur] 30 mg PO BID 08/15/17 04/04/18 History Pantoprazole [Protonix] 40 mg PO DAILY 08/15/17 04/04/18 History rOPINIRole HCl [Ropinirole HCl] 1 mg PO HS 08/15/17 04/04/18 History Carvedilol [Coreg] 25 mg PO BID-WM #60 tab 08/17/17 04/04/18 Rx Losartan [Cozaar] 50 mg PO BID #60 tab 08/17/17 04/04/18 Rx Amlodipine [Norvasc] 5 mg PO DAILY 04/04/18 04/04/18 History Amlodipine [Norvasc] 10 mg PO DAILY #0 tab 04/04/18 Rx Atorvastatin Calcium [Lipitor] 80 mg PO DAILY 04/04/18 04/04/18 History Atorvastatin Calcium [Lipitor] 80 mg PO HS tab 04/04/18 Rx Clopidogrel Bisulfate [Plavix] 75 mg PO DAILY 14 Days tab 04/04/18 Rx Gabapentin [Neurontin] 300 mg PO TID 04/04/18 04/04/18 History Oxybutynin Chloride [Oxybutynin 5 mg PO BID 04/04/18 04/04/18 History Chloride ER] Potassium Chloride [Klor-Con M20] 40 meq PO DAILY 04/04/18 04/04/18 History - History PMHx: DM, HTN, hypothyroid, hx of IA s/p CABG, CAD, CVA, restless legs, GERD, CKD3, HLD, vertigo PSHx: CABG in 2002 FHx: DM Social: denies tobacco or drug use; endorses occasional alcohol consumption 1- 2drinks/mo - Review of Systems General: denies: fever/chills Eyes: denies: vision changes ENT: denies: nasal congestion Respiratory: denies: cough, shortness of breath Cardiovascular: denies: chest pain, palpitation, edema Gastrointestinal: denies: nausea, vomiting, diarrhea Genitourinary: denies: dysuria Skin: denies: rashes Musculoskeletal: denies: pain, tenderness Neurological: reports: weakness (L sided). denies: syncope - Vital signs BP: 139/66 HR: 62 RR: 18 Tmax: 97.4 Pox: 99% on RA Wt: 68 kg - Physical Exam Constitutional: NAD, awake, alert and oriented HEENT: normocephalic and atraumatic, PERRLA, oropharynx clear Heart: RRR, normal S1/S2, no murmurs/rubs/gallops, no edema Lungs: CTAB, no respiratory distress Abdomen: soft, non-tender, bowel sounds present Neurological: CN II-XII intact, normal sensation, other (muscle strength 5/5 R UE & LE. 4/5 L UE & LE) Skin: good turgor, capillary refill <2 seconds Heme/Lymphatic: no unusual bruising or bleeding Psychiatric: normal mood and affect FMR H&P: Results - Labs Result Diagrams: 04/04/18 06:05 FMR H&P: A/P - Problem List (1) TIA (transient ischemic attack) Current Visit: Yes Status: Acute Code(s): G45.9 - TRANSIENT CEREBRAL ISCHEMIC ATTACK, UNSPECIFIED (2) Vertigo Current Visit: Yes Status: Acute Code(s): R42 - DIZZINESS AND GIDDINESS (3) CKD (chronic kidney disease) stage 3, GFR 30-59 ml/min Current Visit: Yes Status: Acute Code(s): N18.3 - CHRONIC KIDNEY DISEASE, STAGE 3 (MODERATE) (4) Anemia Current Visit: Yes Status: Chronic Code(s): D64.9 - ANEMIA, UNSPECIFIED (5) Hx of CABG Current Visit: No Status: Acute (6) CAD (coronary artery disease) Current Visit: No Status: Chronic Code(s): I25.10 - ATHSCL HEART DISEASE OF [place] CORONARY ARTERY W/O ANG PCTRS (7) DM2 (diabetes mellitus, type 2) Current Visit: No Status: Chronic (8) HLD (hyperlipidemia) Current Visit: No Status: Chronic Code(s): E78.5 - HYPERLIPIDEMIA, UNSPECIFIED (9) HTN (hypertension) Current Visit: No Status: Chronic Code(s): I10 - ESSENTIAL (PRIMARY) HYPERTENSION Qualifiers: Hypertension type: essential hypertension Qualified Code(s): I10 - Essential (primary) hypertension (10) History of cerebrovascular accident (CVA) with residual deficit Current Visit: No Status: Chronic Code(s): I69.30 - UNSPECIFIED SEQUELAE OF CEREBRAL INFARCTION (11) Hypothyroid Current Visit: No Status: Chronic Code(s): E03.9 - HYPOTHYROIDISM, UNSPECIFIED - Plan 72 yo F with PMH CVA, IA, CABG, DM, HTN presents with possible TIA TIA vs CVA - Hx of CVA - CT brain negative - L sided weakness deficits have nearly resolved - Lipids done 11/2017, already on high intensity statin - Pt noted history of life vest use previously. Last echo 05/2017, will order another. - MRI pending - Plan to consult neurology in am CKD3 - 1.88, was 1.74 at last discharge - continue to monitor IDDM2 - continue home insulin - SSI, accuchecks Hypothyroid - continue home synthroid HTN - continue home amlodipine, isosorbide, carvedilol GERD - continue home PPI Restless legs - continue home gabapentin, ropinirole CAD s/p CABG Ppx: lovenox Dispo: admit to stroke inpatient FMR H&P: Upper Level - Pertinent history 72 y/o F w/ PMHx of prior CVA x 2, DM, HTN, HLD, CAD s/p CABG presents as a TXR from [place] ER 2/2 L-sided weakness and slurred speech upon waking this AM. Reports unable to move left side and w/ slurred speech and L-sided facial droop. CT obtained at [place] ER negative for hemorrhagic stroke. Pt reports sxs improving since this AM. Pt was outside TPA window. - Pertinent findings Vitals per Quality Manager Note CT-Brain WO - NAD CXR - NAD EKG - NSR w/ intermittent PAC's Labs per application support intern note PE: GEN: NAD,resting in bed comfortably CARD: RRR, no murmur, rubs or gallops LUNGS; CTA-B/l GI: soft non-ttp, bsx4 NEURO: 4+/5 L-UE and L-LE as compared to right. Normal sensation throughout. Minor L-sided facial droop. Slurred speech. CN 2-12 intact b/l. PERLLA - Plan Date/Time: 04/03/18 2608 IMeredith MD, have evaluated this patient and agree with findings/plan as outlined by application support intern resident. Pertinent changes/additions are listed here. 72 y/o F w/: 1) Acute Neurovascular Syndrome (TIA vs CVA) - Admit to stroke w/ q4 hr neuro checks - Cont. w/ home meds for cholesterol, DM, and Hypothyroidism - Will obtain carotid dopplers 2/2 unable to obtain CTA-Head/Neck 2/2 renal fxn - Allow permissive HTN for 24 hours. PRN available if BP >220 SBP or >120 DBP - Consult Stroke team w/ PT/OT and CM for placement upon d/c - Pt able to take PO once she passes bedside swallow - Cont. w/ PO ASA - Will check TSH - Last ECHO from 05/2017, will repeat - Will obtain MRI brain to further eval TIA vs stroke and will consult Neuro in the AM if appropriate 2) Other chronic medical problems per application support intern note Assessment and Plan discussed w/ Dr. Albrecht who is in agreement. Addendum - Attending - Attending Attestation Date/Time: 04/04/18 1216 I personally evaluated the patient and discussed the management with Dr. Trujillo and [place] on 04/03/2018. I agree with and repeated the History, Examination, Assessment and Plan documented above with any addition or exceptions noted below.
[2018-04-03] MEDS ORDERED: Dextrose 5% in Water 1,000 ML IV PRN (21:58)
[2018-04-03] MEDS ORDERED: Dextrose 50% Abboject 50 ML SYRINGE SLOW IVP PRN (21:58)
[2018-04-03] MEDS ORDERED: HumaLOG 300 UNITS/3 ML VIAL SC PRN (21:58)
[2018-04-03] MEDS ORDERED: Acetaminophen 325 MG TAB PO PRN (21:58)
[2018-04-03] MEDS ORDERED: Ondansetron ODT 4 MG TAB PO PRN (21:58)
[2018-04-04 00:59] VITALS: BMI 25.7
[2018-04-04] MEDS ORDERED: Levothyroxine 150 MCG TAB PO SCH (06:00)
--- NOTE | 2018-04-04 06:38 | PDOC.FM ---
- Subjective Subjective: NAEO. Reports some left upper and lower extremity weakness that was worse prior to symptoms starting. - Objective MAR Reviewed: Yes Vital Signs & Weight: Vital Signs (12 hours) Temp Pulse Resp BP BP Pulse Ox 04/04/18 04:18 98.6 F 69 18 185/84 H 100 04/04/18 00:06 97.8 F 72 16 175/82 H 99 04/04/18 00:00 99 Weight Weight 65.816 kg Result Diagrams: 04/04/18 06:05 Phys Exam - Physical Examination Constitutional: NAD HEENT: PERRLA, moist MMs, sclera anicteric no dysarthria Respiratory: no wheezing, clear to auscultation bilateral Cardiovascular: RRR, no significant murmur Gastrointestinal: soft, non-tender Neurological: normal sensation, moves all 4 limbs 5/5 in RUE and RLE bilaterally Psychiatric: normal affect, A&O x 3 Dx/Plan (1) TIA (transient ischemic attack) Code(s): G45.9 - TRANSIENT CEREBRAL ISCHEMIC ATTACK, UNSPECIFIED Status: Acute (2) History of CVA (cerebrovascular accident) Code(s): Z86.73 - PRSNL HX OF TIA (TIA), AND CEREB INFRC W/O RESID DEFICITS Status: Chronic (3) Anemia Code(s): D64.9 - ANEMIA, UNSPECIFIED Status: Chronic (4) CKD (chronic kidney disease) stage 3, GFR 30-59 ml/min Code(s): N18.3 - CHRONIC KIDNEY DISEASE, STAGE 3 (MODERATE) Status: Acute (5) Acute kidney injury Code(s): N17.9 - ACUTE KIDNEY FAILURE, UNSPECIFIED Status: Acute - Plan Plan: 72 yo F with PMH CVA x2, OR s/p CABG, IDDM2, HTN with TIA vs. CVA TIA vs CVA, with hx of CVA x2 - L sided weakness deficits much improved since yesterday - Reported very high - On ASA, statin - Pt noted history of life vest use previously. Last echo 05/2017, pending repeat TTE - Carotid dopplers - MRI pending - ST/OT/PT - Consult neuro today CKD3 - 1.88 -> 1.67, back to around baseline - continue to monitor with daily BMPs IDDM2 - continue home insulin - SSI, accuchecks Hypothyroidism - continue home synthroid - recheck TSH HTN - continue home amlodipine, isosorbide, carvedilol GERD - continue home PPI Restless legs syndrome - continue home gabapentin, ropinirole CAD s/p CABG -Continue mgmt of risk factors as outlined above Ppx: lovenox Dispo: Pending MRI brain and dopplers. Neuro consult. Addendum - Attending - Attending Attestation Date/Time: 04/04/18 9429 I personally evaluated the patient and discussed the management with Dr. Monet I agree with the History, Examination, Assessment and Plan documented above with any addition or exceptions noted below.
[2018-04-04 07:28] LABS: Anion Gap 16 mmol/L (10-20); BUN (Urea Nitrogen) 24 mg/dL (9.8-20.1); Calc. Creatinine Clearance 32 mL/min (70-130); Calcium 9.5 mg/dL (7.8-10.44); Carbon Dioxide 26 mmol/L (23-31); Chloride 105 mmol/L (98-107); Estimated GFR-MDRD 30; Glucose 131 mg/dL (83-110); Potassium 3.9 mmol/L (3.5-5.1); Sodium 143 mmol/L (136-145)
[2018-04-04] MEDS: Carvedilol 25 MG TAB PO SCH ×2 (08:39→18:27)
[2018-04-04] MEDS: Gabapentin 300 MG CAP PO SCH ×2 (08:40→14:57)
[2018-04-04] MEDS: Gemfibrozil 600 MG TAB PO SCH ×2 (08:47→18:32)
[2018-04-04] MEDS ORDERED: Insulin Glargine 25 UNITS in Pre-Filled Syringe 1 EACH SC SCH (09:00)
[2018-04-04] MEDS ORDERED: Amlodipine 10 MG TAB PO SCH (09:00)
[2018-04-04] MEDS ORDERED: Oxybutynin ER 5 MG TAB PO SCH (09:00)
[2018-04-04] MEDS ORDERED: Losartan 25 MG TAB PO SCH (09:00)
[2018-04-04] MEDS ORDERED: Enoxaparin Sodium 30 MG/0.3 ML SYRINGE SC SCH (09:00)
[2018-04-04] MEDS ORDERED: Pantoprazole 40 MG GRANULES PACKET PO SCH (09:00)
[2018-04-04] MEDS ORDERED: Potassium Chloride 20 MEQ TAB PO SCH (09:00)
[2018-04-04] MEDS ORDERED: INSULIN DEGLUDEC 25 UNIT SC SCH (09:00)
--- NOTE | 2018-04-04 09:39 | ULT ---
CAROTID DUPLEX SONOGRAM: HISTORY: TIA. Vascular disease. FINDINGS: RIGHT: Color and spectral Doppler evaluation, peak systolic velocity of 98 cm/s, and IC to CC ratio of 1.1 s uggests no hemodynamically significant stenosis within the extracranial right ICA. Antegrade flow wi thin the vertebral artery. LEFT: Mild plaque. Color and spectral Doppler evaluation, peak systolic velocity 91 cm/s, and IC to CC rat io of 1.0 suggests no hemodynamically significant stenosis within the extracranial left ICA. Antegra de flow within the vertebral artery. IMPRESSION: Atherosclerosis. No sonographic evidence of significant extracranial internal carotid artery stenosi s. POS: [facility]
--- NOTE | 2018-04-04 11:17 | MRI ---
MRI BRAIN WITHOUT CONTRAST: History: Slurred speech, left sided weakness. Comparison: None. Technique: Brain MRI is performed without intravenous contrast administration. Multisequential, multiplanar imag ing performed. FINDINGS: No hemorrhage on the axial gradient echo sequence. Calvarium has a normal T1 marrow signal intensity. Midline brain parenchymal structures are unremarka ble. No parenchymal mass, mass effect or midline shift. Age appropriate brain volume. Cortical ojeda white matter differentiation is preserved. Ventricles and sulci are patent and symmetric. Minimal T2 and FLAIR white matter hyperintensities, likely due to chronic small vessel ischemic lawler e of the white matter. Central arterial flow voids are maintained. Absent restricted diffusion. There is malacic and gliotic change involving the right cerebral peduncle. Adequate aeration of the sinuses and mastoid air cells. IMPRESSION: 1. No acute infarct. No restricted diffusion. 2. Age appropriate atrophy. 3. Minimal chronic small vessel ischemic change white matter. 4. Malacic and gliotic change involving the right cerebral peduncles. POS: [facility]
[2018-04-04 11:25] LABS: Hemoglobin A1c 10.5 % (4.0-6.0)
[2018-04-04 16:04] VITALS: BP 108/56; TEMP 98.5
[2018-04-04] MEDS ORDERED: Prevnar 13-Val Conj/PF 0.5 ML SYRINGE IM ONE (18:00)
[2018-04-04] MEDS ORDERED: Atorvastatin Calcium 40 MG TAB PO SCH (21:00)
[2018-04-04] MEDS ORDERED: Aspirin 81 mg Enteric Coated Tablet PO SCH (21:00)
[2018-04-04] MEDS ORDERED: rOPINIRole HCl 0.25 MG TAB PO SCH (21:00)
--- NOTE | 2018-04-05 15:32 | DIS ---
DATE OF ADMISSION: 04/03/2018 DATE OF DISCHARGE: 04/04/2018 RESIDENT: Tania Monet MD. ADMITTING ATTENDING: Dr. Albrecht. DISCHARGE ATTENDING: Ted Shelton MD CONSULT: None. PROCEDURES: None. PRIMARY DIAGNOSIS: Transient ischemic attack, secondary to hypoglycemic episode. SECONDARY DIAGNOSES: 1. History of cerebrovascular accident x2. 2. Chronic kidney disease 3. 3. Insulin-dependent diabetes type 2. 4. Hypothyroidism. 5. Hypertension. 6. Gastroesophageal reflux disease. 7. Restless legs syndrome. 8. Coronary artery disease, status post coronary artery bypass graft. 9. History of myocardial infarction. 10. Anemia. DISCHARGE MEDICATIONS: 1. Gemfibrozil 600 mg p.o. b.i.d. before meals. 2. Aspirin 81 mg p.o. daily. 3. Synthroid 150 mcg p.o. daily. 4. Ropinirole 1 mg p.o. at bedtime. 5. Imdur 30 mg p.o. b.i.d. 6. Protonix 40 mg p.o. daily. 7. Coreg 25 mg p.o. b.i.d. 8. Cozaar 50 mg p.o. b.i.d. 9. Gabapentin 300 mg p.o. t.i.d. 10. Oxybutynin 5 mg p.o. b.i.d. 11. Atorvastatin 80 mg p.o. daily. 12. Potassium chloride 20 mEq p.o. daily. 13. Amlodipine 5 mg p.o. daily. 14. Amlodipine 10 mg p.o. daily. 15. Atorvastatin 80 mg p.o. at bedtime. 16. Plavix 75 mg p.o. daily. DISCONTINUE MEDICATIONS: None. HOSPITAL COURSE: This is a 72-year-old female with past medical history pertinent for CVA x2, who presented to the ED for stroke-like symptoms. The patient woke up that morning and had complete left-sided weakness and aphasia. By the time she presented, she was out of the window for tPA. CT head was negative for hemorrhagic stroke and the patient was admitted for management of further workup and confirmation of ischemic stroke. At the time she presented to the ED, symptoms had primarily resolved. Aphasia was gone. There was residual left-sided upper and lower extremity weakness 4/5 strength. However, the patient endorses that has been her baseline since her prior strokes. Carotid dopplers negative for significant artherosclerosis.Brain MRI was negative for any signs of ischemic stroke and CVA. Echo was also negative for cardiac pathology. It was later discovered the patient had hypoglycemic shortly before her stroke-like symptoms with a glucose in the 40s. This was thought to have been the precipitating factor for her TIA since the rest of the workup was negative. The patient remained at baseline with stable vitals during rest of admission. DISPOSITION: Stable. DISCHARGE INSTRUCTIONS: 1. Location: Home. 2. Diet: Heart healthy, diabetic diet. 3. Activity: As tolerated. 4. Followup: Please follow up with PCP, Dr. Pappas within 7 to 10 days. Job ID: [id number] [facility] HOSPITALAaron
--- NOTE | 2018-04-06 10:54 | EKG ---
Test Reason : Blood Pressure : / mmHG Vent. Rate : 061 BPM Atrial Rate : 061 BPM P-R Int : 176 ms QRS Dur : 092 ms QT Int : 430 ms P-R-T Axes : 028 025 058 degrees QTc Int : 432 ms Sinus rhythm with Premature atrial complexes Nonspecific T wave abnormality Abnormal ECG Confirmed by MARQUISE FINK DO ([id number]), senior editor PO BLUNT ([id number]) on 04/06/2018 10:54:18 AM Referred By: Confirmed By:MARQUISE FINK DO
== END 2018-04-04 19:11 | disposition home or self-care (01) ==
LOC: ERS 17:51 → 2SE 19:22 → INTOOBSV 19:22
PROVIDERS: ADMIT Emergency Medicine; ATTEND Emergency Medicine
DX: G45.9 Transient cerebral ischemic attack, unspecified (principal); E11.649 Type 2 diabetes mellitus with hypoglycemia without coma; I12.9 Hypertensive chronic kidney disease with stage 1 through stage 4 chronic kidney disease, or unspecified chronic kidney disease; E11.22 Type 2 diabetes mellitus with diabetic chronic kidney disease; N18.3 Chronic kidney disease, stage 3 (moderate); E03.9 Hypothyroidism, unspecified; K21.9 Gastro-esophageal reflux disease without esophagitis; G25.81 Restless legs syndrome; I25.10 Atherosclerotic heart disease of native coronary artery without angina pectoris; I25.2 Old myocardial infarction; E78.5 Hyperlipidemia, unspecified; I69.954 Hemiplegia and hemiparesis following unspecified cerebrovascular disease affecting left non-dominant side; I34.0 Nonrheumatic mitral (valve) insufficiency; I36.1 Nonrheumatic tricuspid (valve) insufficiency; D64.9 Anemia, unspecified; Z95.1 Presence of aortocoronary bypass graft; Z88.5 Allergy status to narcotic agent; Z79.82 Long term (current) use of aspirin; Z79.02 Long term (current) use of antithrombotics/antiplatelets; Z79.899 Other long term (current) drug therapy
CPT/HCPCS: 70551; 80048; 82962 ×2; 83036; 84443; 90670; 93005; 93306; 93880; 97139 ×4; 99285; G0009; 36415; 36416; 90471; J1650

== ENCOUNTER 2018-08-12 00:36 | Inpatient (IN) | payer MEDICARE ==
--- NOTE | 2018-08-12 01:44 | PDOC.FPRHP ---
- History of Present Illness Chief Complaint: chills and fatigue History of Present Illness: The patient is a 73YOF with a PMH significant for IDDMII, CAD s/p stent placement, HFpEF, and hypothyroidism who was transferred from the [facility] ED due to sepsis 2/2 a UTI. Per the patient she was in her usual state of health until this past Sunday when she began to experience chills and increasing generalized fatigue. She also reported fevering up to 100.3F yesterday as well as having some associated decreased appetite and nausea but denied any vomiting. She and her family report that her fatigue continued to worsen over the course of the weekend to the point that she decided to go to the ER for further evaluation. In [facility], her UA was noted to be significant for a UTI so she was given 1g of rocephin before being transferred to [facility] for further evaluation. The patient denied any associated urinary symptoms such as dysuria, hematuria, back pain, or urinary frequency. ED Course: 1g rocephin - Allergies/Adverse Reactions Allergies Allergy/AdvReac Type Severity Reaction Status Date / Time morphine Allergy Verified 08/12/18 05:37 - Home Medications Medication Instructions Recorded Confirmed Type Aspirin [Ecotrin Low Strength] 81 mg PO DAILY 05/28/17 08/12/18 History Levothyroxine [Synthroid] 150 mcg PO DAILY 05/29/17 08/12/18 History Pantoprazole [Protonix] 40 mg PO DAILY 08/15/17 08/12/18 History rOPINIRole HCl [Ropinirole HCl] 1 mg PO HS 08/15/17 08/12/18 History Losartan [Cozaar] 50 mg PO BID #60 tab 08/17/17 08/12/18 Rx Amlodipine [Norvasc] 10 mg PO DAILY #0 tab 04/04/18 08/12/18 Rx Gabapentin [Neurontin] 300 mg PO TID 04/04/18 08/12/18 History Oxybutynin Chloride [Oxybutynin 5 mg PO BID 04/04/18 08/12/18 History Chloride ER] Potassium Chloride [Klor-Con M20] 40 meq PO DAILY 04/04/18 08/12/18 History Gemfibrozil [Lopid] 600 mg PO BIDAC 08/12/18 08/12/18 History hydrALAZINE HCl 100 mg PO BID 08/12/18 08/12/18 History - History PMHx: hypothryoidism, HTN, HLD, HFpEF (EF 60-65% w grade 2/3 distolic dysfunction in March of 2018) CAD s/p stent placement, h/o CVA w/ residual L- sided weakness, IDDMII, GERD PSHx: hysterectomy, L ankle surgery, CABG x2 FHx: Mother- CVA Sister- DMIII & HTN Social: Lives in [place] with her brother. No TAD. - Review of Systems General: reports: fever/chills, weight/appetite/sleep changes, fatigue Eyes: denies: vision changes ENT: reports: other (no sore throat). denies: nasal congestion Respiratory: denies: cough, shortness of breath Cardiovascular: denies: chest pain, palpitation Gastrointestinal: reports: nausea. denies: vomiting, diarrhea, constipation, abdominal pain Genitourinary: reports: other (no frequency). denies: dysuria Skin: denies: rashes, lesions Musculoskeletal: denies: pain, swelling Neurological: reports: weakness. denies: syncope Psychological: denies: anxiety, depression - Vital signs BP: 129/59 HR: 95 RR: 18 Tmax: 101F per ERMD Pox: 94% on RA Wt: 65 kg - Physical Exam Constitutional: NAD, well developed, other (in and out of sleep over course of interview but answered questions appropriately) HEENT: normocephalic and atraumatic, grossly normal vision, grossly normal hearing, oropharynx clear, good dention -HEENT: slightly dry mucous membranes Neck: supple, FROM Heart: RRR, normal S1/S2, no murmurs/rubs/gallops, pulses present, no edema Lungs: CTAB, no respiratory distress, good air movement, no rales/rhonchi, no wheezing, no retractions Abdomen: soft, bowel sounds present, other (mild suprapubic tenderness with no guarding or rebound) Musculoskeletal: normal structure, ROM grossly normal Neurological: no focal deficit, CN II-XII intact (grossly) Skin: no rash/lesions, good turgor Heme/Lymphatic: no unusual bruising or bleeding Psychiatric: normal mood and affect, good judgment and insight, intact recent and remote memory FMR H&P: Results - Labs Result Diagrams: 08/12/18 07:39 08/12/18 07:39 - Radiology Interpretation Abdominal x-ray Status: report reviewed by me (unremarkable) FMR H&P: A/P - Problem List (1) Heart failure with preserved ejection fraction Current Visit: Yes Status: Acute Code(s): I50.30 - UNSPECIFIED DIASTOLIC ( CONGESTIVE) HEART FAILURE (2) Acute kidney injury Current Visit: No Status: Acute Code(s): N17.9 - ACUTE KIDNEY FAILURE, UNSPECIFIED (3) CKD (chronic kidney disease) stage 3, GFR 30-59 ml/min Current Visit: No Status: Acute Code(s): N18.3 - CHRONIC KIDNEY DISEASE, STAGE 3 (MODERATE) (4) Elevated troponin Current Visit: No Status: Acute Code(s): R74.8 - ABNORMAL LEVELS OF OTHER SERUM ENZYMES (5) Hx of CABG Current Visit: No Status: Acute (6) Anemia Current Visit: No Status: Chronic Code(s): D64.9 - ANEMIA, UNSPECIFIED (7) CAD (coronary artery disease) Current Visit: No Status: Chronic Code(s): I25.10 - ATHSCL HEART DISEASE OF [place] CORONARY ARTERY W/O ANG PCTRS (8) DM2 (diabetes mellitus, type 2) Current Visit: No Status: Chronic (9) HLD (hyperlipidemia) Current Visit: No Status: Chronic Code(s): E78.5 - HYPERLIPIDEMIA, UNSPECIFIED (10) HTN (hypertension) Current Visit: No Status: Chronic Code(s): I10 - ESSENTIAL (PRIMARY) HYPERTENSION Qualifiers: Hypertension type: essential hypertension Qualified Code(s): I10 - Essential (primary) hypertension (11) Hypothyroid Current Visit: No Status: Chronic Code(s): E03.9 - HYPOTHYROIDISM, UNSPECIFIED - Plan Sepsis 2/2 UTI -Pt presented with fever, tachycardia, mild leukocytosis and UA suggestive of UTI. Was not given any fluids at outside hospital but was started on Ceftriaxone after obtaining blood and urine cultures. -Will continue IV rocephin pending culture results and start IVFs. Will also add PRN zofran and tylenol for nausea and fever/mild pain. -Will continue to monitor vitals closely & obtain a procal as well to trend. ALICIA on CKD3, possibly IV -Cr above baseline and eGFR below baseline per chart review. Will start on IVFs & continue to monitor renal function closely. - Will adjust all meds accordingly & hold all nephrotoxic agents. Elevated troponin -Initial troponin indeterminately elevated but patient denied any chest pain on exam. -Will continue to trend & monitor on telemetry; however levels are lower than during previous hospitalizations per chart review. Anemia of chronic disease - Likely 2/2 CKD. Hgb 9.1 on presentation but has been this low before per chart review. Will continue to monitor closely w/ QD CBCs and transfuse PRN. HFpEF - EF of 60-65% per latest ECHO done in March of this year. Does not appear to be in acute exacerbation but BNP slightly elevated on presentation at 353. - Will continue IVFs but monitor closely for signs of fluid overload. Will get strict I&Os & start on a HH low sodium diet. IDDMII - Will resume home insulin regimen & get ACHS accuchecks. hypothyroidism - Will resume home synthroid h/o CVA - Will resume home meds CAD s/p CABG x2 - Will resume home meds HLD - Will resume home meds GERD - Will resume home meds FMR H&P: Upper Level - Pertinent history 73 yo HF with PMH of HFpEF, CAD s/p CABG, IDDM2, HTN presenting as transfer from [facility]. Pt initially presented for not feeling well and was found to be septic 2/2 UTI. Pt was given Ceftriaxone with no fluids and transferred for higher level of care. - Pertinent findings VSS, Tmax 101 Gen: NAD CV: RRR Resp: CTAB Abd: mild suprapubic TTP - Plan Date/Time: 08/12/18 0139 IShawn MD PGY3, have evaluated this patient and agree with findings/ plan as outlined by art gallery internship resident. Pertinent changes/additions are listed here. 1. Sepsis 2/2 UTI -Pt presented with fever, tachycardia, mild leukocytosis and UA suggestive of UTI. Pt was not given any fluids at outside hospital but was started on Ceftriaxone. -Chart review indicates pt has a history of E coli UTIs sensitive to Ceftriaxone , will continue. -Begin IVF. -Await culture results. 2. ALICIA on CKD3 -Above baseline, trend with IVF. 3. Elevated troponin likely 2/2 demand ischemia -Pt denies CP, will trend enzymes although they are lower than previous hospitalizations. Medications will be resumed for other chronic medical conditions. DNAR status PPx: Lovenox for VTE, no GI indicated. disposition: Admit to inpatient telemetry for anticipated length of stay greater than two midnights, pending clinical course. Addendum - Attending - Attending Attestation Date/Time: 08/12/18 4735 I personally evaluated the patient and discussed the management with Dr. Nichols/ Loki. I agree with the History, Examination, Assessment and Plan documented above with any addition or exceptions noted below. Patient here with complaints of chills and fatigue. She has sepsis 2/2 UTI. Continue IV fluids, Rocephin, and await culture results. Appears to have ALICIA on CKD that will be trended and treated with IVF hydration.
[2018-08-12 02:47] LABS: Troponin I 0.078 ng/mL (< 0.028)
[2018-08-12] MEDS ORDERED: Ondansetron PF 4 MG/2 ML Vial IVP PRN ×2 (04:48→20:33)
[2018-08-12] MEDS ORDERED: Ondansetron ODT 4 MG TAB SL PRN ×2 (04:48→20:31)
[2018-08-12] MEDS ORDERED: Acetaminophen 325 MG TAB PO PRN (04:48)
[2018-08-12] MEDS ORDERED: Ondansetron ODT 4 MG TAB PO PRN (04:50)
[2018-08-12] MEDS ORDERED: Dextrose 50% Abboject 50 ML SYRINGE SLOW IVP PRN (04:50)
[2018-08-12] MEDS ORDERED: Dextrose 5% in Water 1,000 ML IV PRN (04:50)
[2018-08-12] MEDS: Lactated Ringer's 1,000 ML IV SCH ×2 (05:26→16:58)
[2018-08-12 05:32] LABS: Troponin I 0.081 ng/mL (< 0.028)
[2018-08-12 05:48] VITALS: BMI 25.4
[2018-08-12 07:50] LABS: #Lymphocytes 1.3 thou/uL (1.20-3.40); #Monocytes 0.9 thou/uL (0.11-0.59); #Neutrophils 9.2 thou/uL (1.40-6.50); %Basophils 0.2 % (0.0-1.0); %Eosinophils 0.1 % (0.0-10.0); %Lymphocytes 11.1 % (21.0-51.0); %Monocytes 7.5 % (0.0-10.0); Hemoglobin 8.7 g/dL (12.0-16.0); Mean Corpuscular HGB CONC 32.8 g/dL (32.0-36.0); Mean Corpuscular Hemoglobin 29.3 pg (27.0-31.0); Mean Corpuscular Volume 89.3 fL (78.0-98.0); Mean Platelet Volume 9.8 fL (7.4-10.4); Platelet Count 183 thou/uL (130-400); RBC Distribution Width 13.7 % (11.5-14.5); Red Blood Cell (RBC) Count 2.96 mill/uL (4.20-5.40); White Blood Cell (WBC) Count 11.4 thou/uL (4.8-10.8)
[2018-08-12 08:10] LABS: ALT (SGPT) Less than 7 U/L (8-55); AST (SGOT) 16 U/L (5-34); Albumin 3.5 g/dL (3.4-4.8); Alkaline Phosphatase 77 U/L (40-150); Anion Gap 14 mmol/L (10-20); BUN (Urea Nitrogen) 35 mg/dL (9.8-20.1); Bilirubin, Total 0.5 mg/dL (0.2-1.2); Calc. Creatinine Clearance 20 mL/min (70-130); Calcium 9.7 mg/dL (7.8-10.44); Carbon Dioxide 25 mmol/L (23-31); Chloride 104 mmol/L (98-107); Estimated GFR-MDRD 18; Globulin 3.4 g/dL (2.4-3.5); Glucose 131 mg/dL (83-110); Potassium 3.7 mmol/L (3.5-5.1); Protein, Total 6.9 g/dL (6.0-8.3); Sodium 139 mmol/L (136-145)
[2018-08-12] MEDS: Aspirin 81 mg Enteric Coated Tablet PO SCH (08:59)
[2018-08-12] MEDS: Oxybutynin ER 5 MG TAB PO SCH ×2 (08:59→22:51)
[2018-08-12] MEDS ORDERED: Pantoprazole 40 MG GRANULES PACKET PO SCH (09:00)
[2018-08-12] MEDS: Gabapentin 300 MG CAP PO SCH ×3 (09:00→22:51)
[2018-08-12] MEDS ORDERED: Levothyroxine 175 MCG TAB PO SCH (09:00)
[2018-08-12] MEDS: Potassium Chloride 20 MEQ TAB PO SCH ×2 (09:00→09:59)
[2018-08-12] MEDS ORDERED: Heparin 1,000 UNITS/ML VIAL ONE (09:00)
[2018-08-12] MEDS: Acetaminophen 325 MG TAB PO PRN (09:10)
[2018-08-12 09:18] LABS: Troponin I 0.092 ng/mL (< 0.028)
[2018-08-12] MEDS ORDERED: Lactated Ringer's 1,000 ML IV SCH (10:45)
[2018-08-12] MEDS: Gemfibrozil 600 MG TAB PO SCH (15:58)
[2018-08-12] MEDS ORDERED: rOPINIRole HCl 0.25 MG TAB PO SCH (21:00)
[2018-08-12] MEDS: rOPINIRole HCl 1 MG TAB PO SCH (22:51)
[2018-08-12] MEDS ORDERED: cefTRIAXone\\ROCEPHIN 1 GM in Sodium Chloride 0.9% 100 ML IVPB SCH (23:00)
[2018-08-13] MEDS: Lactated Ringer's 1,000 ML IV SCH ×2 (02:59→13:30)
[2018-08-13 05:55] LABS: #Lymphocytes 1.1 thou/uL (1.20-3.40); #Monocytes 0.9 thou/uL (0.11-0.59); #Neutrophils 7.1 thou/uL (1.40-6.50); %Basophils 0.1 % (0.0-1.0); %Eosinophils 0.3 % (0.0-10.0); %Lymphocytes 11.6 % (21.0-51.0); %Monocytes 9.4 % (0.0-10.0); %Neutrophils 78.6 % (42.0-75.0); Hemoglobin 8.3 g/dL (12.0-16.0); Mean Corpuscular HGB CONC 31.7 g/dL (32.0-36.0); Mean Corpuscular Hemoglobin 28.7 pg (27.0-31.0); Mean Corpuscular Volume 90.3 fL (78.0-98.0); Mean Platelet Volume 9.8 fL (7.4-10.4); Platelet Count 180 thou/uL (130-400); RBC Distribution Width 13.8 % (11.5-14.5); White Blood Cell (WBC) Count 9.1 thou/uL (4.8-10.8)
[2018-08-13 06:19] LABS: Anion Gap 14 mmol/L (10-20); BUN (Urea Nitrogen) 29 mg/dL (9.8-20.1); Calc. Creatinine Clearance 24 mL/min (70-130); Calcium 9.1 mg/dL (7.8-10.44); Carbon Dioxide 22 mmol/L (23-31); Chloride 106 mmol/L (98-107); Estimated GFR-MDRD 22; Glucose 125 mg/dL (83-110); Potassium 4.1 mmol/L (3.5-5.1); Sodium 138 mmol/L (136-145)
[2018-08-13] MEDS: Levothyroxine 150 MCG TAB PO SCH (06:21)
--- NOTE | 2018-08-13 06:58 | PDOC.FM ---
- Subjective Subjective: pt resting comfortably in bed, denies fever/chills, reports "pressure" when urinating - Objective Vital Signs & Weight: Vital Signs (12 hours) Temp Pulse Resp BP Pulse Ox 08/13/18 04:00 99.4 F 98 19 155/71 H 92 L 08/12/18 23:49 99.1 F 88 19 155/67 H 95 08/12/18 20:00 98.7 F 87 19 117/51 L 94 L Weight Weight 65.136 kg I&O: 08/11/18 08/12/18 08/13/18 06:59 06:59 06:59 Intake Total 3637 Balance 3637 Result Diagrams: 08/13/18 05:31 08/13/18 05:31 Phys Exam - Physical Examination Constitutional: NAD HEENT: moist MMs Neck: no JVD Respiratory: clear to auscultation bilateral Cardiovascular: RRR Gastrointestinal: non-tender Musculoskeletal: pulses present Neurological: moves all 4 limbs Psychiatric: normal affect Skin: no rash Dx/Plan (1) Heart failure with preserved ejection fraction Code(s): I50.30 - UNSPECIFIED DIASTOLIC (CONGESTIVE) HEART FAILURE Status: Acute (2) CKD (chronic kidney disease) Code(s): N18.9 - CHRONIC KIDNEY DISEASE, UNSPECIFIED Status: Acute (3) Elevated troponin Code(s): R74.8 - ABNORMAL LEVELS OF OTHER SERUM ENZYMES Status: Acute (4) Urinary tract infection Status: Acute Qualifiers: Urinary tract infection type: acute cystitis Hematuria presence: without hematuria Qualified Code(s): N30.00 - Acute cystitis without hematuria (5) DM2 (diabetes mellitus, type 2) Status: Chronic (6) HLD (hyperlipidemia) Code(s): E78.5 - HYPERLIPIDEMIA, UNSPECIFIED Status: Chronic (7) HTN (hypertension) Code(s): I10 - ESSENTIAL (PRIMARY) HYPERTENSION Status: Chronic Qualifiers: Hypertension type: essential hypertension Qualified Code(s): I10 - Essential (primary) hypertension (8) Hypothyroid Code(s): E03.9 - HYPOTHYROIDISM, UNSPECIFIED Status: Chronic - Plan Plan: Sepsis 2/2 UTI - fever, tachycardia, mild leukocytosis and UA suggestive of UTI on admission. - Rocephin. UCx/BCx pending, procal downtrending - consider transition to cefazolin today ALICIA on CKD3, improved -Cr above baseline and eGFR below baseline per chart review. - gentle fluid resusc. d/t HF as below, s/p 1L bolus - Will adjust all meds accordingly & hold all nephrotoxic agents. - monitor daily CMP Elevated troponin -Initial troponin indeterminately elevated but patient denied any chest pain on exam. -Will continue to trend & monitor on telemetry Anemia of chronic disease - Likely 2/2 CKD. Hgb 9.1 on presentation but has been this low before per chart review. Will continue to monitor closely w/ QD CBCs and transfuse PRN. HFpEF - EF of 60-65% per latest ECHO done in March of this year. Does not appear to be in acute exacerbation but BNP slightly elevated on presentation at 353. - Will continue IVFs but monitor closely for signs of fluid overload. Will get strict I&Os & start on a HH low sodium diet. IDDMII - Will resume home insulin regimen & get ACHS accuchecks. hypothyroidism - Will resume home synthroid h/o CVA - Will resume home meds CAD s/p CABG x2 - Will resume home meds HLD - Will resume home meds GERD - Will resume home meds code: DNAR PCP: Mian ppx: lovenox Dispo: transition to PO abx, possible DC later today or tomorrow Addendum - Attending - Attending Attestation Date/Time: 08/13/18 3534 I personally evaluated the patient and discussed the management with Dr. Lee. I agree with the History, Examination, Assessment and Plan documented above with any addition or exceptions noted below. Patient here with sepsis 2/2 UTI. Her symptoms are improving. We are being told that the lab is showing 2/2 blood cx for E. coli, one of which ESBL. She has improvement in WBC and PCT, but will need to expand coverage to account for the ESBL organism. She will likely need prolonged therapy now that we know she is bacteremic. Continue IVF. Will consult ID regarding length of therapy. Renal function improving slowly.
[2018-08-13 07:32] LABS: Troponin I 0.062 ng/mL (< 0.028)
[2018-08-13] MEDS: Oxybutynin ER 5 MG TAB PO SCH ×2 (09:01→20:22)
[2018-08-13] MEDS: Gemfibrozil 600 MG TAB PO SCH ×2 (09:01→16:15)
[2018-08-13] MEDS: Aspirin 81 mg Enteric Coated Tablet PO SCH (09:01)
[2018-08-13] MEDS: Gabapentin 300 MG CAP PO SCH ×3 (09:02→20:22)
[2018-08-13] MEDS: HumaLOG 300 UNITS/3 ML VIAL SC PRN ×2 (11:26→19:03)
[2018-08-13] MEDS ORDERED: Meropenem 1 GM in Sodium Chloride 0.9% 100 ML IVPB SCH (12:00)
[2018-08-13] MEDS: MEROPENEM 1 GM/50 ML 1 GM in Premix Bag 1 BAG IVPB SCH ×2 (12:55→23:57)
[2018-08-13] MEDS: rOPINIRole HCl 1 MG TAB PO SCH (20:22)
[2018-08-13] MEDS: Acetaminophen 325 MG TAB PO PRN (20:23)
--- NOTE | 2018-08-13 21:13 | CON ---
DATE OF CONSULTATION: 08/13/2018 REASON FOR CONSULTATION: Bacteremia. HISTORY OF PRESENT ILLNESS: A 73-year-old with history of hypothyroidism, type 2 diabetes mellitus, coronary artery disease and prior UTIs, who developed a fever about a week before admission with worsening over time, eventual evaluation at [facility] and then admitted. She has been treated with broad-spectrum coverage and she currently is feeling better. Denies headaches, visual symptoms, sore throat, odynophagia, or dysphagia. No back pain. No abdominal pain or diarrhea. No genitourinary symptoms, specifically no dysuria or hematuria. No joint symptoms. PAST MEDICAL HISTORY: Hypothyroidism, hypertension, coronary artery disease and stent placement, prior CVA with residual left-sided weakness, type 2 diabetes, and GERD. PAST SURGICAL HISTORY: Hysterectomy, left ankle repair, and bypass graft surgery x2. FAMILY HISTORY: CVA, hypertension and type 2 diabetes. SOCIAL HISTORY: Retired. Lives in [place] with brother. CURRENT MEDICATIONS: Tylenol, Ecotrin, dextrose, Neurontin, Lopid, glucagon, insulin, meropenem, oxybutynin, and ropinirole. PHYSICAL EXAMINATION: VITAL SIGNS: T-max 100.3, BP 130/60, pulse is 87, respirations 18, O2 saturation 97%. Temperature after admission has been normal. SKIN: No abnormalities. The patient is urinating in the toilet. HEENT: Ocular movements conjugate. Sclerae white. Pupils are equal. Oral cavity with quite a few teeth missing. NECK: Supple. No jugular venous distention or carotid bruits. LUNGS: Symmetric clear breath sounds. HEART: S1, S2. Regular rate. No S3 or S4. ABDOMEN: Soft, not distended or tender. No ascites. No bladder distention. EXTREMITIES: No joint inflammatory activity. NEURO: Cognitive function appears to be intact. LABORATORY DATA: White cell count is 11.4, now 9.1, hemoglobin 8.3, platelets 180 with 81% neutrophils. Chemistry with creatinine 2.22. Baseline is 1.08. Microbiology with 2 sets of blood cultures with E. coli, which appears to be an ESBL organism. Two different gram-negative rods from urine culture isolated. The patient had a previous E coli retrieved from the urine culture in 2018 and similar pathogen 1 month before. ASSESSMENT: Type 2 diabetes, coronary artery disease, recurrent urinary tract infections, no evidence of bacteremia, likely pyelonephritis with ESBL Escherichia coli. At this point, would recommend checking postvoid residuals. Continue meropenem until final results of the susceptibility studies are available and if everything checks, then she could be discharged with IV meropenem probably or Invanz for about 2 weeks approximately. Job ID: [id number] MTDD
[2018-08-13] MEDS ORDERED: cefTRIAXone\\ROCEPHIN 1 GM in Sodium Chloride 0.9% 100 ML IVPB SCH (23:00)
[2018-08-14] MEDS: Lactated Ringer's 1,000 ML IV SCH (00:31)
[2018-08-14] MEDS: Levothyroxine 150 MCG TAB PO SCH (05:21)
[2018-08-14 06:29] LABS: #Eosinphils 0.1 thou/uL (0.0-0.7); #Lymphocytes 1.2 thou/uL (1.20-3.40); #Monocytes 1.2 thou/uL (0.11-0.59); #Neutrophils 7.1 thou/uL (1.40-6.50); %Basophils 0.2 % (0.0-1.0); %Eosinophils 1.4 % (0.0-10.0); %Lymphocytes 12.8 % (21.0-51.0); %Monocytes 12.2 % (0.0-10.0); %Neutrophils 73.5 % (42.0-75.0); Hemoglobin 8.6 g/dL (12.0-16.0); Mean Corpuscular HGB CONC 31.9 g/dL (32.0-36.0); Mean Corpuscular Hemoglobin 28.9 pg (27.0-31.0); Mean Corpuscular Volume 90.6 fL (78.0-98.0); Mean Platelet Volume 9.5 fL (7.4-10.4); Platelet Count 215 thou/uL (130-400); RBC Distribution Width 13.6 % (11.5-14.5); Red Blood Cell (RBC) Count 2.98 mill/uL (4.20-5.40); White Blood Cell (WBC) Count 9.6 thou/uL (4.8-10.8)
--- NOTE | 2018-08-14 06:49 | PDOC.FM ---
- Subjective Subjective: pt sitting comfortably in the chair, denies SOB or dysuria - Objective Vital Signs & Weight: Vital Signs (12 hours) Temp Pulse Resp BP BP Pulse Ox 08/14/18 03:09 97.8 F 81 20 128/62 92 L 08/13/18 23:02 98 F 78 20 134/64 92 L 08/13/18 19:05 100.0 F H 87 16 138/63 90 L Weight Weight 65.136 kg I&O: 08/12/18 08/13/18 08/14/18 06:59 06:59 06:59 Intake Total 3637 1370 Output Total 260 Balance 3637 1110 Result Diagrams: 08/14/18 06:07 08/14/18 06:07 Phys Exam - Physical Examination Constitutional: NAD HEENT: moist MMs Neck: no JVD Gastrointestinal: no distention Musculoskeletal: no edema Neurological: moves all 4 limbs Psychiatric: normal affect Skin: no rash Dx/Plan (1) Heart failure with preserved ejection fraction Code(s): I50.30 - UNSPECIFIED DIASTOLIC (CONGESTIVE) HEART FAILURE Status: Acute (2) CKD (chronic kidney disease) Code(s): N18.9 - CHRONIC KIDNEY DISEASE, UNSPECIFIED Status: Acute (3) Elevated troponin Code(s): R74.8 - ABNORMAL LEVELS OF OTHER SERUM ENZYMES Status: Acute (4) Urinary tract infection Status: Acute Qualifiers: Urinary tract infection type: acute cystitis Hematuria presence: without hematuria Qualified Code(s): N30.00 - Acute cystitis without hematuria (5) DM2 (diabetes mellitus, type 2) Status: Chronic (6) HLD (hyperlipidemia) Code(s): E78.5 - HYPERLIPIDEMIA, UNSPECIFIED Status: Chronic (7) HTN (hypertension) Code(s): I10 - ESSENTIAL (PRIMARY) HYPERTENSION Status: Chronic Qualifiers: Hypertension type: essential hypertension Qualified Code(s): I10 - Essential (primary) hypertension (8) Hypothyroid Code(s): E03.9 - HYPOTHYROIDISM, UNSPECIFIED Status: Chronic - Plan Plan: Sepsis 2/2 ESBL bacteremia - fever, tachycardia, mild leukocytosis and UA suggestive of UTI on admission. - procal downtrending - BCx resulted ESBL Bacteremia, sensitive to meropenem, cont. - ID consulted appreciate recs ALICIA on CKD3, improved -Cr above baseline and eGFR below baseline per chart review. - gentle fluid resusc. d/t HF as below, s/p 1L bolus - Will adjust all meds accordingly & hold all nephrotoxic agents. - monitor daily CMP Elevated troponin -Initial troponin indeterminately elevated but patient denied any chest pain on exam. -downtrended, monitor on telemetry Anemia of chronic disease - Likely 2/2 CKD. Hgb 9.1 on presentation but has been this low before per chart review. Will continue to monitor closely w/ QD CBCs and transfuse PRN. HFpEF - EF of 60-65% per latest ECHO done in March of this year. Does not appear to be in acute exacerbation but BNP slightly elevated on presentation at 353. - strict I&Os & start on a HH low sodium diet. IDDMII - Will resume home insulin regimen & get ACHS accuchecks. hypothyroidism - Will resume home synthroid h/o CVA - Will resume home meds CAD s/p CABG x2 - Will resume home meds HLD - Will resume home meds GERD - Will resume home meds code: DNAR PCP: Mian ppx: lovenox Dispo: clinically improved, DC planning for IV abx therapy Addendum - Attending - Attending Attestation Date/Time: 08/14/18 0545 I personally evaluated the patient and discussed the management with Dr. Lee. I agree with the History, Examination, Assessment and Plan documented above with any addition or exceptions noted below. Patient doing well this morning. Continues on treatment for sepsis and bactermia with Ecoli, concern for ESBL. Awaiting final sensitivities. ID on board for help with determination of length of therapy. Will begin working on arranging outpatient abx for her. Continue Meropenem for now. Renal function continues to improve.
[2018-08-14 06:52] LABS: Anion Gap 11 mmol/L (10-20); BUN (Urea Nitrogen) 24 mg/dL (9.8-20.1); Calc. Creatinine Clearance 26 mL/min (70-130); Calcium 9.3 mg/dL (7.8-10.44); Carbon Dioxide 27 mmol/L (23-31); Chloride 104 mmol/L (98-107); Estimated GFR-MDRD 24; Glucose 138 mg/dL (83-110); Potassium 4.2 mmol/L (3.5-5.1); Sodium 138 mmol/L (136-145)
[2018-08-14] MEDS: Aspirin 81 mg Enteric Coated Tablet PO SCH (08:37)
[2018-08-14] MEDS: Gabapentin 300 MG CAP PO SCH ×3 (08:37→21:43)
[2018-08-14] MEDS: Gemfibrozil 600 MG TAB PO SCH ×2 (08:37→17:42)
[2018-08-14] MEDS: Oxybutynin ER 5 MG TAB PO SCH (08:38)
[2018-08-14] MEDS: Acetaminophen 325 MG TAB PO PRN (10:22)
[2018-08-14] MEDS: HumaLOG 300 UNITS/3 ML VIAL SC PRN ×2 (11:19→21:44)
--- NOTE | 2018-08-14 12:57 | ULT ---
Bilateral renal ultrasound: HISTORY: UTI FINDINGS: The right kidney measures 11.2 cm in length and the left kidney measures 8.6 in length. No focal mass , hydronephrosis or shadowing calculus is seen on either side. The prevoid bladder volume measures 239 cc and the post void volume measures 249 cc. The bladder is g rossly unremarkable. IMPRESSION: Large amount of post void bladder volume.
[2018-08-14] MEDS: MEROPENEM 1 GM/50 ML 1 GM in Premix Bag 1 BAG IVPB SCH (13:36)
[2018-08-14] MEDS: rOPINIRole HCl 1 MG TAB PO SCH (21:43)
[2018-08-15] MEDS: MEROPENEM 1 GM/50 ML 1 GM in Premix Bag 1 BAG IVPB SCH ×3 (01:39→16:10)
[2018-08-15] MEDS: Acetaminophen 325 MG TAB PO PRN (02:19)
[2018-08-15] MEDS: Levothyroxine 150 MCG TAB PO SCH (05:48)
[2018-08-15 05:49] LABS: #Eosinphils 0.1 thou/uL (0.0-0.7); #Lymphocytes 1.3 thou/uL (1.20-3.40); #Monocytes 0.9 thou/uL (0.11-0.59); #Neutrophils 5.3 thou/uL (1.40-6.50); %Basophils 0.2 % (0.0-1.0); %Eosinophils 0.9 % (0.0-10.0); %Lymphocytes 17.4 % (21.0-51.0); %Monocytes 11.7 % (0.0-10.0); %Neutrophils 69.8 % (42.0-75.0); Hemoglobin 7.7 g/dL (12.0-16.0); Mean Corpuscular HGB CONC 32.1 g/dL (32.0-36.0); Mean Corpuscular Hemoglobin 29.1 pg (27.0-31.0); Mean Corpuscular Volume 90.5 fL (78.0-98.0); Mean Platelet Volume 9.1 fL (7.4-10.4); Platelet Count 212 thou/uL (130-400); RBC Distribution Width 13.7 % (11.5-14.5); Red Blood Cell (RBC) Count 2.66 mill/uL (4.20-5.40); White Blood Cell (WBC) Count 7.5 thou/uL (4.8-10.8)
[2018-08-15 05:58] LABS: Anion Gap 13 mmol/L (10-20); BUN (Urea Nitrogen) 20 mg/dL (9.8-20.1); Calc. Creatinine Clearance 29 mL/min (70-130); Carbon Dioxide 22 mmol/L (23-31); Chloride 107 mmol/L (98-107); Estimated GFR-MDRD 28; Glucose 123 mg/dL (83-110); Potassium 4.1 mmol/L (3.5-5.1); Sodium 138 mmol/L (136-145)
--- NOTE | 2018-08-15 06:46 | PDOC.FM ---
- Subjective Subjective: pt resting comfortably in bed, denies fever or chills. - Objective Vital Signs & Weight: Vital Signs (12 hours) Temp Pulse Resp BP Pulse Ox 08/15/18 05:01 98.5 F 08/15/18 04:00 101 F H 88 20 141/68 H 93 L 08/15/18 00:00 100.2 F H 82 16 143/65 H 96 08/14/18 19:46 98.8 F 78 16 143/68 H 94 L Weight Weight 65.136 kg I&O: 08/13/18 08/14/18 08/15/18 06:59 06:59 06:59 Intake Total 3637 1370 1100 Output Total 260 1925 Balance 3637 1110 -825 Result Diagrams: 08/15/18 05:24 08/15/18 05:24 Phys Exam - Physical Examination Constitutional: NAD HEENT: moist MMs Neck: full ROM Gastrointestinal: no distention Musculoskeletal: no edema Neurological: moves all 4 limbs Psychiatric: normal affect Skin: no rash Dx/Plan (1) Heart failure with preserved ejection fraction Code(s): I50.30 - UNSPECIFIED DIASTOLIC (CONGESTIVE) HEART FAILURE Status: Acute (2) CKD (chronic kidney disease) Code(s): N18.9 - CHRONIC KIDNEY DISEASE, UNSPECIFIED Status: Acute (3) Elevated troponin Code(s): R74.8 - ABNORMAL LEVELS OF OTHER SERUM ENZYMES Status: Acute (4) Urinary tract infection Status: Acute Qualifiers: Urinary tract infection type: acute cystitis Hematuria presence: without hematuria Qualified Code(s): N30.00 - Acute cystitis without hematuria (5) DM2 (diabetes mellitus, type 2) Status: Chronic (6) HLD (hyperlipidemia) Code(s): E78.5 - HYPERLIPIDEMIA, UNSPECIFIED Status: Chronic (7) HTN (hypertension) Code(s): I10 - ESSENTIAL (PRIMARY) HYPERTENSION Status: Chronic Qualifiers: Hypertension type: essential hypertension Qualified Code(s): I10 - Essential (primary) hypertension (8) Hypothyroid Code(s): E03.9 - HYPOTHYROIDISM, UNSPECIFIED Status: Chronic - Plan Plan: Sepsis 2/2 ESBL bacteremia - fever, tachycardia, mild leukocytosis and UA suggestive of UTI on admission. - procal downtrending - BCx resulted ESBL Bacteremia, meropenem started, final sensitivities pending - ID consulted appreciate recs ALICIA on CKD3, improved -Cr above baseline and eGFR below baseline per chart review. - improved - monitor daily CMP Elevated troponin -Initial troponin indeterminately elevated but patient denied any chest pain on exam. -downtrended, monitor on telemetry Anemia of chronic disease - Likely 2/2 CKD. Hgb 9.1 on presentation but has been this low before per chart review. Will continue to monitor closely w/ QD CBCs and transfuse PRN. HFpEF - EF of 60-65% per latest ECHO done in March of this year. Does not appear to be in acute exacerbation but BNP slightly elevated on presentation at 353. - strict I&Os & start on a HH low sodium diet. IDDMII - Will resume home insulin regimen & get ACHS accuchecks. hypothyroidism - Will resume home synthroid h/o CVA - Will resume home meds CAD s/p CABG x2 - Will resume home meds HLD - Will resume home meds GERD - Will resume home meds Urinary retention - post void residuals increased, hold oxybutynin - straight cath PRN for PVR>200 code: DNAR PCP: Mian ppx: lovenox Dispo: clinically improved, DC planning for IV abx therapy Addendum - Attending - Attending Attestation Date/Time: 08/15/18 1112 I personally evaluated the patient and discussed the management with Dr. Lee. I agree with the History, Examination, Assessment and Plan documented above with any addition or exceptions noted below. Patient continues to improve. She did have mild fever overnight but WBC downtrending and stable and PCT continues to decline showing clearance of infection. Cultures have resulted and she will need to continue on meropenem for ESBL e. coli for total 14 days of therapy per ID. Will arrange for PICC line placement. Working on dispo, possibly to swing bed versus SNF. Renal function continues to improve and now at baseline.
[2018-08-15] MEDS: Gemfibrozil 600 MG TAB PO SCH ×2 (08:27→18:04)
[2018-08-15] MEDS: Gabapentin 300 MG CAP PO SCH ×3 (08:27→20:45)
[2018-08-15] MEDS: Aspirin 81 mg Enteric Coated Tablet PO SCH (08:27)
[2018-08-15] MEDS: HumaLOG 300 UNITS/3 ML VIAL SC PRN ×3 (12:36→20:46)
[2018-08-15] MEDS: rOPINIRole HCl 1 MG TAB PO SCH (20:45)
[2018-08-16] MEDS: Acetaminophen 325 MG TAB PO PRN (00:38)
[2018-08-16] MEDS: MEROPENEM 1 GM/50 ML 1 GM in Premix Bag 1 BAG IVPB SCH ×2 (02:07→18:56)
[2018-08-16] MEDS ORDERED: hydrALAZINE 20 MG/ML VIAL SLOW IVP PRN (02:30)
[2018-08-16] MEDS ORDERED: MEROPENEM 1 GM/50 ML 1 GM in Premix Bag 1 BAG IVPB SCH (03:00)
[2018-08-16] MEDS: Levothyroxine 150 MCG TAB PO SCH (05:22)
[2018-08-16 05:24] LABS: #Eosinphils 0.1 thou/uL (0.0-0.7); #Lymphocytes 1.6 thou/uL (1.20-3.40); #Monocytes 0.8 thou/uL (0.11-0.59); %Basophils 0.5 % (0.0-1.0); %Eosinophils 1.7 % (0.0-10.0); %Lymphocytes 21.5 % (21.0-51.0); %Neutrophils 65.3 % (42.0-75.0); Mean Corpuscular HGB CONC 32.3 g/dL (32.0-36.0); Mean Corpuscular Hemoglobin 29.2 pg (27.0-31.0); Mean Corpuscular Volume 90.2 fL (78.0-98.0); Mean Platelet Volume 8.9 fL (7.4-10.4); Platelet Count 272 thou/uL (130-400); RBC Distribution Width 13.8 % (11.5-14.5); Red Blood Cell (RBC) Count 2.76 mill/uL (4.20-5.40); White Blood Cell (WBC) Count 7.6 thou/uL (4.8-10.8)
[2018-08-16 05:42] LABS: Anion Gap 9 mmol/L (10-20); BUN (Urea Nitrogen) 17 mg/dL (9.8-20.1); Calc. Creatinine Clearance 33 mL/min (70-130); Calcium 9.1 mg/dL (7.8-10.44); Carbon Dioxide 26 mmol/L (23-31); Chloride 107 mmol/L (98-107); Estimated GFR-MDRD 32; Glucose 151 mg/dL (83-110); Potassium 4.1 mmol/L (3.5-5.1); Sodium 138 mmol/L (136-145)
--- NOTE | 2018-08-16 06:55 | PDOC.FM ---
- Subjective Subjective: pt resting comfortably in bed, denies abdominal pain or SOB - Objective Vital Signs & Weight: Vital Signs (12 hours) Temp Pulse Resp BP BP Pulse Ox 08/16/18 04:00 98.7 F 79 20 152/71 H 96 08/16/18 02:16 100.2 F H 77 179/77 H 08/16/18 00:00 101.6 F H 84 20 189/89 H 96 08/15/18 20:00 98.5 F 84 20 175/75 H 92 L Weight Weight 65.136 kg I&O: 08/14/18 08/15/18 08/16/18 06:59 06:59 06:59 Intake Total 1370 1100 590 Output Total 260 2609 1054 Balance 1110 -825 -464 Result Diagrams: 08/16/18 04:49 08/16/18 04:49 Phys Exam - Physical Examination Constitutional: NAD HEENT: moist MMs Neck: full ROM Gastrointestinal: no distention Musculoskeletal: no edema Neurological: moves all 4 limbs Psychiatric: normal affect Skin: no rash Dx/Plan (1) Heart failure with preserved ejection fraction Code(s): I50.30 - UNSPECIFIED DIASTOLIC (CONGESTIVE) HEART FAILURE Status: Acute (2) CKD (chronic kidney disease) Code(s): N18.9 - CHRONIC KIDNEY DISEASE, UNSPECIFIED Status: Acute (3) Elevated troponin Code(s): R74.8 - ABNORMAL LEVELS OF OTHER SERUM ENZYMES Status: Acute (4) Urinary tract infection Status: Acute Qualifiers: Urinary tract infection type: acute cystitis Hematuria presence: without hematuria Qualified Code(s): N30.00 - Acute cystitis without hematuria (5) DM2 (diabetes mellitus, type 2) Status: Chronic (6) HLD (hyperlipidemia) Code(s): E78.5 - HYPERLIPIDEMIA, UNSPECIFIED Status: Chronic (7) HTN (hypertension) Code(s): I10 - ESSENTIAL (PRIMARY) HYPERTENSION Status: Chronic Qualifiers: Hypertension type: essential hypertension Qualified Code(s): I10 - Essential (primary) hypertension (8) Hypothyroid Code(s): E03.9 - HYPOTHYROIDISM, UNSPECIFIED Status: Chronic - Plan Plan: Sepsis 2/2 ESBL bacteremia - fever, tachycardia, mild leukocytosis and UA suggestive of UTI on admission. - procal downtrending - BCx resulted ESBL Bacteremia, sensitive to meropenem, continue for a total 14 days - ID consulted appreciate recs ALICIA on CKD3, improved -Cr above baseline and eGFR below baseline per chart review. - improved - monitor daily CMP Elevated troponin -Initial troponin indeterminately elevated but patient denied any chest pain on exam. -downtrended, monitor on telemetry Anemia of chronic disease - Likely 2/2 CKD. Hgb 9.1 on presentation but has been this low before per chart review. Will continue to monitor closely w/ QD CBCs and transfuse PRN. HFpEF - EF of 60-65% per latest ECHO done in March of this year. Does not appear to be in acute exacerbation but BNP slightly elevated on presentation at 353. - strict I&Os & start on a HH low sodium diet. IDDMII - Will resume home insulin regimen & get ACHS accuchecks. hypothyroidism - Will resume home synthroid h/o CVA - Will resume home meds CAD s/p CABG x2 - Will resume home meds HLD - Will resume home meds GERD - Will resume home meds Urinary retention - post void residuals increased, hold oxybutynin - straight cath PRN for PVR>200 code: KAVON PCP: Mian ppx: [facility] Dispo: DC to [facility] when available Addendum - Attending - Attending Attestation Date/Time: 08/16/18 0912 I personally evaluated the patient and discussed the management with Dr. Lee. I agree with the History, Examination, Assessment and Plan documented above with any addition or exceptions noted below. Patient here for resolved Sepsis 2/2 likely pyelonephritis due to ESBL E. Coli in setting or urinary retention. She continues to have intermittent fevers, imaging does not reveal abscess. Cultures show on appropriate abx. Continue for 14 days total treatment. PICC line in place. Awaiting placement at swing bed. She is continuing to have urinary retention and high PVR, will add Flomax to see if that gives some improvement and recommend outpatient Urology.
[2018-08-16] MEDS: Gemfibrozil 600 MG TAB PO SCH ×2 (08:27→18:56)
[2018-08-16] MEDS: hydrALAZINE 25 MG TAB PO SCH ×2 (08:28→21:29)
[2018-08-16] MEDS: Aspirin 81 mg Enteric Coated Tablet PO SCH (08:28)
[2018-08-16] MEDS: Amlodipine 10 MG TAB PO SCH (08:32)
[2018-08-16] MEDS: Gabapentin 300 MG CAP PO SCH ×3 (08:32→21:29)
[2018-08-16] MEDS: HumaLOG 300 UNITS/3 ML VIAL SC PRN ×2 (12:50→21:30)
--- NOTE | 2018-08-16 15:19 | SPC ---
Ultrasound and Fluoroscopic guidedleftupper extremity double lumenPICC placement: 06/11/2018 HISTORY: Need for central vascular access. FINDINGS: Informed consent obtained prior to the procedure. Left antecubital fossa prepped and draped in normal sterile fashion. Skin overlying thebrachialvein anesthetized with 1% buffered lidocaine. With direct sonographic geovany nce, vascular access is obtained via the brachialvein and an 0.018in wire was advanced to the cavoatrial junction. Intravascular length is calculated at 41 cm and of the PICC is cut accordingly. Needle is removed and replaced with a peel-away sheath. The PICC was advanced over the wire. Wire and peel-away sheath were removed. The tip of the catheter overlies the cavoatrial junction. The port flushes well and the catheter is ready for use. Exposure data: 0 minutes of fluoroscopic time 2 mGy per centimeter squared IMPRESSION: Successful ultrasound guided placement of a left upper extremity PICC.
[2018-08-16] MEDS: Tamsulosin HCl 0.4 MG CAP PO SCH (21:29)
[2018-08-16] MEDS: rOPINIRole HCl 1 MG TAB PO SCH (21:29)
[2018-08-17] MEDS: MEROPENEM 1 GM/50 ML 1 GM in Premix Bag 1 BAG IVPB SCH ×2 (04:23→16:27)
[2018-08-17 04:48] LABS: #Eosinphils 0.2 thou/uL (0.0-0.7); #Lymphocytes 1.8 thou/uL (1.20-3.40); #Monocytes 0.6 thou/uL (0.11-0.59); #Neutrophils 5.5 thou/uL (1.40-6.50); %Basophils 0.1 % (0.0-1.0); %Eosinophils 2.6 % (0.0-10.0); %Monocytes 7.6 % (0.0-10.0); %Neutrophils 67.8 % (42.0-75.0); Hemoglobin 8.9 g/dL (12.0-16.0); Mean Corpuscular HGB CONC 31.9 g/dL (32.0-36.0); Mean Corpuscular Hemoglobin 28.5 pg (27.0-31.0); Mean Corpuscular Volume 89.5 fL (78.0-98.0); Mean Platelet Volume 7.9 fL (7.4-10.4); Platelet Count 358 thou/uL (130-400); RBC Distribution Width 13.8 % (11.5-14.5); Red Blood Cell (RBC) Count 3.11 mill/uL (4.20-5.40); White Blood Cell (WBC) Count 8.1 thou/uL (4.8-10.8)
[2018-08-17] MEDS: Levothyroxine 150 MCG TAB PO SCH (05:04)
[2018-08-17 05:08] LABS: Anion Gap 11 mmol/L (10-20); BUN (Urea Nitrogen) 14 mg/dL (9.8-20.1); Calc. Creatinine Clearance 38 mL/min (70-130); Calcium 9.6 mg/dL (7.8-10.44); Carbon Dioxide 27 mmol/L (23-31); Chloride 105 mmol/L (98-107); Estimated GFR-MDRD 38; Glucose 134 mg/dL (83-110); Potassium 4.2 mmol/L (3.5-5.1); Sodium 139 mmol/L (136-145)
[2018-08-17] MEDS: HumaLOG 300 UNITS/3 ML VIAL SC PRN ×2 (06:08→17:26)
--- NOTE | 2018-08-17 06:36 | PDOC.FM ---
- Subjective Subjective: Overnight, the patient voided twice and had PRV <150. Patient resting comfortably in bed, no acute distress. Patient has no complaints or concerns. - Objective MAR Reviewed: Yes Vital Signs & Weight: Vital Signs (12 hours) Temp Pulse Resp BP BP BP Pulse Ox 08/17/18 04:00 99.1 F 75 16 157/72 H 92 L 08/17/18 00:00 99 F 77 16 167/69 H 96 08/16/18 21:29 79 181/76 H 08/16/18 20:00 97.6 F 79 16 190/81 H 98 Weight Weight 65.136 kg I&O: 08/15/18 08/16/18 08/17/18 06:59 06:59 06:59 Intake Total 0070 086 7654 Output Total 1925 1054 4010 Balance -825 -464 -7510 Result Diagrams: 08/17/18 04:40 08/17/18 04:40 Phys Exam - Physical Examination Constitutional: NAD HEENT: PERRLA, moist MMs, sclera anicteric Neck: full ROM Respiratory: no wheezing, no rales, no rhonchi, clear to auscultation bilateral Cardiovascular: RRR, no significant murmur, no rub Gastrointestinal: soft, non-tender, no distention, positive bowel sounds Musculoskeletal: pulses present Neurological: moves all 4 limbs Psychiatric: normal affect Skin: no rash, normal turgor, cap refill <2 seconds Dx/Plan (1) Heart failure with preserved ejection fraction Code(s): I50.30 - UNSPECIFIED DIASTOLIC (CONGESTIVE) HEART FAILURE Status: Acute (2) Acute kidney injury Code(s): N17.9 - ACUTE KIDNEY FAILURE, UNSPECIFIED Status: Acute (3) CKD (chronic kidney disease) stage 3, GFR 30-59 ml/min Code(s): N18.3 - CHRONIC KIDNEY DISEASE, STAGE 3 (MODERATE) Status: Acute (4) Elevated troponin Code(s): R74.8 - ABNORMAL LEVELS OF OTHER SERUM ENZYMES Status: Acute (5) Hx of CABG Status: Acute (6) Labile hypertension Code(s): I10 - ESSENTIAL (PRIMARY) HYPERTENSION Status: Acute (7) Urinary tract infection Status: Acute Qualifiers: Urinary tract infection type: acute cystitis Hematuria presence: without hematuria Qualified Code(s): N30.00 - Acute cystitis without hematuria (8) CAD (coronary artery disease) Code(s): I25.10 - ATHSCL HEART DISEASE OF [place] CORONARY ARTERY W/O ANG PCTRS Status: Chronic (9) DM2 (diabetes mellitus, type 2) Status: Chronic (10) HLD (hyperlipidemia) Code(s): E78.5 - HYPERLIPIDEMIA, UNSPECIFIED Status: Chronic (11) HTN (hypertension) Code(s): I10 - ESSENTIAL (PRIMARY) HYPERTENSION Status: Chronic Qualifiers: Hypertension type: essential hypertension Qualified Code(s): I10 - Essential (primary) hypertension (12) History of CVA (cerebrovascular accident) Code(s): Z86.73 - PRSNL HX OF TIA (TIA), AND CEREB INFRC W/O RESID DEFICITS Status: Chronic - Plan Plan: Sepsis 2/2 ESBL bacteremia - fever, tachycardia, mild leukocytosis and UA suggestive of UTI on admission. - procal downtrending - BCx resulted ESBL Bacteremia, sensitive to meropenem, continue for a total 14 days; Day 5 of abx - ID consulted appreciate recs ALICIA on CKD3, improved - Cr above baseline and eGFR below baseline per chart review. - improved - monitor daily CMP Elevated troponin - Initial troponin indeterminately elevated but patient denied any chest pain on exam. - Downtrended, monitor on telemetry Anemia of chronic disease - Likely 2/2 CKD. Hgb 9.1 on presentation but has been this low before per chart review. Will continue to monitor closely w/ QD CBCs and transfuse PRN. HFpEF - EF of 60-65% per latest ECHO done in March of this year. Does not appear to be in acute exacerbation but BNP slightly elevated on presentation at 353. - strict I&Os & start on a HH low sodium diet. IDDMII - Will resume home insulin regimen & get ACHS accuchecks. hypothyroidism - Will resume home synthroid h/o CVA - Will resume home meds CAD s/p CABG x2 - Will resume home meds HLD - Will resume home meds GERD - Will resume home meds HTN - restart home meds - BPs elevated, can consider making hydralazine TID Urinary retention - post void residuals increased, hold oxybutynin, started flomax - straight cath PRN for PVR>200 code: DNAR PCP: Mian ppx: [facility] Dispo: DC to [facility] when available Addendum - Attending - Attending Attestation Date/Time: 08/17/18 9545 I personally evaluated the patient and discussed the management with Dr. Desouza. I agree with the History, Examination, Assessment and Plan documented above with any addition or exceptions noted below. Patient resting comfortably this morning. She is here for extended abx therapy for MDR E. coli UTI and bacteremia. Continues on Meropenem for total 14 day course. Awaiting swing bed placement. PVR improved with Flomax and will continue that. May augment anti HTN meds today. Renal function continues to improve. PT evaluation.
[2018-08-17] MEDS: Aspirin 81 mg Enteric Coated Tablet PO SCH (08:31)
[2018-08-17] MEDS: Gemfibrozil 600 MG TAB PO SCH ×2 (08:32→16:27)
[2018-08-17] MEDS: hydrALAZINE 25 MG TAB PO SCH ×2 (08:32→20:21)
[2018-08-17] MEDS: Gabapentin 300 MG CAP PO SCH ×3 (08:32→20:22)
[2018-08-17] MEDS: Amlodipine 10 MG TAB PO SCH (08:32)
[2018-08-17] MEDS: Tamsulosin HCl 0.4 MG CAP PO SCH (20:22)
[2018-08-17] MEDS: rOPINIRole HCl 1 MG TAB PO SCH (20:22)
[2018-08-18] MEDS: MEROPENEM 1 GM/50 ML 1 GM in Premix Bag 1 BAG IVPB SCH ×2 (03:35→14:49)
[2018-08-18] MEDS: Levothyroxine 150 MCG TAB PO SCH (05:16)
--- NOTE | 2018-08-18 06:18 | PDOC.FM ---
- Subjective Subjective: Overnight, the patient showed a PVR of 440ml, she was straight cathed and had return of 250mls. This morning, patient resting comfortably in bed. No complaints or concerns. - Objective MAR Reviewed: Yes Vital Signs & Weight: Vital Signs (12 hours) Temp Pulse Resp BP BP BP Pulse Ox 08/18/18 03:36 98.4 F 71 16 166/67 H 93 L 08/17/18 23:29 98.4 F 83 16 125/64 97 08/17/18 20:21 72 156/63 H 08/17/18 20:00 95 08/17/18 19:24 98.1 F 72 16 156/63 H 95 Weight Weight 65.136 kg I&O: 08/16/18 08/17/18 08/18/18 06:59 06:59 06:59 Intake Total 590 1850 780 Output Total 1054 4010 3278 Balance -46 -2160 -2668 Result Diagrams: 08/18/18 07:58 08/18/18 07:58 Phys Exam - Physical Examination Constitutional: NAD HEENT: PERRLA, moist MMs, sclera anicteric Neck: full ROM Respiratory: no wheezing Cardiovascular: RRR Gastrointestinal: soft, non-tender, no distention Musculoskeletal: pulses present Neurological: moves all 4 limbs Psychiatric: normal affect Skin: no rash, normal turgor, cap refill <2 seconds Dx/Plan (1) Heart failure with preserved ejection fraction Code(s): I50.30 - UNSPECIFIED DIASTOLIC (CONGESTIVE) HEART FAILURE Status: Acute (2) Acute kidney injury Code(s): N17.9 - ACUTE KIDNEY FAILURE, UNSPECIFIED Status: Acute (3) CKD (chronic kidney disease) stage 3, GFR 30-59 ml/min Code(s): N18.3 - CHRONIC KIDNEY DISEASE, STAGE 3 (MODERATE) Status: Acute (4) Elevated troponin Code(s): R74.8 - ABNORMAL LEVELS OF OTHER SERUM ENZYMES Status: Acute (5) Hx of CABG Status: Acute (6) Labile hypertension Code(s): I10 - ESSENTIAL (PRIMARY) HYPERTENSION Status: Acute (7) Urinary tract infection Status: Acute Qualifiers: Urinary tract infection type: acute cystitis Hematuria presence: without hematuria Qualified Code(s): N30.00 - Acute cystitis without hematuria (8) CAD (coronary artery disease) Code(s): I25.10 - ATHSCL HEART DISEASE OF [place] CORONARY ARTERY W/O ANG PCTRS Status: Chronic (9) DM2 (diabetes mellitus, type 2) Status: Chronic (10) HLD (hyperlipidemia) Code(s): E78.5 - HYPERLIPIDEMIA, UNSPECIFIED Status: Chronic (11) HTN (hypertension) Code(s): I10 - ESSENTIAL (PRIMARY) HYPERTENSION Status: Chronic Qualifiers: Hypertension type: essential hypertension Qualified Code(s): I10 - Essential (primary) hypertension (12) History of CVA (cerebrovascular accident) Code(s): Z86.73 - PRSNL HX OF TIA (TIA), AND CEREB INFRC W/O RESID DEFICITS Status: Chronic - Plan Plan: Sepsis 2/2 ESBL bacteremia Fever, tachycardia, mild leukocytosis and UA suggestive of UTI on admission. - procal downtrending, patient afebrile - BCx resulted ESBL Bacteremia, sensitive to meropenem, continue for a total 14 days; Day 6 of abx - ID consulted appreciate recs ALICIA on CKD3, improved - Cr above baseline and eGFR below baseline per chart review. - improved Elevated troponin - Initial troponin indeterminately elevated but patient denied any chest pain on exam. - Downtrended, monitor on telemetry Anemia of chronic disease - Likely 2/2 CKD. Hgb 9.1 on presentation but has been this low before per chart review. Will continue to monitor closely w/ CBCs and transfuse PRN. HFpEF - EF of 60-65% per latest ECHO done in March of this year. Does not appear to be in acute exacerbation but BNP slightly elevated on presentation at 353. - strict I&Os & start on a HH low sodium diet. IDDMII - Will resume home insulin regimen & get ACHS accuchecks. hypothyroidism - Will resume home synthroid h/o CVA - Will resume home meds CAD s/p CABG x2 - Will resume home meds HLD - Will resume home meds GERD - Will resume home meds HTN - restart home meds - BPs elevated w/ SBP 150-160s, can consider making hydralazine TID Urinary retention - post void residuals increased, hold oxybutynin, started flomax - straight cath PRN for PVR>200; patient was straight cathed overnight with return of 250mls; PVR this AM 178ml; will continue to monitor. code: DNAR PCP: Mian ppx: [facility]enox Dispo: DC to [facility] [address] when available Addendum - Attending - Attending Attestation Date/Time: 08/18/18 1409 I personally evaluated the patient and discussed the management with Dr. Desouza. I agree with the History, Examination, Assessment and Plan documented above with any addition or exceptions noted below. Patient here for Sepsis 2/2 ESBL E. coli bacteremia and UTI now presumed 2/2 urinary retention. She is on Flomax and has had decreases in her postvoid residuals. Continue Flomax for now. Continue meropenem. She is doing well and awaiting swing bed authorization from insurance, plans to go to [facility] for Swing Bed with Dr. Pappas. Continues afebrile and otherwise doing well.
[2018-08-18 08:20] LABS: #Eosinphils 0.2 thou/uL (0.0-0.7); #Lymphocytes 1.8 thou/uL (1.20-3.40); #Monocytes 0.6 thou/uL (0.11-0.59); %Basophils 0.5 % (0.0-1.0); %Eosinophils 3.4 % (0.0-10.0); %Lymphocytes 26.9 % (21.0-51.0); %Monocytes 9.4 % (0.0-10.0); %Neutrophils 59.7 % (42.0-75.0); Hemoglobin 8.5 g/dL (12.0-16.0); Mean Corpuscular HGB CONC 32.9 g/dL (32.0-36.0); Mean Corpuscular Hemoglobin 28.9 pg (27.0-31.0); Mean Corpuscular Volume 87.9 fL (78.0-98.0); Mean Platelet Volume 7.7 fL (7.4-10.4); Platelet Count 416 thou/uL (130-400); RBC Distribution Width 13.7 % (11.5-14.5); Red Blood Cell (RBC) Count 2.93 mill/uL (4.20-5.40); White Blood Cell (WBC) Count 6.6 thou/uL (4.8-10.8)
[2018-08-18] MEDS: Acetaminophen 325 MG TAB PO PRN (08:41)
[2018-08-18 08:43] LABS: Anion Gap 11 mmol/L (10-20); BUN (Urea Nitrogen) 14 mg/dL (9.8-20.1); Calc. Creatinine Clearance 38 mL/min (70-130); Calcium 9.1 mg/dL (7.8-10.44); Carbon Dioxide 26 mmol/L (23-31); Chloride 107 mmol/L (98-107); Estimated GFR-MDRD 38; Glucose 132 mg/dL (83-110); Potassium 4.4 mmol/L (3.5-5.1); Sodium 140 mmol/L (136-145)
[2018-08-18] MEDS: hydrALAZINE 25 MG TAB PO SCH ×2 (08:43→21:53)
[2018-08-18] MEDS: Amlodipine 10 MG TAB PO SCH (08:45)
[2018-08-18] MEDS: Aspirin 81 mg Enteric Coated Tablet PO SCH (08:45)
[2018-08-18] MEDS: Gabapentin 300 MG CAP PO SCH ×3 (08:46→21:53)
[2018-08-18] MEDS: Gemfibrozil 600 MG TAB PO SCH ×2 (08:47→16:24)
[2018-08-18] MEDS: HumaLOG 300 UNITS/3 ML VIAL SC PRN ×2 (14:50→17:08)
[2018-08-18] MEDS: Tamsulosin HCl 0.4 MG CAP PO SCH (21:53)
[2018-08-18] MEDS: rOPINIRole HCl 1 MG TAB PO SCH (21:53)
[2018-08-19] MEDS: MEROPENEM 1 GM/50 ML 1 GM in Premix Bag 1 BAG IVPB SCH ×2 (03:04→15:49)
[2018-08-19 04:52] LABS: #Eosinphils 0.2 thou/uL (0.0-0.7); #Monocytes 0.5 thou/uL (0.11-0.59); #Neutrophils 3.5 thou/uL (1.40-6.50); %Basophils 0.3 % (0.0-1.0); %Eosinophils 3.8 % (0.0-10.0); %Lymphocytes 31.7 % (21.0-51.0); %Monocytes 8.1 % (0.0-10.0); %Neutrophils 56.1 % (42.0-75.0); Mean Corpuscular HGB CONC 32.2 g/dL (32.0-36.0); Mean Corpuscular Volume 90.1 fL (78.0-98.0); Mean Platelet Volume 7.2 fL (7.4-10.4); Platelet Count 470 thou/uL (130-400); RBC Distribution Width 13.7 % (11.5-14.5); White Blood Cell (WBC) Count 6.2 thou/uL (4.8-10.8)
[2018-08-19 04:58] LABS: Anion Gap 10 mmol/L (10-20); BUN (Urea Nitrogen) 13 mg/dL (9.8-20.1); Calc. Creatinine Clearance 36 mL/min (70-130); Calcium 9.3 mg/dL (7.8-10.44); Carbon Dioxide 26 mmol/L (23-31); Chloride 106 mmol/L (98-107); Estimated GFR-MDRD 35; Glucose 154 mg/dL (83-110); Potassium 4.3 mmol/L (3.5-5.1); Sodium 138 mmol/L (136-145)
[2018-08-19] MEDS: Levothyroxine 150 MCG TAB PO SCH (06:00)
--- NOTE | 2018-08-19 06:03 | PDOC.FM ---
- Subjective Subjective: NAEO. Denies issues urinating, fever, chills, abd pain. Fells well. - Objective MAR Reviewed: Yes Vital Signs & Weight: Vital Signs (12 hours) Temp Pulse Resp BP BP Pulse Ox 08/19/18 04:00 97.7 F 73 16 181/80 H 95 08/19/18 00:00 97.6 F 70 16 157/78 H 92 L 08/18/18 21:53 70 146/64 H 08/18/18 20:00 95 08/18/18 19:30 97.8 F 70 16 146/64 H 95 Weight Weight 65.136 kg I&O: 08/17/18 08/18/18 08/19/18 06:59 06:59 06:59 Intake Total 1850 780 670 Output Total 4010 1411 900 Balance -2160 -2498 -230 Result Diagrams: 08/19/18 04:34 08/19/18 04:34 Phys Exam - Physical Examination Constitutional: NAD HEENT: PERRLA, moist MMs Respiratory: no wheezing, clear to auscultation bilateral Cardiovascular: RRR, no significant murmur Gastrointestinal: soft, non-tender, no distention, positive bowel sounds Neurological: non-focal Psychiatric: normal affect, A&O x 3 Dx/Plan (1) Infection due to ESBL-producing Escherichia coli Code(s): A49.8 - OTHER BACTERIAL INFECTIONS OF UNSPECIFIED SITE; Z16.12 - EXTENDED SPECTRUM BETA LACTAMASE (ESBL) RESISTANCE Status: Acute (2) Heart failure with preserved ejection fraction Code(s): I50.30 - UNSPECIFIED DIASTOLIC (CONGESTIVE) HEART FAILURE Status: Acute (3) CKD (chronic kidney disease) stage 3, GFR 30-59 ml/min Code(s): N18.3 - CHRONIC KIDNEY DISEASE, STAGE 3 (MODERATE) Status: Acute (4) Hx of CABG Status: Acute (5) Anemia Code(s): D64.9 - ANEMIA, UNSPECIFIED Status: Chronic (6) CAD (coronary artery disease) Code(s): I25.10 - ATHSCL HEART DISEASE OF [place] CORONARY ARTERY W/O ANG PCTRS Status: Chronic (7) DM2 (diabetes mellitus, type 2) Status: Chronic (8) HLD (hyperlipidemia) Code(s): E78.5 - HYPERLIPIDEMIA, UNSPECIFIED Status: Chronic (9) HTN (hypertension) Code(s): I10 - ESSENTIAL (PRIMARY) HYPERTENSION Status: Chronic Qualifiers: Hypertension type: essential hypertension Qualified Code(s): I10 - Essential (primary) hypertension - Plan Plan: Sepsis 2/2 Pyelonephritis ESBL E.coli bacteremia -On admission had fever, tachycardia, mild leukocytosis and UA suggestive of UTI - Procal downtrending, patient afebrile - BCx resulted ESBL E.coli Bacteremia, sensitive to meropenem, continue for a total 14 days; Day 7 of abx - ID consulted appreciate recs HTN - restart home meds - BPs elevated w/ SBP 150s up to 180s this morning-in hydralazine to TID ALICIA on CKD3, improved & stable - Cr above baseline and eGFR below baseline per chart review. Elevated troponin - Initial troponin indeterminately elevated but patient denied any chest pain on exam. - Downtrended, monitor on telemetry Anemia of chronic disease - Likely 2/2 CKD. Hgb 9.1 on presentation but has been this low before per chart review. Will continue to monitor closely w/ CBCs and transfuse PRN. HFpEF - EF of 60-65% per latest ECHO done in March of this year. Does not appear to be in acute exacerbation but BNP slightly elevated on presentation at 353. - strict I&Os & start on a HH low sodium diet. IDDMII - Will resume home insulin regimen & get ACHS accuchecks. hypothyroidism - Will resume home synthroid h/o CVA - Will resume home meds CAD s/p CABG x2 - Will resume home meds HLD - Will resume home meds GERD - Will resume home meds Urinary retention - post void residuals increased, hold oxybutynin, started flomax - straight cath PRN for PVR>200; patient was straight cathed overnight with return of 250mls; PVR this AM 178ml; will continue to monitor. code: DNAR PCP: Mian ppx: [facility]enox Dispo: Elevated BP- Inc. Hydralazine to 100mg TID. DC to [facility] when available to continue IV meropenem for another week. Addendum - Attending - Attending Attestation Date/Time: 08/19/18 1014 I personally evaluated the patient and discussed the management with Dr. Monet. I agree with the History, Examination, Assessment and Plan documented above with any addition or exceptions noted below. 73 yo F who presented with ESBL bacteremia 2/2 UTI. Now on Meropenem and has PICC line in place. Will plan for transition to SNF as soon as accepted. Voiding on her own this morning and will monitor for any recurrence of retention. Consider teaching straight cath if persistent issue.
[2018-08-19] MEDS: Aspirin 81 mg Enteric Coated Tablet PO SCH (08:59)
[2018-08-19] MEDS: hydrALAZINE 25 MG TAB PO SCH ×2 (09:00→15:49)
[2018-08-19] MEDS: Gabapentin 300 MG CAP PO SCH ×2 (09:00→15:50)
[2018-08-19] MEDS: Amlodipine 10 MG TAB PO SCH (09:00)
[2018-08-19] MEDS: Gemfibrozil 600 MG TAB PO SCH ×2 (09:00→15:54)
--- NOTE | 2018-08-19 09:39 | PQF ---
DATE: 08-19-18 ATTN: DR. ROB LONG Please exercise your independent, professional judgment in responding to the clarification form. Clinical indicators are provided on the bottom of this form for your review Please check appropriate box(s): HEART FAILURE: A. TYPE: [ ] Systolic / HFrEF [ x] Diastolic / HFpEF [ ] Combined Systolic / Diastolic B. ACUITY [ ] Acute [ ] Acute on Chronic [ x ] Chronic [ ] Other diagnosis [ ] Unable to determine In addition, please specify: Present on Admission (POA): [ ] Yes [x ] No [ ] Unable to determine For continuity of documentation, please document condition throughout progress notes and discharge summary. Thank You. CLINICAL INDICATORS - SIGNS / SYMPTOMS / LABS: ER DX: SEPSIS, ELEVATED TROPONIN, UTI H&P: ACUTE DIASTOLIC HEART FAILURE, EF 60-65% PER LATEST ECHO DONE IN MAR OF THIS YR, DOES NOT APPEAR TO BE IN ACUTE EXACERBATION BUT BNP SLIGHTLY ELEVATED ON PRESENTATION AT 353. WILL CONTINUE IVF'S BUT MONITOR CLOSELY FOR SIGNS OF FLUIDS OVERLOAD. WILL GET STRICT I&O'S & START ON A HH LOW SODIUM DIET. PN DR. MERCEDES RIVAS 08-19-18: ACUTE DIASTOLIC HEART FAILURE, EF 60-65% PER LATEST ECHO DONE IN MAR OF THIS YR, DOES NOT APPEAR TO BE IN ACUTE EXACERBATION BUT BNP SLIGHTLY ELEVATED ON PRESENTATION AT 353. WILL CONTINUE IVF'S BUT MONITOR CLOSELY FOR SIGNS OF FLUIDS OVERLOAD. WILL GET STRICT I&O'S & START ON A HH LOW SODIUM DIET. RISKS: H&P: HX DM 2, CAD, S/P STENT PLACEMENT, HFpEF, HYPOTHYROIDISM, ELEVATED TROP, HTN TREATMENTS: PN DR. MERCEDES RIVAS 08-19-18: WILL CONTINUE IVF'S BUT MONITOR CLOSELY FOR SIGNS OF FLUIDS OVERLOAD. WILL GET STRICT I&O'S & START ON A HH LOW SODIUM DIET. (This form is maintained as a part of the permanent medical record) 2015 [employer]. All Rights Reserved [email or web address] Office: [phone] THERESE
--- NOTE | 2018-08-19 09:52 | PQF ---
DATE: 08-19-18 ATTN: DR. MERCEDES RIVAS Please exercise your independent, professional judgment in responding to the clarification form. Clinical indicators are provided on the bottom of this form for your review Please check appropriate box(s): [ ] NSTEMI (WI type I) [ ] NSTEMI due to Demand Ischemia (AMI Type II) [x ] Demand Ischemia without WI [ ] Other diagnosis [ ] Unable to determine In addition, please specify: Present on Admission (POA): [ x ] Yes [ ] No [ ] Unable to determine CLINICAL INDICATORS - SIGNS / SYMPTOMS / LABS: TROPONIN: 08-12-18: 0.078 0.081 0.092 0.062 ER physician documentation: elevated troponin likely type II; H&P: elevated troponin d/t demand ischemia (from upper level/attending) RISKS: H&P: DM2, CAD S/P STENT PLACEMENT, CVA W/ RESIDUAL L SIDED WEAKNESS, GERD, HTN, HLD TREATMENTS: H&P: WILL CONTINUE TO TREND & MONITOR ON TELEMETRY; HOWEVER LEVELS ARE LOWER THAN DURING PREVIOUS HOSPITALIZATIONS PER CHART REVIEW MAR: 08-02-18: ASPIRIN (This form is maintained as a part of the permanent medical record) 2014 [employer]. All Rights Reserved [email or web address] Office: [phone] [facility] CENTERAaron
[2018-08-19] MEDS: HumaLOG 300 UNITS/3 ML VIAL SC PRN (12:54)
[2018-08-19 15:51] VITALS: BP 145/67; TEMP 97.8
--- NOTE | 2018-08-20 11:48 | DIS ---
DATE OF ADMISSION: 08/12/2018 DATE OF DISCHARGE: 08/19/2018 ADMITTING ATTENDING: Anthony Iniguez MD DISCHARGE ATTENDING: Nickolas Berg MD RESIDENT: Tania Monet MD, PGY-1. CONSULTS: 1. Infectious Disease, Dr. Thomas. 2. Physical Therapy. 3. Cardiac rehab. 4. Case management. PROCEDURES AND IMAGIN. Renal ultrasound: Large amount of postvoid bladder volume obtained for acute urinary retention. 2. Placement of PICC line on 06/11/2018. PRIMARY DIAGNOSES: 1. Pyelonephritis with ESBL Escherichia coli bacteremia. 2. Acute kidney injury on chronic kidney disease stage 4. 3. Elevated BNP. 4. Hypoglycemia. SECONDARY DIAGNOSES: 1. Insulin-dependent diabetes mellitus 2. 2. Hypertension. 3. Hypothyroidism. 4. Hyperlipidemia. 5. Gastroesophageal reflux disease. 6. History of cerebrovascular accident with residual left-sided weakness. 7. History of myocardial infarction, status post stent placement x2. 8. Coronary artery disease. 9. Anemia of chronic disease. 10. Heart failure with preserved ejection fraction, EF of 60% to 65% in March 2018. DISCHARGE MEDICATIONS: New medications: 1. Meropenem 1 g IV piggyback b.i.d., finished to completion of date August 29, 2018. 2. Flomax 0.4 mg p.o. at bedtime. 3. Hydralazine 50 mg p.o. q.i.d. Resume home medications: 1. Aspirin 81 mg p.o. daily. 2. Synthroid 150 mcg p.o. daily. 3. Ropinirole 1 mg p.o. at bedtime. 4. Protonix 40 mg p.o. daily. 5. Cozaar 50 mg p.o. b.i.d. 6. Neurontin 300 mg p.o. t.i.d. 7. Potassium chloride 40 mEq p.o. daily. 8. Amlodipine 10 mg p.o. daily. 9. Gemfibrozil 600 mg p.o. b.i.d. before meals. DISCONTINUED MEDICATIONS: 1. Oxybutynin 5 mg p.o. b.i.d. 2. Hydralazine 100 mg p.o. b.i.d. HISTORY OF PRESENT ILLNESS/HOSPITAL COURSE: Ms. Karine Hansen is a 73-year-old female, who was transferred from the [place] ED for sepsis secondary UTI. She was admitted to our service and started on Rocephin. Urine cultures returned showing ESBL E coli likely from pyelonephritis. The patient has had a history of this in prior hospitalizations. Dr. Thomas was thus consulted and she was started on meropenem with placement of temporary PICC line. He recommended treatment for this for 2 weeks pending clinical course. Over the next couple of days, the patient clinically improved. Sepsis resolved and patient resumed back to her baseline. Hospital course was complicated by acute urinary retention. It was thought this was due to oxybutynin initially started for her incontinence. This was discontinued and she was started on Flomax, which has much improved her ability to urinate. She did require straight catheterization a couple of times but on the day of discharge, she was able to urinate with post void residuals <200cc. This will need close followup with the [facility] to make sure she does not continue retaining. It is recommended that she go to outpatient ER followup not only for continued acute urinary retention, but also for her recurrent ESBL E coli infections. Education was had in order to teach patient how to wipe in order to possibly prevent colonization of the genitourinary tract. The patient was transferred to [facility] in order to continue IV antibiotics to be completed on August 29. DISPOSITION: Stable. DISCHARGE INSTRUCTIONS: 1. Location: [facility]. 2. Diet: Heart healthy, carb consistent diet. 3. Activity: As tolerated. 4. Followup: Please follow up with PCP, Dr. Pappas, within the week. Please follow up with Dr. Thomas in the next 1 to 2 weeks. Please follow up with cardiac rehab. Job ID: [id number] [facility]
== END 2018-08-19 16:50 | disposition swing bed (61) | DRG 872 ==
LOC: ERS 00:36 → 2SE 02:14
PROVIDERS: ADMIT Family Medicine; ATTEND Family Medicine
PROC: 02HV33Z Insertion of Infusion Device into Superior Vena Cava, Percutaneous Approach (ICD-10-PCS; principal; 2018-08-16)
PROC: B548ZZA Ultrasonography of Superior Vena Cava, Guidance (ICD-10-PCS; 2018-08-16)
DX: A41.51 Sepsis due to Escherichia coli [E. coli] (principal); I50.32 Chronic diastolic (congestive) heart failure; I69.354 Hemiplegia and hemiparesis following cerebral infarction affecting left non-dominant side; N17.9 Acute kidney failure, unspecified; I13.0 Hypertensive heart and chronic kidney disease with heart failure and stage 1 through stage 4 chronic kidney disease, or unspecified chronic kidney disease; I24.8 Other forms of acute ischemic heart disease; N12 Tubulo-interstitial nephritis, not specified as acute or chronic; N18.4 Chronic kidney disease, stage 4 (severe); Z66 Do not resuscitate; K21.9 Gastro-esophageal reflux disease without esophagitis; I25.10 Atherosclerotic heart disease of native coronary artery without angina pectoris; D63.1 Anemia in chronic kidney disease; E03.9 Hypothyroidism, unspecified; E11.22 Type 2 diabetes mellitus with diabetic chronic kidney disease; R33.9 Retention of urine, unspecified; E11.649 Type 2 diabetes mellitus with hypoglycemia without coma; Z88.6 Allergy status to analgesic agent; Z79.82 Long term (current) use of aspirin; Z79.899 Other long term (current) drug therapy; Z90.710 Acquired absence of both cervix and uterus; Z95.1 Presence of aortocoronary bypass graft; Z87.440 Personal history of urinary (tract) infections; Z79.4 Long term (current) use of insulin; I25.2 Old myocardial infarction
CPT/HCPCS: 36415; 36416; 36569; 76770; 80048; 80053; 84145; 84484; 85025; 93798; A4353; J0360; J0696; J1644; J2185; J2405; J3490

== ENCOUNTER 2019-09-01 01:44 | Observation (INO) | payer MEDICARE ==
--- NOTE | 2019-09-01 02:31 | PDOC.FPRHP ---
- History of Present Illness Chief Complaint: LUE numbness History of Present Illness: 74 yo F with h/o CVA x2 with residual L-sided weakness, CAD s/p CABG, HTN, IDDMII, and CKD IIIb presents for acute onset LUE weakness and numbness. Patient was at usual state of health, took a nap, and awoke at approx 1100 on with LUE numbness and weakness. Symptoms persisted and thus she presented to [place] ED for eval. Since that time, sxs have improved but not completely resolved. Weakness if back to baseline, however still endorses L hand numbness/ tingling. She denies any CP, SOB, palpitations, fever/chills, cough, gait instability, vision changes, HORTON, n/v, urinary sxs. Patient does state she forgot to take her medication on the morning of symptom onset but did the day before. ED Course: Key - Keflex, Novolin, ASA, 1L NS [facility] - Hydralazine IV - Allergies/Adverse Reactions Allergies Allergy/AdvReac Type Severity Reaction Status Date / Time morphine Allergy Verified 09/01/19 06:49 - Home Medications Medication Instructions Recorded Confirmed Type Pantoprazole [Protonix] 40 mg PO DAILY 08/15/17 09/01/19 History Losartan [Cozaar] 50 mg PO BID #60 tab 08/17/17 09/01/19 Rx Amlodipine [Norvasc] 10 mg PO DAILY #0 tab 04/04/18 09/01/19 Rx Gemfibrozil [Lopid] 600 mg PO BIDAC 08/12/18 09/01/19 History Insulin Degludec [Tresiba] 40 unit SQ BID 05/06/19 09/01/19 History Isosorbide Mononitrate 30 mg PO BID 05/06/19 09/01/19 History Aspirin [Ecotrin Low Strength] 81 mg PO DAILY tab 05/09/19 09/01/19 Rx Atorvastatin Calcium [Lipitor] 80 mg PO HS tab 05/09/19 09/01/19 Rx Carvedilol [Coreg] 25 mg PO BID-WM tab 05/09/19 09/01/19 Rx Clopidogrel Bisulfate [Plavix] 75 mg PO DAILY tab 05/09/19 09/01/19 Rx hydrALAZINE [Apresoline] 50 mg PO QID tab 05/09/19 09/01/19 Rx Gabapentin 300 mg PO DAILY 09/01/19 09/01/19 History Levothyroxine Sodium [Synthroid] 175 mcg PO 0600 14 Days #14 tab 09/01/19 Rx rOPINIRole HCl [Ropinirole HCl] 2 mg PO HS 09/01/19 09/01/19 History - History PMHx: Hypothyroidism, HTN, CVA x2 with residual L-sided weakness, IDDMII, CKDIII , GERD, Restless legs, CAD s/p CABG PSHx: CABG 2v, Hyst, R ankle FHx: DM Social: Denies tob, illicits, EtOH. - Review of Systems General: denies: fever/chills, weight/appetite/sleep changes, night sweats, fatigue Eyes: denies: vision changes ENT: reports: rhinorrhea. denies: nasal congestion Respiratory: denies: cough, congestion, shortness of breath Cardiovascular: denies: chest pain, palpitation, edema Gastrointestinal: denies: nausea, vomiting, diarrhea, constipation, abdominal pain, GI bleeding Genitourinary: denies: incontinence, dysuria Skin: denies: rashes Musculoskeletal: denies: pain Neurological: reports: numbness, weakness - Vital signs BP: 208/84 HR: 73 RR: 17 Tmax: 98 Pox: 100% on RA Wt: 66kg - Physical Exam Constitutional: NAD, awake, alert and oriented, well developed HEENT: normocephalic and atraumatic, PERRLA, EOMI, conjunctiva clear, no scleral icterus, grossly normal vision, grossly normal hearing, MMM, oropharynx clear Neck: supple, FROM, trachea midline Chest: other (old, well-healed midline sterotomy scar) Heart: RRR, normal S1/S2, no murmurs/rubs/gallops, pulses present, no edema Lungs: CTAB, no respiratory distress, good air movement, no rales/rhonchi, no wheezing Abdomen: soft, non-tender, bowel sounds present Musculoskeletal: normal structure, normal tone, other (4/5 strenght LUE and LLE , 5/5 strenght RUE and RLE) Neurological: CN II-XII intact, other (Decreased sensation to pinprick of L- hand to wrist, normal sensation RUE, RLE, LLE, and proximal LUE) Skin: no rash/lesions, good turgor Psychiatric: normal mood and affect, good judgment and insight, intact recent and remote memory FMR H&P: Results - EKG Interpretation EKG: NSR, no acute ST or T wave changes, normal intervals, Good R wave progression - no acute finding - Radiology Interpretation CT scan - head Status: pending (Verbal report from ER RESTAURANT HOSTESS - CT Head negative acute finding, CTA Head/neck without acute findings) FMR H&P: A/P - Problem List (1) CKD (chronic kidney disease) Status: Chronic Code(s): N18.9 - CHRONIC KIDNEY DISEASE, UNSPECIFIED Qualifiers: Chronic kidney disease stage: stage 4 (severe) Qualified Code(s): N18.4 - Chronic kidney disease, stage 4 (severe) (2) CVA (cerebral infarction) Status: Suspected Code(s): I63.9 - CEREBRAL INFARCTION, UNSPECIFIED (3) Hx of CABG Status: Chronic (4) CAD (coronary artery disease) Status: Chronic Code(s): I25.10 - ATHSCL HEART DISEASE OF [place] CORONARY ARTERY W/O ANG PCTRS (5) DM2 (diabetes mellitus, type 2) Status: Chronic Qualifiers: Diabetes mellitus remote computer terminal operator insulin use: with half-way use (6) HTN (hypertension) Status: Chronic Code(s): I10 - ESSENTIAL (PRIMARY) HYPERTENSION Qualifiers: Hypertension type: essential hypertension Qualified Code(s): I10 - Essential (primary) hypertension - Plan 74 yo F with h/o CVA x2 with residual L-sided weakness, CAD s/p CABG, HTN, IDDMII, and CKD IIIb presents for acute onset LUE weakness and numbness. #TIA vs CVA - History of CVA x2 with residual LUE and LLE weakness - Current sxs of LUE paresthesia, weakness - weakness resolved but paresethesias still present - CT Head w/o and CTA negative per ER [facility] report negative for acute findings - report pending - Admit to stroke, NIH stroke checks - MRI in AM - FLP/TSH - Permissive HTN <220/110 for first 24-48 hours pending MRI #Asymtomatic Bacteruria - UA with 1+ yeast, 2+ bacteria, >50 WBC, Moderate LE - asx, given Keflex x1 in ED - Will d/c abx - UCx Pending #HTN - Permissive HTN first 24-48hrs or till MRI negative - Holding Home: Coreg, Imdur, Hydralazine, Norvasx, Losartan #IDDMII - Tresiba 40u BID - Hyperglycemic protocol, ACHS accuchecks - A1C #CAD s/p 2v CABG - cont home Atorva 80, Gemfibrozil - Hold HTN meds #CKD IIIb vs IV - GFR 25 - appears recent transition to CKD IV on labs - avoid nephrotoxic medications, cont to monitor #Restless legs - Ronel and Respirdal #GERD - Protonix #Hypothyroidism - levo, check TSH #Anemia - Hb 10.3 - at baseline, likely anemia of chronic disease PCP: Mian Code: DNR IVF: SL Diet: HH VTE: Heparin Disposition/LOS: Admit to stroke obs for CVA vs TIA, MRI pending. Anticipate LOS <48hrs pending results. FMR H&P: Upper Level - Plan Date/Time: 09/01/19 0231 Moraima Pinon DO, have evaluated this patient and agree with findings/plan as outlined by compensation intern resident. Pertinent changes/additions are listed here. 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 She presented to [place] for evaluation this evening because it was still present and transferred here for CVA concern. She reports weakness has resolved to her baseline and sensation has improved although not resolved. She denies other sx and reports medication compliance. VS: 208/84, P73, R17, T98.0, O2100 on RA, Wt 66.7kg PE: Gen: NAD HEENT: Moist MM, no LAD Heart: RRR, no murmurs or extra sounds. Distal pulses 2+ Lungs: CTAB, no wheezing. No increased work of breathing Abd: soft, nontender, BS+, no masses or hernias Ext: no cyanosis or edema Neuro: sensation decreased in R hand but equal in R forearm, strength in UE 5/5 b/l, Strength in LE 4/5 on RLE (baseline from prior CVA per pt), and 5/5 on LLE Skin: no rashes Psych: AOx3 Pertinent Labs/Imaging: Cthead: no acute hemorrhage CTA head/neck: negative for stenosis Hgb: 10.3, MCV 89.1 Cr: 1.96, GFR 25 A/P: CVA vs TIA: -sx onset 10am, out of the window for TPA -CTA head/neck and Cthead neg, will order MRI -bedside swallow eval -PT/OT and post acute care screening -allow for permissive HTN x24h -A1c and FLP to risk stratify -already on ASA and plavix and high int statin at home -place in stroke Normocytic Anemia: -chronic, at baseline CKD4: -at baseline -renally dose meds Asymptomatic Bacteriuria: -s/p Keflex in ED. -will not continue abx d/t no sx present -cx pending CAD s/p stent: -continue home ASA -hold home Imdur at this time d/t permissive HTN -trop neg Dispo: stable, place obs for TIA vs CVA, LOS likely <48h DVT PPx: Heparin GI PPx: home protonix Code status: DNR Addendum - Attending - Attending Attestation Date/Time: 09/01/192116 I personally evaluated the patient and discussed the management with Dr. Hansen I agree with the History, Examination, Assessment and Plan documented above with any addition or exceptions noted below -74 yo F with h/o CVA x2 with residual L-sided weakness, CAD s/p CABG, HTN, IDDMII, and CKD IIIb presents for acute onset LUE weakness and numbness. Patient was at usual state of health, took a nap, and awoke at approx 1100 on 08/30 with LUE numbness and weakness. Symptoms persisted and thus she presented to [place] ED for eval. Since that time , sxs have improved but not completely resolved. Weakness if back to baseline, however still endorses L hand numbness/tingling. She denies any CP, SOB, palpitations, fever/chills, cough, gait instability, vision changes, HORTON, n/v, urinary sxs. Patient does state she forgot to take her medication on the morning of symptom onset but did the day before. PMH/PSH/Med/SH reviewed and agree with resident's documentation. Afebrile VSS Exam repeated by me and agree with resident's findings. MRI- negative. Unlikely TIA. Will d/c home and follow- up with PCP. 2) Hypothyroidism- Synthroid dose adjusted. .
[2019-09-01] MEDS ORDERED: hydrALAZINE 20 MG/ML VIAL ONE (02:32)
[2019-09-01] MEDS ORDERED: Dextrose 50% Abboject 50 ML SYRINGE SLOW IVP PRN (04:44)
[2019-09-01] MEDS ORDERED: hydrALAZINE 20 MG/ML VIAL SLOW IVP PRN (04:44)
[2019-09-01] MEDS ORDERED: HumaLOG 300 UNITS/3 ML VIAL SC PRN ×2 (04:44)
[2019-09-01] MEDS ORDERED: Dextrose 5% in Water 1,000 ML IV PRN (04:44)
[2019-09-01] MEDS ORDERED: Senokot S 8.6-50 MG TAB PO PRN (04:44)
[2019-09-01] MEDS ORDERED: Acetaminophen 325 MG TAB PO PRN (04:44)
[2019-09-01] MEDS ORDERED: Calcium Carbonate 500 MG ChewTAB PO PRN (04:44)
[2019-09-01] MEDS ORDERED: Levothyroxine 150 MCG TAB PO SCH (06:00)
[2019-09-01 06:05] LABS: Hemoglobin A1c 9.9 % (4.0-6.0)
[2019-09-01 06:18] LABS: Cardiac Risk 5.2 (Less than 4.5)
[2019-09-01 06:55] VITALS: BMI 24.3
[2019-09-01] MEDS ORDERED: INSULIN DEGLUDEC 40 UNIT SQ SCH (09:00)
[2019-09-01] MEDS ORDERED: Gabapentin 300 MG CAP PO SCH (09:00)
[2019-09-01] MEDS ORDERED: Aspirin 81 mg Enteric Coated Tablet PO SCH (09:00)
[2019-09-01] MEDS ORDERED: Prevnar 13-Val Conj/PF 0.5 ML SYRINGE IM ONE (09:00)
[2019-09-01] MEDS ORDERED: Pantoprazole 40 MG GRANULES PACKET PO SCH (09:00)
[2019-09-01] MEDS ORDERED: Insulin Glargine 40 UNITS in Pre-Filled Syringe 1 EACH SC SCH (09:00)
[2019-09-01] MEDS ORDERED: Clopidogrel Bisulfate 75 MG TAB PO SCH (09:00)
[2019-09-01] MEDS: Gemfibrozil 600 MG TAB PO SCH ×2 (09:27→14:40)
[2019-09-01] MEDS: Heparin 5,000 UNITS/ML VIAL SC SCH ×2 (09:27→14:41)
--- NOTE | 2019-09-01 10:55 | MRI ---
MRI BRAIN WITHOUT CONTRAST: HISTORY: TIA. New-onset left-sided weakness. COMPARISON: MRI of 04/04/2018. CORRELATION: CT scan from previous day. FINDINGS: Old infarcts are seen in the left cerebellar hemisphere, right cerebral peduncle in the right side of the chelly. Multiple foci of T2 prolongation are seen in the periventricular white matter consistent with chronic small-vessel ischemic disease. The ventricular size is appropriate and the basilar cist erns patent. No restricted diffusion is seen. No evidence of acute infarction, hemorrhage, midline shift, or abnor mal extraaxial fluid collections is seen. IMPRESSION: No acute process. POS: [facility]
[2019-09-01] MEDS ORDERED: Amlodipine 10 MG TAB PO SCH (14:45)
[2019-09-01 15:44] VITALS: BP 161/72; TEMP 98
[2019-09-01] MEDS ORDERED: hydrALAZINE 25 MG TAB PO SCH (17:00)
[2019-09-01] MEDS ORDERED: Carvedilol 25 MG TAB PO SCH (17:00)
[2019-09-01] MEDS ORDERED: Atorvastatin Calcium 40 MG TAB PO SCH (21:00)
[2019-09-01] MEDS ORDERED: Losartan 25 MG TAB PO SCH (21:00)
[2019-09-01] MEDS ORDERED: rOPINIRole HCl 2 MG TAB PO SCH (21:00)
[2019-09-02] MEDS ORDERED: Levothyroxine 175 MCG TAB PO SCH (06:00)
[2019-09-02] MEDS ORDERED: Amlodipine 10 MG TAB PO SCH (09:00)
--- NOTE | 2019-09-02 10:02 | DIS ---
DATE OF ADMISSION: 09/01/2019 DATE OF DISCHARGE: 09/01/2019 ADMITTING ATTENDING: Nickolas Berg MD. DISCHARGE ATTENDING: Teresita Covington MD. RESIDENT: Ildefonso Hansen DO. CONSULTS: None. PROCEDURES: None. IMAGIN. CT head 08/31/2019. Impression: No acute findings. 2. MRI brain 09/01/2019. Impression: Old infarcts seen in left cerebellar hemisphere and right cerebral peduncle in the right-sided chelly. No acute process noted. 3. Echocardiogram 09/01/2019. Impression: Ejection fraction 60% to 65%, grade 1/3 diastolic dysfunction, sigmoid-shaped septum without hemodynamically significant left ventricular outflow obstruction. PRIMARY DIAGNOSES: 1. Peripheral neuropathy. 2. History of cerebrovascular accident. 3. Medication noncompliance. SECONDARY DIAGNOSES: 1. Uncontrolled insulin-dependent diabetes mellitus. 2. Hypothyroidism. 3. Hypertension. 4. Asymptomatic bacteriuria. DISCHARGE MEDICATIONS: 1. Protonix 40 mg daily. 2. Cozaar 50 mg b.i.d. 3. Norvasc 10 mg daily. 4. Gemfibrozil 600 mg b.i.d. 5. Isosorbide mononitrate 30 mg b.i.d. 6. Tresiba 40 units subcu b.i.d. 7. Ecotrin 81 mg daily. 8. Atorvastatin 80 mg at bedtime. 9. Carvedilol 25 mg b.i.d. 10. Clopidogrel 75 mg daily. 11. Hydralazine 50 mg q.i.d. 12. Levothyroxine 175 mcg daily. 13. Ropinirole 2 mg at bedtime. 14. Gabapentin 300 mg daily. DISCONTINUED MEDICATION: Levothyroxine 150 mcg daily HISTORY OF PRESENT ILLNESS AND HOSPITAL COURSE: A 74-year-old female with a history of CVA x2 with residual left-sided right upper and right lower extremity weakness, presented to the emergency department with complaints of acute onset of left upper extremity weakness and numbness that started earlier in the day. Patient presented to an outside emergency department and had an initial evaluation that included a head CT that was negative for any acute findings. The patient was subsequently transferred to [facility] for further workup and evaluation. At time of arrival to our hospital, patient stated that her weakness in the left upper extremity had resolved and only residual dullness to touch of the left arm remained. The patient was admitted to the stroke floor for neuro checks and further workup. The following day, the patient stated that her numbness had only remained minimally in the ventral aspect of the left hand. Her strength in her left upper extremity was back to her baseline deficits. Fasting lipid panel was performed, which showed good control. A1c was 9.9, discussion with patient's PCP, Dr. Pappas notes the patient was often noncompliant with her medications, which has made control of her diabetes difficult. Her TSH was elevated at 6. We increased her levothyroxine to 175 mcg. I discussed with the patient the appropriate way to take her levothyroxine to improve her hypothyroidism control. I suspect that this has been made difficult with her medication noncompliance as well. MRI was performed, which showed old infarcts, but no acute process. Due to the patient's hyperresolution of symptoms and only minimal continued sensory deficit, it was presumed that the patient was likely experiencing some form of peripheral neuropathy, whether it be compression or metabolic in nature from her uncontrolled diabetes. These findings were discussed with the patient prior to discharge and we encouraged her to follow up with her primary care doctor to better control her chronic medical conditions. DISCHARGE INSTRUCTIONS: Location: Home. Diet: Diabetes, heart healthy. Activity: As tolerated. Followup: PCP Dr. Pappas within 7 days. Job ID: [id number]
== END 2019-09-01 17:30 | disposition home or self-care (01) ==
LOC: ERS 01:44 → 2SE 03:55
PROVIDERS: ADMIT Family Medicine; ATTEND Family Medicine
DX: E11.42 Type 2 diabetes mellitus with diabetic polyneuropathy (principal); I69.354 Hemiplegia and hemiparesis following cerebral infarction affecting left non-dominant side; I12.9 Hypertensive chronic kidney disease with stage 1 through stage 4 chronic kidney disease, or unspecified chronic kidney disease; E11.22 Type 2 diabetes mellitus with diabetic chronic kidney disease; N18.4 Chronic kidney disease, stage 4 (severe); D63.1 Anemia in chronic kidney disease; E03.9 Hypothyroidism, unspecified; R82.71 Bacteriuria; I25.10 Atherosclerotic heart disease of native coronary artery without angina pectoris; K21.9 Gastro-esophageal reflux disease without esophagitis; G25.81 Restless legs syndrome; I25.2 Old myocardial infarction; F32.9 Major depressive disorder, single episode, unspecified; Z79.02 Long term (current) use of antithrombotics/antiplatelets; Z79.4 Long term (current) use of insulin; Z79.82 Long term (current) use of aspirin; Z79.899 Other long term (current) drug therapy; Z88.5 Allergy status to narcotic agent; Z91.14 Patient's other noncompliance with medication regimen; Z95.1 Presence of aortocoronary bypass graft
CPT/HCPCS: 70551; 80061; 82962; 83036; 84443; 93306; 96374; 97116; 97139 ×2; 97535; 99284; G0378 ×2; 36415; 36416; J0360; J1644; J1815

== ENCOUNTER 2021-09-14 17:13 | Inpatient (IN) | payer OTHER ==
[2021-09-14 18:46] LABS: #Lymphocytes 1.3 thou/uL (1.20-3.40); #Monocytes 0.5 thou/uL (0.11-0.59); #Neutrophils 11.3 thou/uL (1.40-6.50); %Basophils 0.2 % (0.0-1.0); %Eosinophils 0.2 % (0.0-10.0); %Lymphocytes 9.7 % (21.0-51.0); %Monocytes 3.5 % (0.0-10.0); %Neutrophils 86.3 % (42.0-75.0); Hemoglobin 8.6 g/dL (12.0-16.0); Mean Corpuscular HGB CONC 31.8 g/dL (32.0-36.0); Mean Corpuscular Hemoglobin 30.1 pg (27.0-31.0); Mean Corpuscular Volume 94.9 fL (78.0-98.0); Mean Platelet Volume 8.5 fL (7.4-10.4); Platelet Count 229 thou/uL (130-400); RBC Distribution Width 12.2 % (11.5-14.5); Red Blood Cell (RBC) Count 2.84 mill/uL (4.20-5.40); White Blood Cell (WBC) Count 13.1 thou/uL (4.8-10.8)
[2021-09-14 19:08] LABS: ALT (SGPT) 7 U/L (8-55); AST (SGOT) 16 U/L (5-34); Albumin 2.9 g/dL (3.4-4.8); Alkaline Phosphatase 87 U/L (40-110); Anion Gap 16 mmol/L (10-20); BUN (Urea Nitrogen) 54 mg/dL (9.8-20.1); Bilirubin, Total 0.7 mg/dL (0.2-1.2); Calc. Creatinine Clearance 0 mL/min (70-130); Calcium 8.7 mg/dL (7.8-10.44); Carbon Dioxide 20 mmol/L (23-31); Chloride 98 mmol/L (98-107); Estimated GFR 12; Globulin 3.9 g/dL (2.4-3.5); Potassium 4.7 mmol/L (3.5-5.1); Protein, Total 6.8 g/dL (5.8-8.1); Sodium 129 mmol/L (136-145)
[2021-09-14 19:12] LABS: Glucose 585 mg/dL (83-110)
[2021-09-14 20:39] LABS: SARS-CoV-2 NAA Rapid Test Not Detected (NotDetected)
[2021-09-14] MEDS ORDERED: cefTRIAXone\\ROCEPHIN 1 GM VIAL ONE (20:44)
[2021-09-14 22:47] LABS: Bacteria/HPF 4+ HPF (None Seen); Bilirubin Negative (Negative); Blood, Urine Trace (Negative); Clarity Turbid (Clear); Glucose, Urine (Dipstick) >=1000 mg/dL (Negative); Ketone, Urine Negative (Negative); Leukocyte 500 Leu/uL (Negative); Nitrite Negative (Negative); Protein, Urine (Dipstick) 300 mg/dL (Neg-Trace); RBC/HPF 0-3 HPF (0-3); Renal Epithelial 0-3 HPF (None Seen); Specific Gravity, Urine 1.012 (1.002-1.036); Squamous Epithelial 0-3 HPF (0-3); Urobilinogen Normal mg/dL (Less than 2); WBC/HPF Greater than 50 HPF (0-3); pH, Urine 7.5 (5.0-9.0)
[2021-09-14] MEDS ORDERED: Sodium Chloride 0.9% 1,000 ML IV SCH (23:45)
[2021-09-14] MEDS ORDERED: Dextrose 5% in Water 1,000 ML IV PRN (23:48)
[2021-09-14] MEDS ORDERED: Dextrose 50% Abboject 50 ML SYRINGE SLOW IVP PRN (23:48)
[2021-09-15] MEDS ORDERED: rOPINIRole HCl 2 MG TAB PO SCH ×2 (01:00→21:00)
[2021-09-15 01:05] VITALS: BMI 22.4
[2021-09-15] MEDS ORDERED: rOPINIRole HCl 1 MG TAB PO SCH (01:30)
[2021-09-15] MEDS: HumaLOG 300 UNITS/3 ML VIAL SC PRN ×5 (01:41→21:10)
[2021-09-15] MEDS ORDERED: Cefepime 1 GM in Sodium Chloride 0.9% 100 ML IVPB SCH (02:00)
[2021-09-15] MEDS: Levothyroxine 175 MCG TAB PO SCH (06:01)
[2021-09-15 06:24] LABS: #Eosinphils 0.1 thou/uL (0.0-0.7); #Lymphocytes 1.5 thou/uL (1.20-3.40); #Monocytes 0.7 thou/uL (0.11-0.59); #Neutrophils 7.9 thou/uL (1.40-6.50); %Basophils 0.2 % (0.0-1.0); %Eosinophils 0.7 % (0.0-10.0); %Lymphocytes 14.6 % (21.0-51.0); %Monocytes 7.1 % (0.0-10.0); %Neutrophils 77.4 % (42.0-75.0); Hemoglobin 7.6 g/dL (12.0-16.0); Mean Corpuscular HGB CONC 31.9 g/dL (32.0-36.0); Mean Platelet Volume 8.4 fL (7.4-10.4); Platelet Count 221 thou/uL (130-400); RBC Distribution Width 12.2 % (11.5-14.5); Red Blood Cell (RBC) Count 2.55 mill/uL (4.20-5.40); White Blood Cell (WBC) Count 10.2 thou/uL (4.8-10.8)
[2021-09-15 06:49] LABS: Anion Gap 14 mmol/L (10-20); BUN (Urea Nitrogen) 52 mg/dL (9.8-20.1); Calc. Creatinine Clearance 13 mL/min (70-130); Calcium 8.3 mg/dL (7.8-10.44); Carbon Dioxide 19 mmol/L (23-31); Chloride 106 mmol/L (98-107); Estimated GFR 15; Glucose 212 mg/dL (83-110); Potassium 3.9 mmol/L (3.5-5.1); Sodium 135 mmol/L (136-145)
[2021-09-15] MEDS: Carvedilol 25 MG TAB PO SCH ×2 (10:38→16:26)
[2021-09-15] MEDS: Clopidogrel Bisulfate 75 MG TAB PO SCH (10:38)
[2021-09-15] MEDS: Losartan 25 MG TAB PO SCH (10:39)
[2021-09-15] MEDS: Insulin Glargine 30 UNITS/0.3 ML VIAL SC SCH (10:44)
[2021-09-15] MEDS: Potassium Chloride 20 MEQ TAB PO SCH (10:44)
[2021-09-15] MEDS ORDERED: hydrALAZINE 20 MG/ML VIAL SLOW IVP PRN (13:26)
[2021-09-15] MEDS: rOPINIRole HCl 1 MG TAB PO SCH (21:06)
[2021-09-15] MEDS: Atorvastatin Calcium 40 MG TAB PO SCH (21:07)
[2021-09-16] MEDS: Levothyroxine 175 MCG TAB PO SCH (06:06)
[2021-09-16] MEDS: HumaLOG 300 UNITS/3 ML VIAL SC PRN ×3 (06:07→20:21)
[2021-09-16 07:09] LABS: Anion Gap 11 mmol/L (10-20); BUN (Urea Nitrogen) 42 mg/dL (9.8-20.1); Calc. Creatinine Clearance 14 mL/min (70-130); Calcium 8.6 mg/dL (7.8-10.44); Carbon Dioxide 20 mmol/L (23-31); Chloride 107 mmol/L (98-107); Estimated GFR 16; Glucose 285 mg/dL (83-110); Potassium 3.9 mmol/L (3.5-5.1); Sodium 134 mmol/L (136-145)
[2021-09-16 08:28] LABS: #Eosinphils 0.2 thou/uL (0.0-0.7); #Lymphocytes 1.9 thou/uL (1.20-3.40); #Monocytes 0.8 thou/uL (0.11-0.59); #Neutrophils 4.7 thou/uL (1.40-6.50); %Basophils 0.3 % (0.0-1.0); %Eosinophils 2.2 % (0.0-10.0); %Lymphocytes 24.8 % (21.0-51.0); %Monocytes 10.6 % (0.0-10.0); %Neutrophils 62.1 % (42.0-75.0); Hemoglobin 7.8 g/dL (12.0-16.0); Mean Corpuscular HGB CONC 32.3 g/dL (32.0-36.0); Mean Corpuscular Hemoglobin 30.3 pg (27.0-31.0); Mean Corpuscular Volume 93.8 fL (78.0-98.0); Mean Platelet Volume 8.7 fL (7.4-10.4); Platelet Count 243 thou/uL (130-400); RBC Distribution Width 12.2 % (11.5-14.5); Red Blood Cell (RBC) Count 2.56 mill/uL (4.20-5.40); White Blood Cell (WBC) Count 7.6 thou/uL (4.8-10.8)
[2021-09-16] MEDS ORDERED: Cefepime 0.5 GM, Admixture Fee 1 EACH in Sodium Chloride 0.9% 100 ML IVPB SCH (09:00)
[2021-09-16] MEDS ORDERED: Fluconazole 100 MG TAB PO SCH (09:00)
[2021-09-16] MEDS: metroNIDAZOLE 500 MG TAB PO SCH ×2 (09:04→20:21)
[2021-09-16] MEDS: Carvedilol 25 MG TAB PO SCH ×2 (09:04→17:16)
[2021-09-16] MEDS: Losartan 25 MG TAB PO SCH (09:04)
[2021-09-16] MEDS: Clopidogrel Bisulfate 75 MG TAB PO SCH (09:04)
[2021-09-16] MEDS: Potassium Chloride 20 MEQ TAB PO SCH (09:05)
[2021-09-16] MEDS: Insulin Glargine 30 UNITS/0.3 ML VIAL SC SCH (09:05)
[2021-09-16] MEDS ORDERED: Insulin Glargine 30 UNITS/0.3 ML VIAL SC SCH (11:30)
[2021-09-16] MEDS ORDERED: NIFEdipine XL 30 MG TAB PO SCH (11:45)
[2021-09-16] MEDS: rOPINIRole HCl 1 MG TAB PO SCH (20:20)
[2021-09-16] MEDS: Atorvastatin Calcium 40 MG TAB PO SCH (20:20)
[2021-09-17] MEDS: Levothyroxine 175 MCG TAB PO SCH (05:19)
[2021-09-17] MEDS: HumaLOG 300 UNITS/3 ML VIAL SC PRN ×2 (05:19→13:01)
[2021-09-17 06:50] LABS: #Eosinphils 0.1 thou/uL (0.0-0.7); #Lymphocytes 2.4 thou/uL (1.20-3.40); #Monocytes 0.7 thou/uL (0.11-0.59); #Neutrophils 4.6 thou/uL (1.40-6.50); %Basophils 0.6 % (0.0-1.0); %Eosinophils 1.7 % (0.0-10.0); %Lymphocytes 30.6 % (21.0-51.0); %Monocytes 8.3 % (0.0-10.0); %Neutrophils 58.9 % (42.0-75.0); Hemoglobin 8.3 g/dL (12.0-16.0); Mean Corpuscular HGB CONC 31.8 g/dL (32.0-36.0); Mean Corpuscular Hemoglobin 29.9 pg (27.0-31.0); Mean Platelet Volume 7.7 fL (7.4-10.4); Platelet Count 316 thou/uL (130-400); RBC Distribution Width 12.1 % (11.5-14.5); Red Blood Cell (RBC) Count 2.78 mill/uL (4.20-5.40); White Blood Cell (WBC) Count 7.8 thou/uL (4.8-10.8)
[2021-09-17 07:08] LABS: Anion Gap 14 mmol/L (10-20); BUN (Urea Nitrogen) 36 mg/dL (9.8-20.1); Calc. Creatinine Clearance 15 mL/min (70-130); Calcium 8.7 mg/dL (7.8-10.44); Carbon Dioxide 19 mmol/L (23-31); Chloride 109 mmol/L (98-107); Estimated GFR 17; Glucose 154 mg/dL (83-110); Potassium 3.7 mmol/L (3.5-5.1); Sodium 138 mmol/L (136-145)
[2021-09-17] MEDS ORDERED: Polyethylene Glycol 3350 17 GM Packet PO PRN (07:33)
[2021-09-17] MEDS ORDERED: HumuLIN 70/30 (300 UNITS/3 ML VIAL) SC SCH (08:00)
[2021-09-17] MEDS ORDERED: Cefepime 1 GM VIAL IVPB SCH (09:00)
[2021-09-17] MEDS ORDERED: NIFEdipine XL 30 MG TAB PO SCH (09:00)
[2021-09-17] MEDS ORDERED: Insulin Glargine 30 UNITS/0.3 ML VIAL SC SCH (09:00)
[2021-09-17] MEDS: metroNIDAZOLE 500 MG TAB PO SCH (09:02)
[2021-09-17] MEDS: Carvedilol 25 MG TAB PO SCH (09:03)
[2021-09-17] MEDS: Potassium Chloride 20 MEQ TAB PO SCH (09:03)
[2021-09-17] MEDS: Clopidogrel Bisulfate 75 MG TAB PO SCH (09:03)
[2021-09-17] MEDS: Losartan 25 MG TAB PO SCH (09:03)
[2021-09-17 13:06] VITALS: BP 109/61; TEMP 97.9
== END 2021-09-17 14:54 | disposition home health service (06) | DRG 699 ==
LOC: ERS 17:13 → T4-B 23:35
PROVIDERS: ADMIT Student in an Organized Health Care Education/Training Program; ATTEND Emergency Medicine
DX: N13.9 Obstructive and reflux uropathy, unspecified (principal); Z66 Do not resuscitate; Z20.822 Contact with and (suspected) exposure to COVID-19; E87.1 Hypo-osmolality and hyponatremia; N17.9 Acute kidney failure, unspecified; I50.32 Chronic diastolic (congestive) heart failure; I13.2 Hypertensive heart and chronic kidney disease with heart failure and with stage 5 chronic kidney disease, or end stage renal disease; N18.5 Chronic kidney disease, stage 5; N30.01 Acute cystitis with hematuria; E11.22 Type 2 diabetes mellitus with diabetic chronic kidney disease; I25.10 Atherosclerotic heart disease of native coronary artery without angina pectoris; G25.81 Restless legs syndrome; E03.9 Hypothyroidism, unspecified; E78.5 Hyperlipidemia, unspecified; F32.A Depression, unspecified; G47.00 Insomnia, unspecified; E11.65 Type 2 diabetes mellitus with hyperglycemia; I25.2 Old myocardial infarction; D63.1 Anemia in chronic kidney disease; B37.3 Candidiasis of vulva and vagina; K59.00 Constipation, unspecified; Z95.1 Presence of aortocoronary bypass graft; Z87.440 Personal history of urinary (tract) infections; Z86.73 Personal history of transient ischemic attack (TIA), and cerebral infarction without residual deficits; Z88.5 Allergy status to narcotic agent; Z79.899 Other long term (current) drug therapy; Z79.890 Hormone replacement therapy; Z79.82 Long term (current) use of aspirin; Z79.02 Long term (current) use of antithrombotics/antiplatelets; Z79.4 Long term (current) use of insulin; Z98.49 Cataract extraction status, unspecified eye; Z90.710 Acquired absence of both cervix and uterus; Z83.49 Family history of other endocrine, nutritional and metabolic diseases; Z82.49 Family history of ischemic heart disease and other diseases of the circulatory system
CPT/HCPCS: 36415; 36416; 51701; 71045; 74176; 74230; 76770; 80048; 80053; 81003; 81015; 83605; 85025; 87040; 87086; 87480; 87510; 87660; 96365; J0692; J0696; J1815; J3490; J7050

== ENCOUNTER 2021-12-06 22:51 | Inpatient (IN) | payer OTHER ==
[2021-12-07 00:25] LABS: #Eosinphils 0.2 thou/uL (0.0-0.7); #Monocytes 0.3 thou/uL (0.11-0.59); #Neutrophils 2.7 thou/uL (1.40-6.50); %Basophils 0.6 % (0.0-1.0); %Eosinophils 3.8 % (0.0-10.0); %Lymphocytes 38.2 % (21.0-51.0); %Monocytes 5.8 % (0.0-10.0); %Neutrophils 51.5 % (42.0-75.0); Hemoglobin 9.1 g/dL (12.0-16.0); Mean Corpuscular HGB CONC 32.4 g/dL (32.0-36.0); Mean Corpuscular Hemoglobin 28.9 pg (27.0-31.0); Mean Corpuscular Volume 89.3 fL (78.0-98.0); Mean Platelet Volume 8.5 fL (7.4-10.4); Platelet Count 224 thou/uL (130-400); RBC Distribution Width 13.3 % (11.5-14.5); Red Blood Cell (RBC) Count 3.16 mill/uL (4.20-5.40); White Blood Cell (WBC) Count 5.2 thou/uL (4.8-10.8)
[2021-12-07 00:37] LABS: INR-International Normal Ratio 1.2; Prothrombin Time 14.9 sec (12.0-14.7)
[2021-12-07 00:38] LABS: PTT 36.7 sec (22.9-36.1)
[2021-12-07 00:48] LABS: ALT (SGPT) 10 U/L (8-55); AST (SGOT) 13 U/L (5-34); Albumin 3.3 g/dL (3.4-4.8); Alkaline Phosphatase 75 U/L (40-110); Anion Gap 12 mmol/L (10-20); BUN (Urea Nitrogen) 31 mg/dL (9.8-20.1); Bilirubin, Total 0.3 mg/dL (0.2-1.2); Calc. Creatinine Clearance 0 mL/min (70-130); Carbon Dioxide 24 mmol/L (23-31); Chloride 109 mmol/L (98-107); Estimated GFR 17; Globulin 3.6 g/dL (2.4-3.5); Glucose 142 mg/dL (83-110); Potassium 4.7 mmol/L (3.5-5.1); Protein, Total 6.9 g/dL (5.8-8.1); Sodium 140 mmol/L (136-145)
[2021-12-07 01:11] LABS: CKMB 2.7 ng/mL (0-6.6)
[2021-12-07] MEDS ORDERED: Ondansetron ODT 4 MG TAB PO PRN (02:06)
[2021-12-07] MEDS ORDERED: Acetaminophen 325 MG TAB PO PRN (02:06)
[2021-12-07 02:39] VITALS: BMI 23.0
[2021-12-07] MEDS ORDERED: Lactated Ringer's 500 ML IV SCH (02:45)
[2021-12-07] MEDS ORDERED: Aspirin Chewable 81 MG TAB ONE (03:43)
[2021-12-07 04:16] LABS: #Basophils 0.1 thou/uL (0.0-0.2); #Eosinphils 0.2 thou/uL (0.0-0.7); #Lymphocytes 2.3 thou/uL (1.20-3.40); #Monocytes 0.4 thou/uL (0.11-0.59); #Neutrophils 2.1 thou/uL (1.40-6.50); %Basophils 1.1 % (0.0-1.0); %Eosinophils 4.6 % (0.0-10.0); %Lymphocytes 44.9 % (21.0-51.0); %Monocytes 7.5 % (0.0-10.0); %Neutrophils 41.9 % (42.0-75.0); Hemoglobin 9.2 g/dL (12.0-16.0); Mean Corpuscular HGB CONC 33.7 g/dL (32.0-36.0); Mean Corpuscular Hemoglobin 30.5 pg (27.0-31.0); Mean Corpuscular Volume 90.4 fL (78.0-98.0); Mean Platelet Volume 8.5 fL (7.4-10.4); Platelet Count 221 thou/uL (130-400); RBC Distribution Width 13.2 % (11.5-14.5); Red Blood Cell (RBC) Count 3.01 mill/uL (4.20-5.40); White Blood Cell (WBC) Count 5.1 thou/uL (4.8-10.8)
[2021-12-07 04:31] LABS: Anion Gap 14 mmol/L (10-20); BUN (Urea Nitrogen) 29 mg/dL (9.8-20.1); Calc. Creatinine Clearance 17 mL/min (70-130); Calcium 8.9 mg/dL (7.8-10.44); Carbon Dioxide 22 mmol/L (23-31); Chloride 109 mmol/L (98-107); Estimated GFR 18; Glucose 114 mg/dL (83-110); Potassium 4.5 mmol/L (3.5-5.1); Sodium 140 mmol/L (136-145)
[2021-12-07] MEDS ORDERED: Dextrose 50% Abboject 50 ML SYRINGE SLOW IVP PRN (06:00)
[2021-12-07] MEDS ORDERED: Dextrose 5% in Water 1,000 ML IV PRN (06:00)
[2021-12-07] MEDS ORDERED: HumaLOG 300 UNITS/3 ML VIAL SC PRN ×2 (06:00→06:08)
[2021-12-07] MEDS: Levothyroxine 175 MCG TAB PO SCH (06:29)
[2021-12-07 07:42] LABS: SARS-CoV-2 NAA Rapid Test Not Detected (NotDetected)
[2021-12-07] MEDS ORDERED: Aspirin 81 mg Enteric Coated Tablet ONE (09:30)
[2021-12-07] MEDS ORDERED: hydrALAZINE 25 MG TAB ONE (09:31)
[2021-12-07] MEDS ORDERED: Clopidogrel Bisulfate 75 MG TAB ONE (09:31)
[2021-12-07] MEDS: Clopidogrel Bisulfate 75 MG TAB PO SCH (09:37)
[2021-12-07] MEDS: Aspirin 81 mg Enteric Coated Tablet PO SCH (09:37)
[2021-12-07] MEDS: hydrALAZINE 25 MG TAB PO SCH ×3 (09:39→21:17)
[2021-12-07] MEDS: levETIRAcetam 500 MG TAB PO SCH ×2 (09:41→21:17)
[2021-12-07] MEDS: Losartan 25 MG TAB PO SCH (09:44)
[2021-12-07] MEDS: Insulin Glargine 30 UNITS/0.3 ML VIAL SC SCH (09:51)
[2021-12-07] MEDS ORDERED: Lactated Ringer's 1,000 ML IV SCH (12:45)
[2021-12-07] MEDS: rOPINIRole HCl 1 MG TAB PO SCH (21:16)
[2021-12-07] MEDS: Gabapentin 300 MG CAP PO SCH (21:16)
[2021-12-07] MEDS: Atorvastatin Calcium 40 MG TAB PO SCH (21:17)
[2021-12-08] MEDS ORDERED: Losartan 25 MG TAB PO SCH (01:00)
[2021-12-08] MEDS: Levothyroxine 175 MCG TAB PO SCH (06:39)
[2021-12-08 06:45] LABS: #Basophils 0.1 thou/uL (0.0-0.2); #Eosinphils 0.1 thou/uL (0.0-0.7); #Lymphocytes 2.2 thou/uL (1.20-3.40); #Monocytes 0.4 thou/uL (0.11-0.59); %Basophils 1.3 % (0.0-1.0); %Eosinophils 2.4 % (0.0-10.0); %Lymphocytes 46.7 % (21.0-51.0); %Monocytes 7.5 % (0.0-10.0); %Neutrophils 42.1 % (42.0-75.0); Hemoglobin 9.4 g/dL (12.0-16.0); Mean Corpuscular HGB CONC 32.8 g/dL (32.0-36.0); Mean Corpuscular Hemoglobin 29.8 pg (27.0-31.0); Mean Corpuscular Volume 90.8 fL (78.0-98.0); Mean Platelet Volume 8.6 fL (7.4-10.4); Platelet Count 226 thou/uL (130-400); RBC Distribution Width 13.2 % (11.5-14.5); Red Blood Cell (RBC) Count 3.16 mill/uL (4.20-5.40); White Blood Cell (WBC) Count 4.8 thou/uL (4.8-10.8)
[2021-12-08 07:00] LABS: Anion Gap 12 mmol/L (10-20); BUN (Urea Nitrogen) 22 mg/dL (9.8-20.1); Calc. Creatinine Clearance 20 mL/min (70-130); Calcium 8.9 mg/dL (7.8-10.44); Carbon Dioxide 23 mmol/L (23-31); Chloride 109 mmol/L (98-107); Estimated GFR 23; Glucose 117 mg/dL (83-110); Potassium 4.2 mmol/L (3.5-5.1); Sodium 140 mmol/L (136-145)
[2021-12-08] MEDS: Clopidogrel Bisulfate 75 MG TAB PO SCH (08:18)
[2021-12-08] MEDS: hydrALAZINE 25 MG TAB PO SCH ×3 (08:18→21:21)
[2021-12-08] MEDS: Losartan 25 MG TAB PO SCH (08:18)
[2021-12-08] MEDS: Insulin Glargine 30 UNITS/0.3 ML VIAL SC SCH (08:19)
[2021-12-08] MEDS: levETIRAcetam 500 MG TAB PO SCH ×2 (08:19→21:22)
[2021-12-08] MEDS: Aspirin 81 mg Enteric Coated Tablet PO SCH (08:19)
[2021-12-08] MEDS ORDERED: NIFEdipine XL 30 MG TAB PO SCH (13:01)
[2021-12-08] MEDS: Gabapentin 300 MG CAP PO SCH (21:21)
[2021-12-08] MEDS: Atorvastatin Calcium 40 MG TAB PO SCH (21:21)
[2021-12-08] MEDS: rOPINIRole HCl 1 MG TAB PO SCH (21:22)
[2021-12-09] MEDS: Levothyroxine 175 MCG TAB PO SCH (05:27)
[2021-12-09] MEDS: Insulin Glargine 30 UNITS/0.3 ML VIAL SC SCH (08:25)
[2021-12-09] MEDS: hydrALAZINE 25 MG TAB PO SCH ×2 (08:26→16:16)
[2021-12-09] MEDS: levETIRAcetam 500 MG TAB PO SCH (08:26)
[2021-12-09] MEDS: Clopidogrel Bisulfate 75 MG TAB PO SCH (08:27)
[2021-12-09] MEDS: Losartan 25 MG TAB PO SCH (08:27)
[2021-12-09] MEDS: Aspirin 81 mg Enteric Coated Tablet PO SCH (08:28)
[2021-12-09] MEDS ORDERED: NIFEdipine XL 60 MG TAB PO SCH (09:00)
[2021-12-09 16:32] VITALS: BP 117/56; TEMP 97.8
== END 2021-12-09 18:17 | DRG 309 ==
LOC: ERS 22:51 → 2NO 12-07 00:12 → ERHOLD 12-07 00:59 → 2NO 12-07 11:50
PROVIDERS: ADMIT Family Medicine; ATTEND Family Medicine
DX: R00.1 Bradycardia, unspecified (principal); I13.0 Hypertensive heart and chronic kidney disease with heart failure and stage 1 through stage 4 chronic kidney disease, or unspecified chronic kidney disease; N18.4 Chronic kidney disease, stage 4 (severe); I50.32 Chronic diastolic (congestive) heart failure; N17.9 Acute kidney failure, unspecified; I69.954 Hemiplegia and hemiparesis following unspecified cerebrovascular disease affecting left non-dominant side; Z20.822 Contact with and (suspected) exposure to COVID-19; Z66 Do not resuscitate; E03.9 Hypothyroidism, unspecified; E11.22 Type 2 diabetes mellitus with diabetic chronic kidney disease; E78.5 Hyperlipidemia, unspecified; F41.9 Anxiety disorder, unspecified; G47.00 Insomnia, unspecified; G25.81 Restless legs syndrome; K21.9 Gastro-esophageal reflux disease without esophagitis; E11.621 Type 2 diabetes mellitus with foot ulcer; L97.509 Non-pressure chronic ulcer of other part of unspecified foot with unspecified severity; E11.51 Type 2 diabetes mellitus with diabetic peripheral angiopathy without gangrene; T44.7X5A Adverse effect of beta-adrenoreceptor antagonists, initial encounter; I25.2 Old myocardial infarction; Z88.5 Allergy status to narcotic agent; Z79.899 Other long term (current) drug therapy; Z95.1 Presence of aortocoronary bypass graft
CPT/HCPCS: 36415; 36416; 70450; 80048; 80053; 82553; 84443; 84484; 85025; 85610; 85730; 93005; 97139; J1815; J7120; U0002

== ENCOUNTER 2022-01-10 14:33 | Outpatient (CLI) | payer OTHER | END 2022-01-10 14:34 | disposition home or self-care (01) | LOC: SCSMRI 14:33 | PROVIDERS: ATTEND Student in an Organized Health Care Education/Training Program | DX: R42 Dizziness and giddiness (principal); I67.82 Cerebral ischemia; Z86.73 Personal history of transient ischemic attack (TIA), and cerebral infarction without residual deficits | CPT/HCPCS: 70553; 82565 ==

== ENCOUNTER 2022-03-06 20:14 | Observation (INO) | payer OTHER ==
[2022-03-06 22:32] LABS: CKMB 1.8 ng/mL (0-6.6)
[2022-03-06] MEDS ORDERED: Acetaminophen 325 MG TAB PO PRN (22:48)
[2022-03-06] MEDS ORDERED: Ondansetron PF 4 MG/2 ML Vial IVP PRN (22:48)
[2022-03-06] MEDS ORDERED: Ondansetron ODT 4 MG TAB PO PRN (22:48)
[2022-03-06] MEDS ORDERED: hydrALAZINE 25 MG TAB PO SCH (23:15)
[2022-03-06 23:27] VITALS: BMI 22.3
[2022-03-07 00:31] LABS: Troponin I 0.178 ng/mL (< 0.028)
[2022-03-07] MEDS ORDERED: hydrALAZINE 20 MG/ML VIAL SLOW IVP PRN ×2 (02:35→02:39)
[2022-03-07] MEDS ORDERED: Losartan 25 MG TAB PO SCH ×2 (02:45→09:00)
[2022-03-07 05:51] LABS: Troponin I 0.188 ng/mL (< 0.028)
[2022-03-07] MEDS ORDERED: Levothyroxine 175 MCG TAB PO SCH (06:00)
[2022-03-07] MEDS ORDERED: HumaLOG 300 UNITS/3 ML VIAL SC PRN ×2 (06:44)
[2022-03-07] MEDS ORDERED: Dextrose 50% Abboject 50 ML SYRINGE SLOW IVP PRN (06:44)
[2022-03-07] MEDS ORDERED: Dextrose 5% in Water 1,000 ML IV PRN (06:44)
[2022-03-07 07:28] LABS: #Eosinphils 0.1 thou/uL (0.0-0.7); #Lymphocytes 2.1 thou/uL (1.20-3.40); #Monocytes 0.4 thou/uL (0.11-0.59); #Neutrophils 2.3 thou/uL (1.40-6.50); %Basophils 0.8 % (0.0-1.0); %Lymphocytes 42.1 % (21.0-51.0); %Monocytes 7.4 % (0.0-10.0); %Neutrophils 46.7 % (42.0-75.0); Hemoglobin 9.3 g/dL (12.0-16.0); Mean Corpuscular HGB CONC 33.2 g/dL (32.0-36.0); Mean Corpuscular Hemoglobin 30.3 pg (27.0-31.0); Mean Corpuscular Volume 91.3 fl (78.0-98.0); Mean Platelet Volume 10.1 fL (7.4-10.4); Platelet Count 173 10x3/uL (130-400); RBC Distribution Width 13.7 % (11.5-14.5); Red Blood Cell (RBC) Count 3.06 mill/uL (4.20-5.40)
[2022-03-07 07:58] LABS: ALT (SGPT) Less than 7 U/L (8-55); AST (SGOT) 12 U/L (5-34); Albumin 3.4 g/dL (3.4-4.8); Alkaline Phosphatase 71 U/L (40-110); Anion Gap 13 mmol/L (10-20); BUN (Urea Nitrogen) 30 mg/dL (9.8-20.1); Bilirubin, Total 0.4 mg/dL (0.2-1.2); Calc. Creatinine Clearance 22 mL/min (70-130); Calcium 9.1 mg/dL (7.8-10.44); Carbon Dioxide 22 mmol/L (23-31); Chloride 112 mmol/L (98-107); Estimated GFR 26; Globulin 2.7 g/dL (2.4-3.5); Glucose 162 mg/dL (83-110); Potassium 3.9 mmol/L (3.5-5.1); Protein, Total 6.1 g/dL (5.8-8.1); Sodium 143 mmol/L (136-145)
[2022-03-07] MEDS: hydrALAZINE 25 MG TAB PO SCH ×2 (08:44→16:53)
[2022-03-07] MEDS ORDERED: Insulin Glargine 30 UNITS/0.3 ML VIAL SC SCH (09:00)
[2022-03-07] MEDS ORDERED: Sucralfate 1 GM TAB PO SCH (09:00)
[2022-03-07] MEDS ORDERED: Aspirin 81 mg Enteric Coated Tablet PO SCH (09:00)
[2022-03-07] MEDS ORDERED: levETIRAcetam 500 MG TAB PO SCH (09:00)
[2022-03-07] MEDS ORDERED: Enoxaparin Sodium 30 MG/0.3 ML SYRINGE SC SCH (09:00)
[2022-03-07] MEDS ORDERED: NIFEdipine XL 90 MG TAB PO SCH (09:00)
[2022-03-07] MEDS ORDERED: Regadenoson 0.4 MG/5 ML SYRINGE ONE (13:59)
[2022-03-07] MEDS ORDERED: Heparin 5,000 UNITS/ML VIAL SC SCH (15:00)
[2022-03-07 15:27] VITALS: BP 137/65; TEMP 97.6
[2022-03-07] MEDS ORDERED: Haloperidol Lactate 5 MG/ML VIAL IM SCH (17:01)
[2022-03-07] MEDS ORDERED: rOPINIRole HCl 1 MG TAB PO SCH (21:00)
[2022-03-07] MEDS ORDERED: Atorvastatin Calcium 40 MG TAB PO SCH (21:00)
[2022-03-07] MEDS ORDERED: Gabapentin 300 MG CAP PO SCH (21:00)
== END 2022-03-07 18:42 | disposition home or self-care (01) ==
LOC: ERS 20:14 → 2SW 21:13
PROVIDERS: ADMIT Family Medicine; ATTEND Family Medicine
DX: I20.0 Unstable angina (principal); R06.02 Shortness of breath; I12.9 Hypertensive chronic kidney disease with stage 1 through stage 4 chronic kidney disease, or unspecified chronic kidney disease; E11.22 Type 2 diabetes mellitus with diabetic chronic kidney disease; N18.9 Chronic kidney disease, unspecified; N17.9 Acute kidney failure, unspecified; E78.5 Hyperlipidemia, unspecified; Z79.82 Long term (current) use of aspirin; Z79.02 Long term (current) use of antithrombotics/antiplatelets; Z79.4 Long term (current) use of insulin; Z79.899 Other long term (current) drug therapy; Z20.822 Contact with and (suspected) exposure to COVID-19; Z90.710 Acquired absence of both cervix and uterus; Z95.1 Presence of aortocoronary bypass graft
CPT/HCPCS: 78452; 82553; 82962; 84484 ×2; 93005; 93017; 94760; 96372; 99285; A9502; G0378 ×3; U0003; U0005; 36415; 36416; 80053; 84443; 85025; 96375; 96376; J1644; J1650; J1815; J2785

== ENCOUNTER 2022-11-22 22:39 | Inpatient (IN) | payer MEDICARE ==
[2022-11-23] MEDS ORDERED: Acetaminophen 500 MG TAB PO PRN (00:16)
[2022-11-23] MEDS ORDERED: Dextrose 50% Abboject 50 ML SYRINGE SLOW IVP PRN (00:27)
[2022-11-23] MEDS ORDERED: Glucagon 1 MG/ML KIT IM PRN (00:27)
[2022-11-23] MEDS ORDERED: Dextrose 5% in Water 1,000 ML IV PRN (00:27)
[2022-11-23] MEDS ORDERED: HumaLOG 300 UNITS/3 ML VIAL SC PRN (00:27)
[2022-11-23 01:03] LABS: Troponin I 0.512 ng/mL (< 0.028)
[2022-11-23] MEDS: hydrALAZINE 20 MG/ML VIAL SLOW IVP PRN (02:09)
[2022-11-23 04:10] LABS: #Basophils 0.1 thou/uL (0.0-0.2); #Eosinphils 0.1 thou/uL (0.0-0.7); #Monocytes 0.4 thou/uL (0.11-0.59); #Neutrophils 3.1 thou/uL (1.40-6.50); %Basophils 1.3 % (0.0-1.0); %Eosinophils 2.5 % (0.0-10.0); %Lymphocytes 30.1 % (21.0-51.0); %Monocytes 7.6 % (0.0-10.0); %Neutrophils 58.3 % (42.0-75.0); Hematocrit 28.3 % (36.0-47.0); Hemoglobin 8.6 g/dL (12.0-16.0); Mean Corpuscular HGB CONC 30.4 g/dL (32.0-36.0); Mean Corpuscular Hemoglobin 25.4 pg (27.0-31.0); Mean Corpuscular Volume 83.7 fl (78.0-98.0); Mean Platelet Volume 11.3 fL (7.4-10.4); Platelet Count 243 10x3/uL (130-400); RBC Distribution Width 17.1 % (11.5-14.5); Red Blood Cell (RBC) Count 3.38 mill/uL (4.20-5.40); White Blood Cell (WBC) Count 5.3 10x3/uL (4.8-10.8)
[2022-11-23 04:33] LABS: ALT (SGPT) 10 U/L (8-55); AST (SGOT) 17 U/L (5-34); Alkaline Phosphatase 76 U/L (40-110); Anion Gap 10 mmol/L (10-20); BUN (Urea Nitrogen) 30 mg/dL (9.8-20.1); Bilirubin, Total 0.6 mg/dL (0.2-1.2); Calc. Creatinine Clearance 23 mL/min (70-130); Calcium 9.2 mg/dL (7.8-10.44); Carbon Dioxide 26 mmol/L (23-31); Chloride 109 mmol/L (98-107); Estimated GFR 21; Globulin 2.9 g/dL (2.4-3.5); Glucose 92 mg/dL (83-110); Potassium 3.2 mmol/L (3.5-5.1); Protein, Total 5.9 g/dL (5.8-8.1); Sodium 142 mmol/L (136-145)
[2022-11-23] MEDS: Levothyroxine 150 MCG TAB PO SCH (05:47)
[2022-11-23] MEDS ORDERED: Furosemide 40 MG/4 ML VIAL SLOW IVP SCH ×2 (09:00→17:15)
[2022-11-23] MEDS ORDERED: Torsemide 20 MG TAB PO SCH (09:00)
[2022-11-23 09:43] LABS: Magnesium 1.9 mg/dL (1.6-2.6); Phosphorus 3.5 mg/dL (2.3-4.7)
[2022-11-23] MEDS: Potassium Chloride 20 MEQ TAB PO SCH ×2 (09:52→10:16)
[2022-11-23] MEDS: hydrALAZINE 25 MG TAB PO SCH ×3 (09:52→20:34)
[2022-11-23] MEDS: Carvedilol 6.25 MG TAB PO SCH ×2 (09:52→16:38)
[2022-11-23] MEDS: Heparin 5,000 UNITS/ML VIAL SC SCH ×3 (09:52→20:34)
[2022-11-23] MEDS: Insulin Glargine 30 UNITS/0.3 ML VIAL SC SCH ×2 (09:53→20:35)
[2022-11-23] MEDS: Clopidogrel Bisulfate 75 MG TAB PO SCH (09:53)
[2022-11-23] MEDS: Aspirin 81 mg Enteric Coated Tablet PO SCH (09:53)
[2022-11-23] MEDS: Isosorbide Dinitrate 20 MG TAB PO SCH ×2 (09:53→20:34)
[2022-11-23] MEDS: Sucralfate 1 GM TAB PO SCH ×3 (09:53→20:33)
[2022-11-23] MEDS ORDERED: Potassium Bicarbonate/Cit Ac 20 MEQ TAB PO SCH (10:30)
[2022-11-23] MEDS: Potassium Bicarbonate/Cit Ac 20 MEQ TAB PO SCH ×2 (11:24→16:38)
[2022-11-23] MEDS: Polyethylene Glycol 3350 17 GM Packet PO PRN (16:38)
[2022-11-23] MEDS: Gabapentin 300 MG CAP PO SCH (20:32)
[2022-11-23] MEDS: rOPINIRole HCl 2 MG TAB PO SCH (20:33)
[2022-11-23] MEDS: Atorvastatin Calcium 40 MG TAB PO SCH (20:34)
[2022-11-24 04:31] LABS: #Basophils 0.1 thou/uL (0.0-0.2); #Eosinphils 0.1 thou/uL (0.0-0.7); #Monocytes 0.4 thou/uL (0.11-0.59); #Neutrophils 3.1 thou/uL (1.40-6.50); %Basophils 1.3 % (0.0-1.0); %Eosinophils 2.4 % (0.0-10.0); %Lymphocytes 18.9 % (21.0-51.0); %Monocytes 9.7 % (0.0-10.0); %Neutrophils 67.5 % (42.0-75.0); Hematocrit 30.1 % (36.0-47.0); Hemoglobin 8.7 g/dL (12.0-16.0); Mean Corpuscular HGB CONC 28.9 g/dL (32.0-36.0); Mean Corpuscular Hemoglobin 25.1 pg (27.0-31.0); Mean Corpuscular Volume 86.7 fl (78.0-98.0); Mean Platelet Volume 11.6 fL (7.4-10.4); Platelet Count 267 10x3/uL (130-400); RBC Distribution Width 17.7 % (11.5-14.5); Red Blood Cell (RBC) Count 3.47 mill/uL (4.20-5.40); White Blood Cell (WBC) Count 4.6 10x3/uL (4.8-10.8)
[2022-11-24 04:55] LABS: ALT (SGPT) 8 U/L (8-55); AST (SGOT) 12 U/L (5-34); Albumin 2.8 g/dL (3.4-4.8); Alkaline Phosphatase 78 U/L (40-110); Anion Gap 11 mmol/L (10-20); BUN (Urea Nitrogen) 28 mg/dL (9.8-20.1); Bilirubin, Total 0.7 mg/dL (0.2-1.2); Calc. Creatinine Clearance 18 mL/min (70-130); Calcium 8.8 mg/dL (7.8-10.44); Carbon Dioxide 29 mmol/L (23-31); Chloride 106 mmol/L (98-107); Estimated GFR 19; Glucose 71 mg/dL (83-110); Potassium 3.5 mmol/L (3.5-5.1); Protein, Total 5.8 g/dL (5.8-8.1); Sodium 142 mmol/L (136-145)
[2022-11-24 05:13] LABS: Burr Cells SLIGHT = 2-5 cells HPF (0-1); CellaVision Operator ID lab.abc; Large Platelets 2.9 % (0-5); Platelet Adequacy Comment Platelets Normal; Poikilocytosis SLIGHT = 6-15 cells HPF (0-5); Polychromasia SLIGHT = 2-3 cells HPF (0-2); Smudge Cells 8.8 %
[2022-11-24] MEDS: Levothyroxine 150 MCG TAB PO SCH (05:13)
[2022-11-24] MEDS: Torsemide 20 MG TAB PO SCH ×2 (09:07→14:55)
[2022-11-24] MEDS: Isosorbide Dinitrate 20 MG TAB PO SCH ×2 (09:08→21:47)
[2022-11-24] MEDS: Aspirin 81 mg Enteric Coated Tablet PO SCH (09:08)
[2022-11-24] MEDS: Heparin 5,000 UNITS/ML VIAL SC SCH ×3 (09:08→21:38)
[2022-11-24] MEDS: Clopidogrel Bisulfate 75 MG TAB PO SCH (09:08)
[2022-11-24] MEDS: Carvedilol 6.25 MG TAB PO SCH ×2 (09:08→17:59)
[2022-11-24] MEDS: hydrALAZINE 25 MG TAB PO SCH ×3 (09:08→21:39)
[2022-11-24] MEDS: Sucralfate 1 GM TAB PO SCH ×2 (09:09→21:36)
[2022-11-24] MEDS: Insulin Glargine 30 UNITS/0.3 ML VIAL SC SCH ×2 (09:09→22:02)
[2022-11-24] MEDS: rOPINIRole HCl 2 MG TAB PO SCH (21:36)
[2022-11-24] MEDS: Atorvastatin Calcium 40 MG TAB PO SCH (21:36)
[2022-11-24] MEDS: Gabapentin 300 MG CAP PO SCH (21:40)
[2022-11-24] MEDS ORDERED: Insulin Glargine 30 UNITS/0.3 ML VIAL SC SCH (22:30)
[2022-11-25 05:19] LABS: #Basophils 0.1 thou/uL (0.0-0.2); #Eosinphils 0.1 thou/uL (0.0-0.7); #Monocytes 0.4 thou/uL (0.11-0.59); #Neutrophils 3.1 thou/uL (1.40-6.50); %Eosinophils 2.8 % (0.0-10.0); %Monocytes 8.7 % (0.0-10.0); %Neutrophils 61.5 % (42.0-75.0); Hematocrit 27.6 % (36.0-47.0); Hemoglobin 8.4 g/dL (12.0-16.0); Mean Corpuscular HGB CONC 30.4 g/dL (32.0-36.0); Mean Corpuscular Hemoglobin 25.9 pg (27.0-31.0); Mean Corpuscular Volume 85.2 fl (78.0-98.0); Mean Platelet Volume 10.9 fL (7.4-10.4); Platelet Count 240 10x3/uL (130-400); RBC Distribution Width 17.4 % (11.5-14.5); Red Blood Cell (RBC) Count 3.24 mill/uL (4.20-5.40)
[2022-11-25 05:43] LABS: ALT (SGPT) Less than 7 U/L (8-55); AST (SGOT) 12 U/L (5-34); Albumin 2.8 g/dL (3.4-4.8); Alkaline Phosphatase 81 U/L (40-110); Anion Gap 11 mmol/L (10-20); BUN (Urea Nitrogen) 28 mg/dL (9.8-20.1); Bilirubin, Total 0.4 mg/dL (0.2-1.2); Calc. Creatinine Clearance 16 mL/min (70-130); Calcium 8.6 mg/dL (7.8-10.44); Carbon Dioxide 31 mmol/L (23-31); Chloride 102 mmol/L (98-107); Estimated GFR 18; Globulin 2.8 g/dL (2.4-3.5); Glucose 104 mg/dL (83-110); Potassium 3.5 mmol/L (3.5-5.1); Protein, Total 5.6 g/dL (5.8-8.1); Sodium 140 mmol/L (136-145)
[2022-11-25] MEDS: Levothyroxine 150 MCG TAB PO SCH (06:10)
[2022-11-25] MEDS: Sucralfate 1 GM TAB PO SCH ×2 (09:03→20:17)
[2022-11-25] MEDS: Carvedilol 6.25 MG TAB PO SCH ×3 (09:04→18:09)
[2022-11-25] MEDS: hydrALAZINE 25 MG TAB PO SCH ×3 (09:04→20:17)
[2022-11-25] MEDS: Torsemide 20 MG TAB PO SCH ×2 (09:04→13:23)
[2022-11-25] MEDS: Isosorbide Dinitrate 20 MG TAB PO SCH ×2 (09:05→20:18)
[2022-11-25] MEDS: Clopidogrel Bisulfate 75 MG TAB PO SCH (09:05)
[2022-11-25] MEDS: Insulin Glargine 30 UNITS/0.3 ML VIAL SC SCH ×2 (09:05→21:58)
[2022-11-25] MEDS: Heparin 5,000 UNITS/ML VIAL SC SCH ×3 (09:06→20:19)
[2022-11-25] MEDS: Aspirin 81 mg Enteric Coated Tablet PO SCH (09:06)
[2022-11-25] MEDS ORDERED: Losartan 25 MG TAB PO SCH (13:00)
[2022-11-25] MEDS: Polyethylene Glycol 3350 17 GM Packet PO PRN (15:31)
[2022-11-25] MEDS: Atorvastatin Calcium 40 MG TAB PO SCH (20:17)
[2022-11-25] MEDS: Gabapentin 300 MG CAP PO SCH (20:18)
[2022-11-25] MEDS: rOPINIRole HCl 2 MG TAB PO SCH (20:19)
[2022-11-26 04:53] LABS: #Basophils 0.1 thou/uL (0.0-0.2); #Eosinphils 0.1 thou/uL (0.0-0.7); #Monocytes 0.4 thou/uL (0.11-0.59); #Neutrophils 2.5 thou/uL (1.40-6.50); %Basophils 1.1 % (0.0-1.0); %Eosinophils 2.8 % (0.0-10.0); %Lymphocytes 32.6 % (21.0-51.0); %Monocytes 9.3 % (0.0-10.0); Hematocrit 29.3 % (36.0-47.0); Hemoglobin 8.8 g/dL (12.0-16.0); Mean Corpuscular Hemoglobin 25.4 pg (27.0-31.0); Mean Corpuscular Volume 84.4 fl (78.0-98.0); Mean Platelet Volume 11.3 fL (7.4-10.4); Platelet Count 245 10x3/uL (130-400); RBC Distribution Width 17.6 % (11.5-14.5); Red Blood Cell (RBC) Count 3.47 mill/uL (4.20-5.40); White Blood Cell (WBC) Count 4.6 10x3/uL (4.8-10.8)
[2022-11-26 05:21] LABS: ALT (SGPT) Less than 7 U/L (8-55); AST (SGOT) 10 U/L (5-34); Albumin 2.9 g/dL (3.4-4.8); Alkaline Phosphatase 68 U/L (40-110); Anion Gap 10 mmol/L (10-20); BUN (Urea Nitrogen) 28 mg/dL (9.8-20.1); Bilirubin, Total 0.4 mg/dL (0.2-1.2); Calc. Creatinine Clearance 17 mL/min (70-130); Calcium 8.8 mg/dL (7.8-10.44); Carbon Dioxide 30 mmol/L (23-31); Chloride 100 mmol/L (98-107); Estimated GFR 19; Globulin 2.7 g/dL (2.4-3.5); Glucose 80 mg/dL (83-110); Potassium 3.3 mmol/L (3.5-5.1); Protein, Total 5.6 g/dL (5.8-8.1); Sodium 137 mmol/L (136-145)
[2022-11-26] MEDS: Levothyroxine 150 MCG TAB PO SCH (06:22)
[2022-11-26] MEDS: Heparin 5,000 UNITS/ML VIAL SC SCH ×3 (08:52→21:57)
[2022-11-26] MEDS: Torsemide 20 MG TAB PO SCH ×2 (08:52→15:20)
[2022-11-26] MEDS: Isosorbide Dinitrate 20 MG TAB PO SCH ×2 (08:52→21:56)
[2022-11-26] MEDS: Sucralfate 1 GM TAB PO SCH ×2 (08:52→21:59)
[2022-11-26] MEDS: Carvedilol 6.25 MG TAB PO SCH ×2 (08:53→15:20)
[2022-11-26] MEDS: Aspirin 81 mg Enteric Coated Tablet PO SCH (08:54)
[2022-11-26] MEDS: Losartan 25 MG TAB PO SCH (08:54)
[2022-11-26] MEDS: hydrALAZINE 25 MG TAB PO SCH ×3 (08:54→21:57)
[2022-11-26] MEDS: Clopidogrel Bisulfate 75 MG TAB PO SCH (08:54)
[2022-11-26] MEDS: Insulin Glargine 30 UNITS/0.3 ML VIAL SC SCH ×2 (09:15→21:57)
[2022-11-26] MEDS ORDERED: Potassium Chloride 20 MEQ TAB PO SCH (09:15)
[2022-11-26] MEDS: rOPINIRole HCl 2 MG TAB PO SCH (21:56)
[2022-11-26] MEDS: Atorvastatin Calcium 40 MG TAB PO SCH (21:56)
[2022-11-26] MEDS: Gabapentin 300 MG CAP PO SCH (21:57)
[2022-11-27 04:12] LABS: #Basophils 0.1 thou/uL (0.0-0.2); #Eosinphils 0.1 thou/uL (0.0-0.7); #Monocytes 0.5 thou/uL (0.11-0.59); #Neutrophils 2.5 thou/uL (1.40-6.50); %Basophils 1.1 % (0.0-1.0); %Eosinophils 2.2 % (0.0-10.0); %Lymphocytes 30.1 % (21.0-51.0); %Monocytes 10.1 % (0.0-10.0); %Neutrophils 56.5 % (42.0-75.0); Hemoglobin 8.6 g/dL (12.0-16.0); Mean Corpuscular HGB CONC 29.7 g/dL (32.0-36.0); Mean Corpuscular Hemoglobin 25.1 pg (27.0-31.0); Mean Corpuscular Volume 84.8 fl (78.0-98.0); Platelet Count 237 10x3/uL (130-400); RBC Distribution Width 17.5 % (11.5-14.5); Red Blood Cell (RBC) Count 3.42 mill/uL (4.20-5.40); White Blood Cell (WBC) Count 4.5 10x3/uL (4.8-10.8)
[2022-11-27 04:36] LABS: ALT (SGPT) Less than 7 U/L (8-55); AST (SGOT) 11 U/L (5-34); Albumin 2.8 g/dL (3.4-4.8); Alkaline Phosphatase 76 U/L (40-110); Anion Gap 12 mmol/L (10-20); BUN (Urea Nitrogen) 28 mg/dL (9.8-20.1); Bilirubin, Total 0.3 mg/dL (0.2-1.2); Calc. Creatinine Clearance 17 mL/min (70-130); Calcium 8.8 mg/dL (7.8-10.44); Carbon Dioxide 29 mmol/L (23-31); Chloride 102 mmol/L (98-107); Estimated GFR 19; Globulin 2.7 g/dL (2.4-3.5); Glucose 110 mg/dL (83-110); Potassium 3.7 mmol/L (3.5-5.1); Protein, Total 5.5 g/dL (5.8-8.1); Sodium 139 mmol/L (136-145)
[2022-11-27] MEDS: Levothyroxine 150 MCG TAB PO SCH (05:39)
[2022-11-27] MEDS: hydrALAZINE 25 MG TAB PO SCH ×3 (09:35→22:07)
[2022-11-27] MEDS: Carvedilol 6.25 MG TAB PO SCH ×2 (09:35→17:10)
[2022-11-27] MEDS: Heparin 5,000 UNITS/ML VIAL SC SCH ×3 (09:36→22:07)
[2022-11-27] MEDS: Clopidogrel Bisulfate 75 MG TAB PO SCH (09:36)
[2022-11-27] MEDS: Insulin Glargine 30 UNITS/0.3 ML VIAL SC SCH ×2 (09:36→22:11)
[2022-11-27] MEDS: Torsemide 20 MG TAB PO SCH ×2 (09:36→14:53)
[2022-11-27] MEDS: Sucralfate 1 GM TAB PO SCH ×2 (09:36→22:14)
[2022-11-27] MEDS: Losartan 25 MG TAB PO SCH (09:36)
[2022-11-27] MEDS: Isosorbide Dinitrate 20 MG TAB PO SCH ×2 (09:36→22:07)
[2022-11-27] MEDS: Aspirin 81 mg Enteric Coated Tablet PO SCH (09:36)
[2022-11-27] MEDS: Atorvastatin Calcium 40 MG TAB PO SCH (22:07)
[2022-11-27] MEDS: Gabapentin 300 MG CAP PO SCH (22:07)
[2022-11-27] MEDS: rOPINIRole HCl 2 MG TAB PO SCH (22:07)
[2022-11-28 04:44] LABS: #Eosinphils 0.1 thou/uL (0.0-0.7); #Monocytes 0.4 thou/uL (0.11-0.59); #Neutrophils 2.5 thou/uL (1.40-6.50); %Basophils 0.6 % (0.0-1.0); %Lymphocytes 34.2 % (21.0-51.0); %Monocytes 8.2 % (0.0-10.0); %Neutrophils 53.8 % (42.0-75.0); Hemoglobin 9.1 g/dL (12.0-16.0); Mean Corpuscular HGB CONC 30.3 g/dL (32.0-36.0); Mean Corpuscular Hemoglobin 25.5 pg (27.0-31.0); Mean Platelet Volume 11.1 fL (7.4-10.4); Platelet Count 216 10x3/uL (130-400); RBC Distribution Width 17.5 % (11.5-14.5); Red Blood Cell (RBC) Count 3.57 mill/uL (4.20-5.40); White Blood Cell (WBC) Count 4.7 10x3/uL (4.8-10.8)
[2022-11-28] MEDS: Levothyroxine 150 MCG TAB PO SCH (05:25)
[2022-11-28 05:43] LABS: Anion Gap 12 mmol/L (10-20); BUN (Urea Nitrogen) 29 mg/dL (9.8-20.1); Calc. Creatinine Clearance 17 mL/min (70-130); Calcium 8.9 mg/dL (7.8-10.44); Carbon Dioxide 30 mmol/L (23-31); Chloride 101 mmol/L (98-107); Estimated GFR 19; Glucose 127 mg/dL (83-110); Potassium 3.8 mmol/L (3.5-5.1); Sodium 139 mmol/L (136-145)
[2022-11-28] MEDS: Sucralfate 1 GM TAB PO SCH ×2 (08:23→21:51)
[2022-11-28] MEDS: Carvedilol 6.25 MG TAB PO SCH ×2 (08:24→16:04)
[2022-11-28] MEDS: Clopidogrel Bisulfate 75 MG TAB PO SCH (08:24)
[2022-11-28] MEDS: hydrALAZINE 25 MG TAB PO SCH ×3 (08:24→21:52)
[2022-11-28] MEDS: Aspirin 81 mg Enteric Coated Tablet PO SCH (08:24)
[2022-11-28] MEDS: Torsemide 20 MG TAB PO SCH ×2 (08:25→12:46)
[2022-11-28] MEDS: Heparin 5,000 UNITS/ML VIAL SC SCH ×3 (08:25→21:55)
[2022-11-28] MEDS: Losartan 25 MG TAB PO SCH (08:25)
[2022-11-28] MEDS: Insulin Glargine 30 UNITS/0.3 ML VIAL SC SCH ×2 (08:25→21:55)
[2022-11-28] MEDS: Isosorbide Dinitrate 20 MG TAB PO SCH ×2 (08:25→21:52)
[2022-11-28] MEDS ORDERED: Losartan 25 MG TAB PO SCH (11:45)
[2022-11-28] MEDS: rOPINIRole HCl 2 MG TAB PO SCH (21:00)
[2022-11-28] MEDS ORDERED: rOPINIRole HCl 1 MG TAB PO SCH (21:45)
[2022-11-28] MEDS: Gabapentin 300 MG CAP PO SCH (21:53)
[2022-11-28] MEDS: Atorvastatin Calcium 40 MG TAB PO SCH (21:54)
[2022-11-29] MEDS: hydrALAZINE 20 MG/ML VIAL SLOW IVP PRN (05:20)
[2022-11-29] MEDS: Levothyroxine 150 MCG TAB PO SCH (05:20)
[2022-11-29 08:01] LABS: Anion Gap 12 mmol/L (10-20); BUN (Urea Nitrogen) 31 mg/dL (9.8-20.1); Calc. Creatinine Clearance 17 mL/min (70-130); Calcium 9.1 mg/dL (7.8-10.44); Carbon Dioxide 29 mmol/L (23-31); Chloride 102 mmol/L (98-107); Estimated GFR 19; Glucose 87 mg/dL (83-110); Potassium 3.6 mmol/L (3.5-5.1); Sodium 139 mmol/L (136-145)
[2022-11-29] MEDS ORDERED: Losartan 25 MG TAB PO SCH ×2 (09:00→11:15)
[2022-11-29] MEDS: Torsemide 20 MG TAB PO SCH ×2 (09:39→14:24)
[2022-11-29] MEDS: Sucralfate 1 GM TAB PO SCH ×2 (09:39→19:50)
[2022-11-29] MEDS: Clopidogrel Bisulfate 75 MG TAB PO SCH (09:40)
[2022-11-29] MEDS: Heparin 5,000 UNITS/ML VIAL SC SCH ×3 (09:40→19:51)
[2022-11-29] MEDS: Isosorbide Dinitrate 20 MG TAB PO SCH ×2 (09:40→19:50)
[2022-11-29] MEDS: Carvedilol 6.25 MG TAB PO SCH ×2 (09:40→17:10)
[2022-11-29] MEDS: hydrALAZINE 25 MG TAB PO SCH ×3 (09:40→19:49)
[2022-11-29] MEDS: Aspirin 81 mg Enteric Coated Tablet PO SCH (09:40)
[2022-11-29] MEDS: Insulin Glargine 30 UNITS/0.3 ML VIAL SC SCH ×2 (09:59→19:51)
[2022-11-29] MEDS: HumaLOG 300 UNITS/3 ML VIAL SC PRN (16:06)
[2022-11-29] MEDS: rOPINIRole HCl 1 MG TAB PO SCH (19:49)
[2022-11-29] MEDS: Gabapentin 300 MG CAP PO SCH (19:50)
[2022-11-29] MEDS: Atorvastatin Calcium 40 MG TAB PO SCH (19:50)
[2022-11-30] MEDS: Levothyroxine 150 MCG TAB PO SCH (05:17)
[2022-11-30 06:58] LABS: #Eosinphils 0.2 thou/uL (0.0-0.7); #Monocytes 0.4 thou/uL (0.11-0.59); #Neutrophils 2.3 thou/uL (1.40-6.50); %Basophils 0.7 % (0.0-1.0); %Eosinophils 3.4 % (0.0-10.0); %Lymphocytes 35.7 % (21.0-51.0); %Monocytes 8.9 % (0.0-10.0); %Neutrophils 51.1 % (42.0-75.0); Hematocrit 31.4 % (36.0-47.0); Hemoglobin 9.5 g/dL (12.0-16.0); Mean Corpuscular HGB CONC 30.3 g/dL (32.0-36.0); Mean Corpuscular Hemoglobin 25.3 pg (27.0-31.0); Mean Corpuscular Volume 83.5 fl (78.0-98.0); Mean Platelet Volume 10.8 fL (7.4-10.4); Platelet Count 204 10x3/uL (130-400); RBC Distribution Width 17.1 % (11.5-14.5); Red Blood Cell (RBC) Count 3.76 mill/uL (4.20-5.40); White Blood Cell (WBC) Count 4.4 10x3/uL (4.8-10.8)
[2022-11-30 07:25] LABS: Anion Gap 11 mmol/L (10-20); BUN (Urea Nitrogen) 35 mg/dL (9.8-20.1); Calc. Creatinine Clearance 15 mL/min (70-130); Calcium 9.1 mg/dL (7.8-10.44); Carbon Dioxide 31 mmol/L (23-31); Chloride 102 mmol/L (98-107); Estimated GFR 17; Glucose 68 mg/dL (83-110); Potassium 3.7 mmol/L (3.5-5.1); Sodium 140 mmol/L (136-145)
[2022-11-30] MEDS: Heparin 5,000 UNITS/ML VIAL SC SCH ×3 (08:27→19:58)
[2022-11-30] MEDS: Aspirin 81 mg Enteric Coated Tablet PO SCH (08:28)
[2022-11-30] MEDS: hydrALAZINE 25 MG TAB PO SCH ×3 (08:28→19:56)
[2022-11-30] MEDS: Carvedilol 6.25 MG TAB PO SCH (08:29)
[2022-11-30] MEDS: Clopidogrel Bisulfate 75 MG TAB PO SCH (08:29)
[2022-11-30] MEDS: Isosorbide Dinitrate 20 MG TAB PO SCH ×2 (08:29→19:57)
[2022-11-30] MEDS: Sucralfate 1 GM TAB PO SCH ×2 (08:29→19:56)
[2022-11-30] MEDS: Torsemide 20 MG TAB PO SCH (08:30)
[2022-11-30] MEDS ORDERED: Losartan 25 MG TAB PO SCH (09:00)
[2022-11-30] MEDS: Insulin Glargine 30 UNITS/0.3 ML VIAL SC SCH ×2 (09:51→19:58)
[2022-11-30] MEDS ORDERED: Isosorbide Dinitrate 20 MG TAB PO SCH (15:00)
[2022-11-30] MEDS: HumaLOG 300 UNITS/3 ML VIAL SC PRN (16:09)
[2022-11-30] MEDS: Carvedilol 25 MG TAB PO SCH (16:10)
[2022-11-30] MEDS: rOPINIRole HCl 1 MG TAB PO SCH (19:56)
[2022-11-30] MEDS: Atorvastatin Calcium 40 MG TAB PO SCH (19:57)
[2022-11-30] MEDS: Gabapentin 300 MG CAP PO SCH (19:57)
[2022-12-01 05:19] VITALS: BMI 21.7
[2022-12-01] MEDS: Levothyroxine 150 MCG TAB PO SCH (05:21)
[2022-12-01 07:56] VITALS: TEMP 97.5
[2022-12-01] MEDS ORDERED: Losartan 25 MG TAB PO SCH (09:00)
[2022-12-01] MEDS ORDERED: Torsemide 20 MG TAB PO SCH ×2 (09:00→14:00)
[2022-12-01] MEDS: hydrALAZINE 25 MG TAB PO SCH (09:15)
[2022-12-01] MEDS: Carvedilol 25 MG TAB PO SCH (09:17)
[2022-12-01] MEDS: Sucralfate 1 GM TAB PO SCH (09:17)
[2022-12-01] MEDS: Aspirin 81 mg Enteric Coated Tablet PO SCH (09:17)
[2022-12-01] MEDS: Clopidogrel Bisulfate 75 MG TAB PO SCH (09:17)
[2022-12-01 09:19] VITALS: BP 150/66
[2022-12-01] MEDS: Isosorbide Dinitrate 20 MG TAB PO SCH (09:20)
[2022-12-01] MEDS: Heparin 5,000 UNITS/ML VIAL SC SCH (09:20)
[2022-12-01] MEDS: Insulin Glargine 30 UNITS/0.3 ML VIAL SC SCH (09:29)
== END 2022-12-01 14:56 | disposition home or self-care (01) | DRG 291 ==
LOC: 2NO 23:25 → OBSVTOIN 11-23 00:10 → T4-B 11-28 16:48
PROVIDERS: ADMIT Family Medicine; ATTEND Family Medicine
DX: I13.0 Hypertensive heart and chronic kidney disease with heart failure and stage 1 through stage 4 chronic kidney disease, or unspecified chronic kidney disease (principal); I50.43 Acute on chronic combined systolic (congestive) and diastolic (congestive) heart failure; E78.5 Hyperlipidemia, unspecified; H53.8 Other visual disturbances; G25.81 Restless legs syndrome; Z66 Do not resuscitate; E03.9 Hypothyroidism, unspecified; K21.9 Gastro-esophageal reflux disease without esophagitis; I25.10 Atherosclerotic heart disease of native coronary artery without angina pectoris; I16.0 Hypertensive urgency; N18.32 Chronic kidney disease, stage 3b; D63.1 Anemia in chronic kidney disease; N32.89 Other specified disorders of bladder; E11.22 Type 2 diabetes mellitus with diabetic chronic kidney disease; I42.0 Dilated cardiomyopathy; Z79.4 Long term (current) use of insulin; Z79.890 Hormone replacement therapy; Z88.5 Allergy status to narcotic agent; Z79.82 Long term (current) use of aspirin; Z79.899 Other long term (current) drug therapy; Z86.73 Personal history of transient ischemic attack (TIA), and cerebral infarction without residual deficits; Z98.41 Cataract extraction status, right eye; Z98.42 Cataract extraction status, left eye; Z90.710 Acquired absence of both cervix and uterus; Z95.1 Presence of aortocoronary bypass graft; Z98.890 Other specified postprocedural states; Z82.49 Family history of ischemic heart disease and other diseases of the circulatory system; Z79.02 Long term (current) use of antithrombotics/antiplatelets; R00.1 Bradycardia, unspecified; F32.A Depression, unspecified
CPT/HCPCS: 36415; 36416; 80048; 80053; 83735; 84100; 84439; 84443; 84484; 85025; J0360; J1644; J1815; J1940

== ENCOUNTER 2023-12-16 01:29 | Inpatient (IN) | payer MEDICARE, OTHER ==
[2023-12-16 02:23] VITALS: BMI 23.3
[2023-12-16] MEDS ORDERED: Insulin Lispro 100 UNIT/ML 10 ML VIAL SC PRN (04:27)
[2023-12-16] MEDS ORDERED: Dextrose 5% in Water 1,000 ML IV PRN (04:27)
[2023-12-16] MEDS ORDERED: Glucagon 1 MG/ML KIT IM PRN (04:27)
[2023-12-16] MEDS ORDERED: Dextrose 50% Abboject 50 ML SYRINGE SLOW IVP PRN (04:27)
[2023-12-16 05:42] LABS: #Basophils 0.03 10x3/uL (0.0-0.2); %Basophils 0.5 % (0.0-1.0); %Eosinophils 2.7 % (0.0-10.0); %Lymphocytes 26.3 % (21.0-51.0); %Monocytes 9.2 % (0.0-10.0); %Neutrophils 61.1 % (42.0-75.0); Hemoglobin 7.8 g/dL (12.0-16.0); Mean Corpuscular HGB CONC 32.5 g/dL (32.0-36.0); Mean Corpuscular Hemoglobin 33.5 pg (27.0-31.0); Mean Platelet Volume 9.5 fL (7.4-10.4); Platelet Count 264 10x3/uL (130-400); RBC Distribution Width 14.7 % (11.5-14.5); Red Blood Cell (RBC) Count 2.33 mill/uL (4.20-5.40)
[2023-12-16 05:58] LABS: Prothrombin Time 13.6 sec (12.0-14.7)
[2023-12-16 05:59] LABS: PTT 34.1 sec (22.9-36.1)
[2023-12-16 06:02] LABS: Magnesium 2.4 mg/dL (1.6-2.6); Phosphorus 4.4 mg/dL (2.3-4.7)
[2023-12-16 08:22] LABS: Critical Call Chem Troponin I RESULT DECREASING
[2023-12-16 08:23] LABS: Troponin I 0.981 ng/mL (< 0.028)
[2023-12-16] MEDS ORDERED: Non-Formulary Item 1 EACH (Cholestyramine (With Sugar) [Cholestyramine Packet] 4 GM Powd. PO SCH (09:00)
[2023-12-16] MEDS ORDERED: Heparin 5,000 UNITS/ML VIAL SC SCH (09:00)
[2023-12-16] MEDS ORDERED: Non-Formulary Item 1 EACH (Losartan Potassium [Losartan Potassium] 50 MG Tablet) PO SCH (09:00)
[2023-12-16] MEDS ORDERED: Cholecalciferol 1,000 UNITS (25 MCG) TAB PO SCH (09:00)
[2023-12-16] MEDS ORDERED: Non-Formulary Item 1 EACH (Ferrous Sulfate [Ferosul] 325 MG Tablet) PO SCH (09:00)
[2023-12-16] MEDS ORDERED: Non-Formulary Item 1 EACH (Levothyroxine Sodium [Levothyroxine Sodium] 100 MCG Capsule) PO SCH (09:00)
[2023-12-16] MEDS ORDERED: Non-Formulary Item 1 EACH (Hydralazine Hcl [Hydralazine Hcl] 100 MG Tablet) PO SCH (09:00)
[2023-12-16] MEDS: Clopidogrel Bisulfate 75 MG TAB PO SCH (11:17)
[2023-12-16] MEDS: NIFEdipine XL 90 MG ER.TAB PO SCH (11:17)
[2023-12-16] MEDS: Ferrous Sulfate 325 MG TAB PO SCH (11:17)
[2023-12-16] MEDS: hydrALAZINE 25 MG TAB PO SCH (11:17)
[2023-12-16] MEDS: Atorvastatin Calcium 40 MG TAB PO SCH (11:17)
[2023-12-16] MEDS: levETIRAcetam 500 MG TAB PO SCH (11:18)
[2023-12-16] MEDS: Pantoprazole DR 40 MG TAB PO SCH (11:18)
[2023-12-16] MEDS: Acetaminophen 325 MG TAB PO PRN (11:18)
[2023-12-16] MEDS: Gabapentin 300 MG CAP PO SCH (11:19)
[2023-12-16] MEDS: Isosorbide Dinitrate 20 MG TAB PO SCH (11:19)
[2023-12-16] MEDS: Cholecalciferol 1,000 UNITS (25 MCG) TAB PO SCH (11:19)
[2023-12-16] MEDS: Aspirin 81 mg Enteric Coated Tablet PO SCH (11:19)
[2023-12-16] MEDS: Losartan 25 MG TAB PO SCH (11:19)
[2023-12-16] MEDS: Cholestyramine/Aspartame 4 gm Packet PO SCH (12:32)
[2023-12-16] MEDS: Insulin Lispro 100 UNIT/ML 10 ML VIAL SC PRN (16:36)
[2023-12-16 20:26] LABS: Hematocrit 21.7 % (36.0-47.0); Hemoglobin 7.2 g/dL (12.0-16.0)
[2023-12-16] MEDS: Insulin Glargine 30 UNITS/0.3 ML VIAL SC SCH (21:34)
[2023-12-16] MEDS: rOPINIRole HCl 2 MG TAB PO SCH (21:34)
[2023-12-17 01:17] LABS: Hematocrit 21.2 % (36.0-47.0)
[2023-12-17] MEDS: traMADol HCl 50 MG TAB PO SCH (02:53)
[2023-12-17] MEDS: Levothyroxine 175 MCG TAB PO SCH (05:20)
[2023-12-17 07:28] LABS: #Basophils 0.04 10x3/uL (0.0-0.2); %Basophils 0.6 % (0.0-1.0); %Eosinophils 2.3 % (0.0-10.0); %Lymphocytes 23.2 % (21.0-51.0); %Monocytes 7.6 % (0.0-10.0); Hematocrit 25.3 % (36.0-47.0); Hemoglobin 8.4 g/dL (12.0-16.0); Mean Corpuscular HGB CONC 33.2 g/dL (32.0-36.0); Mean Corpuscular Hemoglobin 32.4 pg (27.0-31.0); Mean Corpuscular Volume 97.7 fL (78.0-98.0); Mean Platelet Volume 9.9 fL (7.4-10.4); Platelet Count 210 10x3/uL (130-400); RBC Distribution Width 16.3 % (11.5-14.5); Red Blood Cell (RBC) Count 2.59 mill/uL (4.20-5.40)
[2023-12-17 07:54] LABS: ALT (SGPT) 8 U/L (8-55); AST (SGOT) 22 U/L (5-34); Albumin 2.7 g/dL (3.4-4.8); Alkaline Phosphatase 92 U/L (40-110); Anion Gap 11 mmol/L (10-20); BUN (Urea Nitrogen) 30 mg/dL (9.8-20.1); Bilirubin, Total 1.3 mg/dL (0.2-1.2); Calc. Creatinine Clearance 12 mL/min (70-130); Calcium 8.2 mg/dL (7.8-10.44); Carbon Dioxide 28 mmol/L (23-31); Chloride 99 mmol/L (98-107); Estimated GFR 12; Globulin 2.6 g/dL (2.4-3.5); Glucose 121 mg/dL (83-110); Potassium 3.8 mmol/L (3.5-5.1); Protein, Total 5.3 g/dL (5.8-8.1); Sodium 134 mmol/L (136-145)
[2023-12-17] MEDS ORDERED: Heparin 10,000 UNITS/ 10 ML VIAL ONE (14:05)
[2023-12-17] MEDS: EPOETIN ALFA-EPBX (ESRD) 10,000 UNITS/ML VIAL IVP SCH (14:14)
[2023-12-17 21:55] LABS: Hematocrit 30.5 % (36.0-47.0); Hemoglobin 10.5 g/dL (12.0-16.0); Platelet Count 155 10x3/uL (130-400)
[2023-12-18 06:24] LABS: #Basophils 0.04 10x3/uL (0.0-0.2); %Basophils 0.5 % (0.0-1.0); %Eosinophils 2.5 % (0.0-10.0); %Lymphocytes 21.7 % (21.0-51.0); %Monocytes 8.9 % (0.0-10.0); %Neutrophils 65.9 % (42.0-75.0); Hemoglobin 10.5 g/dL (12.0-16.0); Mean Corpuscular HGB CONC 33.9 g/dL (32.0-36.0); Mean Corpuscular Hemoglobin 31.7 pg (27.0-31.0); Mean Corpuscular Volume 93.7 fL (78.0-98.0); Mean Platelet Volume 9.9 fL (7.4-10.4); Platelet Count 191 10x3/uL (130-400); RBC Distribution Width 16.5 % (11.5-14.5); Red Blood Cell (RBC) Count 3.31 mill/uL (4.20-5.40)
[2023-12-18 06:37] LABS: ALT (SGPT) 7 U/L (8-55); AST (SGOT) 19 U/L (5-34); Albumin 2.6 g/dL (3.4-4.8); Alkaline Phosphatase 81 U/L (40-110); Anion Gap 9 mmol/L (10-20); BUN (Urea Nitrogen) 12 mg/dL (9.8-20.1); Bilirubin, Total 0.5 mg/dL (0.2-1.2); Calc. Creatinine Clearance 22 mL/min (70-130); Calcium 8.3 mg/dL (7.8-10.44); Carbon Dioxide 26 mmol/L (23-31); Chloride 107 mmol/L (98-107); Estimated GFR 25; Globulin 2.6 g/dL (2.4-3.5); Glucose 69 mg/dL (83-110); Potassium 3.3 mmol/L (3.5-5.1); Protein, Total 5.2 g/dL (5.8-8.1); Sodium 139 mmol/L (136-145)
[2023-12-18 07:00] LABS: HBSAB Concentration Less than 8.00 mIU/mL; HBsAg Index 0.29 S/CO (0-0.99); Hep B Surf AB NONREACTIVE (NonReactive); Hep B Surf Ag NONREACTIVE S/CO (NonReactive)
[2023-12-18] MEDS: Potassium Chloride 20 MEQ TAB PO SCH (09:57)
[2023-12-18 11:25] VITALS: BMI 23.3
[2023-12-19 04:49] LABS: #Basophils 0.05 10x3/uL (0.0-0.2); %Basophils 0.7 % (0.0-1.0); %Eosinophils 2.2 % (0.0-10.0); %Lymphocytes 24.1 % (21.0-51.0); %Monocytes 8.5 % (0.0-10.0); %Neutrophils 64.1 % (42.0-75.0); Hematocrit 28.1 % (36.0-47.0); Hemoglobin 9.7 g/dL (12.0-16.0); Mean Corpuscular HGB CONC 34.5 g/dL (32.0-36.0); Mean Corpuscular Volume 95.6 fL (78.0-98.0); Mean Platelet Volume 9.5 fL (7.4-10.4); Platelet Count 204 10x3/uL (130-400); RBC Distribution Width 16.2 % (11.5-14.5); Red Blood Cell (RBC) Count 2.94 mill/uL (4.20-5.40)
[2023-12-19 05:06] LABS: ALT (SGPT) 9 U/L (8-55); AST (SGOT) 18 U/L (5-34); Albumin 2.6 g/dL (3.4-4.8); Alkaline Phosphatase 70 U/L (40-110); Anion Gap 11 mmol/L (10-20); BUN (Urea Nitrogen) 17 mg/dL (9.8-20.1); Bilirubin, Total 0.5 mg/dL (0.2-1.2); Calc. Creatinine Clearance 15 mL/min (70-130); Calcium 8.6 mg/dL (7.8-10.44); Carbon Dioxide 24 mmol/L (23-31); Chloride 104 mmol/L (98-107); Estimated GFR 16; Globulin 2.7 g/dL (2.4-3.5); Glucose 73 mg/dL (83-110); Potassium 3.6 mmol/L (3.5-5.1); Protein, Total 5.3 g/dL (5.8-8.1); Sodium 135 mmol/L (136-145)
[2023-12-19] MEDS: Levothyroxine Sodium 100 MCG TAB PO SCH (06:16)
[2023-12-19] MEDS ORDERED: Heparin 10,000 UNITS/ 10 ML VIAL ONE (09:43)
[2023-12-20 05:01] LABS: #Basophils 0.05 10x3/uL (0.0-0.2); %Eosinophils 3.2 % (0.0-10.0); %Lymphocytes 27.8 % (21.0-51.0); %Monocytes 11.3 % (0.0-10.0); %Neutrophils 56.5 % (42.0-75.0); ALT (SGPT) 8 U/L (8-55); AST (SGOT) 17 U/L (5-34); Albumin 2.5 g/dL (3.4-4.8); Alkaline Phosphatase 67 U/L (40-110); Anion Gap 5 mmol/L (10-20); BUN (Urea Nitrogen) 7 mg/dL (9.8-20.1); Bilirubin, Total 0.5 mg/dL (0.2-1.2); Calc. Creatinine Clearance 21 mL/min (70-130); Calcium 8.4 mg/dL (7.8-10.44); Carbon Dioxide 30 mmol/L (23-31); Chloride 106 mmol/L (98-107); Estimated GFR 24; Globulin 2.4 g/dL (2.4-3.5); Glucose 112 mg/dL (83-110); Hematocrit 27.8 % (36.0-47.0); Hemoglobin 9.1 g/dL (12.0-16.0); Mean Corpuscular HGB CONC 32.7 g/dL (32.0-36.0); Mean Corpuscular Hemoglobin 32.4 pg (27.0-31.0); Mean Corpuscular Volume 98.9 fL (78.0-98.0); Platelet Count 208 10x3/uL (130-400); Potassium 4.2 mmol/L (3.5-5.1); Protein, Total 4.9 g/dL (5.8-8.1); RBC Distribution Width 16.2 % (11.5-14.5); Red Blood Cell (RBC) Count 2.81 mill/uL (4.20-5.40); Sodium 137 mmol/L (136-145)
[2023-12-20] MEDS ORDERED: Ondansetron ODT 4 MG TAB PO PRN (08:31)
[2023-12-20] MEDS: Gabapentin 300 MG CAP PO SCH (22:13)
[2023-12-20] MEDS: Atorvastatin Calcium 40 MG TAB PO SCH (22:13)
[2023-12-20] MEDS: Sterile Water 10 ML ONE (23:27)
[2023-12-21 06:17] LABS: #Basophils 0.04 10x3/uL (0.0-0.2); %Basophils 0.9 % (0.0-1.0); %Eosinophils 3.8 % (0.0-10.0); %Lymphocytes 29.2 % (21.0-51.0); %Monocytes 10.5 % (0.0-10.0); %Neutrophils 55.4 % (42.0-75.0); Hematocrit 25.3 % (36.0-47.0); Hemoglobin 8.1 g/dL (12.0-16.0); Mean Corpuscular Hemoglobin 32.3 pg (27.0-31.0); Mean Corpuscular Volume 100.8 fL (78.0-98.0); Mean Platelet Volume 9.9 fL (7.4-10.4); Platelet Count 236 10x3/uL (130-400); Red Blood Cell (RBC) Count 2.51 mill/uL (4.20-5.40)
[2023-12-21 07:06] LABS: ALT (SGPT) 10 U/L (8-55); AST (SGOT) 19 U/L (5-34); Albumin 2.6 g/dL (3.4-4.8); Alkaline Phosphatase 76 U/L (40-110); Anion Gap 8 mmol/L (10-20); BUN (Urea Nitrogen) 15 mg/dL (9.8-20.1); Bilirubin, Total 0.4 mg/dL (0.2-1.2); Calc. Creatinine Clearance 14 mL/min (70-130); Calcium 8.5 mg/dL (7.8-10.44); Carbon Dioxide 28 mmol/L (23-31); Chloride 107 mmol/L (98-107); Estimated GFR 14; Globulin 2.4 g/dL (2.4-3.5); Glucose 99 mg/dL (83-110); Sodium 139 mmol/L (136-145)
[2023-12-21] MEDS ORDERED: Dextrose 50% Abboject 50 ML SYRINGE ONE (10:37)
[2023-12-21] MEDS ORDERED: Midazolam HCl 2 mg/2 ml Vial ONE (11:30)
[2023-12-21] MEDS ORDERED: Ketamine In 0.9 % NaCl 50 MG/5 ML SYRINGE ONE (11:30)
[2023-12-21] MEDS ORDERED: cefTRIAXone (ROCEPHIN) 1 GM VIAL ONE (11:51)
[2023-12-21] MEDS ORDERED: Sodium Chloride 0.9% 100 ML ONE (11:51)
[2023-12-21] MEDS ORDERED: fentaNYL 50 mcg/mL 1 mL Vial ONE (13:09)
[2023-12-21 20:29] LABS: Hematocrit 31.8 % (36.0-47.0); Hemoglobin 10.4 g/dL (12.0-16.0)
[2023-12-22 04:47] LABS: ALT (SGPT) 9 U/L (8-55); AST (SGOT) 21 U/L (5-34); Albumin 2.6 g/dL (3.4-4.8); Alkaline Phosphatase 76 U/L (40-110); Anion Gap 9 mmol/L (10-20); BUN (Urea Nitrogen) 8 mg/dL (9.8-20.1); Bilirubin, Total 0.6 mg/dL (0.2-1.2); Calc. Creatinine Clearance 25 mL/min (70-130); Calcium 8.3 mg/dL (7.8-10.44); Carbon Dioxide 29 mmol/L (23-31); Chloride 104 mmol/L (98-107); Estimated GFR 29; Globulin 2.5 g/dL (2.4-3.5); Glucose 163 mg/dL (83-110); Potassium 3.7 mmol/L (3.5-5.1); Protein, Total 5.1 g/dL (5.8-8.1); Sodium 138 mmol/L (136-145)
[2023-12-22 04:56] LABS: #Basophils 0.05 10x3/uL (0.0-0.2); %Basophils 0.9 % (0.0-1.0); %Eosinophils 4.3 % (0.0-10.0); %Lymphocytes 18.9 % (21.0-51.0); %Monocytes 7.5 % (0.0-10.0); %Neutrophils 68.1 % (42.0-75.0); Hematocrit 30.3 % (36.0-47.0); Hemoglobin 9.9 g/dL (12.0-16.0); Mean Corpuscular HGB CONC 32.7 g/dL (32.0-36.0); Mean Corpuscular Hemoglobin 29.8 pg (27.0-31.0); Mean Corpuscular Volume 91.3 fL (78.0-98.0); Mean Platelet Volume 10.1 fL (7.4-10.4); Platelet Count 238 10x3/uL (130-400); Red Blood Cell (RBC) Count 3.32 mill/uL (4.20-5.40)
[2023-12-23 05:51] LABS: #Basophils 0.03 10x3/uL (0.0-0.2); %Basophils 0.5 % (0.0-1.0); %Eosinophils 5.1 % (0.0-10.0); %Lymphocytes 22.3 % (21.0-51.0); %Monocytes 8.7 % (0.0-10.0); %Neutrophils 63.2 % (42.0-75.0); Hematocrit 28.4 % (36.0-47.0); Hemoglobin 9.3 g/dL (12.0-16.0); Mean Corpuscular HGB CONC 32.7 g/dL (32.0-36.0); Mean Corpuscular Hemoglobin 30.3 pg (27.0-31.0); Mean Corpuscular Volume 92.5 fL (78.0-98.0); Mean Platelet Volume 10.1 fL (7.4-10.4); Platelet Count 232 10x3/uL (130-400); RBC Distribution Width 24.2 % (11.5-14.5); Red Blood Cell (RBC) Count 3.07 mill/uL (4.20-5.40)
[2023-12-23 06:31] LABS: Anisocytosis SLIGHT = 6-15 cells HPF (0-5); Platelet Adequacy Comment Platelets Normal; Polychromasia SLIGHT = 2-3 cells HPF (0-2)
[2023-12-23 06:49] LABS: ALT (SGPT) 8 U/L (8-55); AST (SGOT) 16 U/L (5-34); Albumin 2.6 g/dL (3.4-4.8); Alkaline Phosphatase 89 U/L (40-110); Anion Gap 11 mmol/L (10-20); BUN (Urea Nitrogen) 13 mg/dL (9.8-20.1); Bilirubin, Total 0.3 mg/dL (0.2-1.2); Calc. Creatinine Clearance 17 mL/min (70-130); Calcium 8.7 mg/dL (7.8-10.44); Carbon Dioxide 27 mmol/L (23-31); Chloride 106 mmol/L (98-107); Estimated GFR 18; Globulin 2.4 g/dL (2.4-3.5); Glucose 76 mg/dL (83-110); Potassium 3.5 mmol/L (3.5-5.1); Sodium 140 mmol/L (136-145)
[2023-12-23] MEDS: NIFEdipine XL 30 MG ER.TAB PO SCH (20:31)
[2023-12-24 04:28] LABS: #Basophils 0.04 10x3/uL (0.0-0.2); %Basophils 0.6 % (0.0-1.0); %Eosinophils 4.5 % (0.0-10.0); %Lymphocytes 16.1 % (21.0-51.0); %Monocytes 7.8 % (0.0-10.0); %Neutrophils 70.9 % (42.0-75.0); Hematocrit 29.6 % (36.0-47.0); Hemoglobin 9.7 g/dL (12.0-16.0); Mean Corpuscular HGB CONC 32.8 g/dL (32.0-36.0); Mean Corpuscular Hemoglobin 29.3 pg (27.0-31.0); Mean Corpuscular Volume 89.4 fL (78.0-98.0); Mean Platelet Volume 10.2 fL (7.4-10.4); Platelet Count 263 10x3/uL (130-400); RBC Distribution Width 23.7 % (11.5-14.5); Red Blood Cell (RBC) Count 3.31 mill/uL (4.20-5.40)
[2023-12-24 04:41] LABS: ALT (SGPT) 11 U/L (8-55); AST (SGOT) 16 U/L (5-34); Albumin 2.7 g/dL (3.4-4.8); Alkaline Phosphatase 101 U/L (40-110); Anion Gap 11 mmol/L (10-20); BUN (Urea Nitrogen) 16 mg/dL (9.8-20.1); Bilirubin, Total 0.3 mg/dL (0.2-1.2); Calc. Creatinine Clearance 16 mL/min (70-130); Calcium 8.5 mg/dL (7.8-10.44); Carbon Dioxide 27 mmol/L (23-31); Chloride 106 mmol/L (98-107); Estimated GFR 17; Globulin 2.8 g/dL (2.4-3.5); Glucose 114 mg/dL (83-110); Potassium 3.6 mmol/L (3.5-5.1); Protein, Total 5.5 g/dL (5.8-8.1); Sodium 140 mmol/L (136-145)
[2023-12-24] MEDS ORDERED: hydrALAZINE 20 MG/ML VIAL SLOW IVP PRN (04:46)
[2023-12-24] MEDS: NIFEdipine XL 60 MG ER.TAB PO SCH (09:12)
[2023-12-24] MEDS ORDERED: Heparin 10,000 UNITS/ 10 ML VIAL ONE (10:28)
[2023-12-25 04:46] LABS: #Basophils 0.04 10x3/uL (0.0-0.2); %Basophils 0.5 % (0.0-1.0); %Eosinophils 2.9 % (0.0-10.0); %Lymphocytes 17.6 % (21.0-51.0); %Monocytes 8.4 % (0.0-10.0); %Neutrophils 70.5 % (42.0-75.0); Hematocrit 28.3 % (36.0-47.0); Hemoglobin 9.2 g/dL (12.0-16.0); Mean Corpuscular HGB CONC 32.5 g/dL (32.0-36.0); Mean Corpuscular Hemoglobin 29.7 pg (27.0-31.0); Mean Corpuscular Volume 91.3 fL (78.0-98.0); Mean Platelet Volume 10.3 fL (7.4-10.4); Platelet Count 246 10x3/uL (130-400); RBC Distribution Width 23.9 % (11.5-14.5)
[2023-12-25 06:12] LABS: ALT (SGPT) 7 U/L (8-55); AST (SGOT) 15 U/L (5-34); Albumin 2.5 g/dL (3.4-4.8); Alkaline Phosphatase 79 U/L (40-110); Anion Gap 12 mmol/L (10-20); BUN (Urea Nitrogen) 8 mg/dL (9.8-20.1); Bilirubin, Total 0.5 mg/dL (0.2-1.2); Calc. Creatinine Clearance 19 mL/min (70-130); Calcium 8.4 mg/dL (7.8-10.44); Carbon Dioxide 29 mmol/L (23-31); Chloride 104 mmol/L (98-107); Estimated GFR 21; Globulin 2.8 g/dL (2.4-3.5); Glucose 54 mg/dL (83-110); Potassium 3.9 mmol/L (3.5-5.1); Protein, Total 5.3 g/dL (5.8-8.1); Sodium 141 mmol/L (136-145)
[2023-12-25] MEDS: Insulin Glargine 30 UNITS/0.3 ML VIAL SC SCH (20:08)
[2023-12-26 04:04] LABS: #Basophils 0.05 10x3/uL (0.0-0.2); %Basophils 0.5 % (0.0-1.0); %Eosinophils 2.6 % (0.0-10.0); %Lymphocytes 16.8 % (21.0-51.0); %Monocytes 7.5 % (0.0-10.0); %Neutrophils 72.2 % (42.0-75.0); Hematocrit 28.1 % (36.0-47.0); Hemoglobin 9.3 g/dL (12.0-16.0); Mean Corpuscular HGB CONC 33.1 g/dL (32.0-36.0); Mean Corpuscular Hemoglobin 30.3 pg (27.0-31.0); Mean Corpuscular Volume 91.5 fL (78.0-98.0); Mean Platelet Volume 9.8 fL (7.4-10.4); Platelet Count 254 10x3/uL (130-400); Red Blood Cell (RBC) Count 3.07 mill/uL (4.20-5.40)
[2023-12-26 04:58] LABS: Anion Gap 10 mmol/L (10-20); BUN (Urea Nitrogen) 19 mg/dL (9.8-20.1); Calc. Creatinine Clearance 13 mL/min (70-130); Carbon Dioxide 27 mmol/L (23-31); Chloride 104 mmol/L (98-107); Potassium 3.8 mmol/L (3.5-5.1); Sodium 137 mmol/L (136-145)
[2023-12-26 04:59] LABS: ALT (SGPT) 8 U/L (8-55); AST (SGOT) 13 U/L (5-34); Albumin 2.5 g/dL (3.4-4.8); Alkaline Phosphatase 103 U/L (40-110); Bilirubin, Total 0.3 mg/dL (0.2-1.2); Calcium 8.6 mg/dL (7.8-10.44); Estimated GFR 14; Globulin 2.9 g/dL (2.4-3.5); Glucose 125 mg/dL (83-110); Protein, Total 5.4 g/dL (5.8-8.1)
[2023-12-26] MEDS ORDERED: Heparin 10,000 UNITS/ 10 ML VIAL ONE (09:17)
[2023-12-27 04:50] LABS: #Basophils 0.06 10x3/uL (0.0-0.2); %Basophils 0.8 % (0.0-1.0); %Lymphocytes 19.1 % (21.0-51.0); %Monocytes 9.2 % (0.0-10.0); %Neutrophils 67.6 % (42.0-75.0); Hematocrit 31.7 % (36.0-47.0); Hemoglobin 10.3 g/dL (12.0-16.0); Mean Corpuscular HGB CONC 32.5 g/dL (32.0-36.0); Mean Corpuscular Hemoglobin 29.8 pg (27.0-31.0); Mean Corpuscular Volume 91.6 fL (78.0-98.0); Mean Platelet Volume 9.9 fL (7.4-10.4); Platelet Count 269 10x3/uL (130-400); RBC Distribution Width 22.4 % (11.5-14.5); Red Blood Cell (RBC) Count 3.46 mill/uL (4.20-5.40)
[2023-12-27 05:08] LABS: ALT (SGPT) 8 U/L (8-55); AST (SGOT) 14 U/L (5-34); Albumin 2.6 g/dL (3.4-4.8); Alkaline Phosphatase 83 U/L (40-110); Anion Gap 11 mmol/L (10-20); BUN (Urea Nitrogen) 9 mg/dL (9.8-20.1); Bilirubin, Total 0.7 mg/dL (0.2-1.2); Calc. Creatinine Clearance 21 mL/min (70-130); Calcium 8.7 mg/dL (7.8-10.44); Carbon Dioxide 28 mmol/L (23-31); Chloride 101 mmol/L (98-107); Estimated GFR 24; Globulin 3.3 g/dL (2.4-3.5); Glucose 86 mg/dL (83-110); Protein, Total 5.9 g/dL (5.8-8.1); Sodium 136 mmol/L (136-145)
[2023-12-27 15:00] VITALS: BP 129/61; TEMP 98.6
== END 2023-12-27 18:58 | DRG 939 ==
LOC: 2SE 02:06 → OBSVTOIN 04:24 → 2SE 12-19 16:14
PROVIDERS: ADMIT Family Medicine; ATTEND Family Medicine
PROC: 0TBB8ZX Excision of Bladder, Via Natural or Artificial Opening Endoscopic, Diagnostic (ICD-10-PCS; principal; 2023-12-21)
PROC: 0T5B8ZZ Destruction of Bladder, Via Natural or Artificial Opening Endoscopic (ICD-10-PCS; 2023-12-21)
DX: R53.1 Weakness (principal); I21.A1 Myocardial infarction type 2; N18.6 End stage renal disease; I13.2 Hypertensive heart and chronic kidney disease with heart failure and with stage 5 chronic kidney disease, or end stage renal disease; D62 Acute posthemorrhagic anemia; E87.1 Hypo-osmolality and hyponatremia; I69.354 Hemiplegia and hemiparesis following cerebral infarction affecting left non-dominant side; I50.22 Chronic systolic (congestive) heart failure; I25.10 Atherosclerotic heart disease of native coronary artery without angina pectoris; E11.22 Type 2 diabetes mellitus with diabetic chronic kidney disease; Z66 Do not resuscitate; I69.322 Dysarthria following cerebral infarction; E78.5 Hyperlipidemia, unspecified; E03.9 Hypothyroidism, unspecified; R31.0 Gross hematuria; E11.40 Type 2 diabetes mellitus with diabetic neuropathy, unspecified; D63.1 Anemia in chronic kidney disease; I25.5 Ischemic cardiomyopathy; K21.9 Gastro-esophageal reflux disease without esophagitis; E87.6 Hypokalemia; N30.21 Other chronic cystitis with hematuria; E88.09 Other disorders of plasma-protein metabolism, not elsewhere classified; R50.9 Fever, unspecified; R53.81 Other malaise; Z79.4 Long term (current) use of insulin; Z99.2 Dependence on renal dialysis; Z88.5 Allergy status to narcotic agent; Z95.1 Presence of aortocoronary bypass graft; Z95.5 Presence of coronary angioplasty implant and graft; Z79.890 Hormone replacement therapy; Z79.84 Long term (current) use of oral hypoglycemic drugs; Z79.899 Other long term (current) drug therapy; Z79.02 Long term (current) use of antithrombotics/antiplatelets; Z90.710 Acquired absence of both cervix and uterus; Z90.49 Acquired absence of other specified parts of digestive tract
CPT/HCPCS: 36415; 36416; 36430; 80053; 83010; 83735; 84100; 84439; 84443; 84481; 84484; 85025; 85610; 85730; 86706; 86850; 86900; 86901; 87340; 88305; 88342; 90935; 93005; 93010; 93306; G0257; J0696; J1644; J1815; J2250; J3010; J3490; J7999; P9016; Q5105

== ENCOUNTER 2024-10-19 23:05 | Inpatient (IN) | payer MEDICARE ==
[2024-10-20 00:12] VITALS: BMI 18.7
[2024-10-20] MEDS ORDERED: Glucagon 1 MG/ML KIT IM PRN (00:34)
[2024-10-20] MEDS ORDERED: Dextrose 50% Abboject 50 ML SYRINGE SLOW IVP PRN (00:34)
[2024-10-20] MEDS: Losartan 25 MG TAB PO SCH ×2 (01:46→08:52)
[2024-10-20] MEDS: Gabapentin 100 MG CAP PO SCH ×2 (01:57→21:48)
[2024-10-20 07:21] LABS: #Basophils Less than 0.03 10x3/uL (0.0-0.2); #Eosinophils 0.05 10x3/uL (0.0-0.7); #Monocytes 0.48 10x3/uL (0.11-0.59); #Neutrophils 3.66 10x3/uL (1.40-6.50); %Basophils 0.4 % (0.0-1.0); %Eosinophils 0.9 % (0.0-10.0); %Lymphocytes 24.4 % (21.0-51.0); %Monocytes 8.6 % (0.0-10.0); %Neutrophils 65.2 % (42.0-75.0); Hematocrit 40.0 % (36.0-47.0); Hemoglobin 12.3 g/dL (12.0-16.0); Mean Corpuscular Hemoglobin 29.9 pg (27.0-31.0); Mean Corpuscular Volume 97.1 fL (78.0-98.0); Platelet Count 244 10x3/uL (130-400); Red Blood Cell (RBC) Count 4.12 mill/uL (4.20-5.40); White Blood Cell (WBC) Count 5.61 10x3/uL (4.8-10.8)
[2024-10-20 07:37] LABS: Anion Gap 11 mmol/L (10-20); BUN (Urea Nitrogen) 14 mg/dL (9.8-20.1); Calc. Creatinine Clearance 9 mL/min (70-130); Calcium 7.7 mg/dL (7.8-10.44); Carbon Dioxide 27 mmol/L (23-31); Chloride 110 mmol/L (98-107); Glucose 135 mg/dL (83-110); Potassium 3.4 mmol/L (3.5-5.1); Sodium 145 mmol/L (136-145)
[2024-10-20] MEDS: Ferrous Sulfate 325 MG TAB PO SCH (08:52)
[2024-10-20] MEDS: levETIRAcetam 500 MG TAB PO SCH (08:52)
[2024-10-20] MEDS: Cholecalciferol 1,000 UNITS (25 MCG) TAB PO SCH (08:52)
[2024-10-20] MEDS: NIFEdipine XL 90 MG ER.TAB PO SCH (08:52)
[2024-10-20] MEDS: Heparin 5,000 UNITS/ML VIAL SC SCH (08:52)
[2024-10-20] MEDS ORDERED: Enoxaparin 30 MG (0.3 mL) SYRINGE SC SCH (09:00)
[2024-10-20] MEDS ORDERED: Non-Formulary Item 1 EACH (Hydralazine Hcl [Hydralazine Hcl] 100 MG Tablet) PO SCH (09:00)
[2024-10-20 09:01] LABS: HBSAB Concentration Less than 8.00 mIU/mL; Hep B Core Total Ab NONREACTIVE (NonReactive); Hep B Core Total Index 0.26 S/CO (0-0.79); Hep B Surf Ag NONREACTIVE S/CO (NonReactive); Hep C IgG Ab NONREACTIVE S/CO (NonReactive); Hep C Index 0.28 S/CO (0-0.79)
[2024-10-20] MEDS ORDERED: Activase 2 MG VIAL CATH SCH (10:15)
[2024-10-20] MEDS ORDERED: Heparin 10,000 UNITS/ 10 ML VIAL ONE (11:17)
[2024-10-20 16:04] VITALS: BMI 18.7
[2024-10-20] MEDS: Mupirocin 1 GM TUBE TP SCH (21:48)
[2024-10-20] MEDS: Insulin Glargine 30 UNITS/0.3 ML VIAL SC SCH (21:50)
[2024-10-21 05:51] LABS: #Basophils 0.05 10x3/uL (0.0-0.2); #Eosinophils 0.08 10x3/uL (0.0-0.7); #Monocytes 0.77 10x3/uL (0.11-0.59); #Neutrophils 8.67 10x3/uL (1.40-6.50); %Basophils 0.5 % (0.0-1.0); %Eosinophils 0.7 % (0.0-10.0); %Lymphocytes 12.9 % (21.0-51.0); %Monocytes 7.0 % (0.0-10.0); %Neutrophils 78.4 % (42.0-75.0); Hematocrit 39.8 % (36.0-47.0); Hemoglobin 12.4 g/dL (12.0-16.0); Mean Corpuscular Hemoglobin 30.0 pg (27.0-31.0); Mean Corpuscular Volume 96.1 fL (78.0-98.0); Platelet Count 238 10x3/uL (130-400); Red Blood Cell (RBC) Count 4.14 mill/uL (4.20-5.40); White Blood Cell (WBC) Count 11.05 10x3/uL (4.8-10.8)
[2024-10-21 06:07] LABS: Anion Gap 11 mmol/L (10-20); BUN (Urea Nitrogen) 10 mg/dL (9.8-20.1); Calc. Creatinine Clearance 11 mL/min (70-130); Calcium 7.8 mg/dL (7.8-10.44); Carbon Dioxide 25 mmol/L (23-31); Chloride 107 mmol/L (98-107); Glucose 68 mg/dL (83-110); Potassium 3.8 mmol/L (3.5-5.1); Sodium 139 mmol/L (136-145)
[2024-10-21] MEDS: Acetaminophen 325 MG TAB PO PRN (15:22)
[2024-10-22] MEDS: Ondansetron PF 4 MG/2 ML Vial IVP PRN (01:56)
[2024-10-22 05:39] LABS: #Basophils 0.03 10x3/uL (0.0-0.2); #Eosinophils 0.07 10x3/uL (0.0-0.7); #Monocytes 0.48 10x3/uL (0.11-0.59); #Neutrophils 4.35 10x3/uL (1.40-6.50); %Basophils 0.5 % (0.0-1.0); %Eosinophils 1.2 % (0.0-10.0); %Lymphocytes 16.7 % (21.0-51.0); %Monocytes 8.1 % (0.0-10.0); %Neutrophils 73.2 % (42.0-75.0); Hematocrit 40.1 % (36.0-47.0); Hemoglobin 12.2 g/dL (12.0-16.0); Mean Corpuscular Hemoglobin 29.3 pg (27.0-31.0); Mean Corpuscular Volume 96.2 fL (78.0-98.0); Platelet Count 192 10x3/uL (130-400); Red Blood Cell (RBC) Count 4.17 mill/uL (4.20-5.40); White Blood Cell (WBC) Count 5.94 10x3/uL (4.8-10.8)
[2024-10-22 05:53] LABS: Anion Gap 11 mmol/L (10-20); BUN (Urea Nitrogen) 16 mg/dL (9.8-20.1); Calc. Creatinine Clearance 10 mL/min (70-130); Calcium 7.4 mg/dL (7.8-10.44); Carbon Dioxide 26 mmol/L (23-31); Chloride 99 mmol/L (98-107); Glucose 141 mg/dL (83-110); Potassium 3.8 mmol/L (3.5-5.1); Sodium 132 mmol/L (136-145)
[2024-10-22] MEDS ORDERED: Heparin 10,000 UNITS/ 10 ML VIAL ONE (09:06)
[2024-10-22] MEDS: Calcium Carbonate 500 MG ChewTAB PO PRN (22:20)
[2024-10-23 05:42] LABS: #Basophils Less than 0.03 10x3/uL (0.0-0.2); #Eosinophils Less than 0.03 10x3/uL (0.0-0.7); #Monocytes 0.42 10x3/uL (0.11-0.59); #Neutrophils 2.91 10x3/uL (1.40-6.50); %Basophils 0.4 % (0.0-1.0); %Eosinophils 0.4 % (0.0-10.0); %Lymphocytes 25.2 % (21.0-51.0); %Monocytes 9.3 % (0.0-10.0); %Neutrophils 64.3 % (42.0-75.0); Hematocrit 35.2 % (36.0-47.0); Hemoglobin 11.1 g/dL (12.0-16.0); Mean Corpuscular Hemoglobin 29.8 pg (27.0-31.0); Mean Corpuscular Volume 94.4 fL (78.0-98.0); Platelet Count 197 10x3/uL (130-400); Red Blood Cell (RBC) Count 3.73 mill/uL (4.20-5.40); White Blood Cell (WBC) Count 4.53 10x3/uL (4.8-10.8)
[2024-10-23 05:55] LABS: Anion Gap 10 mmol/L (10-20); BUN (Urea Nitrogen) 14 mg/dL (9.8-20.1); Calc. Creatinine Clearance 11 mL/min (70-130); Calcium 7.3 mg/dL (7.8-10.44); Carbon Dioxide 26 mmol/L (23-31); Chloride 99 mmol/L (98-107); Glucose 144 mg/dL (83-110); Potassium 4.0 mmol/L (3.5-5.1); Sodium 131 mmol/L (136-145)
[2024-10-23] MEDS ORDERED: Heparin 10,000 UNITS/ 10 ML VIAL ONE (16:22)
[2024-10-23] MEDS ORDERED: Etomidate 40 MG (20 mL) VIAL ONE (16:38)
[2024-10-23] MEDS ORDERED: SUCCINYLCHOLINE/SOD CL,ISO/PF 200 MG/10 ML SYRINGE FS ONE (16:38)
[2024-10-23] MEDS ORDERED: Lidocaine 1% PF 5 ML VIAL ONE (16:38)
[2024-10-23] MEDS ORDERED: Metoprolol Tartrate 5 MG (5 mL) VIAL ONE (17:45)
[2024-10-24 05:29] LABS: #Basophils 0.03 10x3/uL (0.0-0.2); #Eosinophils 0.06 10x3/uL (0.0-0.7); #Monocytes 0.50 10x3/uL (0.11-0.59); #Neutrophils 3.40 10x3/uL (1.40-6.50); %Basophils 0.5 % (0.0-1.0); %Eosinophils 1.1 % (0.0-10.0); %Lymphocytes 28.0 % (21.0-51.0); %Monocytes 9.0 % (0.0-10.0); %Neutrophils 61.0 % (42.0-75.0); Hematocrit 36.8 % (36.0-47.0); Hemoglobin 11.6 g/dL (12.0-16.0); Mean Corpuscular Hemoglobin 29.9 pg (27.0-31.0); Mean Corpuscular Volume 94.8 fL (78.0-98.0); Platelet Count 173 10x3/uL (130-400); Red Blood Cell (RBC) Count 3.88 mill/uL (4.20-5.40); White Blood Cell (WBC) Count 5.57 10x3/uL (4.8-10.8)
[2024-10-24 09:01] LABS: Anion Gap 10 mmol/L (10-20); BUN (Urea Nitrogen) 25 mg/dL (9.8-20.1); Calc. Creatinine Clearance 10 mL/min (70-130); Calcium 7.8 mg/dL (7.8-10.44); Carbon Dioxide 25 mmol/L (23-31); Chloride 97 mmol/L (98-107); Glucose 55 mg/dL (83-110); Potassium 4.0 mmol/L (3.5-5.1); Sodium 128 mmol/L (136-145)
[2024-10-24] MEDS: Gentamicin Sulfate 80 MG in Premix 1 BAG IVPB SCH (17:23)
[2024-10-24 20:26] VITALS: BP 123/75; TEMP 98.3
== END 2024-10-24 20:53 | disposition home health service (06) | DRG 689 ==
LOC: T4-A 23:05
PROVIDERS: ADMIT Family Medicine; ATTEND Family Medicine
PROC: 5A1D70Z Performance of Urinary Filtration, Intermittent, Less than 6 Hours Per Day (ICD-10-PCS; 2024-10-20)
PROC: 3E03329 Introduction of Other Anti-infective into Peripheral Vein, Percutaneous Approach (ICD-10-PCS; 2024-10-20)
PROC: 0JPT3XZ Removal of Tunneled Vascular Access Device from Trunk Subcutaneous Tissue and Fascia, Percutaneous Approach (ICD-10-PCS; principal; 2024-10-23)
PROC: 0JH63XZ Insertion of Tunneled Vascular Access Device into Chest Subcutaneous Tissue and Fascia, Percutaneous Approach (ICD-10-PCS; 2024-10-23)
PROC: 02PY33Z Removal of Infusion Device from Great Vessel, Percutaneous Approach (ICD-10-PCS; 2024-10-23)
PROC: 02HV33Z Insertion of Infusion Device into Superior Vena Cava, Percutaneous Approach (ICD-10-PCS; 2024-10-23)
PROC: B5181ZA Fluoroscopy of Superior Vena Cava using Low Osmolar Contrast, Guidance (ICD-10-PCS; 2024-10-23)
PROC: 3E04329 Introduction of Other Anti-infective into Central Vein, Percutaneous Approach (ICD-10-PCS; 2024-10-23)
DX: N39.0 Urinary tract infection, site not specified (principal); E43 Unspecified severe protein-calorie malnutrition; N18.6 End stage renal disease; Z16.24 Resistance to multiple antibiotics; T82.41XA Breakdown (mechanical) of vascular dialysis catheter, initial encounter; Z66 Do not resuscitate; E11.22 Type 2 diabetes mellitus with diabetic chronic kidney disease; E11.622 Type 2 diabetes mellitus with other skin ulcer; L98.499 Non-pressure chronic ulcer of skin of other sites with unspecified severity; E03.9 Hypothyroidism, unspecified; I25.10 Atherosclerotic heart disease of native coronary artery without angina pectoris; E78.5 Hyperlipidemia, unspecified; E11.42 Type 2 diabetes mellitus with diabetic polyneuropathy; G25.81 Restless legs syndrome; D63.1 Anemia in chronic kidney disease; E11.65 Type 2 diabetes mellitus with hyperglycemia; M54.9 Dorsalgia, unspecified; Z88.8 Allergy status to other drugs, medicaments and biological substances; Z79.899 Other long term (current) drug therapy; Z79.890 Hormone replacement therapy; Z79.891 Long term (current) use of opiate analgesic; Z79.4 Long term (current) use of insulin; Z87.440 Personal history of urinary (tract) infections; Z98.890 Other specified postprocedural states; Z95.5 Presence of coronary angioplasty implant and graft; Z90.710 Acquired absence of both cervix and uterus; Z90.49 Acquired absence of other specified parts of digestive tract; Z99.2 Dependence on renal dialysis; Z86.73 Personal history of transient ischemic attack (TIA), and cerebral infarction without residual deficits; Z95.1 Presence of aortocoronary bypass graft
CPT/HCPCS: 36415; 36416; 71045; 74018; 80048; 85025; 86704; 86706; 86803; 87340; 97139; C1750; J1580; J1642; J1644; J1815; J2185; J2405; J2543; J3010; J7070; Q0162